=== PATIENT | male | born 1945 | race Caucasian/White ===

== ENCOUNTER 2022-11-03 09:22 | Outpatient (OUT) | payer MEDICARE, OTHER, SELFPAY ==
[2022-11-03 09:51] LABS: Basophils Absolute Auto 0.1 10^3/uL (0.0-0.1); Basophils Percent Auto 1.6 % (0.2-2.0); Eosinophils Absolute Auto 0.5 10^3/uL (0.0-0.7); Eosinophils Percent Auto 10.5 % (0.9-7.0); Hematocrit 40.5 % (42.0-54.0); Hemoglobin 14.3 g/dL (14.0-18.0); Immature Granulocytes Abs Auto 0.01 10^3/uL (0.00-0.03); Immature Granulocytes Pct Auto 0.2 % (0.0-0.5); Lymphocytes Percent Auto 24.1 % (20.5-60.0); Mean Corpuscular HGB Conc 35.3 g/dL (29.9-35.2); Mean Corpuscular Hemoglobin 31.9 pg (25.9-34.0); Mean Corpuscular Volume 90.4 fL (80.0-94.0); Mean Platelet Volume 8.4 fL (9.5-13.5); Monocytes Absolute Auto 0.5 10^3/uL (0.3-0.8); Neutrophils Absolute Auto 2.3 10^3/uL (1.4-6.5); Neutrophils Percent Auto 52.6 % (43.0-75.0); Platelet Count 228 10^3/uL (150-450); Red Blood Count 4.48 10^6/uL (4.70-6.10); Red Cell Distribution Width 12.4 % (11.0-15.0); White Blood Count 4.3 10^3/uL (4.0-11.0)
[2022-11-03 10:21] LABS: Estimated Average Glucose 111 mg/dL; Glycohemoglobin A1C 5.5 % (4.5-6.2)
[2022-11-03 12:15] LABS: Alanine Aminotransferase 22 U/L (16-63); Albumin Globulin Ratio 1.4; Albumin Level 3.9 g/dL (3.4-5.0); Alkaline Phosphatase 52 U/L (46-116); Anion Gap 10.2; Aspartate Amino Transferase 13 U/L (15-37); Bilirubin Total 1.2 mg/dL (0.2-1.0); Calcium 8.9 mg/dL (8.5-10.1); Carbon Dioxide 30.2 mmol/L (21.0-32.0); Chloride 97 mmol/L (98-107); Cholesterol 173 mg/dL (<=200); Estimated GFR (African America >60 (>=60); Estimated GFR (Non-African Ame >60 (>=60); Globulin 2.8 g/dL; Glucose 98 mg/dL (74-106); HDL Cholesterol 43 mg/dL (40-60); Potassium 4.4 mmol/L (3.5-5.1); Sodium 133 mmol/L (136-145); Thyroid Stimulating Hormone 1.164 uIU/mL (0.358-3.740); Total Protein 6.7 g/dL (6.4-8.2); Triglycerides 140 mg/dL (<=150)
[2022-11-03 15:53] LABS: Free T4 0.98 ng/dL (0.76-1.46)
[2022-11-04 04:07] LABS: Triiodothyronine (T3) 141 ng/dL (71-180)
== END 2022-11-03 09:23 | disposition home or self-care (01) ==
LOC: LAB 09:28
PROVIDERS: PCP Family Medicine; Visit Provider Family Medicine
DX: E03.9 Hypothyroidism, unspecified (principal); R73.9 Hyperglycemia, unspecified; E78.5 Hyperlipidemia, unspecified; Z79.899 Other long term (current) drug therapy
CPT/HCPCS: 36415; 80053; 80061; 83036; 84439; 84443; 84480; 85025

== ENCOUNTER 2024-05-31 07:20 | Outpatient (OUT) | payer MEDICARE, OTHER, SELFPAY ==
[2024-05-31 07:56] LABS: Basophils Absolute Auto 0.1 10^3/uL (0.0-0.1); Basophils Percent Auto 1.8 % (0.2-2.0); Eosinophils Absolute Auto 0.4 10^3/uL (0.0-0.7); Eosinophils Percent Auto 8.4 % (0.9-7.0); Hematocrit 41.5 % (42.0-54.0); Hemoglobin 14.5 g/dL (14.0-18.0); Immature Granulocytes Abs Auto 0.01 10^3/uL (0.00-0.03); Immature Granulocytes Pct Auto 0.2 % (0.0-0.5); Lymphocytes Absolute Auto 0.9 10^3/uL (1.2-3.8); Lymphocytes Percent Auto 20.4 % (20.5-60.0); Mean Corpuscular HGB Conc 34.9 g/dL (29.9-35.2); Mean Corpuscular Hemoglobin 32.3 pg (25.9-34.0); Mean Corpuscular Volume 92.4 fL (80.0-94.0); Mean Platelet Volume 8.9 fL (9.5-13.5); Monocytes Absolute Auto 0.5 10^3/uL (0.3-0.8); Monocytes Percent Auto 11.8 % (1.7-12.0); Neutrophils Absolute Auto 2.5 10^3/uL (1.4-6.5); Neutrophils Percent Auto 57.4 % (43.0-75.0); Platelet Count 222 10^3/uL (150-450); Red Blood Count 4.49 10^6/uL (4.70-6.10); Red Cell Distribution Width 12.2 % (11.0-15.0); White Blood Count 4.4 10^3/uL (4.0-11.0)
[2024-05-31 08:09] LABS: Bilirubin Urine NEGATIVE (NEGATIVE); Blood Urine NEGATIVE (NEGATIVE); Clarity Urine CLEAR (CLEAR); Color Urine LT. YELLOW (YELLOW); Glucose Urine UA NEGATIVE (NEGATIVE); Ketones Urine NEGATIVE (NEGATIVE); Leukocyte Esterase Urine NEGATIVE (NEGATIVE); Nitrite Urine NEGATIVE (NEGATIVE); Protein Urine NEGATIVE (NEG/TRACE); Urobilinogen Urine 0.2 EU/dL (0.2-1.0); pH Urine 6.5 (5.0-9.0)
[2024-05-31 08:14] LABS: Estimated Average Glucose 105 mg/dL; Glycohemoglobin A1C 5.3 % (4.5-6.2)
[2024-05-31 08:44] LABS: Free T4 1.03 ng/dL (0.76-1.46)
[2024-05-31 08:49] LABS: Alanine Aminotransferase 20 U/L (16-63); Albumin Globulin Ratio 1.5; Alkaline Phosphatase 63 U/L (46-116); Anion Gap 9.8; Aspartate Amino Transferase 19 U/L (15-37); BUN Creatinine Ratio 14.9; Bilirubin Total 1.4 mg/dL (0.2-1.0); Calcium 8.9 mg/dL (8.5-10.1); Carbon Dioxide 30.2 mmol/L (21.0-32.0); Chloride 100 mmol/L (98-107); Chol HDL Ratio 2.4; Cholesterol 132 mg/dL (<=200); Estimated GFR (African America >60 (>=60 mL/min/1.73m^2); Estimated GFR (Non-African Ame >60 (>=60 mL/min/1.73m^2); Free T3 3.12 pg/mL (2.18-3.98); Globulin 2.7 g/dL; Glucose 93 mg/dL (74-106); HDL Cholesterol 55 mg/dL (40-60); Sodium 136 mmol/L (136-145); Thyroid Stimulating Hormone 2.338 uIU/mL (0.358-3.740); Total Protein 6.7 g/dL (6.4-8.2); Triglycerides 60 mg/dL (<=150)
[2024-05-31 09:17] LABS: Bacteria Urine TRACE #/HPF (NONE SEEN); Cast Seen? NONE SEEN #/LPF (NONE SEEN); Crystals Seen? None Seen #/HPF (None Seen); Mucus Urine NONE SEEN (NONE SEEN); RBC Urine NONE SEEN #/HPF (0-2); Squamous Epithelial Cell Urine NONE SEEN #/LPF (NONE/RARE); WBC Urine 0-2 #/HPF (NONE SEEN)
[2024-06-01 06:08] LABS: Insulin 8.3 uIU/mL (2.6-24.9)
[2024-06-01 08:09] LABS: PSA, Free 0.77 ng/mL; Prostate Specific Ag 3.2 ng/mL (0.0-4.0)
== END 2024-05-31 07:21 | disposition home or self-care (01) ==
LOC: LAB 07:20
PROVIDERS: PCP Family Medicine; Visit Provider Family Medicine
DX: Z79.899 Other long term (current) drug therapy (principal); R97.20 Elevated prostate specific antigen [PSA]; E78.5 Hyperlipidemia, unspecified; R73.9 Hyperglycemia, unspecified; E03.9 Hypothyroidism, unspecified; R35.1 Nocturia
CPT/HCPCS: 36415; 80053; 80061; 81001; 83036; 83525; 84153; 84154; 84439; 84443; 84481; 85025; 87086

== ENCOUNTER 2024-08-21 11:05 | Outpatient (REF) | payer MEDICARE, OTHER, SELFPAY ==
--- OUTSIDE RECORDS SUMMARY | 2024-08-21 11:31 | XMS_ITS | Clinical Summary ---
Author Organization [facility] Address [address] [place] [address] Care Team Providers Care Technology Analyst Name Role Phone Guido Wells DO Primary Care Provider [phone] Allergies No known active allergies Medications levothyroxine (SYNTHROID, LEVOTHROID) 50 MCG tablet 3 Active levothyroxine (SYNTHROID, LEVOTHROID) 50 MCG tablet 2 Active rosuvastatin (CRESTOR) 5 MG tablet 3 Active famotidine (PEPCID) 10 MG tablet every 12 (twelve) hours . Active melatonin 10 mg Tab Take by mouth . Acti ve melatonin 5 mg Tab Take 2 (two) tablets (10 mg total) by mouth nightly . Active glucosamine-cho ndroitin 500-400 mg tablet Take 1 (one) tablet by mouth 3 (three) times a day . Active ascorbic acid, vitamin C, (vitamin C) 1000 MG tablet Take 1 (one) tablet (1,000 mg total) by mouth daily . Active cholecalciferol , vitamin D3, 1,000 unit tablet Take 1 (one) tablet (1,000 Units total) by mouth daily . Active calcium carbonate (OS-KEY) 600 mg calcium (1,500 mg) tablet Take 1 (one) tablet (600 mg total) by mouth 2 (two) times a day with meals . Active phytonadione, vit K1, (phytonadione, vitamin K1,) 100 mcg tablet Take 1 (one) tablet (100 mcg total) by mouth daily . Active zinc gluconate 50 mg tablet Take 1 (one) tablet (50 mg total) by mouth daily . Active MULTIVIT,[id number]- [id number] ORAL Take by mouth . Acti ve liothyronine (CYTOMEL) 5 MCG tablet Take 1 (one) tablet (5 mcg total) by mouth daily . 2 Active cetirizine 10 mg cap Take 1 (one) capsule (10 mg total) by mouth . Active fluticasone propionate (FLONASE) 50 mcg/actuation nasal spray Fluticasone Propionate Active 2 SPRAY INTRANASAL Daily March 22, 2017 1:00am 2 Active Active Problems Problem Noted Date Diagnosed Date Osteoporosis 01/03/2023 Encounters Date Type Department Care Team Description 07/12/2024 10:00 AM EDT Infusion/Inject ion [facility] Computer Software Engineer [address] [place] [phone] Mohan Frost MD Osteoporosis, unspecified osteoporosis type, unspecified pathological fracture presence (Primary Dx) Discharge Disposition: Home 07/11/2024 Travel 07/03/2024 10:45 AM EDT Office Visit [facility] [address] [facility] [place] [address] Mohan Frost MD Osteoporosis, unspecified osteoporosis type, unspecified pathological fracture presence (Primary Dx) 07/03/2024 Travel from Last 3 Months Family History Medical History Relation Comments Hypertension Father Regulated minir Thyroid disease Father Surgery Cancer Mother Bladder and kidn ey cancer Osteoporosis Sister Not serious no r x mediations Relation Status Comments Father Mother Sister Social History Tobacco Use Types Packs/Day Years Used Date Smoking Tobacco: Never Smokeless Tobacco: Never Alcohol Use Standard Drinks/Week Comments Not Currently 0 (1 standard drink = 0.6 oz pur e alcohol) Sex and Gender Information Value Date Recorded Sex Assigned at Not on file Legal Sex Male 11:00 AM EDT Gender Identity Not on file Sexual Orientation Not on file Last Filed Vital Signs Vital Sign Reading Time Taken Comments Blood Pressure 159/79 07/12/2024 9:45 AM EDT Pulse 76 07/12/2024 9:45 AM EDT Temperature 36.7 C (98 F) 07/12/2024 9:45 AM EDT Respiratory Rate 16 07/12/2024 9:45 AM EDT Oxygen Saturation 97% 07/12/2024 9:45 AM EDT Inhaled Oxygen Concentration - - Weight 65.3 kg (144 lb) 07/03/2024 10:24 AM EDT Height 169.5 cm (5' 6.75 ) 07/03/2024 10:24 AM E DT no shoes Body Mass Index 22.72 07/03/2024 10:24 AM EDT Plan of Treatment Upcoming Encounters Date Type Department Care Team (Late st Contact Info) Description 01/14/2025 9:30 AM EST Infusion/Injectio n [facility] Computer Software Engineer [address] [place] [phone] 07/05/2025 10:15 AM EDT Office Visit [facility] [address] [facility] [place] [address] Mohan Frost MD [address] [place] [id number] Health Maintenance Due Date Last Done Comments Medicare Wellness Visit 1948 Depression Screening/Follow- Up (PHQ-2/9) 1957 Hepatitis C Screening 1963 Falls Risk Assessment 2010 Respiratory Syncytial Virus Immunization: Risk, 60-74 Risk, or 75+ (1 - 1-dose 75+ series) 2020 Pneumococcal Vaccine: Age 50 + (2 of 2 - PCV) 11/04/2021 11/04/2020 COVID-19 Vaccine ( season) 2024 12/15/2023, 06/06/2023, 12/22/2022, Additional history exists Tetanus: Every 10yrs 02/27/2031 02/27/2021, 08/08/2015, 05/20/2010 Zoster Vaccines Completed 10/08/2020, 07/13, 05/20/2010 Influenza Vaccine Completed 12/01/2023, , 11/05/2021, Additional history exists Procedures Procedure Name Priority Date/Time Associated Diagnosis Comments CREATININE, SERUM Routine 07/03/2024 11: 45 AM EDT Osteoporosis, unspecified osteoporosis type, unspecified pathological fracture presence CALCIUM Routine 07/03/2024 11:45 AM EDT Osteoporosis, unspecified osteoporosis type, unspecified pathological fracture presence ALBUMIN Routine 07/03/2024 11:45 AM EDT Osteoporosis, unspecified osteoporosis type, unspecified pathological fracture presence from Last 3 Months Results * (ABNORMAL) Creatinine, serum (07/03/2024 11:45 AM EDT) Creatinine ([facility]) 0.67(L) 0.70 - 1.28 mg/dL [facility] eGFR ([facility]) 95 > OR = 60 mL/min/1.7 3m2 [facility] Blood BLOOD SPECIMEN / Unknown 07/03/2024 11:45 AM EDT 07/03/2024 11:45 AM EDT Narrative [facility] - 07/04/2024 4:23 AM EDT FASTING:NO FASTING: NO us Mohan Frost MD LAB BLOOD ORDERABLE S Final Result Performing Organization Address [facility] Co de Phone Number [facility] [address] [phone], * Calcium (07/03/2024 11:45 AM EDT) Calcium ([facility]) 8.8 8.6 - 10.3 mg/dL [facility] Blood BLOOD SPECIMEN / Unknown 07/03/2024 11:45 AM EDT 07/03/2024 11:45 AM EDT Narrative [facility] - 07/04/2024 4:23 AM EDT FASTING:NO FASTING: NO us Mohan Frost MD LAB BLOOD ORDERABLE S Final Result Performing Organization Address City/[facility]/ZIP Co de Phone Number [place] [address], [place] * Albumin (07/03/2024 11:45 AM EDT) Albumin, Serum ([facility]) 4.3 3.6 - 5.1 g/dL [facility] Blood BLOOD SPECIMEN / Unknown 07/03/2024 11:45 AM EDT 07/03/2024 11:45 AM EDT Narrative [facility] - 07/04/2024 4:23 AM EDT FASTING:NO FASTING: NO us Mohan Frost MD LAB BLOOD ORDERABLE S Final Result [facility] [address] [place] [address], [place] from Last 3 Months Insurance MEDICARE PART A & B PART A CLAIMS [address] [address] [place] [address] [facility] MEDICARE PART A & B PART A CLAIMS [address] [address] [place] [address] [facility] Care Teams Technology Analyst Relationship Specialty Start Date End Date Guido Wells DO [address] [place] [address] PCP - General Family Medicine 06/30/23
--- OUTSIDE RECORDS SUMMARY | 2024-08-21 11:31 | XMS_ITS | Clinical Summary ---
Author Organization [facility] Address [id number] [address] [place] [address] Care Team Providers Care Proof Operator Name Role Phone Unavailable Primary Care Provider Unavailabl e Allergies No known active allergies Medications levothyroxine (SYNTHROID, LEVOTHROID) 50 MCG tablet 3 Active liothyronine (CYTOMEL) 5 MCG tablet 3 Active rosuvastatin (CRESTOR) 5 mg tablet 3 Active fluocinonide (LIDEX) 0.05 % ointment Apply 1 Application topically in the morning and 1 Application before bedtime. Active denosumab (PROLIA SUBQ) Inject under the skin. Active diphenhydramine HCl (BENADRYL ALLERGY ORAL) Take by mouth. A ctive glucosamine HCl/chondroitin tong (GLUCOSAMINE-CH ONDROITIN ORAL) Take by mouth. Active ascorbic acid, vitamin C, (VITAMIN C) 1000 mg tablet Take 1 tablet (1,000 mg total) by mouth in the morning. Active cholecalciferol , vitamin D3, (VITAMIN D3 ORAL) Take by mouth. Activ e zinc gluconate 50 mg tablet Take 1 tablet (50 mg total) by mouth in the morning. Active coenzyme Q10 50 mg capsule Take by mouth daily. Active multivitamin capsule Take 1 capsule by mouth in the morning. Active CALCIUM CITRATE ORAL Take by mouth. Activ e magnesium 200 mg tablet Take by mouth. Activ e melatonin 10 mg tablet Take by mouth. Activ e Active Problems Problem Noted Date Diagnosed Date Elevated PSA 07/20/2022 Overview (07/20/2022): 07/20/22: Patient's PSA did increase to 2.1 from 1.66. He has a normal prostate exam. Discussed PSA and some limitations. Given the PSA velocity this does not concern me as it is less than 0.75 per year. Coupled with this the patient did have COVID which falsely elevate PSA in many patients. Would recommend continuing to check this annually Social History Tobacco Use Types Packs/Day Years Used Date Smoking Tobacco: Never Smokeless Tobacco: Never Tobacco Cessation:Counseling Given: Not Answered Alcohol Use Standard Drinks/Week Comments Yes 0 (1 standard drink = 0.6 oz pur e alcohol) Hunger Screening Answer Date Recorded Within the past 12 months we worried whether our food would run out before we got money to buy more. Never True 07/20/2022 Within the past 12 months th e food we bought just didn't last and we didn't have money to get more. Never True 07/20/2022 Sex and Gender Information Value Date Recorded Sex Assigned at Not on file Legal Sex Male 10:41 AM EST Gender Identity Not on file Sexual Orientation Not on file Last Filed Vital Signs Vital Sign Reading Time Taken Comments Blood Pressure 146/79 07/20/2022 2:06 PM EDT Pulse 67 07/20/2022 2:06 PM EDT Temperature - - Respiratory Rate - - Oxygen Saturation - - Inhaled Oxygen Concentration - - Weight 68 kg (150 lb) 07/20/2022 2:06 PM EDT Height 175.3 cm (5' 9 ) 07/20/2022 2:06 PM EDT Body Mass Index 22.15 07/20/2022 2:06 PM EDT Plan of Treatment Health Maintenance Due Date Last Done Comments Depression Screening 1957 Tobacco Screening 1957 Fall Risk Screening 2010 COVID-19 Vaccine (2023-2 5 season) 2023 12/03/2021, 07/17/2021, 01/02/2021, Additional history exists Influenza Vaccine 11/12/2024 11/05/2021, , 12/14/2018, Additional history exists DTaP,Tdap and Td Vaccines (4 - Td or Tdap) 02/27/2031 02/27/2021, 08/08/2015, 05/20/2010 Zoster (Shingles) Vaccine Completed 2020, 08/08/2020, 05/20/2010 Medical Devices Not on file Insurance [employer]
--- OUTSIDE RECORDS SUMMARY | 2024-08-21 11:31 | XMS_ITS | Clinical Summary ---
Author Organization [facility] Address [address] [place] [address] Care Team Providers Care Block Cleaner Name Role Phone Guido Wells MD Primary Care Provider [phone] Allergies Active Allergy Reactions Criticality Noted Date Comments Octacosanol 09/30/2015 Medications ascorbic acid (Vitamin C) 1000 MG tablet Take 1,000 mg by mouth in the morning. Active Cetirizine HCl 10 MG capsule Take 10 mg by mouth Active coenzyme Q-10 50 MG capsule Take by mouth in the morning. Active famotidine (Pepcid) 10 MG tablet every 12 (twelve) hours Active fluocinonide (Lidex) 0.05 % ointment Apply 1 application topically in the morning and 1 application in the evening. 3 Active levothyroxine (Synthroid, Levoxyl) 50 MCG tablet 3 Active liothyronine (Cytomel) 5 MCG tablet 3 Active rosuvastatin (Crestor) 5 MG tablet 3 Active zinc gluconate 50 MG tablet Take 50 mg by mouth in the morning. Active Active Problems Problem Noted Date Diagnosed Date Cervical spondylosis with radiculopathy 09/21/19 24 Degeneration of lumbar intervertebral disc 09/20 Impingement syndrome of left shoulder 09/21/2023 Inflammation of joint of right shoulder region 0 09/21/2023 Lumbosacral spondylosis without myelopathy 09/20 Osteoarthritis of right acromioclavicular joint 09/21/2023 Osteoporosis 01/03/2023 Elevated PSA 07/20/2022 Overview (09/21/2023): 07/20/22: Patient's PSA did increase to 2.1 from 1.66. He has a normal prostate exam. Discussed PSA and some limitations. Given the PSA velocity this does not concern me as it is less than 0.75 per year. Coupled with this the patient did have COVID which falsely elevate PSA in many patients. Would recommend continuing to check this annually Lens replaced 02/11/2015 Posterior vitreous detachment 02/11/2015 History of vitrectomy 04/11/2014 Old retinal detachment, partial 04/11/2014 Retinal layer separation 06/06/2012 Senile cataract 12/01/2011 OA (osteoarthritis) of knee 11/11/2011 Retinal detachment with retinal defect 2 Primary localized osteoarthrosis, hand 9 Contracture of palmar fascia 04/25/2008 Trigger finger, acquired 04/25/2008 Encounters Date Type Department Care Team Description 07/18/2024 12:50 PM EDT Office Visit [facility] [address] [place] [address] Nicole Montana PA Seborrheic keratosis (Primary Dx); Melanocytic nevus of trunk; Dermatofibroma of right lower extremity; Actinic keratosis; Inflamed seborrheic keratosis 07/18/2024 Bamboo flowsheet [facility] [address] [place] [address] Nicole Montana PA 07/18/2024 Travel from Last 3 Months Immunizations Immunization Administration Dates Next Due Influenza, High Dose Seasona l, Preservative Free 12/01/2023,12/01/2016 Influenza, High-dose Seasona l, Quadrivalent, Preservative Free 11/04/2020 Influenza, Seasonal, Quadriv alent, Adjuvanted 10/28/2022,11/05/2021 Influenza, seasonal, injectable 12/12/2017 Influenza, trivalent, adjuvanted 12/14/2018 Pneumococcal Polysaccharide PPSV23 11/04/2020 RSV, recombinant, protein tong bunit RSVpreF, adjuvant reconstitu, 120mcg/0.5mL, PF (Arexvy) 12/17/2022 Tdap 02/27/2021,08/08/2015,05/20/2010 Zoster, Recombinant 10/08/2020,08/08/2020 Zoster, live 05/20/2010 Family History Relation Name Status Comments Daughter x 6 Alive Father Mother Social History Tobacco Use Types Packs/Day Years Used Date Smoking Tobacco: Never Smokeless Tobacco: Never Tobacco Cessation:Counseling Given: Not Answered Alcohol Use Standard Drinks/Week Comments Not Currently 0 (1 standard drink = 0.6 oz pur e alcohol) Sex and Gender Information Value Date Recorded Sex Assigned at Not on file Legal Sex Male 7:20 PM EDT Gender Identity Not on file Sexual Orientation Not on file Last Filed Vital Signs Vital Sign Reading Time Taken Comments Blood Pressure 144/77 11/22/2023 10:53 AM EDT Pulse 74 11/22/2023 10:53 AM EDT Temperature - - Respiratory Rate 16 11/22/2023 10:53 AM EDT Oxygen Saturation 98% 06/21/2022 10:18 AM EDT Inhaled Oxygen Concentration - - Weight 65.8 kg (145 lb) 11/22/2023 10:53 AM EDT Height 172.7 cm (5' 8 ) 11/22/2023 10:53 AM EDT Body Mass Index 22.05 11/22/2023 10:53 AM EDT Plan of Treatment Upcoming Encounters Date Type Department Care Team (Late st Contact Info) Description 07/17/2025 10:20 AM EDT Office Visit [facility] [address] [place] [address] Nicole Montana, [place] [address] [place] [address] Health Maintenance Due Date Last Done Comments Pneumococcal Vaccine: 65+ Ye ars (2 of 2 - PCV) 11/04/2021 11/04/2020 Influenza Vaccine Completed 12/01/2023, , 11/05/2021, Additional history exists Procedures Procedure Name Priority Date/Time Associated Diagnosis Comments CRYOTHERAPY SKIN LESION Routine 07/19/19 12:58 PM EDT Inflamed seborrheic keratosis CRYOTHERAPY SKIN LESION Routine 07/19/19 12:57 PM EDT Actinic keratosis from Last 3 Months Results * Cryotherapy, skin lesion (07/18/2024 12:58 PM EDT) Nicole HUERTA DERM PROCEDURE ORDERABLES Fin al Result * Cryotherapy, skin lesion (07/18/2024 12:57 PM EDT) Nicole HUERTA DERM PROCEDURE ORDERABLES Fin al Result from Last 3 Months Insurance [employer] Care Teams Block Cleaner Relationship Specialty Start Date End Date Guido Wells MD [address] [place] [phone] PCP - General Family Medicine 09/21/23
--- OUTSIDE RECORDS SUMMARY | 2024-08-21 11:31 | XMS_ITS | Encounter Summary ---
Author Organization [facility] Address [address] [place] [address] Care Team Providers Care Installation Drafter Name Role Phone Guido Wells Primary Care Provider [phone] Source Comments In the event this information is protected by the Federal Confidentiality of Alcohol and Drug AbusePatient Records regulations: The Federal rules restrict any use of the information to criminally investigate or prosecute any alcohol or drug abuse patient.[facility] Encounter Details Date Type Department Care Team (Late st Contact Info) Description 06/16/2022 Lab Requisition [facility] [place] [address] Cesar Connors MD [address] [facility] [address] [place] [address] Social History Tobacco Use Types Packs/Day Years Used Date Smoking Tobacco: Never Smokeless Tobacco: Never Alcohol Use Standard Drinks/Week Comments Yes 0 (1 standard drink = 0.6 oz pur e alcohol) periodically Sex and Gender Information Value Date Recorded Sex Assigned at Not on file Legal Sex Male 8:57 AM EST Gender Identity Not on file Sexual Orientation Not on file documented as of this encounter Plan of Treatment Not on file documented as of this encounter Procedures Procedure Name Priority Date/Time Associated Diagnosis Comments CROSS-LINK N-TELOPEPTIDES Routine 06/16/2022 8:20 AM EDT documented in this encounter Results * CROSS-LINK N-TELO BL (06/16/2022 8:20 AM EDT) Cross-Link N-Telopeptide, Blood 6.5 5.4 - 24.2 nM BCE 07/06/2022 7:48 AM EDT [facility] Comment: BCE = Bone Collagen Equivalents Test performed at [facility] Blood BLOOD SPECIMEN / Unknown 06/16/2022 8:20 AM EDT 06/16/2022 11:41 PM EDT us Cesar Connors MD LABORATORY Final Result [facility] [address] documented in this encounter Visit Diagnoses Not on filedocumented in this encounter Care Teams Installation Drafter Relationship Specialty Start Date End Date Guido Wells DO PCP - General Family Medicine 08/17/10 documented as of this encounter
--- OUTSIDE RECORDS SUMMARY | 2024-08-21 11:31 | XMS_ITS | Clinical Summary ---
Author Organization [facility] Address [address] [place] [address] Care Team Providers Care Business Development Manager Name Role Phone Guido Wells DO Primary Care Provider Unavail able Social History Tobacco Use Types Packs/Day Years Used Date Smoking Tobacco: Never Assessed Sex and Gender Information Value Date Recorded Sex Assigned at Not on file Legal Sex Male 7:31 PM EST Gender Identity Not on file Sexual Orientation Not on file Plan of Treatment Health Maintenance Due Date Last Done Comments Depression Screen 1957 Hepatitis C screen 1963 Respiratory Syncytial Virus (RSV) or age 60 yrs+ (1 - 1-dose 75+ series) 2020 Pneumococcal 50+ years Vaccine (2 of 2 - PCV) 11/04/2021 11/04/2020 Annual Wellness Visit (Medicare) 02/07/2023 COVID-19 Vaccine (3 - season) 2023 05/09/2020, 04/11/2020 Flu vaccine (Season Ended) 10/12/202411/04, 12/14/2018, 12/01/2016 DTaP/Tdap/Td vaccine (3 - Td or Tdap) 08/07/2025 08/08/2015, 05/20/2010 Shingles vaccine Completed 10/08/2020, , 05/20/2010 Lipids Discontinued 10/20/2021, 04/2021, 10/08/2020, Additional history exists Hepatitis A vaccine Aged Out No longe r eligible based on patient's age to complete this topic Hepatitis B vaccine Aged Out No longe r eligible based on patient's age to complete this topic Hib vaccine Aged Out No longer eligi ble based on patient's age to complete this topic Meningococcal (ACWY) vaccine Aged Out No longer eligible based on patient's age to complete this topic Meningococcal B vaccine Aged Out No l onger eligible based on patient's age to complete this topic Polio vaccine Aged Out No longer elig ible based on patient's age to complete this topic Procedures Procedure Name Priority Date/Time Associated Diagnosis Comments LIPID PANEL Routine 10/20/2021 8:24 AM EDT from Last 3 Months or Most Recently Relevant to Health Maintenance Results * (ABNORMAL) Lipid Panel (10/20/2021 8:24 AM EDT) Cholesterol 180 <200 mg/dL 10/20/2021 8:24 AM EDT [facility] Comment: Cholesterol Guidelines: <200 Desirable 200-240 Borderline >240 Undesirable HDL 46 >40 mg/dL 10/20/2021 8:24 AM EDT [facility] Comment: HDL Guidelines: <40 Undesirable 40-59 Borderline >59 Desirable LDL Cholesterol 103 0 - 130 mg/dL 10/20/2021 8:24 AM EDT [facility] Comment: LDL Guidelines: <100 Desirable 100-129 Near to/above Desirable 130-159 Borderline >159 Undesirable Direct (measured) LDL and calculated LDL are not interchangeable tests. Chol/HDL Ratio 3.9 <5 10/20/2021 8:24 AM EDT [facility] Comment: Triglycerides 156(H) <150 mg/dL 10/20/2021 8:24 AM EDT [facility] Comment: Triglyceride Guidelines: <150 Desirable 150-199 Borderline 200-499 High >499 Very high Based on AHA Guidelines for fasting triglyceride, December 2011. 10/20/2021 8:24 AM EDT 10/20/2021 8:25 AM EDT Guido Wells DO CHEMISTRY ORDERABLES Final Res ult [facility] [address] [place] [address], [facility] [phone] [facility] [place] [id number], [facility] [phone] from Last 3 Months or Most Recently Relevant to Health Maintenance Insurance [address] [place] [address] [employer] Care Teams Business Development Manager Relationship Specialty Start Date End Date Guido Wells DO [address] [place] [address] PCP - General 01/25/12
--- OUTSIDE RECORDS SUMMARY | 2024-08-21 11:31 | XMS_ITS | Clinical Summary ---
Author Organization [facility] Address [address] [place], [place] [id number] Care Team Providers Care Corset Fitter Name Role Phone Guido Wells DO Primary Care Provider [phone] Allergies No known active allergies Medications aspirin, enteric coated (ECOTRIN LOW STRENGTH) 81 mg ORAL EC tablet Take 1 tablet by mouth once daily. 0 07/13/2011 Active omega-3 fatty acids 1,000 mg ORAL Cap Take 1 capsule by mouth once daily. 0 07/13/2011 Active calcium citrate-vitamin D3 (CITRACAL + D) 315-200 mg-unit ORAL Tab Take 2 tablets by mouth twice daily. 0 07/13/2011 Active Cholecalciferol , Vitamin D3, (VITAMIN D) 1,000 unit ORAL Cap Take 1 capsule by mouth once daily. 0 07/13/2011 Active B Complex Vitamins (B COMPLEX) ORAL TbER Take 1 tablet by mouth once daily. 0 07/13/2011 Active loratadine 10 mg ORAL tablet Take 1 tablet by mouth once daily. 0 07/13/2011 Active fluticasone 50 mcg/actuation NASAL nasal spray Use 1 [place] in each nostril daily at bedtime. 0 07/13/2011 Active levothyroxine 50 mcg ORAL tablet Take 1 tablet by mouth once daily. 0 07/13/2011 Active liothyronine 5 mcg ORAL tablet Take 1 tablet by mouth once daily. 0 07/13/2011 Active niacin 1,000 mg TbER Take 1 tablet by mouth once daily. 0 06/06/2012 Active Active Problems Problem Noted Date Diagnosed Date Posterior vitreous detachment 02/11/2015 Lens replaced 02/11/2015 Old retinal detachment, partial - Right Eye 03/15 History of vitrectomy - Right Eye 04/11/2014 Lens replaced by other means - Both Eyes 015 Retinal layer separation, unspecified 06/06/2012 Senile cataract, unspecified 12/01/2011 OA (osteoarthritis) of knee 11/11/2011 Retinal detachment with retinal defect, unspecif ied 07/13/2011 Family History Medical History Relation Comments None Father Cancer Mother Relation Status Comments Father Mother Social History Tobacco Use Types [...] Sign Reading Time Taken Comments Blood Pressure 135/69 06/21/2012 10:56 AM EDT Pulse 61 06/21/2012 10:56 AM EDT Temperature 36.6 C (97.8 F) 06/21/2012 10:56 AM EDT Respiratory Rate 16 06/21/2012 10:56 AM EDT Oxygen Saturation 97% 06/21/2012 10:56 AM EDT Inhaled Oxygen Concentration - - Weight 70.3 kg (155 lb) 06/21/2012 8:43 AM EDT Height 172.7 cm (5' 8 ) 06/06/2012 4:07 PM EDT Body Mass Index 23.57 06/06/2012 4:07 PM EDT Plan of Treatment Health Maintenance Due Date Last Done Comments Anxiety Screening 1963 Depression Screening 1963 DTaP,Tdap,Td Vaccine (1 - Tdap) 1964 Pneumococcal Vaccine: 50+ (1 of 1 - PCV) 1995 Shingrix Vaccine (1 of 2) 1995 Diabetes Screening 06/07/2015 06/06/2012 RSV Vaccine (1 - 1-dose 75+ series) 2020 Covid-19 Vaccine (1 - season) 2023 Advance Directive Discussion 03/14/2024 Influenza Vaccine (Season Ended) 2024 Medical Devices Implanted Type Area Cold Type Composing Machine Operator Device Identifier Shelf Expiration Date Model / Serial / Lot Lens Iol 0 D +16 Rosemary +3 Cyl - [id number] Implanted:Qty : 1 on 12/03/2011 at [facility] Intraocular Lens [employer] [facility] 02/11/2016 [id number] 16.0 / [id number] 20 / Lens Iol +17 Rosemary 1 Pc Fld - [id number] Implanted:Qty : 1 on 12/15/2011 at [facility] Intraocular Lens Left: Eye - Lens [employer] [facility] 05/11/2014 [id number] 17.0 / [id number] 40 / Procedures Procedure Name Priority Date/Time Associated Diagnosis Comments BASIC METABOLIC PANEL Routine 06/06/2012 4:16 PM EDT Other specified pre-operative examination from Last 3 Months or Most Recently Relevant to Health Maintenance Results * (ABNORMAL) BASIC METABOLIC PNL (06/06/2012 4:16 PM EDT) Glucose 100 65 - 100 mg/dL [facility] BUN 11 10 - 25 mg/dL [facility] Creatinine 0.75 0.70 - 1.40 mg/dL [facility] Sodium 133(L) 135 - 146 mmol/L [facility] Potassium 4.1 3.5 - 5.0 mmol/L [facility] Chloride 97(L) 98 - 110 mmol/L [facility] CO2 25 23 - 32 mmol/L [facility] Anion Gap 11 0 - 15 mmol/L [facility] Calcium 9.5 8.5 - 10.5 mg/dL [facility] eGFR- >60 [facility] eGFR-All Other Races >60 . [facility] Comment: eGFR (Estimated GFR) Units of measure: mL/min/1.73 meters squared eGFR is derived from the reexpressed MDRD Study equation using the following parameters: serum creatinine, age, gender and race. The creatinine assay has been calibrated to be traceable to IDMS. An eGFR <60 mL/min/1.73m2 for >3 months is consistent with chronic kidney disease. Refer to KDOQI guidelines for clinical interpretation. Blood specimen (specimen) BLOOD SPECIMEN / Unknown 06/06/2012 4:16 PM EDT 06/06/2012 4:19 PM EDT us Megan Mota [facility] Final Result [facility] [address] [place] [address] from Last 3 Months or Most Recently Relevant to Health Maintenance Insurance MEDICARE [address] Care Teams Corset Fitter Relationship Specialty Start Date End Date Guido Wells DO PCP - General Family Medicine 08/17/10
[2024-08-21 12:06] LABS: Bilirubin Urine NEGATIVE (NEGATIVE); Blood Urine MODERATE (NEGATIVE); Clarity Urine SL CLOUDY (CLEAR); Color Urine LT. YELLOW (YELLOW); Glucose Urine UA NEGATIVE (NEGATIVE); Ketones Urine NEGATIVE (NEGATIVE); Leukocyte Esterase Urine LARGE (NEGATIVE); Nitrite Urine POSITIVE (NEGATIVE); Protein Urine NEGATIVE (NEG/TRACE); Specific Gravity Urine <=1.005 (1.005-1.025); Urobilinogen Urine 0.2 EU/dL (0.2-1.0)
== END 2024-08-21 11:06 | disposition home or self-care (01) ==
LOC: LAB 11:05
PROVIDERS: PCP Family Medicine; Visit Provider Family Medicine
DX: R30.0 Dysuria (principal)
CPT/HCPCS: 81003; 87086; 87088; 87186

== ENCOUNTER 2024-09-03 07:32 | Outpatient (OUT) | payer MEDICARE, OTHER, SELFPAY | END 2024-09-03 07:33 | disposition home or self-care (01) | LOC: LAB 07:37 | PROVIDERS: PCP Family Medicine; Visit Provider Family Medicine | DX: N30.90 Cystitis, unspecified without hematuria (principal) | CPT/HCPCS: 87086; 87088; 87186 ==

== ENCOUNTER 2024-12-13 10:03 | Outpatient (OUT) | payer MEDICARE, OTHER, SELFPAY ==
--- OUTSIDE RECORDS SUMMARY | 2024-12-10 09:26 | XMS_ITS ---
Author Name Auto Generated Organization OHIP Care Team Providers Care Bill Adjuster Name Role Phone HOA JIMÉNEZ Attending Unavailable VIJI SHAH Attending Unavailable VIJI SHAH Referring Unavailable MARCELINA WHITE Primary Care Unavailable VIJI SHAH Attending Unavailable VIJI SHAH Referring Unavailable MARCELINA WHITE Primary Care Unavailable VIJI SHAH Attending Unavailable VIJI SHAH Referring Unavailable MARCELINA WHITE Primary Care Unavailable Marcelina White Attending Unavailable Marcelina White Admitting Unavailable Marcelina White Attending Unavailable Marcelina White Admitting Unavailable Marcelina White Admitting Unavailable Marcelina White Attending Unavailable MARCELINA WHITE Primary Care Unavailable MOHAN FROST Attending Unava ilable MARCELINA WHITE Primary Care Unavailable MARCELINA WHITE Primary Care Unavailable MOHAN FROST Referring Unava ilable MOHAN FROST Admitting Unava ilable CINDY MARCELINA Garay Primary Care Unavailable RADHAY, MOHAN DORSEY Referring Unava ilable ADLY, MOHAN DORSEY Admitting Unava ilable PROBLEMS DATE TYPE CONDITION / CODE ATTENDING STATUS [facility] 12/10/2024 Unknown Benign prostatic hyperplasia with lower urinary tract symptoms / N40.1(ICD-10) ALYSSA [facility] 12/10/2024 Unknown Nocturia / R35.1(ICD-10) [facility] Gross hematuria / R31.0(ICD-10) CLAUDETTEDALILA [facility] 12/10/2024 Unknown Encounter for screening for malignant neoplasm of prostate / Z12.5(ICD-10) [facility] Admitting diagnosis Age-related osteoporosis without current pathological fracture / M81.0(ICD-10) [facility] PROCEDURES No Procedure Records Found RESULTS CT UROGRAM Observed: 12/13/2024 3:38 PM Status: F Source: [facility] EXAM: CT UROGRAM HISTORY: 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. 79-year-old male with gross hematuria. COMPARISON: 09/28/2024 renal ultrasound, [place]. No report available. TECHNIQUE: CT examination of [...] glands, gallbladder, and liver. Abdominal wall intact. IMPRESSION: Large cystic lesion in the left prostate, stable compared to prior ultrasound 09/28/2024, [place]. This most likely represents a benign prostatic retention cyst or cystic degeneration within a hyperplastic nodule. Benign mild bladder wall thickening and a few diverticula in the bladder wall less than 1 cm likely due to bladder outlet obstruction. No evidence of urinary tract malignancy or stone. Interpreted by: Silas Castillo Jr., MD Signed by: Silas Castillo Jr., MD 12/13/24 Final result BUN + CREATININE Collected: 9:28 AM Status: F Source: [facility] TYPE CODE TESTS RESULT OUT OF RANGE REFERENCE UNITS LAB BUN(LOINC) BUN (Urea N) 14 8-23 mg/dL LAB CRE(LOINC) Creatinine 0.8 0.7-1.2 mg/dL LAB EGFR(LOINC) eGFR >90 >60 mL/min/1. 73m2 Result Comment: These results are not intended for [...] following therapy that affects renal tubular secretion. Performed By: #### BUNCRT ## ## [facility] [address] [place] [address] Heel Top Lift Splitter: Marcelina Whitney MD #### PSAS #### [address] [place] [address] Heel Top Lift Splitter: Wily Portillo MD PSA, SCREENING Collected: 12/10/2024 9:28 AM Status: F Source: [facility] TYPE CODE TESTS RESULT OUT OF RANGE REFERENCE UNITS LAB PSA(LOINC) Prostatic Spec. Ag 3.79 0.00-4.00 ng/mL Result Comment: The Sharmila E CLIA assay is used. Results obtained with different assay methods cannot be used interchangeably. Performed By: #### BUNCRT ## ## [facility] [address] [place] [address] Heel Top Lift Splitter: Marcelina Whitney MD #### PSAS #### [facility] [address] [place] [address] Heel Top Lift Splitter: Wily Portillo MD URINE CULTURE Observed: 09/03/2024 6:00 AM Status: F Source: [facility] ORGANISM: Escherichia coli ( O:ESCCOL) [place] Count >100,000 Aerobic BAYLEE Charge (NMIC56) SUSCEPTIBILITY ORGANISM: O:ESCCOL ANTIBIOTIC INTERPRETATION BAYLEE Amikacin S <16 Amoxacillin/K Clavulanate S <8 Ampicillin S <8 Ampicillin/Sulbactam S <4 Aztreonam S <4 Cefazolin S <2 Cefepime S <2 Ceftazidime S <1 Ceftazidime/Avibactam S <4 Ceftolozane/Tazobactam S <2 Ceftriaxone S <1 Cefuroxime S <4 Ciprofloxacin S <0.25 Ertapenem S <0.5 Gentamicin S <2 Levofloxacin S <0.5 Meropenem S <1 Meropenem/Vaborbactam S <2 Nitrofurantoin S <32 Piperacillin/Tazobactam S <8 Tetracycline S <4 Tigecycline S <2 Tobramycin S <2 Trimethoprim/Sulfamethoxazole S <0.5 S = SUSCEPTIBLE I = INTERMEDIATE R = RESISTANT BLANK = DATA NOT AVAILABLE, OR DRUG NOT ADVISABLE OR TESTED R* = RESISTANCE DUE TO EXTENDED SPECTRUM BETA-LACTAMASES ESBL = EXTENDED SPECTRUM BETA-LACTAMASE TFG = THYMIDINE-DEPENDENT STRAIN EYAL = BETA-LACTAMASE POSITIVE IB = INDUCIBLE BETA-LACTAMASE. APPEARS IN PLACE OF 'S' WITH SPECIES KNOWN TO POSSESS INDUCIBLE BETA-LACTAMASES. POTENTIALLY THEY MAY BECOME RESISTANT TO ALL B-LACTAM DRUGS. PERFORMED BY: [facility] [address] [place] [address] PATHOLOGIST IT APPLICATION ARCHITECT ATUL ZAVALETA M.D. Performed By: #### CUU #### [address] URINE CULTURE Observed: 08/21/2024 10:00 AM Status: F Source: [facility] ORGANISM: Escherichia coli ( O:ESCCOL) [place] Count >100,000 Aerobic BAYLEE Charge (NMIC56) SUSCEPTIBILITY ORGANISM: O:ESCCOL ANTIBIOTIC INTERPRETATION BAYLEE Amikacin S <16 Amoxacillin/K Clavulanate S <8 Ampicillin S <8 Ampicillin/Sulbactam S <4 Aztreonam S <4 Cefazolin S <2 Cefepime S <2 Ceftazidime S <1 Ceftazidime/Avibactam S <4 Ceftolozane/Tazobactam S <2 Ceftriaxone S <1 Cefuroxime S <4 Ciprofloxacin S <0.25 Ertapenem S <0.5 Gentamicin S <2 Levofloxacin S <0.5 Meropenem S <1 Meropenem/Vaborbactam S <2 Nitrofurantoin S <32 Piperacillin/Tazobactam S <8 Tetracycline S <4 Tigecycline S <2 Tobramycin S <2 Trimethoprim/Sulfamethoxazole S <0.5 S = SUSCEPTIBLE I = INTERMEDIATE R = RESISTANT BLANK = DATA NOT AVAILABLE, OR DRUG NOT ADVISABLE OR TESTED R* = RESISTANCE DUE TO EXTENDED SPECTRUM BETA-LACTAMASES ESBL = EXTENDED SPECTRUM BETA-LACTAMASE TFG = THYMIDINE-DEPENDENT STRAIN EYAL = BETA-LACTAMASE POSITIVE IB = INDUCIBLE BETA-LACTAMASE. APPEARS IN PLACE OF 'S' WITH SPECIES KNOWN TO POSSESS INDUCIBLE BETA-LACTAMASES. POTENTIALLY THEY MAY BECOME RESISTANT TO ALL B-LACTAM DRUGS. PERFORMED BY: [place] [address] PATHOLOGIST IT APPLICATION ARCHITECT ATUL ZAVALETA M.D. Performed By: #### CUU #### [id number] [facility] ALBUMIN Collected: 11:45 AM Status: F Source: [employer] Order Comment: FASTING:NO FASTING: NO TYPE CODE TESTS RESULT OUT OF RANGE REFERENCE UNITS LAB [id number] ALBUMIN 4.3 Normal 3.6-5.1 g/dL Performed By: #### 223, 303, 375 #### [facility] [address], [address] [place] [address] Multiple Effect Evaporator Operator: Tommy Dykes MD CALCIUM Collected: 5 11:45 AM Status: F Source: [facility] TYPE CODE TESTS RESULT OUT OF RANGE REFERENCE UNITS LAB [id number] CALCIUM 8.8 Normal 8.6-10.3 mg/dL Performed By: #### 223, 303, 375 #### [facility] [address], [address] [place] [address] Multiple Effect Evaporator Operator: Tommy Dykes MD CREATININE Collected: 5 11:45 AM Status: F Source: [facility] TYPE CODE TESTS RESULT OUT OF RANGE REFERENCE UNITS LAB [id number] CREATININE 0.67 Low 0.70-1.28 mg/dL LAB [id number] EGFR 95 Normal > OR = 60 mL/min/1. 73m2 Performed By: #### 223, 303, 375 #### [facility] [address], [address] [place] [address] Multiple Effect Evaporator Operator: Tommy Dykes MD PROGRESS Observed: 07/03/2024 10:45 AM Status: COMPLETED Source: [facility] Reason for visit/chief compl aint: OSTEOPOROSIS Date: 07/03/2024 Referring Provider: No ref. provider found Primary Care Provider: Marcelina White DO HPI: Subjective/interval hx: 07/03/2024: Gait assistive devices: no Interim hospitalizations, ED visits, health issues: tooth extraction in 11/2023; healed well with no issues Interim fall or fracture: tripped and fell ~3 weeks ago, no fractures Current bone-active pharmacologic therapy: Prolia since 06/2021 Compliance/taking appropriately: yes, last dose 01/12/2024, upcoming injection scheduled for 07/12/2024 Side effects/concerns: No dental issues, no new MSK pains (apart from arthritis pain), skin infections, injection site issues He gets bilateral R>L thigh pain maybe ~2 times a week, worse with sitting and better with walking/stretching, may last for ~2-3 hours; had same pain even before starting Prolia, not worsening over time. No pains now. -Copay: $zero so far Ca/vit D: takes a combination Ca/vit D3 pil 1200 mg (as carbonate)/5000 units may be 5 days a week, and vit D3 2000 units ~3 days a week, no MVI Physical Therapy/exercise: walking Cigarette smoking: no Alcohol intake: no Background from the initial consult note from 01/03/2023: Mr. Garcia is a 79 y.o. male with hx of hypothyroidism, back fusion (degenerative changes), shoulder surgery, GERD, HLD, osteoporosis. -Osteopenia/osteoporosis was diagnosed at age 55 (year 2000, when he had back surgery and was told that he had fragile bones) There is no hx of personal history of fractures. However, lumbar XR in 08/2020 reported Multilevel endplate degenerative changes with central endplate depression of the superior endplate of L2 and to lesser extent L1 without definite acute fracture line identified . He recalls falling off a ladder (3-4 steps) in 11/2020, but he doesn't recall having a significant trauma prior to that for 1-2 years at least. He has had pharmacologic therapy for osteoporosis/osteopenia. -Fosamax from age 55 (from 2000) for ?a few years for 2-3 cycles each ~2 years with ~1 year holiday in between; doesn't recall how he took it, but was taking regularly, no side effects that he can remember. -Reclast 02/2013, 03/2014, 03/2016, 03/2019; no side effects -Prolia ~06/2021, 12/2021, 06/2022, now shot is overdue. Says it was scheduled for 12/2022 but he missed that as he wanted to switch from Dr. Connors (endocrinology). Compared to historical young adult height of 5' 9 he has had 0.5 height loss. There is no parental history of fractures or osteoporosis. he does not have frequent falls, but has fear of falling, and sometimes has poor balance. Dental issues: no, sees dentist regularly every 6 months GERD/esophageal issues: sometimes has GERD symptoms; ~a couple of times a week, takes famotidine PRN Current food sources of calcium include soy milk daily, cheese/yogurt 3-4 times a week. Supplements: Ca citrate/vit D 315 mg/200mcg takes 2 pills 4 times a week, and vit D3 2,000 units 3-4 times a week, Mg supplements occasionally Current weight bearing exercise includes working around the backyard and walking. (positives are in bold) Contraindications to teriparatide/abaloparatide: prior XRT, cancer in bone (e.g. prior osteosarcoma), Paget's disease of bone, hyperparathyroidism. Cardiac risk factors: personal history of SD, CVA; known coronary or cerebrovascular disease; HTN, DM, cigarettes, family history (?MGF, MGM had stroke in her 70s, not in parents/siblings). (positives are in bold) There is no history of prolonged course of immobilization, hyperthyroidism, nephrolithiasis, hypercalcemia, diabetes mellitus, renal or hepatic failure, malabsorption, eating disorder, ?lactose intolerance, organ transplantation, bariatric or gastric surgery, rheumatoid arthritis. He has gastroesophageal reflux disease and is unaware of hiatal hernia, esophageal diverticulum, stricture, web, ring, or achalasia. There is no history of deep vein thrombosis, pulmonary embolus, coronary artery disease, myocardial infarction, cerebrovascular accident or breast cancer. He does not smoke cigarettes. He occasionally consumes alcohol. He has no history of prolonged course of glucocorticoid, anticonvulsant, heparin, thyroid hormone (LT4 and liothyronine), benzodiazepine, aromatase inhibitor, GnRH agonist, androgen receptor antagonist, lithium, vitamin A. Thiazolidinedione, SSRI use (used to take Zoloft ~ a couple of years ago). No biotin. Review of Systems: as per HPI Medical History: Past Medical History: Diagnosis Date Hypothyroidism Surgical History: Past Surgical History: Procedure Laterality Date Tonsils Family History: Family History Problem Relation Age of Onset Cancer Mother Bladder and kidney cancer Hypertension Father Regulated minir Thyroid disease Father Surgery Osteoporosis Sister Not serious no rx mediations Social History: Social History Socioeconomic History Marital status: Tobacco Use Smoking status: Never Smokeless tobacco: Never Vaping Use Vaping status: Never Used Substance and Sexual Activity Alcohol use: Not Currently Drug use: Never Sexual activity: Never Social Drivers of Health Food Insecurity: No Food Insecurity (07/20/2022) Received from [employer] Hunger Screening Within the past 12 months we worried whether our food would run out before we got money to buy more.: Never True Within the past 12 months the food we bought just didn't last and we didn't have money to get more.: Never True Allergies: No Known Allergies Current Medications: Current Outpatient Medications Medication Sig Dispense Refill ascorbic acid, vitamin C, (vitamin C) 1000 MG tablet Take 1 (one) tablet (1,000 mg total) by mouth daily . (Patient taking differently: Take 0.5 (one-half) tablet (500 mg total) by mouth daily .) calcium carbonate (OS-KEY) 600 mg calcium (1,500 mg) tablet Take 1 (one) tablet (600 mg total) by mouth 2 (two) times a day with meals . cetirizine 10 mg cap Take 1 (one) capsule (10 mg total) by mouth . cholecalciferol, vitamin D3, 1,000 unit tablet Take 1 (one) tablet (1,000 Units total) by mouth daily . (Patient taking differently: Take 2 (two) tablets (2,000 Units total) by mouth daily .) famotidine (PEPCID) 10 MG tablet every 12 (twelve) hours . fluticasone propionate (FLONASE) 50 mcg/actuation nasal spray Fluticasone Propionate Active 2 SPRAY INTRANASAL Daily March 22, 2017 1:00am glucosamine-chondroitin 500-400 mg tablet Take 1 (one) tablet by mouth 3 (three) times a day . levothyroxine (SYNTHROID, LEVOTHROID) 50 MCG tablet levothyroxine (SYNTHROID, LEVOTHROID) 50 MCG tablet liothyronine (CYTOMEL) 5 MCG tablet Take 1 (one) tablet (5 mcg total) by mouth daily . melatonin 5 mg Tab Take 2 (two) tablets (10 mg total) by mouth nightly . rosuvastatin (CRESTOR) 5 MG tablet zinc gluconate 50 mg tablet Take 1 (one) tablet (50 mg total) by mouth daily . melatonin 10 mg Tab Take by mouth . MULTIVIT,[id number] ORAL Take by mouth . (Patient not taking: Reported on 07/03/2024 .) phytonadione, vit K1, (phytonadione, vitamin K1,) 100 mcg tablet Take 1 (one) tablet (100 mcg total) by mouth daily . (Patient not taking: Reported on 07/03/2024 .) No current facility-administered medications for this visit. Physical Exam: Vitals: BP 135/81 (Patient Position: Sitting) Pulse 66 Ht 5' 6.75 Comment: no shoes Wt 65.3 kg (144 lb) BMI 22.72 kg/m , Body mass index is 22.72 kg/m . , Wt Readings from Last 3 Encounters: 07/03/24 65.3 kg (144 lb) 06/29/23 65.7 kg (144 lb 14.4 oz) 01/03/23 65.1 kg (143 lb 8 oz) General/Constitutional: , well-developed and in no distress Mouth/Throat: oropharynx is clear and moist. No exposed bone Musculoskeletal: nomal range of motion, normal muscle mass, no spine/thigh/hip tenderness Neurological: alert and oriented, no focal deficits Psychiatric: appropriate affect Lab/Imaging Data: Lab Results Component Value Date WBC 4.56 05/09/2023 HGB 14.4 05/09/2023 HCT 42.1 05/09/2023 MCV 93.1 05/09/2023 PLT 231 05/09/2023 Lab Results Component Value Date GLUCOSE 99 05/09/2023 NA 132 (L) 05/09/2023 K 4.6 05/09/2023 CL 98 05/09/2023 BUN 11 05/09/2023 CREATININE 0.81 12/15/2023 Lab Results Component Value Date ALT 10 05/09/2023 AST 20 05/09/2023 ALKPHOS 55 05/09/2023 BILITOT 1.4 (H) 05/09/2023 Lab Results Component Value Date TSH 2.12 05/09/2023 Lab Results Component Value Date CALCIUM 9.5 12/15/2023 JONA 4.9 07/27/2023 PHOS 3.0 01/03/2023 Lab Results Component Value Date HGBA1C 5.6 05/09/2023 Lab Results Component Value Date LDLCALC 80 05/09/2023 CHOL 146 05/09/2023 HDL 45 05/09/2023 TRIG 106 05/09/2023 CHOLHDL 3.2 05/09/2023 No results found for: MICROALBUR , [id number] No results found for: CPEPTIDE XR lumbar 08/28/2020: Prior posterior spinal fixation from L3 to S1 without evidence for hardware failure loosening. Multilevel endplate degenerative changes with central endplate depression of the superior endplate of L2 and to lesser extent L1 without definite acute fracture line identified. Osteopenia. XR lumbar 01/03/2023: Posterior fusion changes with interbody fusion from L3-S1. Intact hardware. No evidence of hardware loosening. Thoracolumbar spine dextroscoliosis. No vertebral compression fracture. Mild loss of disc space height at L2-3. Mild degenerative changes of the sacroiliac joints. IMPRESSION: 1. No acute osseous abnormality. 2. Posterior fusion changes of the lumbar spine. No evidence of hardware complication. 3. Mild L2-3 degenerative disc disease. Received DXA report from 2014 showing unreliable lumbar BMD due to hardware (L1 T-score -2.8, others >0) and T-score in -1.5 to -1.7 range at total hip/femur neck with 3.1% diff compared to 2010. Will try to obtain more recent reports. Received DXA report from 04/29/2021 BMD T-score Change from 2019 L1 0.789 -2.6 3% Mean total hip 0.798 -1.6 -9.6% (significant), was 6.6% compared to 2018 L / radius 0.701 -2.2 -0.4%, was -6.1% compared to 2018 01/03/2023: Na 134, K 4.2, GFR 90, ALP 66 (normal), ALT/AST normal, sujata 1.5, direct 0.3, Ca 8.5-8.9, alb 3.9, PTH 59.4, P3, Mg 2.5 (high), vit D 50, CTX 56, SPEP/IF/FLC ratio normal, celiac cascade -ve (IgA low). 05/09/2023: 24 hr urine Ca 0.15, Na 114 (normal), cr 1.1 (normal), Na 132, K 4.6, cr 0.77, GFR 92, Ca 8.6, alb 4.2, glucose 99, ALP 55 (normal), LFTs normal, sujata 1.4 (high, range =<1.3), A1c 5.6%, TSH 2.12, FT4 1.4, FT3 2.8 (normal) Received DXA report from 05/02/2023 showing significant improvement in BMD, with scores now at osteopenia range (except for forearm UD which is not a typical/usual site to assess for osteoporosis per guidelines). Lumbar spine is not reliable due to hardware; only L1 was evaluated per report, but typically at least 2 vertebrae should ne included in evaluation.. BMD T-score Change from 2021 L1 0.823 -2.3 4.4%* Mean total hip 0.847 -1.2 6.2% Mean femoral neck 0.744 -1.4 L 03/16 radius 0.732 -1.6 4.4%* 06/29/2023: cr 0.69, eGFR 95, Ca 8.4, alb 4.1 07/27/2023: Ca 9.1, alb 4.2, iCa 4.9 12/15/2023: vit D 36, Ca 9.5, cr 0.81, eGFR 90, alb 4.3 Assessment and plan: Mr. Garcia is a 79 y.o. male with hx of hypothyroidism, back fusion (degenerative changes), shoulder surgery, GERD, HLD, osteoporosis. Osteoporosis: -Received DXA report from 2014 showing unreliable lumbar BMD due to hardware (L1 T-score -2.8, others >0) and T-score in -1.5 to -1.7 range at total hip/femur neck with 3.1% diff compared to 2010. DXA from 04/2021 showed decline in BMD at hip compared to 2019. T-score at L1 was in osteoporosis range. ?No clear hx of fragility fractures; suspected based on XR lumbar from 2020, but repeat lumbar XR on 01/03/2023 reported no VCF. -Not sure why patient developed ?osteoporosis/osteopenia at a relatively young age (55 per patient) since he didn't seem to have significant risk factors. Previous labs showed normal PTH/Ca, P/Mg, vit D, kidney/liver functions. 24hr urine Ca was normal/high normal in 2021. He did have fluctuating hyponatremia though which can be a risk factor. Labs in 12/2022 and 04/2023 showed only mild hyponatremia, mildly high Mg and mildly elevated sujata; to be managed/further evaluated by PCP. Otherwise GFR was fine >60, ALT/AST/ALP normal, PTH/Ca normal, mildly high Mg, normal vit D 50, normal celiac screening, normal MM screening, normal TFTs, A1c 5.6%. -He has been on Prolia since 06/2021, and last DXA from 04/2023 showed significant improvement in BMD, with scores now at osteopenia range (except for forearm UD which is not a typical/usual site to assess for osteoporosis per guidelines). Lumbar spine is not reliable due to hardware; only L1 was evaluated per report, but typically at least 2 vertebrae should ne included in evaluation. Keep on Prolia 6 months; seems to be well tolerated so far. Keep an eye on his thigh pains; he will let me know if worsening; so far doesn't sound like AFF. Discussed switching to Reclast but will keep on Prolia for now. Can revisit that later in the future if we need to take him off Prolia. Ordered repeat labs before each Prolia shot. -In terms of calcium intake, I counseled him on her goal daily Ca intake; 1200 mg preferably from diet (and to use calcium citrate in case of supplements since he uses famotidine). -In terms of vitamin D, level is fine at 36 in 12/2023. Keep on 2893-9039 units daily, repeating level in ~12/2024, repeating level with 12/2024 labs. -Next DXA scan will be due in 04/2025, ordered before next visit. Patient prefers phone calls over MyChart messages. Return in about 1 year (around 07/03/2025) for osteop f/u. Time spent reviewing chart, during the encounter, putting orders and coordinating care on the encounter day is 30 minutes. Mohan Frost MD Endocrinology Orders Placed This Encounter Procedures XR Bone Density DEXA Axial and Appendicular To be done at same place as 04/2023 Standing Status: Future Expected Date: 05/13/2025 Expiration Date: 07/03/2025 Scheduling Instructions: All Dexa exams must be scheduled prior to, or more than 72 hours after any scheduled radiology exam with intravenous, oral or rectal contrast. These include but not limited to MRI, Cat Scan, Nuclear Medicine, and X-ray. Reason for Exam:: f/u osteoporosis, include left forearm, compare to 04/2023 Release to patient: Immediate Calcium Level Standing Status: Future Expected Date: 12/24/2024 Expiration Date: 07/03/2025 Release to patient: Immediate Albumin Standing Status: Future Expected Date: 12/24/2024 Expiration Date: 07/03/2025 Release to patient: Immediate Creatinine, serum Standing Status: Future Expected Date: 12/24/2024 Expiration Date: 07/03/2025 Release to patient: Immediate Vitamin D, Total, 25-OH Standing Status: Future Expected Date: 12/24/2024 Expiration Date: 07/03/2025 Release to patient: Immediate Calcium Standing Status: Future Expiration Date: 07/03/2025 Release to patient: Immediate Albumin Standing Status: Future Expiration Date: 07/03/2025 Release to patient: Immediate Creatinine, serum Standing Status: Future Expiration Date: 07/03/2025 Release to patient: Immediate AUTHENTICATED BY MOHAN FROST, ON 07/03/2024 11:28:23 URINE CULTURE Observed: 05/31/2024 7:25 AM Status: F Source: [facility] <9,000 colonies/ml mixed bacterial skin contaminants 2 Days PERFORMED BY: [place] [address] PATHOLOGIST IT APPLICATION ARCHITECT DASHA BREWER M.D. Performed By: #### CUU #### [address] CREATININE, SERUM Collected: 4 1:07 PM Status: F Source: [facility] Order Comment: [facility] has implemented the eGFR calculation approach that does not have a coefficient for race that conforms to the NKF-ASN Task Force Recommendations. TYPE CODE TESTS RESULT OUT OF RANGE REFERENCE UNITS LAB CREAT CREATININE 0.81 0.80-1.30 mg/dL LAB GFR EGFR 90 >=60 mL/min/1.7 3 m2 Result Comment: Estimated GF R was calculated using the 2020 CKD-EPI creatinine equation. Performed By: #### [id number] ### # [facility] [address] [address] Milena Wood M.D. [id number] ALBUMIN Collected: 4 1:07 PM Status: F Source: [facility] TYPE CODE TESTS RESULT OUT OF RANGE REFERENCE UNITS LAB ALB ALBUMIN 4.3 3.2-5.2 g/dL Performed By: #### [id number] ### # [facility] [address] [place], [place] [address] Milena Wood M.D. [id number] CALCIUM LEVEL Collected: 1:07 PM Status: F Source: [facility] TYPE CODE TESTS RESULT OUT OF [facility] CA CALCIUM 9.5 8.4-10.2 mg/dL Performed By: #### [id number] ### # [facility] [address] [place], [place] [address] Milena Wood M.D. [id number] VITAMIN D, TOTAL, 25-OH Collected: 12/15/2023 1:07 PM Status: F Source: [facility] Order Comment: Assay perform ed using Diasorin CLIA methodology. TYPE CODE TESTS RESULT OUT OF [facility] 25OHDTOT VITAMIN D 25-HYDROXY 36 30-100 ng/mL Result Comment: Vitamin D st atus: Deficiency: <10 ng/mL Insufficiency: 10-30 ng/mL Sufficiency: 30-100 ng/mL Toxicity: >100 ng/mL Performed By: #### [id number] ### # [facility] [address] [place] [address] Franco Palmer M.D. [id number] ALLERGIES DATE TYPE / CODE NAME / CODE REACTION SEVERITY SOURCE 06/05/2024 Drug Allergy/[id number](SN ED CT) No Known Allergies/K140542 388(RXNORM) Unknown [facility] Miscellaneous All[facility]85203647[facility] NO KNOWN ALLERGIES [facility] ENCOUNTERS ADMIT/DISCHARGE ACCOUNT NUMBER ADMITTING ENCOUNTER CLASS LOCATION SOURCE 12/10/2024/12/11/19 25 [id number] Ambulatory Building:CRISTINO Morillo [facility] 12/10/2024/12/13/19 [id number] Ambulatory Building:[facility] 12/03/2024 [id number] Ambulatory Building:[facility] 09/03/2024/09/04/19 [id number] [facility] 08/21/2024/08/22/19 [id number] [facility] 07/18/2024/07/19/19 [id number] Ambulatory Building:[facility] 07/12/2024/07/13/19 [id number] MOHAN FROST MOHAN Ambulatory Building:[address] 07/03/2024/07/04/19 [id number] Ambulatory Building:[facility] 05/31/2024/06/01/19 [id number] [facility] 01/12/2024/01/12/20 24 [id number] MOHAN FROSTSEIN Ambulatory Building:[address] 12/15/2023/12/19/19 24 [id number] Ambulatory Building:[facility] PAYERS ENCOUNTER GUARANTOR PAYER SUBSCRIBER SOURCE 12/10/2024 BRAYAN MICHEL: [id number] [address] [address]Knk: (HP) Primary Insurance:MEDICAREPo licy Number: [id number] Date:2193-24-22NR [address] [place] [address]RY: BRAYAN GARCIAB: [id number] [address] [address]Ccq: (HP) [facility] 12/10/2024 Secondary Insurance:MEDICAL MUTUALPolicy Number: [id number] e Date:4239-72-29[address], [place] [address]UC: BRAYAN MICHEL: [id number] [address] [address]Pgu: (HP) [facility] 12/10/2024 BRAYAN MICHEL: [id number] [address] [address]Nxr: (HP) Primary Insurance:MEDICAREPo licy Number: [id number] Date:4860-40-93[address], [place] [address]BQ: BRAYAN GARCIAB: [id number] [address] [address]Kmb: (HP) [facility] 12/10/2024 Secondary Insurance:MEDICAL MUTUALPolicy Number: [id number] e Date:5439-27-66YG [address] [place] [address]NC: BRAYAN GARCIAB: [id number] [address] [address]Ljh: (HP) [facility] 12/03/2024 BRAYAN GARCIAB: [id number] [address] [address]Kqx: (HP) Primary Insurance:MEDICAREPo licy Number: [id number] Date:7397-06-51[address] [address], [place] [address]BQ: BRAYAN GARCIAB: [id number] [address] [address]Ytg: (HP) [facility] 12/03/2024 Secondary Insurance:MEDICAL MUTUALPolicy Number: [id number] e Date:7026-18-86VH [address] [place] [address]PY: BRAYAN GARCIAB: [id number] [address] [address]Iev: (HP) [facility] 09/03/2024 Brayan Trejo[address] [address]Teo: (HP) Primary Insurance:Self PayPolicy Number: Effective Date:2024-09-03 [facility]/2024 Brayan [id number] [address]Tel: (HP) Primary Insurance:Self PayPolicy Number: Effective Date:2024-08-21 [facility] 07/18/2024 BRAYAN GARCIAB: [id number] [address]9793Tel: (HP) Primary Insurance:MEDICAREPo licy Number: [id number] Date:2457-37-13Meub Name:Medicare MELVIN J MILLERDOB: [id number] [address] [facility] 07/18/2024 Secondary Insurance:MEDICAL MUTUALPolicy Number: [id number] e Date:2021-02-11 BRAYAN GARCIAB: [id number] [address] [facility] 07/12/2024 BRAYAN RADHAB: [id number] [address] [address]Zmf: ~(74 9 (HP) Primary Insurance:MEDICAREPo licy Number: [id number] Date:2255-22-30VMN J15 PART A CLAIMSPO [address] [address], [place] [address]XS: BRAYAN RADHAB: [id number] [address] [address]Nwh: (HP) [facility] 07/12/2024 Secondary Insurance:MMOPolicy Number: [id number] e Date:0249-99-06ME [address] [place] [address]MK: BRAYAN GARCIAB: [id number] [address] [address] [facility] 07/03/2024 BRAYAN GARCIAB: [id number] [address] [address]Oyi: (HP) Primary Insurance:MEDICAREPo licy Number: [id number] Date:9396-92-10ODM J15 PART A CLAIMSPO [address], [place] [address]IO: BRAYAN GARCIAB: [id number] [place] [id number] [place] 07/03/2024 Secondary Insurance:MMOPolicy Number: [id number] e Date:2404-25-08NQ [address] [place] [address]HK: BRAYAN GARCIAB: [id number] [place] [id number] [place] 05/31/2024 Brayan Chris [id number] [address] [address]Jzn: (HP) Primary Insurance:Self PayPolicy Number: Effective Date:2024-05-31 [facility] 01/12/2024 BRAYAN GARCIAB: [id number] [address] [address]Xsk: ~(41 [phone] (HP) Primary Insurance:MEDICAREPo licy Number: [id number] Date:8729-04-95DNN J15 PART A CLAIMSPO [address] [address] [address]LY: BRAYAN GARCIAB: [id number] [address] [address]Ntu: (HP) [facility] 01/12/2024 Secondary Insurance:MMOPolicy Number: [id number] e Date:0158-70-26DH [address] [place] [address]VI: BRAYAN GARCIAB: [id number] [address] [address]Uuz: (HP) [facility] 12/15/2023 BRAYAN RADHAB: [id number] [address] [address]Ekc: ~(41 9 (HP) Primary Insurance:MEDICAREPo licy Number: [id number] Date:3750-11-60JUJ J15 PART A CLAIMSPO [address] [address], [place] [address]US: BRAYAN RADHAB: [id number] [address] [address]Cxy: (HP) [facility] 12/15/2023 Secondary Insurance:MMOPolicy Number: [id number] e Date:7335-56-52[address], [place] [address]LD: BRAYAN RADHAB: [id number] [address] [address]Dmp: (HP) [facility]
[2024-12-13 11:24] LABS: Alanine Aminotransferase 20 U/L (16-63); Albumin Globulin Ratio 1.3; Albumin Level 3.7 g/dL (3.4-5.0); Alkaline Phosphatase 55 U/L (46-116); Anion Gap 11.3; Aspartate Amino Transferase 18 U/L (15-37); Blood Urea Nitrogen 12.0 mg/dL (7.0-18.0); Calcium 8.8 mg/dL (8.5-10.1); Carbon Dioxide 27.0 mmol/L (21.0-32.0); Chloride 98 mmol/L (98-107); Cholesterol 153 mg/dL (<=200); Estimated GFR (African America >60 (>=60 mL/min/1.73m^2); Estimated GFR (Non-African Ame >60 (>=60 mL/min/1.73m^2); Free T3 3.30 pg/mL (2.18-3.98); Globulin 2.8 g/dL; Glucose 101 mg/dL (74-106); HDL Cholesterol 53 mg/dL (40-60); Potassium 4.3 mmol/L (3.5-5.1); Sodium 132 mmol/L (136-145); Thyroid Stimulating Hormone 2.454 uIU/mL (0.358-3.740); Total Protein 6.5 g/dL (6.4-8.2); Triglycerides 81 mg/dL (<=150); VLDL CHOLESTEROL 16.2 mg/dL
[2024-12-13 11:52] LABS: Hematocrit 39.1 % (42.0-54.0); Hemoglobin 13.6 g/dL (14.0-18.0); Immature Granulocytes Abs Auto 0.02 10^3/uL (0.00-0.03); Immature Granulocytes Pct Auto 0.5 % (0.0-0.5); Lymphocytes Absolute Auto 0.8 10^3/uL (1.2-3.8); Mean Corpuscular HGB Conc 34.8 g/dL (29.9-35.2); Mean Corpuscular Hemoglobin 32.2 pg (25.9-34.0); Mean Corpuscular Volume 92.4 fL (80.0-94.0); Platelet Count 230 10^3/uL (150-450); Red Blood Count 4.23 10^6/uL (4.70-6.10); White Blood Count 4.4 10^3/uL (4.0-11.0)
== END 2024-12-13 10:04 | disposition home or self-care (01) ==
LOC: LAB 10:05
PROVIDERS: PCP Family Medicine; Visit Provider Family Medicine
DX: E78.5 Hyperlipidemia, unspecified (principal); Z79.899 Other long term (current) drug therapy; E88.819 Insulin resistance, unspecified; R73.9 Hyperglycemia, unspecified; E03.9 Hypothyroidism, unspecified
CPT/HCPCS: 36415; 80053; 80061; 83036; 83525; 84439; 84443; 84481; 85025

== ENCOUNTER 2024-12-18 09:36 | Outpatient (OUT) | payer MEDICARE, OTHER, SELFPAY ==
--- OUTSIDE RECORDS SUMMARY | 2024-12-10 09:23 | XMS_ITS | Encounter Summary ---
Author Organization [facility] Address 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 Nocturia Gross hematuria Procedures CT UROGRAM Binh Escudero MD [address] [place] [address], [address] [place] [address] Phone: tel: fax: Referral ID Status Reason Start Date Expiration Date V isits Requested Visits Authorized [id number] Not Required - RTA 11/29/2024 11/29/2025 1 1 Reason for Visit * Imaging (Routine) - Not Required - RTA Specialty Diagnoses / Procedures Referred By Contac t Referred To Contact Radiology Diagnoses 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 Nocturia Gross hematuria Procedures CT UROGRAM Binh Escudero MD [address] [facility], [address] [place] [address] Phone: tel: fax: Referral ID Status Reason Start Date Expiration Date V isits Requested Visits Authorized [id number] Not Required - RTA 11/29/2024 11/29/2025 1 1 Encounter Details Date Type Department Care Team (Latest Contact Info) Description 12/10/2024 9:23 AM EDT - 12/12/2024 11:59 PM EDT Hospital Encounter [facility] [place] CT Scan [address] [place] [address] Binh Escudero MD [address] [place] [address], [address] [place] [address] 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; Nocturia; Gross hematuria Discharge Disposition: Home or Self Care Social History Tobacco Use Types Packs/Day Years Used Date Smoking Tobacco: Never Smokeless Tobacco: Never Sex and Gender Information Value Date Recorded Sex Assigned at Not on file Legal Sex Male 7:31 PM EST Gender Identity Not on file Sexual Orientation Not on file documented as of this encounter Medications at Time of Discharge Calcium-Magnesium -Vitamin D (CALCIUM 1200+D3 PO) Take by mouth Cetirizine HCl 10 MG CAPS Take 10 mg by mouth daily Coenzyme Q10 50 MG CAPS Take by mouth daily famotidine (PEPCID) 10 MG tablet Take 2 tablets by mouth nightly glucosamine-chond roitin 500-400 MG tablet Take 1 tablet by mouth 3 times daily levothyroxine (SYNTHROID) 50 MCG tablet 11/27/2024 liothyronine (CYTOMEL) 5 MCG tablet 11/27/2024 rosuvastatin (CRESTOR) 5 MG tablet 10/31/2024 zinc gluconate 50 MG tablet Take 1 tablet by mouth vitamin C (ASCORBIC ACID) 500 MG tablet Take 1 tablet by mouth daily tamsulosin (FLOMAX) 0.4 MG capsuleIndication s: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,Noctu jeanine Take 1 capsule by mouth daily 30 capsule 5 11/29/2024 documented as of this encounter Plan of Treatment Upcoming Encounters Date Type Department Care Team (Late st Contact Info) Description 02/11/2025 8:30 AM EST Office Visit [facility] UROLOG[facility] Part of [address] [place] [phone] Stephie Ruby, CANDLE MOLDER - SALES AND SERVICE OFFICER [address] [place] [address] [address] [place] [address] 6-8w pvr documented as of this encounter Procedures Procedure Name Priority Date/Time Associated Diagnosis Comments CT UROGRAM Routine 12/10/2024 10:16 AM EDT 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 This most likely represents a benign prostatic retention cyst or cystic degeneration within a hyperplastic nodule. Benign mild bladder wall thickening and a few diverticula in the bladder wall less than 1 cm likely due to bladder outlet obstruction. No evidence of urinary tract malignancy or stone. 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 79-year-old male with gross hematuria. COMPARISON: 09/28/2024 renal ultrasound, [place]. No report available. TECHNIQUE: CT examination of the abdomen and pelvis with and without IV contrast. Coronal and sagittal reformations were performed. Pre and postcontrast split bolus technique. Dose reduction techniques were achieved by using automated exposure control and/or adjustment of mA and/or kV according to patient size and/or use of iterative reconstruction technique. FINDINGS: POSITIVES related to history: A large cystic area in the left side of the prostate is again seen. It currently measures 5.6 x 4.7 x 3.4 cm in size overall not significantly changed. Overall the prostate is enlarged. This structure comprises about 50% of the prostate volume. There is slight bladder wall thickening and small bladder wall diverticula likely due to bladder outlet obstruction. NEGATIVES related to history: There is no mass in the urinary tract to suggest malignancy and there are no stones. COINCIDENTAL, unrelated to history: Marked diverticulosis mainly in the sigmoid colon. Prominent plaque aorta without aneurysm. Extensive lumbar spine laminectomy and fusion. ROUTINE: Calcified granulomas in the spleen. Normal pancreas, adrenal glands, gallbladder, and liver. Abdominal wall intact. Procedure Note Silas Castillo Jr., MD - 12/13/2024 EXAM: CT UROGRAM HISTORY: BPH with lower urinary tract symptoms without urinaryobstruction. 79-year-old male with gross hematuria. COMPARISON: 09/28/2024 renal ultrasound, [place]. No report available. TECHNIQUE: CT examination of the abdomen and pelvis with and without IV contrast. Coronal and sagittal reformations were performed. Pre and postcontrast split bolus technique. Dose reduction techniques were achieved by using automated exposurecontrol and/or adjustment of mA and/or kV according to patient size and/or use of iterative reconstruction technique. FINDINGS: POSITIVES related to history: A large cystic area in the left side of the prostate is again seen. It currently measures 5.6 x 4.7 x 3.4 cm in size overall not significantly changed. Overall the prostate is enlarged. This structure comprises about 50% of the prostate volume. There is slight bladder wall thickening and small bladder wall diverticula likely due to bladder outlet obstruction. NEGATIVES related to history: There is no mass in the urinary tract tosuggest malignancy and there are no stones. COINCIDENTAL, unrelated to history: Marked diverticulosis mainly in the sigmoid colon. Prominent plaque aorta without aneurysm. Extensive lumbarspine laminectomy and fusion. ROUTINE: Calcified granulomas in the spleen. Normal pancreas, adrenalglands, gallbladder, and liver. Abdominal wall intact. IMPRESSION: Large cystic lesion in the left prostate, stable compared to priorultrasound 09/28/2024, [place]. This most likely represents a benign prostatic retention cyst or cystic degeneration within a hyperplastic nodule. Benign mild bladder wall thickening and a few diverticula in the bladderwall less than 1 cm likely due to bladder outlet obstruction. No evidence of urinary tract malignancy or stone. 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
--- OUTSIDE RECORDS SUMMARY | 2024-12-10 09:26 | XMS_ITS | Encounter Summary ---
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; Nocturia; Gross hematuria; Prostate cancer screening Discharge Disposition: Home or Self Care Social [...] Description 02/11/2025 8:30 AM EST Office Visit [facility] UROLOG[facility] Part of [address] [place] [phone] Stephie Ruby, TERRITORY SALES CONSULTANT - PRE K LEAD TEACHER [address] [facility] [address] [place] [address] 6-8w pvr documented as of this encounter Procedures Procedure Name Priority Date/Time Associated Diagnosis Comments PSA SCREENING Routine 12/10/2024 9:28 AM EDT Prostate cancer screening BUN & CREATININE Routine 12/10/2024 9:28 AM EDT 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 Results obtained with different assay methods cannot be used interchangeably. Blood BLOOD SPECIMEN / Unknown 12/10/2024 9:28 AM EDT 12/10/2024 9:29 AM EDT us Binh Escudero MD CHEMISTRY ORDERABLES Final R esult [facility] [employer] [facility] [address] [place] [address], [facility] [phone] [facility] [employer] [address] [place] [address], [facility] [phone] * BUN & Creatinine (12/10/2024 9:28 AM EDT) BUN 14 8 - 23 mg/dL 12/10/2024 9:28 AM EDT [facility] Creatinine 0.8 0.7 - 1.2 mg/dL 12/10/2024 9:28 AM EDT [facility] Est, Glom Filt Rate >90 >60 mL/min/1.7 3m2 12/10/2024 9:[address] [facility] [place] Comment: These results are not intended for use in patients <18 years of age. eGFR results are calculated without a race factor using the 2020 CKD-EPI equation. Careful clinical correlation is recommended, particularly when comparing to results calculated using previous equations. The CKD-EPI equation is less accurate in patients with extremes of muscle mass, extra-renal metabolism of creatine, excessive creatine ingestion, or following therapy that affects renal tubular secretion. BLOOD SPECIMEN / Unknown 12/10/2024 9:28 AM EDT 12/10/2024 9:29 AM EDT us Binh Escudero MD CHEMISTRY ORDERABLES Final R esult [facility] [address] 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
--- OUTSIDE RECORDS SUMMARY | 2024-12-13 10:12 | XMS_ITS | Continuity of Care Document ---
Author Organization [facility] Address [address] [place] [address] Phone Care Team Providers Care Help Desk Operator Name Role Phone RussellGuido Primary Care Provider Guido Wells DO Attending Provider [phone] Nidia Ledesma MD Attending Provider Care Teams Patient Care Team Team Status: Active Member Role Status Dates Guido Wells DO Primary Care Provider Active Patient Care Team Team Status: Active Member Role Status Dates Guido Wells DO Primary Care Provider Active S tart: December 13, 2024 Guido Wells DO Attending Provider Active Star t: December 13, 2024 Patient Care Team Team Status: Inactive Member Role Status Dates Guido Wells DO Primary Care Provider Active S tart: December 13, 2024 End: December 13, 2024 Nidia Ledesma MD Attending Provider Active Start: December 13, 2024 End: December 13, 2024 Chief Complaint and Reason for Visit Chief Complaint Admit Date 3 MONTHS December 13, 2024 1: 39pm Reason for Visit Admit Date Arthritis of carpometacarpal (CMC) joint of left thumb December 13, 2024 1:39pm Arthritis of carpometacarpal (CMC) joint of right thumb December 13, 2024 1:39pm Arthritis of uxidoe-rwdzavnsx-ukrpmosbu joint December 13, 2024 1:39pm Bilateral carpal tunnel syndrome December 13, 2024 1:39pm Bilateral hand pain December 13, 2024 1: 39pm 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 December 13, 2024 1:39pm Allergies, Adverse Reactions, Alerts Allergen Type Severity Reaction Last Updated Verified Status No Known Allergies Allergy Unknown June 05, 2024 9:54 am Yes Active Social History Smoking Status Status Start Date End Date Date of Observa tion Never smoked tobacco (finding) May 16, 2023 10:34am Observation Status Observation Response Date of Response Legal Sex Male (finding) Sex Assigned At Male [id number] Family History Relationship Condition Age at Onset Recorded Date/T saray mother Malignant neoplasm of urinary bladder Unk nown father Hypertension Unknown daughter Family history of thyroid disease Unknown father Unknown grandparent Unknown grandparent Unknown History of stroke Unknown Acute cerebrovascular accident (CVA) Unkn own grandparent Congestive heart failure Unknown Heart disease Unknown grandparent Acute cerebrovascular accident (CVA) Unkn own History of stroke Unknown grandparent Unknown grandparent Unknown mother Malignant neoplasm Unknown Unknown mother Malignant neoplasm Unknown sister Hypertension Unknown Osteopenia Unknown Problems Active Problems Medical Problem Onset Date Status Elevated PSA Unknown Active Arthritis of utucer-lfdegowyh-xtgbmxxul joint Un known Active Degenerative arthritis of ring finger of left marie nd Unknown Active Insomnia Unknown Active Hand pain Unknown Active Other rn outpatient surgery (current) drug therapy Unknown Active Sleeping difficulty Unknown Active Flu vaccine need Unknown Active Actinic keratosis Unknown Active Osteoporosis Unknown Active Osteoporosis Unknown Active Nocturia Unknown Active Nocturia Unknown Active Anemia Unknown Active Depression Unknown Active Hyperglycemia Unknown Active Hyperlipidemia Unknown Active Hyperlipidemia, unspecified Unknown Acti ve Hyponatremia Unknown Active Hypothyroidism Unknown Active Weight loss Unknown Active Bilateral hand pain Unknown Active Anxiety and depression Unknown Active History of colon polyps Unknown Active GERD (gastroesophageal reflux disease) Unknown Active Allergic rhinitis Unknown Active Bilateral carpal tunnel syndrome Unknown Active Cystitis Unknown Active Arthritis of carpometacarpal (CMC) joint of righ t thumb Unknown Active Arthritis of carpometacarpal (CMC) joint of left thumb Unknown Active Arthritis of right hand Unknown Active Inactive/Resolved Problems Medical Problem Onset Date Status History of cataract surgery Unknown Reso lved Medications Medication Status Dose Units Route Directions Qty Days St art Date Stop Date End Date Instructions Adherence Liothyronin e 5 mcg tablet Discont inued 5 MCG PO Daily June 03, 2023 1:00pm June 03, 2023 1:01p m Liothyronin e 5 mcg tablet Discont inued 5 MCG PO Daily 90 June 03, 2023 1:01pm June 11, 2024 9:10a m Methylpredn isolone (Medrol (Sandro)) 4 mg tablets,dos e pack Discont inued 0 PO per package directions 01 09November 09, 2023 12:00a m Septe mber 2023 9:17a m with food Rosuvastati n 5 mg tablet Active 5 MG PO Daily 90 Novemb er 2023 9:39am Complies with drug therapy Levothyroxi ne 50 mcg tablet Active 50 MCG PO Daily 90 Decemb er 2023 1:00am take first thing in the morning on an empty stomach do not eat or drink for 30 min after taking Complies with drug therapy Azithromyci n 250 mg tablet Discont inued 0 PO .COMPLEX 6 2024 1:00am June 04, 2024 11:18 am For 250 mg dose pack: take 500 mg today (day 1), then 250 mg for 4 days (days 2-5) PO Liothyronin e 5 mcg tablet Active 0 .ROUTE .COMPLEX June 11, 2024 9:10am TAKE 1 TABLET BY MOUTH DAILY Complies with drug therapy Amoxicillin -Pot Clavulanate 875-125 mg tablet Discont inued 1 TAB PO Twice daily 31 12August 21, 2024 12:00a m August 21, 2024 9:51a m with food Amoxicillin -Pot Clavulanate 875-125 mg tablet Discont inued 1 TAB PO Twice daily 31 12August 21, 2024 9:51am August 24, 2024 2:29p m with food Cephalexin 500 mg capsule Discont inued 500 MG PO Three times daily 01 10August 24, 2024 12:00a m September 04, 2024 11:15 am Nitrofurant oin Monohyd/M-C ryst (Macrobid) 100 mg capsule Active 100 MG PO Twice daily 14 September 03, 2024 12:00a m must administer with a meal/food Complies with drug therapy Methylpredn isolone (Medrol (Sandro)) 4 mg tablets,dos e pack Active 0 PO per package directions 01 09November 09, 2024 2:02pm with food Complies with drug therapy Cetirizine 10 mg Tablet Discont inued 1 TAB PO Daily Maruar y 2017 1:00am 2017 10:44 am Liothyronin e 5 MCG tablet Discont inued 1 TAB PO Daily 2017 1:00am June 03, 2023 1:00p m Levothyroxi ne 75 MCG tablet Discont inued 1 TAB PO Daily 2017 1:00am [facility] 2023 9:30a m Ranitidine Hcl 150 mg Capsule Discont inued 1 TAB PO Daily as needed for allergies 2017 1:00am [facility] 2023 9:30a m Fluoxetine 20 MG capsule Discont inued 1 TAB PO Daily 2017 1:00am May 16, 2023 11:29 am Vitamin B Complex Capsule Discont inued 1 TAB PO Daily 2017 1:00am May 27, 2022 7:14a m Calcium Carbonate-V itamin D3 (Calcium 500 + D (D3)) 500 mg(1,250mg) -125 unit Tablet Discont inued 1 TAB PO Daily 2017 1:00am [facility] 2023 9:13a m Knickerbocker 3-Dha-Epa-F jennifer Oil (Knickerbocker-3) 350 mg-235 mg- 90 mg-597 mg Capsule,Del ayed Release(Dr/ Ec) Discont inued 1 TAB PO Daily 2017 1:00am May 27, 2022 7:14a m Cetirizine (Zyrtec) 10 mg Tablet Discont inued 10 MG PO Daily 2017 1:00am [facility] 2023 9:18a m Fluticasone Propionate 50 mcg/actuati on [place] Active 2 SPRAY INTRAN GERALD Daily 2017 1:00am Complies with drug therapy Cholecalcif lorna (Vitamin D3) (Vitamin D3) 400 unit Tablet Discont inued 400 UNIT PO Daily 2017 1:00am [facility] 2023 9:14a m Zoledronic Acid-Mannit ol-Water (Reclast) 5 mg/100 mL Piggyback Discont inued 5 MG IV As Directed 2017 1:00am May 27, 2022 7:14a m Levothyroxi ne 75 mcg tablet Discont inued 75 MCG PO Daily 2023 9:29am [facility] 2023 9:43a m Ranitidine Hcl 150 mg capsule Discont inued 150 MG PO Daily as needed for allergies 2023 9:29am June 04, 2024 11:19 am Rosuvastati n 5 mg tablet Discont inued 5 MG PO Daily May 27, 2022 12:00a m [facility] 2023 9:44a m Denosumab (Prolia) 60 mg/mL Syringe Active 60 MG SUBCUT EVERY 6 MONTHS May 27, 2022 12:00a m Complies with drug therapy Famotidine 20 mg tablet Active 20 MG PO Daily June 04, 2024 12:00a m Complies with drug therapy Melatonin 10 mg tablet Active 10 MG PO Daily at bedtime as needed June 04, 2024 12:00a m Complies with drug therapy Cetirizine 10 mg tablet Active 10 MG PO Daily as needed June 04, 2024 12:00a m Complies with drug therapy Zinc Gluconate 50 mg tablet Active 50 MG PO Daily June 04, 2024 12:00a m Complies with drug therapy Turmeric Root Extract 1,053 mg tablet Active 1076 MG PO Daily June 04, 2024 12:00a m Complies with drug therapy Tamsulosin 0.4 mg capsule Active MG PO Oct r 2024 12:00a m Complies with drug therapy Acetaminoph en 325 mg tablet Discont inued MG PO 2023 1:00am [facility] 2023 9:30a m FreeTextSi/2 tab Orally prn; Note: Source Status: Taking; Provider: Darius Headley Magnesium 200 mg tablet Discont inued 200 MG PO Daily 2023 1:00am May 16, 2023 11:30 am Glucosamine Sulfate (Glucosamin e) 500 mg tablet Discont inued 500 MG PO Daily 2023 1:00am [facility] 2023 9:21a m administer with a meal Ascorbate Calcium (Vitamin C) 500 mg tablet Active 500 MG PO Daily Februa 2023 1:00am Complies with drug therapy Glucosamine Sulfate (Glucosamin e) 500 mg tablet Active 1500 MG PO Daily 2023 9:15am administer with a meal Complies with drug therapy Acetaminoph en 325 mg tablet Active 325 MG PO .COMPLEX 2023 9:27am 325 mg orally 1/2 tab Orally prn; Complies with drug therapy Calcium Citrate 1,000 mg tablet Discont inued 1000 MG PO Three times daily 2023 12:00a m [facility]2023 9:30a m Cholecalcif lorna (Vitamin D3) 50 mcg (2,000 unit) capsule Active 50 MCG PO Daily 2023 12:00a m Complies with drug therapy Vitamin K2 100 mcg capsule Active 100 MCG PO Daily 2023 12:00a m Complies with drug therapy Coenzyme Q10 (Co Q-10) 300 mg capsule Active 300 MG PO Daily 2023 12:00a m Complies with drug therapy Calcium Citrate 1,000 mg tablet Active 1000 MG PO Daily 2023 9:28am take 3 (1,000 mg) tabs daily Complies with drug therapy Levothyroxi ne 75 mcg tablet Discont inued 75 MCG PO Daily 2023 9:43am [facility]2023 9:44a m take first thing in the morning on an empty stomach, do not eat or drink for 30-45 minutes after taking Levothyroxi ne 75 mcg tablet Discont inued 75 MCG PO Daily 2023 9:43am [facility] 2023 9:54a m take first thing in the morning on an empty stomach, do not eat or drink for 30-45 minutes after taking Rosuvastati n 5 mg tablet Discont inued 5 MG PO Daily 2023 9:44am Novem 2023 9:39a m Immunizations Immunization Event Date Not Given Reason Dose Number [employer] Lot Number Vaccine Information Statement (VIS) Detail Administration Location COVID-19 mRNA-1273 (Moderna) April 11, 2020 COVID-19 mRNA-1273 (Moderna) May 09, 2020 COVID-19 mRNA-1273 (Moderna) January 02, 2021 COVID-19 mRNA-1273 (Moderna) July 17, 2021 COVID-19 (MODERNA) 12Y and older December 22, 2022 COVID-19 (MODERNA) 12Y and older June 06, 2023 COVID-19 mRNA Bivalent Booster (Moderna) December 03, 2021 COVID-19 mRNA Bivalent Booster (Moderna) July 27, 2022 COVID-19 (PFIZER) 12Y and older December 15, 2023 Fluzone TIV High-Dose 65YR+ December 01, 2016 Fluzone TIV High-Dose 65YR+ December 01, 2023 [id number] A [facility] Fluzone QIV High-Dose 65YR+ November 04, 2020 Influenza, trivalent December 14, 2018 Influenza vaccine, quadrivalent, adjuvanted November 05, 2021 Influenza vaccine, quadrivalent, adjuvanted October 28, 2022 Pneumococcal Polysacc. Vaccine, 23 valent November 04, 2020 RSV, preF3, adj, pf December 17, 2022 Zoster Vaccine Recombinant, Adjuvanted August 08, 2020 Zoster Vaccine Recombinant, Adjuvanted October 08, 2020 Tetanus, Diphtheria, Pertussis (Tdap) August 08, 2015 Tetanus, Diphtheria, Pertussis (Tdap) May 20, 2010 Tetanus, Diphtheria, Pertussis (Tdap) February 27, 2021 Trivalent Influenza Vaccine December 01, 2016 Trivalent Influenza Vaccine December 12, 2017 Trivalent Influenza Vaccine December 14, 2018 Trivalent Influenza Vaccine November 07, 2019 Trivalent Influenza Vaccine November 04, 2020 Trivalent Influenza Vaccine November 05, 2021 Trivalent Influenza Vaccine October 28, 2022 Shingles (Zoster) May 20, 2010 Relevant Diagnostic Tests and/or Laboratory Data Laboratory Results Test Collection Date/Time Result Date/Time Result Interpretation Reference Range Result Comment Performing Site Free Thyroxine December 13, 2024 10:20am December 13, 2024 10:20am 1.09 ng/dL 0.76-1.46 Basophils # (Auto) December 13, 2024 10:20am December 13, 2024 10:20am 0.1 10 3/uL 0.0-0.1 Thyroid Stimulati ng Hormone 3rd Gen December 13, 2024 10:20am December 13, 2024 10:20am 2.454 u[iU]/m L 0.358-3.74 0 Free Triiodoth yronine December 13, 2024 10:20am December 13, 2024 10:20am 3.30 pg/mL 2.18-3.98 Cholester ol/HDL Ratio December 13, 2024 10:20am December 13, 2024 10:20am 2.9 3.3 - 4.4 LOW RISK4.4 - 7.1 AVERAGE RISK7.1 - 11.0 MODERATE RISK>11.0 HIGH RISK Anion Gap December 13, 2024 10:20am December 13, 2024 10:20am 11.3 Estimated Average Glucose December 13, 2024 10:20am December 13, 2024 10:20am 120 mg/dL Basophils (%) (Auto) December 13, 2024 10:20am December 13, 2024 10:20am 2.1 % Above high normal 0.2-2.0 Cholester ol Level December 13, 2024 10:20am December 13, 2024 10:20am 153 mg/dL <=200 Albumin/G lobulin Ratio December 13, 2024 10:20am December 13, 2024 10:20am 1.3 Hemoglobi n A1c December 13, 2024 10:20am December 13, 2024 10:20am 5.8 % 4.5-6.2 ADA RECOMMENDED LIMIT 4.0 - 6.0ADA THERAPEUTIC TARGET < 7.0ACTION SUGGESTED> 7.0 Eosinophi ls # (Auto) December 13, 2024 10:20am December 13, 2024 10:20am 0.2 10 3/uL 0.0-0.7 HDL Cholester ol December 13, 2024 10:20am December 13, 2024 10:20am 53 mg/dL 40-60 > or =60 mg/dl - LOW CARDIOVASCUL AR RISK<40 mg/dl - HIGH CARDIOVASCUL AR RISK Albumin December 13, 2024 10:20am December 13, 2024 10:20am 3.7 g/dL 3.4-5.0 Eosinophi ls (%) (Auto) December 13, 2024 10:20am December 13, 2024 10:20am 5.0 % 0.9-7.0 LDL Cholester ol, Calculate d December 13, 2024 10:20am December 13, 2024 10:20am 83.8 mg/dL <100 mg/dl [id number] 29 mg/dl NEAR OR ABOVE [id number] 59 mg/dl BORDERLINE [id number] mg/dl HIGH>190 mg/dl VERY HIGH Alkaline Phosphata se December 13, 2024 10:20am December 13, 2024 10:20am 55 U/L 46-116 Hematocri t December 13, 2024 10:20am December 13, 2024 10:20am 39.1 % Below low normal 42.0-54.0 Triglycer ides Level December 13, 2024 10:20am December 13, 2024 10:20am 81 mg/dL <=150 Alanine Aminotran sferase (ALT/SGPT ) December 13, 2024 10:20am December 13, 2024 10:20am 20 U/L 16-63 Hemoglobi n December 13, 2024 10:20am December 13, 2024 10:20am 13.6 g/dL Below low normal 14.0-18.0 VLDL Cholester ol December 13, 2024 10:20am December 13, 2024 10:20am 16.2 mg/dL Aspartate Amino Transf (AST/SGOT ) December 13, 2024 10:20am December 13, 2024 10:20am 18 U/L 15-37 Immature Granulocy te # (Auto) December 13, 2024 10:20am December 13, 2024 10:20am 0.02 10 3/uL 0.00-0.03 BUN/Creat inine Ratio December 13, 2024 10:20am December 13, 2024 10:20am 15.6 Immature Granulocy te % (Auto) December 13, 2024 10:20am December 13, 2024 10:20am 0.5 % 0.0-0.5 Blood Urea Nitrogen December 13, 2024 10:20am December 13, 2024 10:20am 12.0 mg/dL 7.0-18.0 Lymphocyt es # (Auto) December 13, 2024 10:20am December 13, 2024 10:20am 0.8 10 3/uL Below low normal 1.2-3.8 Calcium Level December 13, 2024 10:20am December 13, 2024 10:20am 8.8 mg/dL 8.5-10.1 Lymphocyt es (%) (Auto) December 13, 2024 10:20am December 13, 2024 10:20am 19.2 % Below low normal 20.5-60.0 Chloride Level December 13, 2024 10:20am December 13, 2024 10:20am 98 mmol/L 98-107 Mean Corpuscul ar Hemoglobi n December 13, 2024 10:20am December 13, 2024 10:20am 32.2 pg 25.9-34.0 Carbon Dioxide Level December 13, 2024 10:20am December 13, 2024 10:20am 27.0 mmol/L 21.0-32.0 Mean Corpuscul ar Hemoglobi n Concent December 13, 2024 10:20am December 13, 2024 10:20am 34.8 g/dL 29.9-35.2 Creatinin e December 13, 2024 10:20am December 13, 2024 10:20am 0.77 mg/dL 0.70-1.30 Mean Corpuscul ar Volume December 13, 2024 10:20am December 13, 2024 10:20am 92.4 fL 80.0-94.0 Estimated GFR () December 13, 2024 10:20am December 13, 2024 10:20am >60 >=60 mL/min/1.7 3m 2 Monocytes # (Auto) December 13, 2024 10:20am December 13, 2024 10:20am 0.5 10 3/uL 0.3-0.8 Estimated GFR (Non-Afri can Indian December 13, 2024 10:20am December 13, 2024 10:20am >60 >=60 mL/min/1.7 3m 2 Monocytes (%) (Auto) December 13, 2024 10:20am December 13, 2024 10:20am 10.8 % 1.7-12.0 Globulin December 13, 2024 10:20am December 13, 2024 10:20am 2.8 g/dL Mean Platelet Volume December 13, 2024 10:20am December 13, 2024 10:20am 9.2 fL Below low normal 9.5-13.5 Glucose Level December 13, 2024 10:20am December 13, 2024 10:20am 101 mg/dL 74-106 Neutrophi ls # (Auto) December 13, 2024 10:20am December 13, 2024 10:20am 2.7 10 3/uL 1.4-6.5 Potassium Level December 13, 2024 10:20am December 13, 2024 10:20am 4.3 mmol/L 3.5-5.1 Neutrophi ls (%) (Auto) December 13, 2024 10:20am December 13, 2024 10:20am 62.4 % 43.0-75.0 Sodium Level December 13, 2024 10:20am December 13, 2024 10:20am 132 mmol/L Below low normal 136-145 Platelet Count December 13, 2024 10:20am December 13, 2024 10:20am 230 10 3/uL 150-450 Total Bilirubin December 13, 2024 10:20am December 13, 2024 10:20am 1.6 mg/dL Above high normal 0.2-1.0 Red Blood Count December 13, 2024 10:20am December 13, 2024 10:20am 4.23 10 6/uL Below low normal 4.70-6.10 Total Protein December 13, 2024 10:20am December 13, 2024 10:20am 6.5 g/dL 6.4-8.2 Red Cell Distribut ion Width December 13, 2024 10:20am December 13, 2024 10:20am 13.2 % 11.0-15.0 Corrected White Blood Count December 13, 2024 10:20am December 13, 2024 10:20am 4.4 10 3/uL 4.0-11.0 Advance Directives Advance Directive Response Recorded Date/ Time Advance Directives No February 2:18pm Insurance Providers Guarantor Brayan Clay Address [address] [place] [phone] Contact Info. Home Phone: Payer Policy Id Subscriber's Name Subscriber Id Effectiv e Date Expiration Date [facility] [id number] Brayan Clay [id number] Medicare [id number] Brayan Clay [id number] Encounters Encounter Location(s) Arrival/Admit Date Discharge/Depart Date Provider(s) Non-patient / Non-visit -[facility] December 13, 2024 10:20am Guido Wells DO Departed Physician/Prov ider Office Visit -[facility] December 13, 2024 1:39pm December 13, 2024 2:11pm Nidia Ledesma MD Recent Diagnosis Onset Date Admit Date Arthritis of carpometacarpal (CMC) joint of left thumb Unknown December 13, 2024 1:39pm Arthritis of carpometacarpal (CMC) joint of right thumb Unknown December 13, 2024 1:39pm Arthritis of udkxgq-rpntqxocl-kxraoqtge joint Un known December 13, 2024 1:39pm Bilateral carpal tunnel syndrome Unknown December 13, 2024 1:39pm Bilateral hand pain Unknown December 13, 2024 1:39pm Degenerative arthritis of ri ng finger of left hand Unknown December 13, 2024 1:39pm Assessments Diagnosis Onset Date Resolution Status Admit Date Arthritis of carpometacarpal (CMC) joint of left thumb acute Octobe r 2024 1:39pm Arthritis of carpometacarpal (CMC) joint of right thumb acute Octob er 2024 1:39pm Arthritis of jfjdbr-kyerncnpo-aiafeagwz joint acute December 13, 2024 1:39pm Bilateral carpal tunnel syndrome acu te December 13, 2024 1:39pm Bilateral hand pain acute Octob er 2024 1:39pm Degenerative arthritis of ri ng finger of left hand acute December 13, 2024 1:39pm Plan of Treatment Author Minal Daigle [facility] Authored December 13, 2024 2: 09pm We performed a cortisone inj ection into the RIGHT thumb CMC joint and STT joint under sterile technique. Patient tolerated the injection well without adverse reaction. Note scribed by Minal Daigle CMA, reviewed and amended by Nidia Ledesma M.D. Patient would like to hold off on a left thumb injection or STT injection. 79-year-old man with right thumb CMC/STT arthritis and left thumb CMC joint (history right index MCP joint arthritis) (history left ring finger atypical trigger finger and possible bilateral carpal tunnel syndrome) (history left ring PIP joint arthritis) (history bilateral thumb CMC/STT arthritis) (history right index finger PIP joint arthritis) (history right index finger PIP joint pain due to arthritis) - Xrays previously reviewed with patient - Discussion held with patient regarding diagnosis and treatment options - Patient exhibits findings consistent with arthritis involving the thumb CMC joint. At this time, I would recommend a course of nonoperative treatment/ continuance with nonoperative treatment including: Scheduled anti-inflammatory medication for control of arthritic flares, intra-articular corticosteroid injections as needed (no more frequently than 12 weeks apart), and supportive bracing during provocative activities (Antonio-Pee, Thumb Spica). Patient was counseled that regular long-term use of anti-inflammatory medications may require further follow-up with patient's primary care physician for medical monitoring. - Should the patient fail to improve with nonoperative treatments, or should nonoperative treatments fail to provide lasting pain relief, we have discussed the possibility of future surgical treatments including: CMC arthrodesis versus trapeziectomy with ligament reconstruction. - Patient has had improvement with previous cortisone injection as well as with voltaren gel and patient desires repeat cortisone injection - Patient also reports bilateral index finger pain likely due to arthritic change. We have discussed possible treatment options including topical NSAIDs, cortisone injection, Medrol dose pack, hand therapy, etc. Patient would like to proceed with topical voltaren gel - Repeat cortisone injection thumb CMC joint - Discussion held with patient regarding diagnosis and treatment options. At this time, we've discussed nonoperative versus operative treatment options. - Regarding nonoperative treatment options, this would include an initial trial of cortisone injection, as well as night splinting. In general, cortisone injections are considered diagnostic, therapeutic, and prognostic. A positive response with reduction in symptoms following a cortisone injection, confirms the diagnosis, as well as provides therapeutic treatment with lessening of painful symptoms and temporary decreased compression across the median nerve. However, these results may be temporary, and further treatments either with repeat cortisone injection or surgical treatment may become necessary. In addition, a cortisone injection as prognostic in that if there is a positive response with reduction of symptoms following a cortisone injection, there will likely be improvement following surgical treatment. - Operative treatment would consist of carpal tunnel release - Patient was counseled that the nerve may recover regenerate 1 mm per day or 1 inch per month along the sensory fibers. Regarding motor fibers, we do not know at what point we are intervening in the release of the nerve compression. If there has been permanent injury to the nerve, the motor nerve may not be capable of full recovery, though at least nerve decompression would prevent progression or worsening with further loss of motor fibers. In the recovery of motor strength or function is seen as a bonus not as a guarantee - Patient may benefit from future EMG for evaluation of severity of nerve compression - Trial of carpal tunnel injection has been helpful and patient remains asymptomatic at this time - Night splinting to the bilateral carpal tunnel in the interim - Follow-up 3 months for reevaluation and possible repeat injection INJECTION ADMINISTERED: - Patient was given an injection of the right thumb CMC/ STT joint and left thumb CMC joint with: 0.5 cc Kenalog (40 mg/ 1 cc concentration) + 0.5 cc 1% Lidocaine plain without epinephrine at each location - Patient was counseled that there may be some swelling, inflammation, and mild pain in the area of injection for the first few days following treatment, which may be controlled with anti-inflammatory pain medication as needed. Patient was counseled that it may take time to note full resolution of pain and symptoms following the injection, and occasionally a series of injections is necessary for full or lasting relief of pain and symptoms. Patient was counseled that some individuals may experience skin hypopigmentation changes or fat atrophy in the area of steroid application following injection. Patient was counseled that if they are diabetic, there may be temporary changes in their blood sugar levels which may require more frequent blood sugar changes or temporary adjustment in their insulin coverage. - Patient was instructed to notify a physician if they note any concerning signs of infection including but not limited to fever, warmth, erythema, or ascending cellulitis in the area of steroid injection. Future Tests Future scheduled test information is unavailable Pending Tests Pending diagnostic test information is unavailable Future Visits Future appointment information is unavailable Referrals to Other Providers Referral information is unavailable Future Procedures Future procedure information is unavailable Future Medications Future medication information is unavailable Patient Instructions Patient instructions are unavailable
--- OUTSIDE RECORDS SUMMARY | 2024-12-17 14:15 | XMS_ITS | Encounter Summary ---
Author Organization [facility] Address [address], [address] [place] [address] Care Team Providers Care Donor Services Technician Name Role Phone Guido Wells DO Primary Care Provider Unavail able Reason for Visit * Reason Comments Procedure Patient returns for his cystoscopy with follow up CT and PSA. 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 (Primary Dx); Nocturia; Gross hematuria Social History Tobacco Use Types Packs/Day Years Used Date Smoking Tobacco: Never Smokeless Tobacco: Never Tobacco Cessation:Counseling Given: No Sex and Gender Information Value Date Recorded Sex Assigned at Not on file Legal Sex Male 7:31 PM EST Gender Identity Not on file Sexual Orientation Not on file documented as of this encounter Last Filed Vital Signs Vital Sign Reading Time Taken Comments Blood Pressure 188/74 12/17/2024 2:05 PM EDT Pulse 88 12/17/2024 2:05 PM EDT Temperature 36.4 C (97.5 F) 12/17/2024 2:05 PM EDT Respiratory Rate - - Oxygen Saturation - - Inhaled Oxygen Concentration - - Weight 65.3 kg (144 lb) 12/17/2024 2:05 PM EDT Height 174 cm (5' 8.5 ) 12/17/2024 2:05 PM EDT Body Mass Index 21.58 12/17/2024 2:05 PM EDT documented in this encounter Progress Notes * Eve Iyer MA - 12/17/2024 2:15 PM EDT During cystoscopy the following was utilized on patient with no adverse affects: 45% SODIUM CHLORIDE 500 ML BAG Lot number: [id number] Expiration date: 07/2026 LIDOCAINE HYDROCHLORIDE JELLY 2% Lot number: [id number] Expiration date: 06/2026 Cystoscope Lot:[id number] Exp: * Binh Escudero MD - 12/17/2024 2:14 PM EDT HPI: Patient is a 79 y.o. male in no acute distress. He is alert and oriented to person, place, and time. History Patient is here today as a self-referral for trabeculations/bladder wall thickening patient was previously seen by [facility] urology. History of urinary tract infections and gross hematuria. E. coli UTI 08/31/2024. patient did have gross hematuria and they did recommend cystoscopy for him. Patient had a renal ultrasound showing no hydroureteronephrosis or stones. Per report patient had mildly trabeculated bladder and significant postvoid residual. Also noted was a benign right inferior lateral simple cysts and benign left peripelvic cyst. Urine cultures 08/2024 - e coli 04/2021 -no growth 03/2020 -no growth 03/2019 -no growth 02/2018 -no growth 02/2017 -no growth 02/2016 -no growth PSA 11/2024 - 3.79 04/2023 - 2.1 04/2022 - 2.1 10/2021 - 1.6 09/2020 - 1.5 Currently Patient is here today for hematuria workup. Patient did have a recent CT urogram. This film was independently reviewed today. This does show a cystic lesion on the left side of the prostate. This is also consistent with previous imaging. He does have bladder wall thickening. Current PSA is 3.79. Cystoscopy Procedure Note Pre-operative Diagnosis: gross hematuria Post-operative Diagnosis: Same Surgeon: Kena Assistants: None Anesthesia : Local Procedure Details The risks, benefits, complications, treatment options, and expected outcomes were discussed with the patient. The patient concurred with the proposed plan, giving informed consent. Cystoscopy was performed today under local anesthesia, using sterile technique. The patient was placed in the dorsal lithotomy position, prepped with CHG, and draped in the usual sterile fashion. A 14 Yi flexible cystoscope was used to systematically inspect both the urethra and bladder in their entirety. Findings: Anterior urethra: normal without strictures Hyperplasia: bilobar Bladder: Normal mucosa, without lesions. Ureteral orifice(s) was/were seen in the normal position and effluxing clear urine Trabeculations No Diverticulum No Description: No mucosal abnormality Specimens: Cytology/urine culture No Complications: None; patient tolerated the procedure well. Disposition: home Condition: stable No past medical history on file. No past surgical history on file. Outpatient Encounter Medications as of 12/17/2024 Medication Sig Dispense Refill Sbqqqpv-Vgrelpavm-Wklrzwk D (CALCIUM 1200+D3 PO) Take by mouth Cetirizine HCl 10 MG CAPS Take 10 mg by mouth daily Coenzyme Q10 50 MG CAPS Take by mouth daily famotidine (PEPCID) 10 MG tablet Take 2 tablets by mouth nightly glucosamine-chondroitin 500-400 MG tablet Take 1 tablet by mouth 3 times daily levothyroxine (SYNTHROID) 50 MCG tablet liothyronine (CYTOMEL) 5 MCG tablet rosuvastatin (CRESTOR) 5 MG tablet zinc gluconate 50 MG tablet Take 1 tablet by mouth vitamin C (ASCORBIC ACID) 500 MG tablet Take 1 tablet by mouth daily tamsulosin (FLOMAX) 0.4 MG capsule Take 1 capsule by mouth daily 30 capsule 5 No facility-administered encounter medications on file as of 12/17/2024. Current Outpatient Medications on File Prior to Visit Medication Sig Dispense Refill Dyamhvk-Rkporhywq-Xipnzkv D (CALCIUM 1200+D3 PO) Take by mouth Cetirizine HCl 10 MG CAPS Take 10 mg by mouth daily Coenzyme Q10 50 MG CAPS Take by mouth daily famotidine (PEPCID) 10 MG tablet Take 2 tablets by mouth nightly glucosamine-chondroitin 500-400 MG tablet Take 1 tablet by mouth 3 times daily levothyroxine (SYNTHROID) 50 MCG tablet liothyronine (CYTOMEL) 5 MCG tablet rosuvastatin (CRESTOR) 5 MG tablet zinc gluconate 50 MG tablet Take 1 tablet by mouth vitamin C (ASCORBIC ACID) 500 MG tablet Take 1 tablet by mouth daily tamsulosin (FLOMAX) 0.4 MG capsule Take 1 capsule by mouth daily 30 capsule 5 No current facility-administered medications on file prior to visit. Augmentin [amoxicillin-pot clavulanate] No family history on file. Social History Tobacco Use Smoking Status Never Smokeless Tobacco Never Social History Substance and Sexual Activity Alcohol Use None BP (!) 188/74 (BP Site: Left Upper Arm, Patient Position: Sitting, BP Cuff Size: Medium Adult) Pulse 88 Temp 97.5 ??F (36.4 ??C) (Temporal) Ht 1.74 m (5' 8.5 ) Wt 65.3 kg (144 lb) BMI 21.58kg/m?? PHYSICAL EXAM: Constitutional: Patient in no acute distress; Neuro: alert and oriented to person place and time. Psych: Mood and affect normal. Skin: Normal Lungs: Respiratory effort normal Cardiovascular: Normal peripheral pulses Abdomen: Soft, non-tender, non-distended with no CVA, flank pain Bladder non-tender and not distended. Lymphatics: no palpable lymphadenopathy Penis normal Urethral meatus normal Scrotal exam normal Testicles normal bilaterally Epididymis normal bilaterally No evidence of inguinal hernia Lab Results Component Value Date BUN 14 12/10/2024 Lab Results Component Value Date CREATININE 0.8 12/10/2024 Lab Results Component Value Date PSA 3.79 12/10/2024 PSA 1.66 10/20/2021 PSA 1.6 04/15/2021 ASSESSMENT: This is a 79 y.o. male with the following diagnoses: Diagnosis Orders 1. 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 Nocturia 3. Gross hematuria PLAN: Patient is happy with the Ditropan XL. He will continue this. He will see us back in 6 to 8 weeks. This point in time I did not offer him any definitive therapy of his prostate. 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
--- OUTSIDE RECORDS SUMMARY | 2024-12-18 09:44 | XMS_ITS | Encounter Summary ---
Author Organization [facility] Address [address], [address] [place] [address] Care Team Providers Care Tree Chipper Name Role Phone Guido Wells DO Primary Care Provider Unavail able Encounter Details Date Type Department Care Team (Late st Contact Info) Description 12/10/2024 Results Follow-Up [facility] Specialty Providers on Main [place] [id number] Sierra Don, PREFITTER DOORS - CAREER TECHNICAL COUNSELOR [address] [place] [address] [address] [place] [address] Social History Tobacco Use Types Packs/Day Years [...] Description 02/11/2025 8:30 AM EST Office Visit [facility] UROLOG[facility] Part of [address] [place] [address] Stephie Ruby, PREFITTER DOORS - CAREER TECHNICAL COUNSELOR [address] [place] [address] [address] [place] [address] 6-8w pvr documented as of this encounter Visit Diagnoses Not on filedocumented in this encounter Care Teams Tree Chipper Relationship Specialty Start Date End Date Guido Wells DO [address] [place] [address] PCP - General 01/25/12 documented as of this encounter
--- OUTSIDE RECORDS SUMMARY | 2024-12-18 09:44 | XMS_ITS | Clinical Summary ---
Author Organization [facility] Address [address] [place] [address] Care Team Providers Care Catering Staff Member Name Role Phone Guido Wells DO Primary Care Provider [phone] Allergies No known active allergies Medications levothyroxine [...] total) by mouth daily . Active MULTIVIT,MIN52- [id number] ORAL Take by mouth . Acti ve [...] Problem Noted Date Diagnosed Date Osteoporosis 01/03/2023 Family History Medical History Relation Comments Hypertension [...] Description 01/14/2025 9:30 AM EST Infusion/Injectio n [facility] Manager Package [address] [place] [address] 07/05/2025 10:15 AM EDT Office Visit [facility] Endocrinology Physicians [address] [facility] [place] [address] Mohan Frost MD [address] [place] [address] Health Maintenance Due Date Last Done Comments Medicare Wellness Visit 1948 Depression Screening/Follow- Up (PHQ-2/9) 1957 Hepatitis C Screening 1963 Falls Risk Assessment 2010 Respiratory Syncytial Virus Immunization: Risk, 60-74 Risk, or 75+ (1 - 1-dose 75+ series) 2020 Pneumococcal Vaccine: Age 50 + (2 of 2 - PCV) 11/04/2021 11/04/2020 COVID-19 Vaccine ( season) 2024 12/15/2023, 06/06/2023, 12/22/2022, Additional history exists Influenza Vaccine (#1) 2024 , 10/28/2022, 11/05/2021, Additional history exists Tetanus: Every 10yrs 02/27/2031 02/27/2021, 08/08/2015, 05/20/2010 Zoster Vaccines Completed 10/08/2020, 07/13, 05/20/2010 Insurance MEDICARE PART A & B [facility] Member Subscriber Plan / Payer (Ef fective 2021-Present) Name:Brayan Clay Relation to Subscriber:Self Name:Brayan Clay Payer ID:Not on file Type:Not on file Address: [address] [place] [id number] MEDICARE PART A & B PART A CLAIMS [address] [place] [id number] [facility] Member Subscriber Plan / Payer (Ef fective 2021-Present) Name:Brayan Clay Relation to Subscriber:Self Name:Brayan Clay Payer ID:Not on file Type:Not on file Address: [address] [place] [id number] Care Teams Catering Staff Member Relationship Specialty Start Date End Date Guido Wells DO [address] [place] [address] PCP - General Family Medicine 06/30/23
--- OUTSIDE RECORDS SUMMARY | 2024-12-18 09:44 | XMS_ITS | Clinical Summary ---
Author Organization [facility] Address [address] [facility] [place] [address] Care Team Providers Care Roll Operator Name Role Phone Unavailable Primary Care Provider Unavailabl e Source Comments The following information is NOT included in Care Everywhere downloads:Psychiatric notes, ECG results, Cardiac Rehab notes, Pulmonary Function notes, data from [employer] (includes but not limited toPregnancy data,audiograms, eye exams, pre-surgical evaluation notes, well-child exam data).[facility] Allergies Active Allergy Reactions Criticality Noted Date Comments Environmental 09/30/2015 Medications levothyroxine (SYNTHROID) 50 MCG tabletIndication s:Pulsatile neck mass Take 50 mcg by mouth. 07/13/2011 Active Liothyronine SodiumIndication s:Pulsatile neck mass Take 5 mcg by mouth. 07/13/2011 Active Niacin CR 1000 MG TBCRIndications: Pulsatile neck mass Take by mouth. 06/06/2012 Active [place]-3 1000 MG CAPSIndications: Pulsatile neck mass Take 1,000 mg by mouth. 07/13/2011 Active fluticasone (FLONASE) 50 MCG/ACT nasal inhalerIndicatio ns:Pulsatile neck mass 1 [place]. 07/13/2011 Active Cholecalciferol 1000 UNITS CAPSIndications: Pulsatile neck mass Take 1,000 Units by mouth. 07/13/2011 Active Calcium Citrate-Vitamin D 315-200 MG-UNIT TABSIndications: Pulsatile neck mass Take by mouth. 07/13/2011 Active B Hpixcbx-Wttjti-M A (EQL B COMPLEX 50) TBCRIndications: Pulsatile neck mass Take by mouth. 07/13/2011 Active Cetirizine HCl 10 MG CAPSIndications: Pulsatile neck mass Take 10 mg by mouth. Active Active Problems Problem Noted Date Diagnosed Date Trigger finger (acquired) 04/25/2008 Primary localized osteoarthrosis, hand 9 Contracture of palmar fascia 04/25/2008 Immunizations Immunization Administration Dates Next Due Tdap (SAR=[id number]) 08/08/2015 Family History Medical History Relation Name Comments Hypertension Father Malignancy Mother Hypertension Sister Relation Name Status Comments Father Mother Sister Social History Tobacco Use Types Packs/Day Years Used Date Smoking Tobacco: Never Smokeless Tobacco: Never Alcohol Use Standard Drinks/Week Comments No 0 (1 standard drink = 0.6 oz pur e alcohol) Substance Use Types Use/Week Comments Not Asked Sex and Gender Information Value Date Recorded Sex Assigned at Not on file Legal Sex Male 12:42 PM EST Gender Identity Not on file Sexual Orientation Not on file Occupation Industry Job Start Date Job End Date [employer] Not on file Not on file Not on file Last Filed Vital Signs Vital Sign Reading Time Taken Comments Blood Pressure 121/68 02/17/2016 10:47 AM EST Pulse 63 02/17/2016 10:47 AM EST Temperature 36.2 C (97.2 F) 02/17/2016 10:47 AM EST Respiratory Rate 16 02/17/2016 10:47 AM EST Oxygen Saturation - - Inhaled Oxygen Concentration - - Weight 69.4 kg (153 lb) 02/17/2016 10:47 AM EST Height 172.7 cm (5' 8 ) 02/17/2016 10:47 AM EST Body Mass Index 23.26 02/17/2016 10:47 AM EST Plan of Treatment Health Maintenance Due Date Last Done Comments Hepatitis C Antibody 1963 Hepatitis A (HAV) Vaccine (optional start 19+ years) 0 1964 Pneumococcal Vaccine(s) (50+ yrs) (1 of 1 - PCV) 05/01 Shingles (RZV) Vaccine (1 of 2) 1995 Hepatitis B (HBV) Vaccine (optional start 60+ years) 0 2005 Annual Wellness Visit (G0438) 03/14/2016 RSV vaccine (adult) (1 - 1-dose 75+ series) 2020 COVID-19 Vaccine (1 - 2023- season) 2024 Influenza Vaccine (#1) 2024 Tdap Booster Completed 08/08/2015 Insurance MEDICARE COMMERCIAL INSURANCE - OTHER
--- OUTSIDE RECORDS SUMMARY | 2024-12-18 09:44 | XMS_ITS | Encounter Summary ---
Author Organization [facility] Address [id number] [address] [place] [address] Care Team Providers Care Small Package And Bundle Sorter Clerk Name Role Phone Guido Wells DO Primary Care Provider [phone] Encounter Details Date Type Department Care Team (Latest Contact Info) Description 10/04/2024 Results Follow-Up [facility] [address] [place] [address] [place] [address] [place] [address] Teresa Cornell I, PA [address] [place], [place] [id number] Ultrasound retroperitoneal complete Social History Tobacco Use Types Packs/Day Years Used Date Smoking Tobacco: Never Smokeless Tobacco: Never Alcohol Use Standard Drinks/Week Comments Yes 0 (1 standard drink = 0.6 oz pur e alcohol) Hunger Screening Answer Date Recorded Within the past 12 months we worried whether our food would run out before we got money to buy more. Never True 09/19/2024 Within the past 12 months th e food we bought just didn't last and we didn't have money to get more. Never True 09/19/2024 Sex and Gender Information Value Date Recorded Sex Assigned at Not on file Legal Sex Male 10:41 AM EST Gender Identity Not on file Sexual Orientation Not on file documented as of this encounter Plan of Treatment Not on file documented as of this encounter Visit Diagnoses Not on filedocumented in this encounter Care Teams Small Package And Bundle Sorter Clerk Relationship Specialty Start Date End Date Guido Wells DO [address] [address] [place] [address] PCP - General Family Medicine 09/10/24 documented as of this encounter
--- OUTSIDE RECORDS SUMMARY | 2024-12-18 09:44 | XMS_ITS | Encounter Summary ---
Author Organization [facility] Address [address] [place] [address] Care Team Providers Care Sleeve Wheel Maker Name Role Phone Guido Wells Primary Care Provider [phone] Source Comments In the event this information is protected by the Federal Confidentiality of Alcohol and Drug AbusePatient Records regulations: The Federal rules restrict any use of the information to criminally investigate or prosecute any alcohol or drug abuse patient.[facility] Encounter Details Date Type Department Care Team (Late st Contact Info) Description 06/16/2022 Lab Requisition [facility] [place] [address] Cesar Connors MD [address] [place] [address] Social History Tobacco Use Types [...] 24.2 nM BCE 07/06/2022 7:48 AM EDT [facility] Comment: BCE = Bone Collagen Equivalents Test performed at [facility] Blood BLOOD SPECIMEN / Unknown 06/16/2022 8:20 AM EDT 06/16/2022 11:41 PM EDT us Cesar Connors MD LABORATORY Final Result [facility] [address] documented in this encounter Visit Diagnoses Not on filedocumented in this encounter Care Teams Sleeve Wheel Maker Relationship Specialty Start Date End Date Guido Wells DO PCP - General Family Medicine 08/17/10 documented as of this encounter
--- OUTSIDE RECORDS SUMMARY | 2024-12-18 09:44 | XMS_ITS | Clinical Summary ---
Author Organization [facility] Address [address] [place], [place] [id number] Care Team Providers Care Parts Counterperson Name Role Phone Guido Wells DO Primary Care Provider [phone] Allergies No known active allergies Medications aspirin, [...] 50 mcg/actuation NASAL nasal spray Use 1 [place] in each nostril daily at bedtime. 0 [...] Vaccine (1 - 1-dose 75+ series) 2020 Advance Directive Discussion 03/14/2024 Covid-19 Vaccine (1 - 2024- season) 2024 Influenza Vaccine (#1) 2024 Medical Devices Implanted Type Area Field Consultant Device Identifier Shelf Expiration Date Model / Serial / Lot Lens Iol 0 D +16 Rosemary +3 Cyl - [id number] Implanted:Qty : 1 on 12/03/2011 at [facility] Intraocular Lens [employer] 02/11/2016 [id number] 16.0 / [id number] 20 / Lens Iol +17 Rosemary 1 Pc Fld - [id number] Implanted:Qty : 1 on 12/15/2011 at [facility] Intraocular Lens Left: Eye - Lens [employer] [facility] 05/11/2014 [id number] 17.0 / [id number] 40 / Procedures Procedure Name Priority Date/Time Associated Diagnosis Comments BASIC METABOLIC PANEL Routine 06/06/2012 4:16 PM EDT Other specified pre-operative examination from Last 3 Months or Most Recently Relevant to Health Maintenance Results * (ABNORMAL) BASIC METABOLIC PNL (06/06/2012 4:16 PM EDT) Glucose 100 65 - 100 mg/dL [facility] BUN 11 10 - 25 mg/dL [facility] Creatinine 0.75 0.70 - 1.40 mg/dL [facility] Sodium 133(L) 135 - 146 mmol/L [facility] Potassium 4.1 3.5 - 5.0 mmol/L [facility] Chloride 97(L) 98 - 110 mmol/L [facility] CO2 25 23 - 32 mmol/L [facility] Anion Gap 11 0 - 15 mmol/L [facility] Calcium 9.5 8.5 - 10.5 mg/dL [facility] eGFR- >60 [facility] eGFR-All Other Races >60 . [facility] Comment: eGFR (Estimated GFR) Units [...] EDT us Megan Mota LABORATORY Final Result [facility] [address] [place] [address] from Last 3 Months or Most Recently Relevant to Health Maintenance Insurance [address]ICARE [address] Care Teams Parts Counterperson Relationship Specialty Start Date End Date Guido Wells DO PCP - General Family Medicine 08/17/10
--- OUTSIDE RECORDS SUMMARY | 2024-12-18 09:44 | XMS_ITS | Encounter Summary ---
Author Organization [facility] Address [address] [place] [address] Care Team Providers Care Rooms Director Name Role Phone Unavailable Primary Care Provider Unavailabl e Encounter Details Date Type Department Care Team (Late st Contact Info) Description 10/20/2015 Procedure Visit Initial Department Assigned, To Be Social History Tobacco Use Types Packs/Day Years [...] file Not on file Not on file documented as of this encounter Plan of Treatment Not on file documented as of this encounter Visit Diagnoses Not on filedocumented in this encounter
--- OUTSIDE RECORDS SUMMARY | 2024-12-18 09:44 | XMS_ITS | Encounter Summary ---
Author Organization [employer] Address [id number] [address] [place] [address] Care Team Providers Care Physician/Ophthalmologist Name Role Phone Guido Wells Primary Care Provider [phone] Encounter Details Date Type Department Care Team (Late st Contact Info) Description 10/09/2024 Telephone [facility] [address] [place] [phone] Teresa Cornell PA [address] [place], [place] [id number] Social History Tobacco Use Types Packs/Day Years [...] on file documented as of this encounter Miscellaneous Notes * Telephone Encounter - BRADLEY Dejesus - 10/09/2024 10:23 AM EDT Please schedule him for cystoscopy with Dr. Pinzon in [place]. Dx: UTI, gross hematuria Please see if he would prefer local vs MAC anesthesia Thank you * Telephone Encounter - BRADLEY Dejesus - 10/09/2024 10:23 AM EDT See below. He responded saying that he would prefer local anesthesia * Telephone Encounter - Sheeba Barnes - 10/09/2024 10:23 AM EDT Patient had done with a urologist in [place] Dr. Binh Escudero documented in this encounter Plan of Treatment Not on file documented as of this encounter Visit Diagnoses Not on filedocumented in this encounter Care Teams Physician/Ophthalmologist Relationship Specialty Start Date End Date Guido Wells DO [address] [place], [place] [id number] PCP - General Family Medicine 09/10/24 documented as of this encounter
--- OUTSIDE RECORDS SUMMARY | 2024-12-18 09:44 | XMS_ITS | Encounter Summary ---
Author Organization [facility] Sys tem Address [id number] [address] [place] [address] Care Team Providers Care Pathology Teacher Name Role Phone Guido Wells Tanisha JUAREZ Primary Care Provider [phone] Encounter Details Date Type Department Care Team (Late st Contact Info) Description 09/20/2024 Orders Only [facility] [address] [place] [phone] External, Scanning Provider Social History Tobacco Use Types Packs/Day Years [...] Procedure Name Priority Date/Time Associated Diagnosis Comments URINE CULTURE Routine 09/03/2024 2:42 PM EDT documented in this encounter Results * Urine Culture (09/03/2024 2:42 PM EDT) Urine us Scanning Provider External MICROBIOLOGY - GENERA L ORDERABLES Edited Result - Final MANUALLY TRANSCRIBED RESULTS documented in this encounter Visit Diagnoses Not on filedocumented in this encounter Care Teams Pathology Teacher Relationship Specialty Start Date End Date Guido Wells DO [address] [place] [address] [place] [address] PCP - General Family Medicine 09/10/24 documented as of this encounter
--- OUTSIDE RECORDS SUMMARY | 2024-12-18 09:44 | XMS_ITS | Clinical Summary ---
Author Organization [facility] Address [address], [address] [place] [address] Care Team Providers Care Fire Prevention Officer Name Role Phone Guido Wells DO Primary Care Provider Unavail able Allergies Active Allergy Reactions Criticality Noted Date Comments Amoxicillin-Pot Clavulanate Nausea And Vomiting Low 09/19/2024 Medications Calcium-Magnesi um-Vitamin D (CALCIUM 1200+D3 PO) Take by mouth Active Cetirizine HCl 10 MG CAPS Take 10 mg by mouth daily Active Coenzyme Q10 50 MG CAPS Take by mouth daily Active famotidine (PEPCID) 10 MG tablet Take 2 tablets by mouth nightly Active glucosamine-cho ndroitin 500-400 MG tablet Take 1 tablet by mouth 3 times daily Active levothyroxine (SYNTHROID) 50 MCG tablet 11/27/2024 Active liothyronine (CYTOMEL) 5 MCG tablet 11/27/2024 Active rosuvastatin (CRESTOR) 5 MG tablet 10/31/2024 Active zinc gluconate 50 MG tablet Take 1 tablet by mouth Active vitamin C (ASCORBIC ACID) 500 MG tablet Take 1 tablet by mouth daily Active tamsulosin (FLOMAX) 0.4 MG capsuleIndicati ons: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,Noc turia Take 1 capsule by mouth daily 30 capsule 5 11/29/2024 Active Encounters Date Type Department Care Team Description 12/17/2024 2:15 PM EDT Procedure visit [facility] Part of [address] [place] [phone] Binh Escudero MD 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 (Primary Dx); Nocturia; Gross hematuria 12/10/2024 9:26 AM EDT - 12/10/2024 11:59 PM EDT Hospital Encounter [facility] [address] [place] [address] Binh Escudero MD 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; Nocturia; Gross hematuria; Prostate cancer screening Discharge Disposition: Home or Self Care 12/10/2024 9:23 AM EDT - 12/12/2024 11:59 PM EDT Hospital Encounter [facility] CT Scan [address] [place] [address] Binh Escudero MD 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; Nocturia; Gross hematuria Discharge Disposition: Home or Self Care 12/10/2024 Results Follow-Up [facility] Specialty Providers on Main [place] [phone] Sierra Don APRN - CNP 11/29/2024 1:15 PM EDT Office Visit [facility] [address] [facility] [address]nd [place] [address] Binh Escudero MD 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 (Primary Dx); Nocturia; Prostate cancer screening; Gross hematuria from Last 3 Months Social History Tobacco Use Types Packs/Day Years [...] Mass Index 21.58 12/17/2024 2:05 PM EDT Plan of Treatment Upcoming Encounters Date Type Department Care Team (Late st Contact Info) Description 02/11/2025 8:30 AM EST Office Visit [facility] Part of [address] [place] [address] Stephie Ruby, LEAD MOBILE DEVELOPER - MINE ADMINISTRATOR SUPERVISOR [address] [place] [address] [phone] pvr Health Maintenance Due Date Last Done Comments Depression Screen 1957 Hepatitis C screen 1963 Pneumococcal 50+ years Vaccine (2 of 2 - PCV) 11/04/2021 11/04/2020 Lipids 10/20/2022 10/20/2021, 04/2021, 10/08/2020, Additional history exists Annual Wellness Visit (Medicare) 02/07/2023 COVID-19 Vaccine ( season) 2024 12/15/2023, 06/06/2023, 12/22/2022, Additional history exists DTaP/Tdap/Td vaccine (4 - Td or Tdap) 02/27/2031 02/27/2021, 08/08/2015, 05/20/2010 Shingles vaccine Completed 10/08/2020, , 05/20/2010 Respiratory Syncytial Virus (RSV) or age 60 yrs+ Completed 12/17/2022 Flu vaccine Completed 11/23/2024, 11/12, 10/28/2022, Additional history exists Hepatitis A vaccine Aged [...] symptoms without urinary obstruction Nocturia Gross hematuria PSA SCREENING Routine 12/10/2024 9:28 AM EDT Prostate cancer screening BUN & CREATININE Routine 12/10/2024 9:28 AM EDT 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 COMPARISON: 09/28/2024 renal ultrasound, [place]. No report available. TECHNIQUE: CT examination of [...] with gross hematuria. COMPARISON: 09/28/2024 renal ultrasound, [place]. No report available. TECHNIQUE: CT examination of [...] urinary tract malignancy or stone. us Binh Escudero MD IMG CT ORDERABLES Final Resu lt * PSA Screening (12/10/2024 9:28 AM EDT) PSA 3.79 0.00 - 4.00 ng/mL 12/10/2024 9:28 AM EDT [employer] Comment: The Sharmila ECLIA assay is used. Results obtained with different assay methods cannot be used interchangeably. Blood BLOOD SPECIMEN / Unknown 12/10/2024 9:28 AM EDT 12/10/2024 9:29 AM EDT us Binh Escudero MD CHEMISTRY ORDERABLES Final R esult [facility] [address] [place] [address], [facility] [phone] [facility] [employer] [address] [place] [address], [facility] [phone] * BUN & Creatinine (12/10/2024 9:28 AM EDT) BUN 14 8 - 23 mg/dL 12/10/2024 9:28 AM EDT [facility] Creatinine 0.8 0.7 - 1.2 mg/dL 12/10/2024 9:28 AM EDT [facility] Est, Glom Filt Rate >90 >60 mL/min/1.7 3m2 12/10/2024 9:28 AM EDT [facility] Comment: These results are not intended [...] Escudero MD CHEMISTRY ORDERABLES Final R esult [facility] [address] [place] [address], [facility] [phone] * (ABNORMAL) Lipid Panel (10/20/2021 8:24 AM EDT) Cholesterol 180 <200 mg/dL 10/20/2021 8:24 AM EDT [employer] Comment: Cholesterol Guidelines: <200 Desirable 200-240 Borderline >240 Undesirable HDL 46 >40 mg/dL 10/20/2021 8:24 AM EDT [employer] Comment: HDL Guidelines: <40 Undesirable 40-59 Borderline >59 Desirable LDL Cholesterol 103 0 - 130 mg/dL 10/20/2021 8:24 AM EDT [employer] Comment: LDL Guidelines: <100 Desirable 100-129 Near to/above Desirable 130-159 Borderline >159 Undesirable Direct (measured) LDL and calculated LDL are not interchangeable tests. Chol/HDL Ratio 3.9 <5 10/20/2021 8:24 AM EDT [employer] Comment: Triglycerides 156(H) <150 mg/dL 10/20/2021 8:24 AM EDT [employer] Comment: Triglyceride Guidelines: <150 Desirable 150-199 Borderline 200-499 High >499 Very high Based on AHA Guidelines for fasting triglyceride, December 2011. 10/20/2021 8:24 AM EDT 10/20/2021 8:25 AM EDT Guido Wells DO CHEMISTRY ORDERABLES Final Res ult [facility] [address] [place] [address], [facility] [phone] [employer] [facility] [address] [place] [address], [facility] [phone] from Last 3 Months or Most Recently Relevant to Health Maintenance Insurance [address] [place] [address] [employer] Care Teams Fire Prevention Officer Relationship Specialty Start Date End Date Guido Wells DO [address] [place] [address] PCP - General 01/25/12
--- OUTSIDE RECORDS SUMMARY | 2024-12-18 09:44 | XMS_ITS | Clinical Summary ---
Author Organization [facility] Address [address] [place] [address] Care Team Providers Care Button Tufting Machine Operator Name Role Phone Guido Wells MD Primary Care Provider [phone] Allergies Active Allergy Reactions Criticality Noted Date [...] palmar fascia 04/25/2008 Trigger finger, acquired 04/25/2008 Immunizations Immunization Administration Dates Next Due Influenza, [...] 07/17/2025 10:20 AM EDT Office Visit [facility] [address] [place] [phone] Nicole Montana, PA [address] [place] [address] Health Maintenance Due Date Last Done Comments Pneumococcal Vaccine: 65+ Ye ars (2 of 2 - PCV) 11/04/2021 11/04/2020 Influenza Vaccine (#1) 2024 4, 10/28/2022, 11/05/2021, Additional history exists Insurance [employer] Care Teams Button Tufting Machine Operator Relationship Specialty Start Date End Date Guido Wells MD [address] [place] [id number] PCP - General Family Medicine 09/21/23
--- OUTSIDE RECORDS SUMMARY | 2024-12-18 09:44 | XMS_ITS | Clinical Summary ---
Author Organization [employer] Address [id number] [address] [place] [address] Care Team Providers Care Operational Trainer Name Role Phone ObduliomichelleGuido DO Primary Care Provider [phone] Allergies Active Allergy Reactions Criticality Noted Date Comments Amoxicillin-Pot Clavulanate Nausea And Vomiting 09/19/2024 Medications levothyroxine (SYNTHROID, LEVOTHROID) 50 MCG tablet [...] Q10 50 mg capsule Take by mouth in the morning. Active multivitamin capsule Take 1 capsule by mouth in the morning. Active CALCIUM CITRATE ORAL Take by mouth. Activ e magnesium 200 mg tablet Take by mouth. Activ e melatonin 10 mg tablet Take by mouth. Activ e famotidine (PEPCID) 10 mg tablet Take 2 tablets (20 mg total) by mouth nightly. Active cetirizine (ZyrTEC) 10 mg capsule Take 1 capsule (10 mg total) by mouth in the morning. Active Active Problems Problem Noted Date Diagnosed Date Urinary tract infection with hematuria Overview (09/19/2024): 09/19/24: Recent E coli UTI with hematuria. Reports that it was persistent despite course of abx. Still has intermittent frequency and weak stream but no dysuria. UA neg. Declines cystoscopy but agrees to renal/bladder US with PVR Assessment & Plan (09/19/2024 10:17 AM EDT): I will call him with the results of the ultrasound. He will let me know if he changes his mind and agrees to go forward with a cystoscopy. We will recheck his urine at his follow-up. He will let us know if he develops another infection before he returns to the office Elevated PSA 07/20/2022 Overview (09/19/2024): 07/20/22: Patient's PSA did increase to 2.1 from 1.66. He has a normal prostate exam. Discussed PSA and some limitations. Given the PSA velocity this does not concern me as it is less than 0.75 per year. Coupled with this the patient did have COVID which falsely elevate PSA in many patients. Would recommend continuing to check this annually 09/19/24: PSA 05/09/23: 2.1. He has not yet had it checked this year. Will check in a couple of months. He had a recent UTI so I don't want to check right now Encounters Date Type Department Care Team Description 10/16/2024 Telephone [facility] [address] [place] [phone] Torrie Arizmendi CMA 10/09/2024 Telephone [facility] [address] [place] [phone] Teresa Cornell PA 10/08/2024 Telephone [facility] [address] [place] [phone] Ugo Torrie, [facility] 10/05/2024 Telephone [facility] [address] [place] [phone] UgoTorrie, [facility] 10/04/2024 Results Follow-Up [facility] [address] [place] [address] [place] [phone] Teresa Cornell PA Ultrasound retroperitoneal complete 09/28/2024 7:57 AM EDT - 09/28/2024 11:59 PM EDT Hospital Encounter [facility] - [facility]ound [address] [place] [phone] Urinary tract infection with hematuria, site unspecified Discharge Disposition: Home 09/28/2024 Travel 09/20/2024 Orders Only [facility] [address] [place] [phone] External, Scanning Provider 09/19/2024 9:30 AM EDT Office Visit [facility] [address] [place] [address] [place] [phone] Teresa Cornell PA Elevated PSA (Primary Dx); Urinary tract infection with hematuria, site unspecified from Last 3 Months Social History Tobacco [...] Sign Reading Time Taken Comments Blood Pressure 122/78 09/19/2024 9:53 AM EDT Pulse 68 09/19/2024 9:53 AM EDT Temperature - - Respiratory Rate - - Oxygen Saturation - - Inhaled Oxygen Concentration - - Weight 65.3 kg (144 lb) 09/19/2024 9:53 AM EDT Height 175.3 cm (5' 9 ) 09/19/2024 9:53 AM EDT Body Mass Index 21.27 09/19/2024 9:53 AM EDT Plan of Treatment Health Maintenance Due Date Last Done Comments Depression Screening 1957 Fall Risk Screening 2010 COVID-19 Vaccine ( season) 2024 12/15/2023, 06/06/2023, 12/22/2022, Additional history exists Influenza Vaccine 11/12/2024 12/01/2023, , 11/05/2021, Additional history exists Tobacco Screening 09/19/2025 09/19/2024 DTaP,Tdap and Td Vaccines (4 - Td or Tdap) 02/27/2031 02/27/2021, 08/08/2015, 05/20/2010 Zoster (Shingles) Vaccine Completed 2020, 08/08/2020, 05/20/2010 Medical Devices Not on file Procedures Procedure Name Priority Date/Time Associated Diagnosis Comments US RETROPERITONEAL COMPLETE Routine 09/28/2024 8:28 AM EDT Urinary tract infection with hematuria, site unspecified PM AMB POCT URINALYSIS AUTO, W/O MICROSCOPY Routine 09/19/2024 9:59 AM EDT Urinary tract infection with hematuria, site unspecified from Last 3 Months Results * Ultrasound retroperitoneal complete (09/28/2024 8:28 AM EDT) Anatomical Region Laterality Modality Body Ultrasound 10/04/2024 11:5 5 AM EDT Narrative 10/04/2024 12:00 PM EDT CLINICAL INFORMATION: Hematuria. UTIs. COMPARISON: None. FINDINGS: RIGHT KIDNEY: Length: 10.7 cm. Cortical Thickness/Echogenicity: Normal Hydronephrosis: None Calculus: None Mass: None Other: Benign anechoic inferior lateral 1.2 x 1.2 x 1.0 cm simple cyst requiring no further follow-up. LEFT KIDNEY: Length: 10.0 cm. Cortical Thickness/Echogenicity: Normal Hydronephrosis: None Calculus: None Mass: None Other: Likely benign parapelvic cysts. URINARY BLADDER: Mildly trabeculated bladder wall. Prevoid volume: 216.4 mL. Post void volume: 176.1 mm. Bilateral ureteral jets visualized. PROSTATE: Prostate volume: 83.4 mL. Large anechoic focus noted within the prostate, suboptimally evaluated. IMPRESSION: 1. No hydroureteronephrosis. No nephrolithiasis. 2. Benign right inferior lateral simple renal cysts and likely benign left parapelvic cysts requiring no further follow-up. 3. Mildly trabeculated bladder wall which may represent sequela of chronic bladder outlet obstruction or may represent underlying neoplastic process. Recommend clinical correlation and consider cystoscopy if warranted. 4. Significant post void residual. 5. Prostatomegaly. Finalized by Madison Diaz MD on 10/04/2024 12:00 PM Procedure Note Madison Diaz MD - 10/04/2024 CLINICAL INFORMATION: Hematuria. UTIs. COMPARISON: None. FINDINGS: RIGHT KIDNEY: Length: 10.7 cm. Cortical Thickness/Echogenicity: Normal Hydronephrosis: None Calculus: None Mass: None Other: Benign anechoic inferior lateral 1.2 x 1.2 x 1.0 cm simple cystrequiring no further follow-up. LEFT KIDNEY: Length: 10.0 cm. Cortical Thickness/Echogenicity: Normal Hydronephrosis: None Calculus: None Mass: None Other: Likely benign parapelvic cysts. URINARY BLADDER: Mildly trabeculated bladder wall. Prevoid volume: 216.4 mL. Post void volume: 176.1 mm. Bilateral ureteral jets visualized. PROSTATE: Prostate volume: 83.4 mL. Large anechoic focus noted within the prostate,suboptimally evaluated. IMPRESSION: 1. No hydroureteronephrosis. No nephrolithiasis. 2. Benign right inferior lateral simple renal cysts and likely benignleft parapelvic cysts requiring no further follow-up. 3. Mildly trabeculated bladder wall which may represent sequela ofchronic bladder outlet obstruction or may represent underlying neoplasticprocess. Recommend clinical correlation and consider cystoscopy ifwarranted. 4. Significant post void residual. 5. Prostatomegaly. Finalized by Madison Diaz MD on 10/04/2024 12:00 PM us Teresa HUERTA IMG US ORDERABLES Final Res ult * POCT Urinalysis Auto, W/O Microscopy (09/19/2024 9:59 AM EDT) External Poct Urine Glucose Negative MANUALLY TRANSCRIBED RESULTS External Poct Urine Ketones Negative MANUALLY TRANSCRIBED RESULTS External Poct Urine Blood Negative MANUALLY TRANSCRIBED RESULTS External Poct Urine Ph 7.0 MANUALLY TRANSCRIBED RESULTS External Poct Urine Protein Negative MANUALLY TRANSCRIBED RESULTS External Poct Urine Nitrite Negative MANUALLY TRANSCRIBED RESULTS External Poct Urine Leukocyte Esterase Negative MANUALLY TRANSCRIBED RESULTS Urine Urine specimen collection, clean catch / Unknown 09/19/2024 9:59 AM EDT Teresa HUERTA POINT OF CARE TEST ORDERABL ES Final Result MANUALLY TRANSCRIBED RESULTS from Last 3 Months Insurance [employer] [place] Care Teams Operational Trainer Relationship Specialty Start Date End Date Guido Wells DO [address] [place] [place] [address] PCP - General Family Medicine 09/10/24
--- OUTSIDE RECORDS SUMMARY | 2024-12-18 09:47 | XMS_ITS | CCD ---
Author Organization [facility] Care Team Providers Care Radiation Oncology Nurse Name Role Phone Marcelina White Primary Care Provider Unavailabl e PROVIDER, UNKNOWN Admitting Unavailable MARCELINA PRASAD Attending Unavailable PATIENT, SELF Referring Unavailable Marcelina White DO Primary Care Provider Unavail able Marcelina White DO Primary Care Provider Unavail able Nidia Ledesma Unavailable MARCELINA WHITE Referring Unavailable MARCELINA WHITE Primary Care Unavailable Marcelina White DO Primary Care Provider Unavail able Marcelina White Unavailable DO Marcelina White Primary Care Provider [phone] MD Riky Ladd Attending Provider DO Marcelina White Attending Provider DR MARCELINA WHITE Admitting Unavailable CINDY, DR HEWITT Attending Unavailable CINDY, DR HEWITT Primary Care Unavailable CINDY, DR HEWITT Consulting Unavailable CESAR CONNORS Admitting Unavailable CESAR CONNORS Attending Unavailable CINDY, DR HEWITT Primary Care Unavailable CESAR CONNORS Consulting Unavailable Marcelina White DO Primary Care Provider [phone] DO Marcelina White Primary Care Provider [phone] MD Nidia Ledesma Attending Provider [phone] Mohan Carlson MD Primary Care Provi jonh Marcelina White DO Primary Care Provider [phone] DO Marcelina White Primary Care Provider MD Mohan Carlson Attending Provider Marcelina White DO Primary Care Provider DO Marcelina White Primary Care Provider [phone] MD Mohan Carlson Attending Provider DO Marcelina White Primary Care Provider DO Marcelina White Attending Provider ADLY, MOHAN ADLY MOHAN Primary Care Unava ilable MARCELINA WHITE Primary Care Unavailable MARCELINA WHITE Primary Care Unavailable Marcelina White DO Primary Care Provider Marcelina White DO Attending Provider [phone] Marcelina White MD Primary Care Provider Marcelina White DO Attending Provider MARCELINA WHITE Primary Care Unavailable ADLY, MOHAN ADLY MOHAN Attending Unava ilable ADLY, MOHAN ADLY MOHAN Referring Unava ilable ADLY, MOHAN ADLY MOHAN Admitting Unava ilable MARCELINA WHITE Primary Care Unavailable MARCELINA WHITE Primary Care Unavailable ADLY, MOHAN ADLY MOHAN Referring Unava ilable ADLY, MOHAN ADLY MOHAN Admitting Unava ilable Marcelina White MD Primary Care Provider NICOLE JIMÉNEZ Attending Unavailable NICOLE JIMÉNEZ Attending Unavailable NICOLE JIMÉNEZ Attending Unavailable TRA MCCURDY Attending Unavailabl e NICOLE JIMÉNEZ Attending Unavailable TRA MCCURDY Attending Unavailabl e NICOLE JIMÉNEZ Attending Unavailable TRA MCCURDY Attending Unavailabl e Marcelina White Attending Unavailable Cindy, Marcelina Admitting Unavailable Cindy, Marcelina Attending Unavailable Marcelina White Primary Care Unavailable Cindy, Marcelina Admitting Unavailable Marcelina White Attending Unavailable Marcelina White Primary Care Unavailable Marcelina White Admitting Unavailable Cindy, Marcelina Attending Unavailable Cindy, Marcelina Admitting Unavailable Marcelina White Attending Unavailable Marcelina White Admitting Unavailable Marcelina White DO Primary Care Provider Marcelina White DO Primary Care Provider Marcelina White DO Attending Provider Nidia Ledesma MD Attending Provider [phone] Marcelina White DO Primary Care Provider Unavail able Marcelina White DO Primary Care Provider Marcelina White DO Attending Provider Nidia Ledesma MD Attending Provider VIJI ESCUDERO Attending Unavailable VIJI ESCUDERO Referring Unavailable MARCELINA WHITE Primary Care Unavailable VIJI ESCUDERO Attending Unavailable VIJI ESCUDERO Referring Unavailable MARCELINA WHITE Primary Care Unavailable VIJI ESCUDERO Attending Unavailable VIJI ESCUDERO Referring Unavailable MARCELINA WHITE Primary Care Unavailable Allergies Allergy Classification Reported Allergen(s) Allergy Type Date of Onset Reaction(s) Facility (1 source) Environmental allergy; Translations: [ENVIRONMENTAL] Propensity to adverse reactions (disorder) 09-30-19 16 [facility] [facility] Rep[facility] (9 sources) Octacosanol Drug Intolerance 09-30-19 16 [facility] Healthcare Work Phone: (6 sources) Amoxicillin / Clavulanate Drug Allergy 09-20-19 25 Nausea And Vomiting [facility] Medications Current Medications Medication Drug Class(es) Dates Sig (Normalized) Sig (Original) acetaminophen 325 mg oral tablet (20 sources) Start: 04-23-2023 End: 12-01-2023 Acetaminophen 325 mg tablet Active 325 MG PO .COMPLEX December 01, 2023 9:27am 325 mg orally 1/2 tab Orally prn; Complies with drug therapy Start: 04-23-2023 End: 12-01-2023 Acetaminophen Discontinued M G PO April 23, 2023 1:00am December 01, 2023 9:30am FreeTextSi/2 tab Orally prn; Note: Source Status: Taking; Provider: Darius Headley Acetaminophen 32 5 MG 1/2 tab Orally prn Active ascorbic acid 500 mg chewable tablet (20 sources) Vitamin C take 1 tablet by renay th once daily vitamin C (ASCORBIC ACID) 500 MG tablet Take 1 tablet by mouth daily Active take 1 tablet by mouth in the mo rning ascorbic acid, vitamin C, (VITAMIN C) 1000 mg tablet Take 1 tablet (1,000 mg total) by mouth in the morning. Active calcium ascorbate 500 mg oral tablet (15 sources) Start: 04-23-2023 take 1 tablet by mouth once daily Ascorbate Calcium (Vitamin C) 500 mg tablet Active 500 MG PO Daily April 23, 2023 1:00am Complies with drug therapy calcium carbonate 1500 mg oral tablet (12 sources) take 1 tablet by mouth twice daily at mealtime calcium carbonate (OS-KEY) 600 mg calcium (1,500 mg) tablet Take 1 (one) tablet (600 mg total) by mouth 2 (two) times a day with meals . Active calcium citrate 1000 mg oral tablet (20 sources) Start: 12-01-2023 take 3 tablets by mouth once daily Calcium Citrate 1,000 mg tablet Active 1000 MG PO Daily December 01, 2023 9:28am take 3 (1,000 mg) tabs daily Complies with drug therapy Start: 12-01-2023 End: 12-01-2023 take 1 tablet by mouth three times daily Calcium Citrate 1,000 mg tablet Discontinued 1000 MG PO Three times daily December 01, 2023 12:00am December 01, 2023 9:30am CALCIUM CITRATE ORAL Take by mouth. Active Calcium Citrate Active Qojzizl-Qmruzufbu-Zihljqo D (CALCIUM 1200+D3 PO) (1 source) Calcium-Magnesiu m-Vitamin D (CALCIUM 1200+D3 PO) Take by mouth Active cetirizine hydrochloride 10 mg oral tablet (20 sources) Histamine-1 Receptor Antagonist Star t: 03-2 4 25 take 1 tablet by mouth once daily as needed Cetirizine 10 mg tablet Active 10 MG PO Daily as needed June 04, 2024 12:00am Complies with drug therapy Start: 03-21-2017 End: 12-01-2023 take 1 tablet by mouth once daily Cetirizine (Zyrtec) 10 mg Tablet Discontinued 10 MG PO Daily March 22, 2017 1:00am December 01, 2023 9:18am take [address] [facility] once daily Cetirizine HCl 10 MG CAPS Take 10 mg by mouth daily Active Zyrtec 1 tab Ora l prn Not-Taking Zyrtec 1 tab Ora l Not-Taking Zyrtec 1 tab Ora l Active cholecalciferol 0.05 mg oral capsule (20 sources) Vitamin D Start: 12-01-2023 take 1 capsule by mouth once daily Cholecalciferol (Vitamin D3) 50 mcg (2,000 unit) capsule Active 50 MCG PO Daily December 01, 2023 12:00am Complies with drug therapy Start: 03-22-2017 End: 12-01-2023 take 1 tablet by mouth once daily Cholecalciferol (Vitamin D3) (Vitamin D3) 400 unit Tablet Discontinued 400 UNIT PO Daily March 22, 2017 1:00am December 01, 2023 9:14am take 1 tablet by renay th once daily cholecalciferol, vitamin D3, 1,000 unit tablet Take 1 (one) tablet (1,000 Units total) by mouth daily . Active cholecalciferol, vitamin D3, (VITAMIN D3 ORAL) (6 sources) cholecalciferol, vitamin D3, (VITAMIN D3 ORAL) Take by mouth. Active chondroitin sulfates 400 mg / glucosamine sulfate 500 mg oral tablet (13 sources) take 1 tablet by mouth three times daily glucosamine-chondroitin 500-400 MG tablet Take 1 tablet by mouth 3 times daily Active take 1 tablet by renay th three times daily glucosamine-chondroitin 500-400 mg table t Take 1 (one) tablet by mouth 3 (three) times a day . Active Co-Enzyme Q10 200 MG (1 source) Start: 09-08-2017 take 1 capsule by mouth once daily Co-Enzyme Q10 200 MG 1 capsule with a meal Orally Once a day Aug, Active diclofenac sodium 0.01 mg/mg topical gel (3 sources) Nonsteroidal Anti-inflammatory Drug Start: 11-07-2019 Voltaren 1 % apply 1-2 grams to affected area Transdermal BID PRN for 30 days Oct, Active diphenhydrAMINE (12 sources) Histamine-1 Receptor Antagonist diphenhydramine HCl (BENADRYL ALLERGY ORAL) Take by mouth. Active diphenhydrAMINE HCl 25 MG 1 capsule Orally prn Active diphenhydrAMINE HCl Active famotidine 20 mg oral tablet (20 sources) Histamine-2 Receptor Antagonist Start: 06-04-2024 take 1 tablet by mouth once daily Famotidine 20 mg tablet Active 20 MG PO Daily June 04, 2024 12:00am Complies with drug therapy take 2 tablets by mouth once lizy ly famotidine (PEPCID) 10 MG tablet Take 2 tablets by mouth nightly Active famotidine (Pepc id) 10 MG tablet every 12 (twelve) hours Active take 1 tablet by renay th every twelve hours Famotidine 10 MG 1 tablet as needed Oral ly Twice a day prn Active fluocinonide 0.0005 mg/mg topical ointment (15 sources) Corticosteroid Start: 07-13-2022 fluocinonide ( Lidex) 0.05 % ointment Apply 1 application topically in the morning and 1 application in the evening. 07/13/2022 Active fluticasone propionate 0.05 mg/actuat metered dose nasal spray (20 sources) Corticosteroid Start: 03-22-2017 Fluticasone Pr opionate 50 mcg/actuation Hurley,Suspension Active 2 SPRAY INTRANASAL Daily March 22, 2017 1:00am Complies with drug therapy Start: 07-13-2011 fluticasone pr opionate (FLONASE) 50 mcg/actuation nasal spray Fluticasone Propionate Active 2 SPRAY INTRANASAL Daily March 22, 2017 1:00am 07/13/2011 Active take 2 spray(s) nasa l route once daily as needed Fluticasone Propionate 50 MCG/ACT 2 sprays each nostril Nasally Once a day prn Active glucosamine sulfate 500 mg oral tablet (20 sources) Start: 12-01-2023 take 3 tablets by mouth once daily Glucosamine Sulfate (Glucosamine) 500 mg tablet Active 1500 MG PO Daily December 01, 2023 9:15am administer with a meal Complies with drug therapy Start: 04-23-2023 End: 12-01-2023 take 1 tablet by mouth once daily Glucosamine Sulfate (Glucosamine) 500 mg tablet Discontinued 500 MG PO Daily April 23, 2023 1:00am December 01, 2023 9:21am administer with a meal Glucosamine Acti ve glucosamine HCl/chondroitin tong (GLUCOSAMINE-CHONDROITIN ORAL) (6 sources) glucosamine HCl/ chondroitin tong (GLUCOSAMINE-CHONDROITIN ORAL) Take by mouth. Active liothyronine sodium 0.005 mg oral tablet (20 sources) l-Triiodo thyronine Start: liothyronine (CYTOMEL) 5 MCG tablet 11/27/2024 Active Start: 06-11-2024 take 1 tablet by renay th once daily Liothyronine 5 mcg tablet Active 0 .ROUTE .COMPLEX 90 June 11, 2024 9:10am TAKE 1 TABLET BY MOUTH DAILY Complies with drug therapy Start: 03-21-2017 take 1 tablet by renay th once daily Liothyronine Active 1 TAB PO Daily March 21, 2017 12:00am Start: 07-13-2011 End: 06-11-2024 take 1 tablet by mouth once daily Liothyronine 5 MCG tablet Discontinued 1 TAB PO Daily March 21, 2017 1:00am June 03, 2023 1:00pm melatonin 10 mg oral tablet (20 sources) Start: 06-04-2024 take 1 tablet by mouth once daily at bedtime as needed Melatonin 10 mg tablet Active 10 MG PO Daily at bedtime as needed June 04, 2024 12:00am Complies with drug therapy take 2 tablets by mouth once lizy ly melatonin 5 mg Tab Take 2 (two) tablets (10 mg total) by mouth nightly . Active methylPREDNISolone 4 mg oral tablet (13 sources) Corticosteroid Start: 11-09-2024 take 1 tablet by mouth once at mealtime Methylprednisolone (Medrol (Sandro)) 4 mg tablets,dose pack Active 0 PO per package directions 01 09November 09, 2024 2:02pm with food Complies with drug therapy Start: 11-09-2023 End: 12-01-2023 take 1 tablet by mouth once at mealtime Methylprednisolone (Medrol (Sandro)) 4 mg tablets,dose pack Discontinued 0 PO per package directions 01 09November 09, 2023 12:00am December 01, 2023 9:17am with food Start: 11-04-2020 Medrol 4 MG as directed Orally Oct, Active Multi For Him (13 sources) Multi For Him Ac tive MULTIVIT,[id number] 10 ORAL (12 sources) MULTIVIT,MIN52-F [id number] ORAL Take by mouth . Active MULTIVIT,MIN52-F [id number] ORAL Take by mouth . 0 Active multivitamin capsule (6 sources) take 1 capsule by mouth in the morning multivitamin capsule Take 1 capsule by mouth in the morning. Active nitrofurantoin, macrocrystals 25 mg / nitrofurantoin, monohydrate 75 mg oral capsule (2 sources) Nitrofuran Antibacterial Start: take 1 capsule by mouth twice daily at mealtime Nitrofurantoin Monohyd/M-Cryst (Macrobid) 100 mg capsule Active 100 MG PO Twice daily 24 09September 03, 2024 12:00am must administer with a meal/food Complies with drug therapy Willow 3 Fish Oil (1 source) Willow 3 Fish Oil one oral daily Active tamsulosin hydrochloride 0.4 mg oral capsule (2 sources) alpha-Adrenergic Jacek Start: Tamsulosin 0.4 mg capsule Active MG PO December 13, 2024 12:00am Complies with drug therapy Start: 11-29-2024 take 1 capsule by mo ut once daily tamsulosin (FLOMAX) 0.4 MG capsule Indications: 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 , Nocturia Take 1 capsule by mouth daily 30 capsule 5 11/29/2024 Active Turmeric Root Extract 1,053 mg tablet (5 sources) Start: 06-04-2024 take 1 tablet by mouth once daily Turmeric Root Extract 1,053 mg tablet Active 1076 MG PO Daily June 04, 2024 12:00am Complies with drug therapy Start: 06-04-2024 take 1 tablet by mouth once da vitaly Start: 06-04-2024 take 1 tablet by mouth once da vitaly Turmeric Root Extract 1,053 mg tablet Active 1076 MG PO Daily June 04, 2024 12:00am ubidecarenone 300 mg oral ca psule (20 sources) Start: 12-01-2023 Coenzyme Q10 ( Co Q-10) 300 mg capsule Active 300 MG PO Daily December 01, 2023 12:00am Complies with drug therapy Coenzyme Q10 50 MG CAPS Take by mouth daily Active Vitamin D3 400 UNIT (1 source) take 1 tablet by mouth once daily Vitamin D3 400 UNIT 1 tablet Orally qd Active vitamin k 0.1 mg oral tablet (12 sources) take 1 tablet by mouth once daily phytonadione, vit K1, (phytonadione, vitamin K1,) 100 mcg tablet Take 1 (one) tablet (100 mcg total) by mouth daily . Active vitamin k2 0.1 mg oral capsule (10 sources) Start: 12-01-2023 take 1 capsule by mouth once daily Vitamin K2 100 mcg capsule Active 100 MCG PO Daily December 01, 2023 12:00am Complies with drug therapy Zinc (8 sources) Zinc Active zinc gluconate 50 mg oral tablet (20 sources) Start: 06-04-2024 take 1 tablet by mouth once daily Zinc Gluconate 50 mg tablet Active 50 MG PO Daily June 04, 2024 12:00am Complies with drug therapy {20 (nirmatrelvir 150 MG Oral Tablet) / 10 (ritonavir 100 MG Oral Tablet) } Pack [Paxlovid 5-Day] (1 source) Start: 03-01-2022 Paxlovid (300/100) 20 x 150 MG & 10 x 100MG as directed Orally Twice a day for 5 day(s) Feb, Active Completed/Discontinued Medications Medication Drug Class(es) Dates Sig (Normalized) Sig (Original) amoxicillin 875 mg / clavulanate 125 mg oral tablet (11 sources) Penicillin-class Antibacterial Start: 08-21-2024 End: 08-24-2024 take 1 tablet by mouth twice daily at mealtime Amoxicillin-Pot Clavulanate 875-125 mg tablet Discontinued 1 TAB PO Twice daily 31 12August 21, 2024 9:51am August 24, 2024 2:29pm with food Start: 05-04-2022 take 1 tablet by renay th twice daily at mealtime Amoxicillin-Pot Clavulanate 875-125 MG 1 tablet Orally bid with food for 10 days Apr, Active azithromycin 250 mg oral tablet (8 sources) Macrolide Antimicrobial Start: 04-04-2024 End: 06-04-2024 Azithromycin 250 mg tablet Discontinued 0 PO .COMPLEX April 04, 2024 1:00am June 04, 2024 11:18am For 250 mg dose pack: take 500 mg today (day 1), then 250 mg for 4 days (days 2-5) PO Start: 08-04-2017 Zithromax Z-Pa k 250 MG 2 tablets on the first day, then 1 tablet daily for 4 days Orally Once a day for 5 day(s) July, Active calcium carbonate 1250 mg / cholecalciferol 125 unt oral tablet (18 sources) Vitamin D Start: 03-21-2017 End: 12-01-2023 take 1 tablet by mouth once daily Calcium Carbonate-Vitamin D3 (Calcium 500 + D (D3)) 500 mg(1,250mg) -125 unit Tablet Discontinued 1 TAB PO Daily March 21, 2017 1:00am December 01, 2023 9:13am cephalexin 500 mg oral capsule (2 sources) Cephalosporin Antibacterial Start: 08-24-2024 End: 09-04-2024 take 1 capsule by mouth three times daily Cephalexin 500 mg capsule Discontinued 500 MG PO Three times daily 01 10August 24, 2024 12:00am September 04, 2024 11:15am 1 ml denosumab 60 mg/ml prefilled syringe (20 sources) RANK Ligand Inhibitor Start: 07-12-2024 End: 07-12-2024 60 mg, Subcutaneous, Once, On Eva 07/12/24 at 1000, For 1 dose, Prior to administration, bring to room temperature in original container (allow to stand 15 to 30 minutes). Avoid vigorous shaking. Administer via SubQ injection in the upper arm, upper thigh, or abdomen. Start: 01-12-2024 End: 01-12-2024 60 mg, Subcutaneous, Once, O n Eva 01/12/24 at 1045, For 1 dose, Prior to administration, bring to room temperature in original container (allow to stand 15 to 30 minutes). Avoid vigorous shaking. Administer via SubQ injection in the upper arm, upper thigh, or abdomen. Start: 01-12-2024 End: 01-12-2024 60 mg, Subcutaneous, Once, O n Eva 01/12/24 at 1045, For 1 dose, Prior to administration, bring to room temperature in original container (allow to stand 15 to 30 minutes). Avoid vigorous shaking. Administer via SubQ injection in the upper arm, upper thigh, or abdomen. Start: 07-14-2023 End: 07-14-2023 denosumab (PROLIA) injection 60 mg Start: 01-10-2023 End: 01-10-2023 denosumab (PROLIA) injection 60 mg Start: 01-10-2023 End: 01-10-2023 denosumab (PROLIA) injection 60 mg Start: 05-27-2022 Denosumab (Pro cristofer) 60 mg/mL Syringe Active 60 MG SUBCUT EVERY 6 MONTHS May 27, 2022 12:00am Complies with drug therapy denosumab (PROLI A SUBQ) Inject under the skin. Active Prolia every 6 m [facility] Active FLUoxetine 20 mg oral capsule (20 sources) Serotonin Reuptake Inhibitor Start: 03-21-2017 End: 05-16-2023 take 1 tablet by mouth once daily Fluoxetine 20 MG capsule Discontinued 1 TAB PO Daily March 21, 2017 1:00am May 16, 2023 11:29am take 1 capsule by [facility] once daily in the morning FLUoxetine HCl 10 MG TAKE ONE CAPSULE BY MOUTH EVERY MORNING for 30 day(s) Not-Taking take [address] [facility] once daily in the morning FLUoxetine HCl 10 MG TAKE ONE CAPSULE BY MOUTH EVERY MORNING for 30 day(s) Not-Taking levothyroxine sodium 0.075 mg oral tablet (20 sources) l-Thyroxine Start: 03-21-2017 End: 02-20-2024 take 1 tablet by mouth once daily in the morning Levothyroxine 75 mcg tablet Discontinued 75 MCG PO Daily December 01, 2023 9:43am February 20, 2024 9:54am take first thing in the morning on an empty stomach, do not eat or drink for 30-45 minutes after taking Start: 12-16-2016 take 1 tablet by renay once daily Levothyroxine Active 1 TAB PO Daily March 21, 2017 1:00am Start: 07-13-2011 take 1 tablet by renay once daily in the morning Levothyroxine 50 mcg tablet Active 50 MCG PO Daily February 20, 2024 1:00am take first thing in the morning on an empty stomach do not eat or drink for 30 min after taking Complies with drug therapy take 1 tablet by renay once daily in the morning Levothyroxine Sodium 50 MCG TAKE ONE TABLET BY MOUTH EVERY MORNING ON AN EMPTY STOMACH. Active Magnesium (20 sources) Start: 04-23-2023 End: 05-16-2023 take 1 tablet by mouth once daily Magnesium 200 mg tablet Discontinued 200 MG PO Daily April 23, 2023 1:00am May 16, 2023 11:30am Start: 04-23-2023 End: 05-16-2023 take 1 tablet by mouth once daily Magnesium 200 mg tablet Discontinued 200 MG PO Daily April 23, 2023 12:00am May 16, 2023 10:30am Start: 04-23-2023 End: 05-16-2023 take 200 mg by mouth once daily Magnesium Discontinued 200 MG PO Daily April 23, 2023 1:00am May 16, 2023 11:30am Start: 04-23-2023 take 200 mg by mouth once laura y Magnesium Active 200 MG PO Daily April 23, 2023 12:00am magnesium 200 mg tablet Take by mouth. Active Magnesium Active Willow 8-Zmy-Bcw-Fish Oil (Willow-3) 350 mg-235 mg- 90 mg-597 mg Capsule,Delayed Release(Dr/Ec) (18 sources) Start: 03-21-2017 End: 05-27-2022 take 1 tablet by mouth once daily Willow 2-Hoa-Yeg-Fish Oil (Willow-3) 350 mg-235 mg- 90 mg-597 mg Capsule,Delayed Release(Dr/Ec) Discontinued 1 TAB PO Daily March 21, 2017 12:00am May 27, 2022 6:14am Start: 03-21-2017 End: 05-27-2022 take 1 tablet by mouth once daily Willow 1-Aef-Mrw-Fish Oil (Willow-3) 350 mg-235 mg- 90 mg-597 mg Capsule,Delayed Release(Dr/Ec) Discontinued 1 TAB PO Daily March 21, 2017 1:00am May 27, 2022 7:14am raNITIdine 150 mg oral tablet (20 sources) Histamine-2 Receptor Antagonist Start: 03-21-2017 take 1 tablet by mouth once daily Ranitidine Hcl Active 1 TAB PO Daily March 21, 2017 1:00am Start: 03-21-2017 End: 06-04-2024 take 1 capsule by mouth once daily as needed Ranitidine Hcl 150 mg capsule Discontinued 150 MG PO Daily as needed for allergies December 01, 2023 9:29am June 04, 2024 11:19am Start: 03-21-2017 End: 12-01-2023 take 1 tablet by mouth once daily Ranitidine Hcl Discontinued 1 TAB PO Daily March 21, 2017 1:00am December 01, 2023 9:30am Start: 03-21-2017 take 1 tablet by renay th once daily Ranitidine Hcl Active 1 TAB PO Daily March 21, 2017 12:00am Start: 03-21-2017 take 1 tablet by renay th once daily Ranitidine Hcl Active 1 TAB PO Daily March 21, 2017 1:00am rosuvastatin calcium 5 mg oral tablet (20 sources) HMG-CoA Reductase Inhibitor Start: 05-27-2022 End: 01-19-2024 take 1 tablet by mouth once daily Rosuvastatin 5 mg tablet Discontinued 5 MG PO Daily December 01, 2023 9:44am January 19, 2024 9:39am take 1 tablet by renay th five times weekly Rosuvastatin Calcium 5 MG TAKE ONE TABLE T BY MOUTH FIVE TIMES A WEEK Not-Taking triamcinolone acetonide 40 mg/ml injectable suspension (20 sources) Corticosteroid Start: 06-12-2021 Kenalog-40 14 Apr, 2022 20 mg Start: 06-12-2021 Kenalog -40 mg Jun, 20 mg Start: 02-11-2021 Kenalog -40 mg Feb, 20 mg Start: 11-04-2020 Kenalog -40 mg Oct, 20 mg Start: 04-18-2020 Kenalog -40 mg Apr, 40 mg Start: 10-10-2019 Kenalog -40 mg Sep, 40 mg Start: 02-16-2019 Kenalog -40 mg Feb, 40 mg Start: 10-07-2017 Kenalog -40 mg Sep, 10 mg Vitamin B Complex (12 sources) Start: 03-21-2017 End: 05-27-2022 take 1 tablet by mouth once daily Vitamin B Complex Discontinued 1 TAB PO Daily March 21, 2017 12:00am May 27, 2022 6:14am Start: 03-21-2017 End: 05-27-2022 take 1 tablet by mouth once daily Vitamin B Complex Discontinued 1 TAB PO Daily March 21, 2017 1:00am May 27, 2022 7:14am Vitamin B Comple x - Orally Active Vitamin B Complex Capsule (7 sources) Start: 03-21-2017 End: 05-27-2022 take 1 tablet by mouth once daily Vitamin B Complex Capsule Discontinued 1 TAB PO Daily March 21, 2017 1:00am May 27, 2022 7:14am Start: 03-21-2017 End: 05-27-2022 take 1 tablet by mouth once daily Vitamin B Complex Capsule Discontinued 1 TAB PO Daily March 21, 2017 12:00am May 27, 2022 6:14am 100 ml zoledronic acid 0.05 mg/ml injection (20 sources) Bisphosphonate Start: 03-28-2019 Reclast 5 MG/1 00ML as directed Intravenous Mar, Not-Taking Start: 03-22-2017 End: 05-27-2022 Zoledronic Tojv-Yvvouboo-Msv er (Reclast) 5 mg/100 mL Piggyback Discontinued 5 MG IV As Directed March 22, 2017 1:00am May 27, 2022 7:14am Problems Active Problems Problem Classification Problem Date Documented Date Episodic/Chronic Anxiety disorders (20 sources) Mixed anxiety and depressive disorder; Translations: [Other specified anxiety disorders] Chronic Cataract (18 sources) H/O: artificial eye lens; Translations: [Presence of intraocular lens] Onset: 12-01-2011 09-21-2023 Chronic Deficiency and other anemia (5 sources) Anemia, unspecified; Translations: [Anemia, unspecified] Episodic Deficiency and other anemia (13 sources) Anemia; Translations: [Anemia, unspecified] 05-16-2023 Episodic Diabetes mellitus without complication (20 sources) Hyperglycemia; Translations: [Hyperglycemia, unspecified] Onset: 05-03-2022 Episodic Disorders of lipid metabolism (20 sources) Hyperlipidemia; Translations: [Hyperlipidemia, unspecified] Onset: 05-03-2022 Chronic Esophageal disorders (20 sources) Gastroesophageal reflux disease; Translations: [Gastro-esophageal reflux disease without esophagitis] Chronic Fluid and electrolyte disorders (14 sources) Hyponatremia; Translations: [Hypo-osmolality and hyponatremia] 05-16-2023 Episodic Genitourinary symptoms and ill-defined conditions (20 sources) Nocturia; Translations: [Nocturia] Onset: 05-03-2022 Episodic Hyperplasia of prostate (2 sources) Benign prostatic hypertrophy without outflow obstruction; Translations: [Benign prostatic hyperplasia with lower urinary tract symptoms] Onset: 12-10-2024 12-10-2024 Chronic Immunizations and screening for infectious disease (14 sources) Needs influenza immunization; Translations: [Encounter for immunization] 12-01-2023 Episodic Malaise and fatigue (1 source) Other fatigue Episodic Mood disorders (20 sources) Depressive disorder; Translations: [Major depressive disorder, single episode, unspecified] 04-23-2023 Chronic Nutritional deficiencies (1 source) Vitamin D deficiency, unspecified; Translations: [VITAMIN D DEFICIENCY UNSPECIFIED] Onset: 06-22-2022 Chronic Osteoarthritis (20 sources) Arthritis; Translations: [Unspecified osteoarthritis, unspecified site] Onset: 04-25-2008 Resolved: 10-16-2021 Chronic Osteoporosis (20 sources) Osteoporosis; Translations: [Age-related osteoporosis without current pathological fracture] Onset: 06-16-2022 Chronic Other aftercare (13 sources) Long-term current use of drug therapy; Translations: [Other senior care (current) drug therapy] 05-16-2023 Episodic Other and ill-defined heart disease (2 sources) Heart disease, unspecified; Translations: [Heart disease, unspecified] Onset: 05-09-2023 Chronic Other and unspecified benign neoplasm (18 sources) History of polyp of colon; Translations: [Personal history of colonic polyps] 03-22-2017 Episodic Other and unspecified benign neoplasm (2 sources) Personal history of colonic polyps; Translations: [Personal history of colonic polyps] 05-27-2022 Episodic Other and unspecified benign neoplasm (2 sources) Melanocytic nevus of trunk; Translations: [Melanocytic nevi of trunk] 07-18-2024 Episodic Other and unspecified benign neoplasm (2 sources) Dermatofibroma of right lower limb; Translations: [Other benign neoplasm of skin of right lower limb, including hip] 07-18-2024 Episodic Other connective tissue disease (17 sources) Pain in right hand; Translations: [Pain in limb] Onset: 02-11-2021 Resolved: 10-16-2021 Episodic Other connective tissue disease (20 sources) Hand pain; Translations: [Pain in right hand] 04-26-2023 Episodic Other connective tissue disease (2 sources) Pain in both feet; Translations: [Pain in right foot] 11-24-2023 Episodic Other connective tissue disease (2 sources) Plantar fasciitis; Translations: [Plantar fascial fibromatosis] 11-24-2023 Episodic Other connective tissue disease (4 sources) Pain of bilateral hands; Translations: [Pain in right hand] 04-26-2023 Episodic Other eye disorders (9 sources) Posterior vitreous detachment; Translations: [Vitreous degeneration, unspecified eye] Onset: 02-11-2015 09-21-2023 Chronic Other nervous system disorders (6 sources) Carpal tunnel syndrome; Translations: [Carpal tunnel syndrome, bilateral upper limbs] 12-13-2023 Chronic Other nervous system disorders (7 sources) Carpal tunnel syndrome, bilateral upper limbs; Translations: [Carpal tunnel syndrome] 12-13-2023 Chronic Other nervous system disorders (4 sources) Bilateral carpal tunnel syndrome; Translations: [Carpal tunnel syndrome, bilateral upper limbs] 12-13-2023 Chronic Other non-traumatic joint disorders (1 source) Shoulder pain; Translations: [Pain in right shoulder] Episodic Other non-traumatic joint disorders (1 source) Hip pain; Translations: [Pain in unspecified hip] Episodic Other nutritional; endocrine; and metabolic disorders (3 sources) Abnormal weight loss; Translations: [Loss of weight] Episodic Other nutritional; endocrine; and metabolic disorders (7 sources) Weight loss; Translations: [Abnormal weight loss] 05-16-2023 Episodic Other nutritional; endocrine; and metabolic disorders (6 sources) Weight decreased; Translations: [Abnormal weight loss] 05-16-2023 Episodic Other screening for suspected conditions (not mental disorders or infectious disease) (20 sources) Elevated prostate specific antigen [PSA]; Translations: [Raised prostate specific antigen] Onset: 05-03-2022 Episodic Other skin disorders (6 sources) Actinic keratosis; Translations: [Actinic keratosis] 06-04-2024 Episodic Other skin disorders (2 sources) Actinic keratosis; Translations: [Actinic keratosis] 06-04-2024 Episodic Other skin disorders (2 sources) Seborrheic keratosis; Translations: [Other seborrheic keratosis] 07-18-2024 Episodic Other skin disorders (2 sources) Inflamed seborrheic keratosis; Translations: [Inflamed seborrheic keratosis] 07-18-2024 Episodic Other upper respiratory disease (20 sources) Allergic rhinitis; Translations: [Allergic rhinitis, unspecified] 04-23-2023 Chronic Other upper respiratory disease (10 sources) Allergic rhinitis, unspecified; Translations: [Allergic rhinitis, cause unspecified] Chronic Other upper respiratory infections (1 source) Acute sinusitis, unspecified Episodic Residual codes; unclassified (20 sources) Insomnia; Translations: [Insomnia, unspecified] 04-23-2023 Episodic Residual codes; unclassified (10 sources) Difficulty sleeping ; Translations: [Sleep disorder, unspecified] 12-01-2023 Episodic Residual codes; unclassified (4 sources) Sleep disorder, unspecified; Translations: [Sleep disturbance, unspecified] 12-01-2023 Episodic Retinal detachments; defects; vascular occlusion; and retinopathy (9 sources) Retinal detachment; Translations: [Unspecified separation of retinal layers] Onset: 06-06-2012 09-21-2023 Chronic Spondylosis; intervertebral disc disorders; other back problems (20 sources) Cervical spondylosis; Translations: [Other spondylosis with radiculopathy, cervical region] Onset: 09-21-2023 09-21-2023 Chronic Thyroid disorders (20 sources) Hypothyroidism; Translations: [Hypothyroidism, unspecified] Onset: 04-28-2022 Chronic Urinary tract infections (8 sources) Cystitis; Translations: [Cystitis, unspecified without hematuria] Onset: 09-19-2024 08-23-2024 Episodic Past or Other Problems Problem Classification Problem Date Documented Date Episodic/Chronic Other aftercare (7 sources) Other senior care (current) drug therapy; Translations: [Long-term (current) use of other medications] Onset: 05-03-2022 Episodic Other connective tissue disease (5 sources) Pain in unspecified hand; Translations: [Pain in limb] Onset: 12-01-2023 12-01-2023 Episodic Other connective tissue disease (9 sources) Impingement syndrome of left shoulder region; Translations: [Impingement syndrome of left shoulder] Onset: 09-21-2023 09-21-2023 Episodic Other connective tissue disease (9 sources) Contracture of palmar fascia; 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]] Onset: 04-25-2008 09-21-2023 Episodic Other connective tissue disease (9 sources) Acquired trigger finger; Translations: [Trigger finger, unspecified finger] Onset: 04-25-2008 09-21-2023 Episodic Other inflammatory condition of skin (2 sources) Erythema of skin; Translations: [Other specified erythematous conditions] 11-15-2023 Episodic Residual codes; unclassified (9 sources) History of vitrectomy; Translations: [Other specified postprocedural states] Onset: 04-11-2014 09-21-2023 Episodic Retinal detachments; defects; vascular occlusion; and retinopathy (18 sources) 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 Basophils/100 WBC Auto (Bld) Ordered By: Marcelina White on 12-13-2024 Basophils/100 WBC (Bld) 2.1 % High 0.2-2.[address] [facility] CT UROGRAMon 12-13-2024 CT UROGRAM EXAM: CT UROGRAM HISTORY: 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. 79-year-old male with gross hematuria. COMPARISON: 09/28/2024 renal ultrasound, [place]. No report available. TECHNIQUE: CT examination of [...] prostate, stable compared to prior ultrasound 09/28/2024, [place]. This most likely represents a benign prostatic retention cyst or cystic degeneration within a hyperplastic nodule. Benign mild bladder wall thickening and a few diverticula in the bladder wall less than 1 cm likely due to bladder outlet obstruction. No evidence of urinary tract malignancy or stone. Interpreted by: Silas Castillo Jr., MD Signed by: Silas Castillo Jr., MD 12/13/24 Final result Normal [facility] Cholesterol in LDL Calc [Mas s/Vol]Ordered By: Marcelina White on 12-13-2024 Cholesterol in LDL [Mass/Vol] 83.8 mg/dL [facility] Comment on above: <100 mg/dl [id number] 0-129 mg/dl NEAR OR ABOVE [id number] mg/dl BORDERLINE [id number] mg/dl HIGH>190 mg/dl VERY HIGH Cholesterol in VLDL Calc [Ma ss/Vol]Ordered By: Marcelina White on 12-13-2024 Cholesterol in VLDL [Mass/Vol] 16.2 mg/dL [facility] Eosinophils/100 WBC Auto (Bl d)Ordered By: Marcelina White on 12-13-2024 Eosinophils/100 WBC (Bld) 5.0 % 0.9-7.[address] [facility] Erythrocyte distribution wid th Auto (RBC) [Ratio]Ordered By: Marcelina White on 12-13-2024 Erythrocyte distribution width (RBC) [Ratio] 13.2 % 11.0-15.[address] [facility] Globulin Calc (S) [Mass/Vol] Ordered By: Marcelina White on 12-13-2024 Globulin (S) [Mass/Vol] 2.8 g/dL [facility] Glomerular filtration rate ( GFR) estimation in non- AmericanOrdered By: Marcelina White on 12-13-2024 GFR/1.73 sq M.predicted among non-blacks MDRD (S/P/Bld) [Vol rate/Area] mL/min/{1.73_m2} >=60 mL/min/1.73 m [address] [facility] Glucose mean value [Mass/vol ume] in Blood Estimated from glycated hemoglobinOrdered By: Marcelina White on 12-13-2024 Average glucose Estimated from glycated hemoglobin (Bld) [Mass/Vol] 120 mg/dL [facility] Hematocrit Auto (Bld) [Volum e fraction]Ordered By: Marcelina White on 12-13-2024 Hematocrit (Bld) [Volume fraction] 39.1 % Low 42.0-54.[address] [facility] Hemoglobin A1c percentageOrd ered By: Marcelina White on 12-13-2024 HbA1c (Bld) [Mass fraction] 5.8 % 4.5-6.[address] [facility] Comment on above: ADA RECOMMENDED LIMI T 4.0 - 6.0ADA THERAPEUTIC TARGET < 7.0ACTION SUGGESTED> 7.0 Hemoglobin [Mass/volume] in BloodOrdered By: Marcelina White on 12-13-2024 Hemoglobin (Bld) [Mass/Vol] 13.6 g/dL Low 14.0-18.[address] [facility] Laboratory - Chemistry and C hemistry - challengeOrdered By: Marcelina White on 12-13-2024 Albumin [Mass/Vol] 3.7 g/dL 3.4-5.0 [facility] ALP [Catalytic activity/Vol] 55 U/L 46-[address] [facility] ALT [Catalytic activity/Vol] 20 U/L 16-[address] [facility] AST [Catalytic activity/Vol] 18 U/L 15-[address] [facility] Bilirubin [Mass/Vol] 1.6 mg/dL High 0.2-1.0 [facility] Calcium [Mass/Vol] 8.8 mg/dL 8.5-10.1 [facility] Chloride [Moles/Vol] 98 mmol/L 98-107 [facility] Cholesterol [Mass/Vol] 153 mg/dL <=[address] [facility] Cholesterol in HDL [Mass/Vol] 53 mg/dL 40-[address] [facility] Comment on above: > or =60 mg/dl - LOW CARDIOVASCULAR RISK<40 mg/dl - HIGH CARDIOVASCULAR RISK CO2 [Moles/Vol] 27.0 mmol/L 21.0-32.0 [facility] Creatinine [Mass/Vol] 0.77 mg/dL 0.70-1.30 [facility] Free T4 [Mass/Vol] 1.09 ng/dL 0.76-1.46 [facility] GFR/1.73 sq M.predicted MDRD (S/P/Bld) [Vol rate/Area] mL/min/{1.73_m2} >=60 mL/min/1.73 m [address] [facility] Glucose [Mass/Vol] 101 mg/dL 74-106 [facility] Potassium [Moles/Vol] 4.3 mmol/L 3.5-5.1 [facility] Protein [Mass/Vol] 6.5 g/dL 6.4-8.2 [facility] Sodium [Moles/Vol] 132 mmol/L Low 136-145 [facility] Triglyceride [Mass/Vol] 81 mg/dL <=[address] [facility] TSH Qn 2.454 m[IU]/L 0.358-3.[address] [facility] Urea nitrogen [Mass/Vol] 12.0 mg/dL 7.0-18.[address] [facility] Urea nitrogen/Creatinine [Mass ratio] 15.6 mg/mg [facility] Laboratory - Hematology and Cell countsOrdered By: Marcelina White on 12-13-2024 Immature granulocytes/100 WBC (Bld) 0.5 % 0.0-0.[address] [facility] Leukocytes [#/volume] correc chelita for nucleated erythrocytes in Blood by Automated counOrdered By: Marcelina White on 12-13-2024 WBC corrected for nucl RBC Auto (Bld) [#/Vol] 4.4 10 3/uL 4.0-11.[address] [facility] Lymphocytes Auto (Bld) [#/Vo l]Ordered By: Marcelina White on 12-13-2024 Lymphocytes (Bld) [#/Vol] 0.8 10 3/uL Low 1.2-3.[address] [facility] Lymphocytes/100 WBC Auto (Bl d)Ordered By: Marcelina White on 12-13-2024 Lymphocytes/100 WBC (Bld) 19.2 % Low 20.5-60.[address] [facility] MCH Auto (RBC) [Entitic mass ]Ordered By: Marcelina White on 12-13-2024 MCH (RBC) [Entitic mass] 32.2 pg 25.9-34.[address] [facility] MCHC Auto (RBC) [Mass/Vol]Or dered By: Marcelina White on 12-13-2024 MCHC (RBC) [Mass/Vol] 34.8 g/dL 29.9-35.2 [facility] MCV Auto (RBC) [Entitic vol] Ordered By: Marcelina White on 12-13-2024 MCV (RBC) [Entitic vol] 92.4 fL 80.0-94.[address] [facility] Monocytes Auto (Bld) [#/Vol] Ordered By: Marcelina White on 12-13-2024 Monocytes (Bld) [#/Vol] 0.5 10 3/uL 0.3-0.[address] [facility] Monocytes/100 WBC Auto (Bld) Ordered By: Marcelina White on 12-13-2024 Monocytes/100 WBC (Bld) 10.8 % 1.7-12.[address] [facility] Neutrophils Auto (Bld) [#/Vo l]Ordered By: Marcelina White on 12-13-2024 Neutrophils (Bld) [#/Vol] 2.7 10 3/uL 1.4-6.[address] [facility] Neutrophils/100 WBC Auto (Bl d)Ordered By: Marcelina White on 12-13-2024 Neutrophils/100 WBC (Bld) 62.4 % 43.0-75.[address] [facility] No Panel InformationOrdered By: Marcelina White on 12-13-2024 Eosinophils # (Auto) 0.2 10 3/uL 0.0-0.7 [facility] Free Triiodothyronine 3.30 pg/mL 2.18-3.98 [facility] Immature Granulocyte # (Auto) 0.02 10 3/uL 0.00-0.[address] [facility] Platelet mean volume Auto (B ld) [Entitic vol]Ordered By: Marcelina White on 12-13-2024 Platelet mean volume (Bld) [Entitic vol] 9.2 fL Low 9.5-13.[address] [facility] Platelets Auto (Bld) [#/Vol] Ordered By: Marcelina White on 12-13-2024 Platelets (Bld) [#/Vol] 230 10 3/uL 150-[address] [facility] RBC Auto (Bld) [#/Vol]Ordere d By: Marcelina White on 12-13-2024 RBC (Bld) [#/Vol] 4.23 10 6/uL Low 4.70-6.10 [facility] Serum or plasma albumin/glob ulin mass ratioOrdered By: Marcelina White on 12-13-2024 Albumin/Globulin [Mass ratio] 1.3 {ratio} [facility] Serum or plasma anion gap de terminationOrdered By: Marcelina White on 12-13-2024 Anion gap [Moles/Vol] 11.3 mmol/L [facility] Serum or plasma total choles terol/high density lipoprotein (HDL) cholesterol mass ratOrdered By: Marcelina White on 12-13-2024 Cholesterol.total/Chol esterol in HDL [Mass ratio] 2.9 {ratio} [facility] Comment on above: 3.3 - 4.4 LOW RISK4. 4 - 7.1 AVERAGE RISK7.1 - 11.0 MODERATE RISK>11.0 HIGH RISK BUN & Creatinineon 5 Creatinine [Mass/Vol] 0.8 mg/dL 0.7 - 1.2 mg/dL [facility] Est, Glom Filt Rate - PINF [facility] Comment on above: These results are not intended for use in patients <18 years of age. eGFR results are calculated without a race factor using the 202 CKD-EPI equation. Careful clinical correlation is recommended, particularly when comparing to results calculated using previous equations. The CKD-EPI equation is less accurate in patients with extremes of muscle mass, extra-renal metabolism of creatine, excessive creatine ingestion, or following therapy that affects renal tubular secretion. Urea nitrogen [Mass/Vol] 14 mg/dL 8 - 23 mg/dL [facility] BUN + Creatinineon 5 Creatinine [Mass/Vol] 0.8 mg/dL Normal 0.7-1.2 [facility] Comment on above: Performed By: #### B UNCRT #### [facility] [address] [place] [address] [employer] Office: Marcelina Whitney MD #### PSAS #### [address] [place] [address] [employer] Office: Wily Portillo MD GFR/1.73 sq M.predicted among non-blacks MDRD (S/P/Bld) [Vol rate/Area] mL/min/{1.73_m2} Normal >60 [facility] Comment on above: Result Comment: These results are not intended [...] affects renal tubular secretion. Performed By: #### B UNCRT #### [facility] [address] [place], [place] [id number] [employer]: Marcelina Whitney MD #### PSAS #### [facility] [address] [place], [place] [id number] [employer] Office: Wily Portillo MD Urea nitrogen [Mass/Vol] 14 mg/dL Normal 8-23 [facility] Comment on above: Performed By: #### B UNCRT #### [facility] [address] [place], [place] [id number] [employer] Office: Marcelina Whitney MD #### PSAS #### [facility] [address] [place], [place] [id number] [employer] Office: Wily Portillo MD PSA Screeningon 12-10-2024 Prostate specific Ag [Mass/Vol] 3.79 ng/mL 0.00 - 4.00 ng/mL [facility] Comment on above: The Sahrmila ECLIA as say is used. Results obtained with different assay methods cannot be used interchangeably. [facility] PSA, Screeningon 12-10-2024 Prostatic Spec. Ag 3.79 ng/mL Normal 0.00-4.00 [facility] Comment on above: Result Comment: The Sharmila ECLIA assay is used. Results obtained with different assay methods cannot be used interchangeably. Performed By: #### B UNCRT #### [facility] [address] [place], [place] [phone] [employer] Office: Marcelina Whitney MD #### PSAS #### [facility] [address] [place], [place] [id number] [employer] Office: Wily Portillo MD POCT Urinalysis Auto, W/O Mi croscopyon 09-19-2024 External Poct Urine Blood Negative [facility] External Poct Urine Glucose Negative [facility] External Poct Urine Ketones Negative [facility] External Poct Urine Leukocyte Esterase Negative [facility] External Poct Urine Nitrite Negative [facility] External Poct Urine Ph 7 [facility] External Poct Urine Protein Negative [facility] Urine Cultureon 09-03-2024 Bacteria identified Cx Nom (U) ORGANISM: Escherichia coli (O:ESCCOL) Mullan Count >100,000 Aerobic BAYLEE Charge (NMIC56) -- SUSCEPTIBILITY - ORGANISM: O:ESCCOL ANTIBIOTIC INTERPRETATION BAYLEE Amikacin S [...] <4 Tigecycline S <2 Tobramycin S <2 Trimethoprim/Sulfametho xazole S <0.5 S = SUSCEPTIBLE I = [...] RESISTANT TO ALL B-LACTAM DRUGS. PERFORMED BY: [place] [address] PATHOLOGIST ORDER PICKER/ASSEMBLER ATUL ZAVALETA M.D. Normal [facility] Comment on above: Performed By: #### C UU #### [address] Urine cultureOrdered By: Joshua White on 09-03-2024 Bacteria identified Cx Nom (U) Escherichia coli Abnormal [facility] Laboratory - Chemistry and C hemistry - challengeon 08-21-2024 Bilirubin Ql (U) Negative NEGATIVE [facility] Glucose (U) [Mass/Vol] Negative NEGATIVE [facility] Ketones Ql (U) Negative NEGATIVE [facility] pH (U) 7.0 [pH] 5.0-9.[address] [facility] Specific gravity (U) [Rel density] <=1.005 Abnormal 1.005-1.[address] [facility] Urobilinogen Qn (U) 0.2 {Patrick'U}/dL 0.2-1.[address] [facility] Laboratory - Specimen inform ationon 08-21-2024 Appearance (U) SL CLOUDY CLEAR [facility] Color (U) LT. YELLOW YELLOW [facility] Laboratory - Urinalysison Leukocyte esterase Test strip Ql (U) LARGE Abnormal NEGATIVE [facility] Nitrite Ql (U) Positive Abnormal NEGATIVE [facility] Protein Ql (U) Negative NEG/TRACE [facility] No Panel Informationon 08-21 Urine Occult Blood MODERATE Abnormal NEGATIVE [facility] Urine Cultureon 08-21-2024 Bacteria identified Cx Nom (U) ORGANISM: Escherichia coli (O:ESCCOL) Mullan Count >100,000 Aerobic BAYLEE Charge (NMIC56) -- SUSCEPTIBILITY - ORGANISM: O:ESCCOL ANTIBIOTIC INTERPRETATION BAYLEE Amikacin S [...] <4 Tigecycline S <2 Tobramycin S <2 Trimethoprim/Sulfametho xazole S <0.5 S = SUSCEPTIBLE I = [...] RESISTANT TO ALL B-LACTAM DRUGS. PERFORMED BY: [place] [address] PATHOLOGIST ORDER PICKER/ASSEMBLER ATUL ZAVALETA M.D. Normal [facility] Comment on above: Performed By: #### E SR, CRP, URIC #### [facility] [address] [place] [address] #### CCP, ELIE, RA #### [facility] , No Panel Informationon 07-18 [facility] ALBUMINon 07-04-2024 Albumin [Mass/Vol] 4.3 g/dL Normal 3.6-5.1 [facility] Comment on above: Order Comment: FASTI NG:NO FASTING: NO Performed By: #### 2 , 303, 375 #### [facility] [address] Passenger Relations Representative: Tommy Dykes MD CALCIUMon 07-04-2024 Calcium [Mass/Vol] 8.8 mg/dL Normal 8.6-10.3 [facility] Comment on above: Performed By: #### 2 , 303, 375 #### [facility] [address] Passenger Relations Representative: Tommy Dykes MD CREATININEon 07-04-2024 Creatinine [Mass/Vol] 0.67 mg/dL Low 0.70-1.28 [facility] Comment on above: Performed By: #### 2 , 303, 375 #### [facility] [address] [place] [address] Passenger Relations Representative: Tommy Dykes MD GFR/1.73 sq M.predicted among non-blacks MDRD (S/P/Bld) [Vol rate/Area] 95 mL/min/{1.73_m2} Normal > OR = 60 [facility] Comment on above: Performed By: #### 2 23, 303, 375 #### [facility] [address], [address] [place] [id number] Passenger Relations Representative: Tommy Dykes MD Basophils Auto (Bld) [#/Vol] on 05-31-2024 Basophils (Bld) [#/Vol] Automated basophil count 0.0-0.[address] [facility] Basophils/100 WBC Auto (Bld) on 05-31-2024 Basophils/100 WBC (Bld) Automated basophil % 0.2-2.[address] [facility] Cholesterol in LDL Calc [Mas s/Vol]on 05-31-2024 Cholesterol in LDL [Mass/Vol] Cholesterol in LDL [Mass/volume] in Serum or Plasma by calculation [facility] Comment on above: <100 mg/dl [id number] 0-129 mg/dl NEAR OR ABOVE [id number] mg/dl BORDERLINE [id number] mg/dl HIGH>190 mg/dl VERY HIGH Cholesterol in VLDL Calc [Ma ss/Vol]on 05-31-2024 Cholesterol in VLDL [Mass/Vol] Cholesterol in VLDL [Mass/volume] in Serum or Plasma by calculation [facility] Eosinophils/100 WBC Auto (Bl d)on 05-31-2024 Eosinophils/100 WBC (Bld) Automated eosinophil % High 0.9-7.0 [facility] Erythrocyte distribution wid th Auto (RBC) [Ratio]on 05-31-2024 Erythrocyte distribution width (RBC) [Ratio] Erythrocyte distribution width [Ratio] by Automated count 11.0-15.[address] [facility] Estimated glomerular filtrat ion rate (GFR) non- Americanon 05-31-2024 GFR/1.73 sq M.predicted among non-blacks MDRD (S/P/Bld) [Vol rate/Area] Estimated glomerular filtration rate (GFR) non- >=60 mL/min/1.73 m [address] [facility] Globulin Calc (S) [Mass/Vol] on 05-31-2024 Globulin (S) [Mass/Vol] Serum globulin measurement by calculation (mass/volume) [facility] Glucose mean value [Mass/vol ume] in Blood Estimated from glycated hemoglobinon 05-31-2024 Average glucose Estimated from glycated hemoglobin (Bld) [Mass/Vol] Glucose mean value [Mass/volume] in Blood Estimated from glycated hemoglobin [facility] Hematocrit Auto (Bld) [Volum e fraction]on 05-31-2024 Hematocrit (Bld) [Volume fraction] Hematocrit [Volume Fraction] of Blood by Automated count Low 42.0-54.[address] [facility] Hemoglobin A1c percentageon 05-31-2024 HbA1c (Bld) [Mass fraction] Hemoglobin A1c percentage 4.5-6.[address] [facility] Comment on above: ADA RECOMMENDED LIMI T 4.0 - 6.0ADA THERAPEUTIC TARGET < 7.0ACTION SUGGESTED> 7.0 Hemoglobin [Mass/volume] in Bloodon 05-31-2024 Hemoglobin (Bld) [Mass/Vol] Hemoglobin [Mass/volume] in Blood 14.0-18.[address] [facility] Laboratory - Chemistry and C hemistry - challengeon 05-31-2024 Albumin [Mass/Vol] 4.0 g/dL 3.4-5.0 [facility] ALP [Catalytic activity/Vol] 63 U/L 46-[address] [facility] ALT [Catalytic activity/Vol] 20 U/L 16-[address] [facility] AST [Catalytic activity/Vol] 19 U/L 15-[address] [facility] Bilirubin [Mass/Vol] 1.4 mg/dL High 0.2-1.0 [facility] Calcium [Mass/Vol] 8.9 mg/dL 8.5-10.1 [facility] Chloride [Moles/Vol] 100 mmol/L 98-107 [facility] Cholesterol [Mass/Vol] 132 mg/dL <=[facility] Ch[facility] in HDL [Mass/Vol] 55 mg/dL 40-[address] [facility] Comment on above: > or =60 mg/dl - LOW CARDIOVASCULAR RISK<40 mg/dl - HIGH CARDIOVASCULAR RISK CO2 [Moles/Vol] 30.2 mmol/L 21.0-32.0 [facility] Creatinine [Mass/Vol] 0.87 mg/dL 0.70-1.30 [facility] Free T4 [Mass/Vol] 1.03 ng/dL 0.76-1.46 [facility] GFR/1.73 sq M.predicted MDRD (S/P/Bld) [Vol rate/Area] mL/min/{1.73_m2} >=60 mL/min/1.73 m [address] [facility] Glucose [Mass/Vol] 93 mg/dL 74-106 [facility] Potassium [Moles/Vol] 4.0 mmol/L 3.5-5.1 [facility] Protein [Mass/Vol] 6.7 g/dL 6.4-8.2 [facility] Sodium [Moles/Vol] 136 mmol/L 136-145 [facility] Triglyceride [Mass/Vol] 60 mg/dL <=[address] [facility] TSH Qn 2.338 m[IU]/L 0.358-3.[address] [facility] Urea nitrogen [Mass/Vol] 13.0 mg/dL 7.0-18.[address] [facility] Urea nitrogen/Creatinine [Mass ratio] 14.9 mg/mg [facility] Laboratory - Hematology and Cell countson 05-31-2024 Immature granulocytes/100 WBC (Bld) 0.2 % 0.0-0.[address] [facility] Leukocytes [#/volume] correc chelita for nucleated erythrocytes in Blood by Automated counon 05-31-2024 WBC corrected for nucl RBC Auto (Bld) [#/Vol] Leukocytes [#/volume] corrected for nucleated erythrocytes in Blood by Automated coun 4.0-11.[address] [facility] Lymphocytes Auto (Bld) [#/Vo l]on 05-31-2024 Lymphocytes (Bld) [#/Vol] Lymphocytes [#/volume] in Blood by Automated count Low 1.2-3.[address] [facility] Lymphocytes/100 WBC Auto (Bl d)on 05-31-2024 Lymphocytes/100 WBC (Bld) Lymphocytes/100 leukocytes in Blood by Automated count Low 20.5-60.[address] [facility] MCH Auto (RBC) [Entitic mass ]on 05-31-2024 MCH (RBC) [Entitic mass] MCH [Entitic mass] by Automated count 25.9-34.[address] [facility] MCHC Auto (RBC) [Mass/Vol]on 05-31-2024 MCHC (RBC) [Mass/Vol] MCHC [Mass/volume] by Automated count 29.9-35.[address] [facility] MCV Auto (RBC) [Entitic vol] on 05-31-2024 MCV (RBC) [Entitic vol] MCV [Entitic volume] by Automated count 80.0-94.[address] [facility] Monocytes Auto (Bld) [#/Vol] on 05-31-2024 Monocytes (Bld) [#/Vol] Automated blood monocyte count 0.3-0.[address] [facility] Monocytes/100 WBC Auto (Bld) on 05-31-2024 Monocytes/100 WBC (Bld) Automated monocyte % 1.7-12.[address] [facility] Neutrophils Auto (Bld) [#/Vo l]on 05-31-2024 Neutrophils (Bld) [#/Vol] Neutrophils [#/volume] in Blood by Automated count 1.4-6.[address] [facility] Neutrophils/100 WBC Auto (Bl d)on 05-31-2024 Neutrophils/100 WBC (Bld) Automated neutrophil % 43.0-75.[address] [facility] No Panel Informationon 05-31 Eosinophils # (Auto) 0.4 10 3/uL 0.0-0.7 [facility] Free Prostate Specific Antigen 0.77 ng/mL N/A [facility] Comment on above: Sharmila ECLIA methodol ogy. Free Triiodothyronine 3.12 pg/mL 2.18-3.98 [facility] Immature Granulocyte # (Auto) 0.01 10 3/uL 0.00-0.[address] [facility] Prostate Specific Antigen Total 3.2 ng/mL 0.0-4.[address] [facility] Comment on above: Sharmila ECLIA methodol ogy.According to the [employer], Serum PSAshould decrease and remain at undetectable levels afterradical prostatectomy. The AUA defines biochemicalrecurrence as an initial PSA value 0.2 ng/mL or greaterfollowed by a subsequent confirmatory PSA value 0.2 ng/mLor greater. Values obtained with different assay methods orkits cannot be used interchangeably. Results cannot beinterpreted as absolute evidence of the presence or absenceof malignant disease. Platelet mean volume Auto (B ld) [Entitic vol]on 05-31-2024 Platelet mean volume (Bld) [Entitic vol] Platelet mean volume [Entitic volume] in Blood by Automated count Low 9.5-13.[address] [facility] Platelets Auto (Bld) [#/Vol] on 05-31-2024 Platelets (Bld) [#/Vol] Platelets [#/volume] in Blood by Automated count 150-[address] [facility] RBC Auto (Bld) [#/Vol]on RBC (Bld) [#/Vol] Erythrocytes [#/volu me] in Blood by Automated count Low 4.70-6.[address] [facility] Serum or plasma albumin/glob ulin mass ratioon 05-31-2024 Albumin/Globulin [Mass ratio] Serum or plasma albumin/globulin mass ratio [facility] Serum or plasma anion gap de terminationon 05-31-2024 Anion gap [Moles/Vol] Serum or plasma an ion gap determination [facility] Serum or plasma free prostat e specific antigen (PSA)/total PSA ratioon 05-31-2024 Free PSA/Total PSA [Mass fraction] Serum or plasma free prostate specific antigen (PSA)/total PSA ratio . [facility] Comment on above: The table below list s the probability of prostate cancer formen with non-suspicious THOMAS results and total PSA between4 and 10 ng/mL, by patient age (Kyaw et al, ROSELINE 1998,279:1542). % Free PSA 50-64 yr 65-75 yr 0.00-10.00% 56% 55% 10.01-15.00% 24% 35% 15.01-20.00% 17% 23% 20.01-25.00% 10% 20% >25.00% 5% 9%Please note: Kyaw et al did not make specific recommendations regarding the use of percent free PSA for any other population of men.Performed at: [facility] [id number] [place], [place] [id number] Director: Jamir Dupont PhD, Phone: [phone] Serum or plasma insulin mednez urement (units/volume)on 05-31-2024 Insulin Qn Serum or plasma insu joaquim measurement (units/volume) 2.6-24.[address] [facility] Comment on above: Performed at: [facility] [id number] [place], [place] [id number] Director: Jamir Dupont PhD, Phone: [phone] Serum or plasma total choles terol/high density lipoprotein (HDL) cholesterol mass sarthak 05-31-2024 Cholesterol.total/Chol esterol in HDL [Mass ratio] Serum or plasma total cholesterol/high density lipoprotein (HDL) cholesterol mass rat [facility] Comment on above: 3.3 - 4.4 LOW RISK4. 4 - 7.1 AVERAGE RISK7.1 - 11.0 MODERATE RISK>11.0 HIGH RISK Urine Cultureon 05-31-2024 Bacteria identified Cx Nom (U) <9,000 colonies/ml mixed bacterial skin contaminants 2 Days PERFORMED BY: [place] [address] PATHOLOGIST ORDER PICKER/ASSEMBLER DASHA BREWER M.D. Normal [facility] Comment on above: Performed By: #### E SR, CRP, URIC #### [facility] [address] #### CCP, ELIE, RA #### [facility] , Urine cultureOrdered By: Joshua White on 05-31-2024 Bacteria identified Cx Nom (U) Urine culture [facility] ALBUMINon 12-15-2023 Albumin [Mass/Vol] 4.3 g/dL Normal 3.2-5.2 [facility] Comment on above: Performed By: #### 4 [id number] #### [facility] [address] [place] [address] Milena Wood M.D. [id number] CALCIUM LEVELon 12-15-2023 Calcium [Mass/Vol] 9.5 mg/dL Normal 8.4-10.2 [facility] Comment on above: Performed By: #### 4 5191 #### [facility] [address] [place], [place] [address] Milena Wood M.D. [id number] CREATININE, SERUMon 12-15-19 Creatinine [Mass/Vol] 0.81 mg/dL Normal 0.80-1.30 [facility] Comment on above: Order Comment: [facility] has implemented the eGFR calculation approach that does not have a coefficient for race that conforms to the NKF-ASN Task Force Recommendations. Performed By: #### 4 5336 #### [facility] [address] [place], [place] [address] Milena Wood M.D. [id number] EGFR 90 mL/min/1.73 m2 Normal >=60 [facility] Comment on above: Order Comment: [facility] has implemented the eGFR calculation approach that does not have a coefficient for race that conforms to the NKF-ASN Task Force Recommendations. Result Comment: Gayatri mated GFR was calculated using the 2020 CKD-EPI creatinine equation. Performed By: #### 4 [id number] #### [facility] [address] [place], [place] [address] Milena Wood M.D. [id number] VITAMIN D, TOTAL, 25-OHon VITAMIN D 25-HYDROXY 36 ng/mL Normal 30-100 [facility] Comment on above: Order Comment: Assay performed using PerioSeal CLIA methodology. Result Comment: Francine min D status: Deficiency: <10 ng/mL Insufficiency: 10-30 ng/mL Sufficiency: 30-100 ng/mL Toxicity: >100 ng/mL Performed By: #### 4 6678 #### [facility] [address] [place] [address] Franco Palmer M.D. [id number] ELIE Antinuclear Antibodieson 12-01-2023 Antinuclear Abs, IFA Negative Normal . [facility] Comment on above: Result Comment: Nega tive <1:80 Borderline 1:80 Positive >1:80 ICAP nomenclature: AC-0 For more information about Hep-2 cell patterns use ANAbradleytterjami.org, the official website for the International Consensus on Antinuclear Antibody (ELIE) Patterns (ICAP). Performed at: [facility] [id number] [employer] Real Estate Office: Jamir Dupont PhD, Phone: [phone] Performed By: #### E SR, CRP, URIC #### [place] [address] [place] #### CCP, ELIE, RA #### [facility] , C reactive protein [Mass/vol ume] in Serum or PlasmaOrdered By: Marcelina White on 12-01-2023 CRP [Mass/Vol] < 0.5 mg/dL 0.0-0.[address] [facility] CRP [Mass/Vol] C reactive protein [Mass/volume] in Serum or Plasma 0.0-0.[address] [facility] C-Reactive Proteinon 024 CRP [Mass/Vol] mg/L Normal 0.0-0.5 [facility] Comment on above: Result Comment: PERF ORMED BY: [place] [address] PATHOLOGIST ORDER PICKER/ASSEMBLER NAGEL JOSEPH M.D. Performed By: #### E SR, CRP, URIC #### [address] #### CCP, ELIE, RA #### [facility] , Cyclic Citrulliated Pep Abon 12-01-2023 Cyclic Citrulliated Pep Ab 6 Normal 0-19 [facility] Comment on above: Result Comment: Nega tive <20 Weak positive 20 - 39 Moderate positive 40 - 59 Strong positive >59 Performed at: [facility] [id number] Supervisor Real Estate Office: Jamir Dupont PhD, Phone: [phone] PERFORMED BY: [place] [address] PATHOLOGIST ORDER PICKER/ASSEMBLER ANGEL JOSEPH M.D. Performed By: #### E SR, CRP, URIC #### [place] [address] [place] #### CCP, ELIE, RA #### [facility] , Erythrocyte Sedimentation Ra sujata 12-01-2023 ESR (Bld) [Velocity] 5 mm/h Normal 0-19 [facility] Comment on above: Result Comment: PERF ORMED BY: [place] [address] PATHOLOGIST ORDER PICKER/ASSEMBLER ANGEL JOSEPH M.D. Performed By: #### E SR, CRP, URIC #### [address] #### CCP, ELIE, RA #### [facility] , Erythrocyte sedimentation ra te by Photometric methodOrdered By: Marcelina White on 12-01-2023 ESR Photometric method (Bld) [Velocity] 5 mm/hr 0- [facility] ESR Photometric method (Bld) [Velocity] Erythrocyte sedimentation rate by Photometric method 0- [facility] Rheumatoid Factoron 12-01-19 24 Rheumatoid Factor <10.0 Normal <14.[address] [facility] Comment on above: Result Comment: Perf ormed at: - [facility] [id number] Supervisor Real Estate Office: Jamir Dupont PhD, Phone: [phone] Performed By: #### E SR, CRP, URIC #### [place] [address] [place] #### CCP, ELIE, RA #### [facility] , Serum homogeneous pattern an tinuclear antibody (ELIE) titerOrdered By: Marcelina White on 12-01-2023 Homogenous nuclear Ab pattern (S) [Titer] N/A [facility] Homogenous nuclear Ab pattern (S) [Titer] Serum homogeneous pattern antinuclear antibody (ELIE) titer [facility] Serum nuclear antibody titer Ordered By: Marcelina White on 12-01-2023 Nuclear Ab (S) [Titer] Negative . [facility] Comment on above: Negative <1:80 Borde rline 1:80 Positive >1:80ICAP nomenclature: AC-0For more information about Hep-2 cell patterns useVBI Vaccines.org, the official website for theInternational Consensus on Antinuclear Antibody (ELIE)Patterns (ICAP).Performed at: [facility] [place] [id number] Director: Jamir Dupont PhD, Phone: [phone] Nuclear Ab (S) [Titer] Serum nuclear ant ibody titer . [facility] Comment on above: Negative <1:80 Borde rline 1:80 Positive >1:80ICAP nomenclature: AC-0For more information about Hep-2 cell patterns useVBI Vaccines.org, the official website for theInternational Consensus on Antinuclear Antibody (ELIE)Patterns (ICAP).Performed at: [facility] [id number] Director: Jamir Dupont PhD, Phone: [phone] Serum or plasma cyclic adeno sine monophosphate measurement (moles/volume)Ordered By: Marcelina White on 12-01-2023 Adenosine monophosphate.cyclic [Moles/Vol] 6 units 0- [facility] Comment on above: Negative <20 Weak po sitive 20 - 39 Moderate positive 40 - 59 Strong positive >59Performed at: [facility] [id number] Director: Jamir Dupont PhD, Phone: [phone] Adenosine monophosphate.cyclic [Moles/Vol] Serum or plasma cyclic adenosine monophosphate measurement (moles/volume) 0- [facility] Comment on above: Negative <20 Weak po sitive 20 - 39 Moderate positive 40 - 59 Strong positive >59Performed at: [facility] CenterWiywjg[address] [place] [id number] Director: Jamir Dupont PhD, Phone: [phone] Serum or plasma rheumatoid f actor measurement (units/volume)Ordered By: Marcelina White on 12-01-2023 Rheumatoid factor Qn [IU]/mL <14.0 [facility] Comment on above: Performed at: [facility] [address] [id number] Director: Jamir Dupont PhD, Phone: [phone] Rheumatoid factor Qn Serum or plasma rheumatoid factor measurement (units/volume) <14.[address] [facility] Comment on above: Performed at: [address] [id number] Director: Jamir Dupont PhD, Phone: [phone] Urate [Mass/volume] in Serum or PlasmaOrdered By: Marcelina White on 12-01-2023 Urate [Mass/Vol] 4.0 mg/dL Low 4.4-7.6 [facility] Comment on above: Performed By: #### E SR, CRP, URIC #### [facility] [address] [place] [address] #### CCP, ELIE, RA #### [facility] , Urate [Mass/Vol] Urate [Mass/volume] in Serum or Plasma Low 4.4-7.[address] [facility] A1C with Estimated Average G luon 11-28-2023 Glucose [Mass/Vol] 114 mg/dL Normal [facility] Comment on above: Result Comment: PERF ORMED BY: [place] [address] PATHOLOGIST ORDER PICKER/ASSEMBLER ANGEL JOSEPH M.D. Performed By: #### A 1C WTH eA, TSH3, T3T, CBC, LIPID, CMP, T4F #### [facility] [address] [place] [address] Alanine aminotransferase [En zymatic activity/volume] in Serum or PlasmaOrdered By: Marcelina White on 11-28-2023 ALT [Catalytic activity/Vol] 13 U/L Normal [facility] Comment on above: Performed By: #### A 1C WTH eA, TSH3, T3T, CBC, LIPID, CMP, T4F #### [address] ALT [Catalytic activity/Vol] Alanine aminotransferase [Enzymatic activity/volume] in Serum or Plasma [facility] Albumin [Mass/volume] in Ser um or Plasma by Bromocresol green (BCG) dye binding methoOrdered By: Marcelina White on 11-28-2023 Albumin BCG dye [Mass/Vol] 4.5 g/dL 3.5-5.[address] [facility] Albumin BCG dye [Mass/Vol] Albumin [Mass/volume] in Serum or Plasma by Bromocresol green (BCG) dye binding metho 3.5-5.[address] [facility] Alkaline phosphatase [Enzyma tic activity/volume] in Serum or PlasmaOrdered By: Marcelina White on 11-28-2023 ALP [Catalytic activity/Vol] 52 U/L Normal 34-[address] [facility] Comment on above: Performed By: #### A 1C WT eA, TSH3, T3T, CBC, LIPID, CMP, T4F #### [facility] [address] [place] [address] ALP [Catalytic activity/Vol] Alkaline phosphatase [Enzymatic activity/volume] in Serum or Plasma 34-[address] [facility] Aspartate aminotransferase [ Enzymatic activity/volume] in Serum or PlasmaOrdered By: Marcelina White on 11-28-2023 AST [Catalytic activity/Vol] 14 U/L Normal 13-[address] [facility] Comment on above: Performed By: #### A 1C WT eA, TSH3, T3T, CBC, LIPID, CMP, T4F #### [address] AST [Catalytic activity/Vol] Aspartate aminotransferase [Enzymatic activity/volume] in Serum or Plasma 13-[address] [facility] Automated basophil %Ordered By: Marcelina White on 11-28-2023 Basophils/100 WBC (Bld) 1.5 % Normal . [facility] Comment on above: Performed By: #### A 1C WTH eA, TSH3, T3T, CBC, LIPID, CMP, T4F #### [facility] [address] Automated basophil countOrde red By: Marcelina White on 11-28-2023 Basophils (Bld) [#/Vol] 0.1 10*3/uL Normal 0.0-0.[address] [facility] Comment on above: Result Comment: PERF ORMED BY: [place] [address] PATHOLOGIST ORDER PICKER/ASSEMBLER ANGEL JOSEPH M.D. Performed By: #### A 1C [facility] eA, TSH3, T3T, CBC, LIPID, CMP, T4F #### [address] Automated blood monocyte cou ntOrdered By: Marcelina White on 11-28-2023 Monocytes (Bld) [#/Vol] 0.4 10*3/uL Normal 0.0-0.[address] [facility] Comment on above: Performed By: #### A 1C WT eA, TSH3, T3T, CBC, LIPID, CMP, T4F #### [address] Automated eosinophil %Ordere d By: Marcelina White on 11-28-2023 Eosinophils/100 WBC (Bld) 6.7 % Normal . [facility] Comment on above: Performed By: #### A 1C [facility] eA, TSH3, T3T, CBC, LIPID, CMP, T4F #### [address] Automated eosinophil countOr dered By: Marcelina White on 11-28-2023 Eosinophils (Bld) [#/Vol] 0.3 10*3/uL Normal 0.0-0.[address] [facility] Comment on above: Performed By: #### A 1C WT eA, TSH3, T3T, CBC, LIPID, CMP, T4F #### [address] Automated monocyte %Ordered By: Marcelina White on 11-28-2023 Monocytes/100 WBC (Bld) 9.2 % Normal . [facility] Comment on above: Performed By: #### A 1C WTH eA, TSH3, T3T, CBC, LIPID, CMP, T4F #### [address] Automated neutrophil %Ordere d By: Marcelina White on 11-28-2023 Neutrophils/100 WBC (Bld) 60.7 % Normal . [facility] Comment on above: Performed By: #### A 1C WT eA, TSH3, T3T, CBC, LIPID, CMP, T4F #### [facility] [address] [place] [address] [place] Basophils Auto (Bld) [#/Vol] Ordered By: Marcelina White on 11-28-2023 Basophils (Bld) [#/Vol] Automated basophil count 0.0-0.[address] [facility] Basophils/100 WBC Auto (Bld) Ordered By: Marcelina White on 11-28-2023 Basophils/100 WBC (Bld) Automated basophil % . [facility] Bilirubin.total [Mass/volume ] in Serum or PlasmaOrdered By: Marcelina White on 11-28-2023 Bilirubin [Mass/Vol] 1.2 mg/dL High 0.3-1.0 [facility] Comment on above: Performed By: #### A 1C WT eA, TSH3, T3T, CBC, LIPID, CMP, T4F #### [facility] [address] Bilirubin [Mass/Vol] Bilirubin.total [Mass/volume] in Serum or Plasma High 0.3-1.[address] [facility] Blood estimated average gluc ose determination by estimation from glycated hemoglobinOrdered By: Marcelina White on 11-28-2023 Average glucose Estimated from glycated hemoglobin (Bld) [Mass/Vol] Glucose mean value [Mass/volume] in Blood Estimated from glycated hemoglobin [facility] Calcium [Mass/volume] in Ser um or PlasmaOrdered By: Marcelina White on 11-28-2023 Calcium [Mass/Vol] 9.0 mg/dL Normal 8.6-10.3 [facility] Comment on above: Performed By: #### A 1C WT eA, TSH3, T3T, CBC, LIPID, CMP, T4F #### [facility] [address] Calcium [Mass/Vol] Calcium [Mass/volume ] in Serum or Plasma 8.6-10.[address] [facility] Carbon dioxide, total [Moles /volume] in Serum or PlasmaOrdered By: Marcelina White on 11-28-2023 CO2 [Moles/Vol] 28.9 mmol/L Normal 21.0-31.0 [facility] Comment on above: Performed By: #### A 1C [facility] eA, TSH3, T3T, CBC, LIPID, CMP, T4F #### [facility] [address] CO2 [Moles/Vol] Carbon dioxide, tota l [Moles/volume] in Serum or Plasma 21.0-31.[address] [facility] Chloride [Moles/volume] in S mariza or PlasmaOrdered By: Marcelina White on 11-28-2023 Chloride [Moles/Vol] 101 mmol/L Normal 98-107 [facility] Comment on above: Performed By: #### A 1C WT eA, TSH3, T3T, CBC, LIPID, CMP, T4F #### [facility] [address] Chloride [Moles/Vol] Chloride [Moles/vol ume] in Serum or Plasma 98-[address] [facility] Cholesterol [Mass/volume] in Serum or PlasmaOrdered By: Marcelina White on 11-28-2023 Cholesterol [Mass/Vol] 159 mg/dL Normal 140-[address] [facility] Comment on above: Chol less than 200 m g/dl low riskChol 201-239 mg/dl borderline riskChol 240 mg/dl and greater high risk Result Comment: Chol less than 200 mg/dl low risk Chol 201-239 mg/dl borderline risk Chol 240 mg/dl and greater high risk Performed By: #### E SR, CRP, URIC #### [facility] [address] [place] [address] #### CCP, ELIE, RA #### [facility] , Cholesterol [Mass/Vol] Cholesterol [Mass/volume] in Serum or Plasma 140-[address] [facility] Comment on above: Chol less than 200 m g/dl low riskChol 201-239 mg/dl borderline riskChol 240 mg/dl and greater high risk Cholesterol in HDL [Mass/vol ume] in Serum or PlasmaOrdered By: Marcelina White on 11-28-2023 Cholesterol in HDL [Mass/Vol] Serum or plasma high density lipoprotein (HDL) cholesterol measurement 23- [facility] Comment on above: HDL CHOL ATP-III CLA SSIFICATION Cardiovascular RiskHDL > or equal to 60 mg/dL LOWHDL < 40 mg/dL HIGH Cholesterol in LDL Calc [Mas s/Vol]Ordered By: Marcelina White on 11-28-2023 Cholesterol in LDL [Mass/Vol] 87 mg/dL 0-[address] [facility] Comment on above: LDL ATP III CLASSIFI CATIONLDL less than 100 mg/dL OptimalLDL 100-129 mg/dL Near or above optimalLDL 130-159 mg/dL Borderline highLDL 160-189 mg/dL HighLDL greater than 189 mg/dL Very high Cholesterol in LDL [Mass/Vol] Cholesterol in LDL [Mass/volume] in Serum or Plasma by calculation 0-[address] [facility] Comment on above: LDL ATP III CLASSIFI CATIONLDL less than 100 mg/dL OptimalLDL 100-129 mg/dL Near or above optimalLDL 130-159 mg/dL Borderline highLDL 160-189 mg/dL HighLDL greater than 189 mg/dL Very high Cholesterol in VLDL Calc [Ma ss/Vol]Ordered By: Marcelina White on 11-28-2023 Cholesterol in VLDL [Mass/Vol] 22 mg/dL [facility] Cholesterol in VLDL [Mass/Vol] Cholesterol in VLDL [Mass/volume] in Serum or Plasma by calculation [facility] Complete Blood Count Auto Di ffon 11-28-2023 Mean Corpuscular HGB Conc 34.6 g/dL Normal 32.5-35.6 [facility] Comment on above: Performed By: #### A 1C WTH eA, TSH3, T3T, CBC, LIPID, CMP, T4F #### [facility] [address] NRBC% 0.2 /100{WBC} Normal 0-0.5 [facility] Comment on above: Performed By: #### A 1C WTH eA, TSH3, T3T, CBC, LIPID, CMP, T4F #### [facility] [address] [place] [id number] [facility] Comprehensive Metabolic Pane bimal 11-28-2023 Albumin [Mass/Vol] 4.5 g/dL Normal 3.5-5.7 [facility] Comment on above: Performed By: #### A 1C WTH eA, TSH3, T3T, CBC, LIPID, CMP, T4F #### [facility] [address] [place] [address] [place] GFR/1.73 sq M.predicted MDRD (S/P/Bld) [Vol rate/Area] mL/min/{1.73_m2} Normal [facility] Comment on above: Performed By: #### A 1C WTH eA, TSH3, T3T, CBC, LIPID, CMP, T4F #### [facility] [address] Creatinine [Mass/volume] in Serum or PlasmaOrdered By: Marcelina White on 11-28-2023 Creatinine [Mass/Vol] 0.88 mg/dL Normal 0.70-1.30 [facility] Comment on above: Performed By: #### A 1C WTH eA, TSH3, T3T, CBC, LIPID, CMP, T4F #### [facility] [address] Creatinine [Mass/Vol] Creatinine [Mass/volume] in Serum or Plasma 0.70-1.[address] [facility] Eosinophils Auto (Bld) [#/Vo l]Ordered By: Marcelina White on 11-28-2023 Eosinophils (Bld) [#/Vol] Automated eosinophil count 0.0-0.[address] [facility] Eosinophils/100 WBC Auto (Bl d)Ordered By: Marcelina White on 11-28-2023 Eosinophils/100 WBC (Bld) Automated eosinophil % . [facility] Erythrocyte distribution wid th Auto (RBC) [Ratio]Ordered By: Marcelina White on 11-28-2023 Erythrocyte distribution width (RBC) [Ratio] Erythrocyte distribution width [Ratio] by Automated count 12.0-14.[address] [facility] Erythrocyte distribution wid th [Ratio] by Automated countOrdered By: Marcelina White on 11-28-2023 Erythrocyte distribution width (RBC) [Ratio] 13.5 % Normal 12.0-14.[address] [facility] Comment on above: Performed By: #### A 1C WTH eA, TSH3, T3T, CBC, LIPID, CMP, T4F #### [facility] [address] Erythrocytes [#/volume] in B lood by Automated countOrdered By: Marcelina White on 11-28-2023 RBC (Bld) [#/Vol] 4.50 10*6/uL Normal 3.90-5.60 [facility] Comment on above: Performed By: #### A 1C WTH eA, TSH3, T3T, CBC, LIPID, CMP, T4F #### [facility] [address] [place] [id number] [facility] Globulin Calc (S) [Mass/Vol] Ordered By: Marcelina White on 11-28-2023 Globulin (S) [Mass/Vol] Serum globulin measurement by calculation (mass/volume) [facility] Glucose [Mass/volume] in Ser um or PlasmaOrdered By: Marcelina White on 11-28-2023 Glucose [Mass/Vol] 109 mg/dL High 70-100 [facility] Comment on above: ADA recommended refe rence rangeRandom Glucose Reference Range is dependent on time and content of last meal. Glucose of more than 200 mg/dL in a nonstressed, ambulatory subject supports the diagnosis of Diabetes Mellitus. Result Comment: [place] Glucose Reference Range is dependent on time and content of last meal. Glucose of more than 200 mg/dL in a nonstressed, ambulatory subject supports the diagnosis of Diabetes Mellitus. ADA recommended reference range Performed By: #### A 1C WTH eA, TSH3, T3T, CBC, LIPID, CMP, T4F #### [facility] [address] [place] [id number] [facility] Glucose [Mass/Vol] Glucose [Mass/volume ] in Serum or Plasma High 70-[address] [facility] Comment on above: ADA recommended refe rence rangeRandom Glucose Reference Range is dependent on time and content of last meal. Glucose of more than 200 mg/dL in a nonstressed, ambulatory subject supports the diagnosis of Diabetes Mellitus. Glucose mean value [Mass/vol ume] in Blood Estimated from glycated hemoglobinOrdered By: Marcelina White on 11-28-2023 Average glucose Estimated from glycated hemoglobin (Bld) [Mass/Vol] 114 mg/dL [facility] Hematocrit Auto (Bld) [Volum e fraction]Ordered By: Marcelina White on 11-28-2023 Hematocrit (Bld) [Volume fraction] Hematocrit [Volume Fraction] of Blood by Automated count 38.8-50.[address] [facility] Hematocrit [Volume Fraction] of Blood by Automated countOrdered By: Marcelina White on 11-28-2023 Hematocrit (Bld) [Volume fraction] 42.1 % Normal 38.8-50.[address] [facility] Comment on above: Performed By: #### A 1C WTH eA, TSH3, T3T, CBC, LIPID, CMP, T4F #### [facility] [address] Hemoglobin A1c percentageOrd ered By: Marcelina White on 11-28-2023 HbA1c (Bld) [Mass fraction] 5.6 % Normal 4.3-5.[address] [facility] Comment on above: Increased risk for d iabetes: 5.7 - 6.4diabetes: >6.4glycemic control for adults with diabetes: <7.0 Result Comment: Incr eased risk for diabetes: 5.7 - 6.4 diabetes: >6.4 glycemic control for adults with diabetes: <7.0 Performed By: #### A 1C WTH eA, TSH3, T3T, CBC, LIPID, CMP, T4F #### [address] Hemoglobin A1c/Hemoglobin.to annette in BloodOrdered By: Marcelina White on 11-28-2023 HbA1c (Bld) [Mass fraction] Hemoglobin A1c percentage 4.3-5.[address] [facility] Comment on above: Increased risk for d iabetes: 5.7 - 6.4diabetes: >6.4glycemic control for adults with diabetes: <7.0 Hemoglobin [Mass/volume] in BloodOrdered By: Marcelina White on 11-28-2023 Hemoglobin (Bld) [Mass/Vol] 14.6 g/dL Normal 13.0-17.[address] [facility] Comment on above: Performed By: #### A 1C WTH eA, TSH3, T3T, CBC, LIPID, CMP, T4F #### [facility] [address] Hemoglobin (Bld) [Mass/Vol] Hemoglobin [Mass/volume] in Blood 13.0-17.[address] [facility] Leukocytes [#/volume] correc chelita for nucleated erythrocytes in Blood by Automated counOrdered By: Marcelina White on 11-28-2023 WBC corrected for nucl RBC Auto (Bld) [#/Vol] 4.8 10*3/uL 4.1-10.[address] [facility] WBC corrected for nucl RBC Auto (Bld) [#/Vol] Leukocytes [#/volume] corrected for nucleated erythrocytes in Blood by Automated coun 4.1-10.[address] [facility] Leukocytes [#/volume] in Blo od by Automated countOrdered By: Marcelina White on 11-28-2023 WBC (Bld) [#/Vol] 4.8 10*3/uL Normal 4.1-10.5 [facility] Comment on above: Performed By: #### A 1C WT eA, TSH3, T3T, CBC, LIPID, CMP, T4F #### [facility] [address] Lipid Panelon 11-28-2023 LDL Cholesterol,Calculated 87 mg/dL Normal 0-100 [facility] Comment on above: Result Comment: LDL ATP III CLASSIFICATION LDL less than 100 mg/dL Optimal LDL 100-129 mg/dL Near or above optimal LDL 130-159 mg/dL Borderline high LDL 160-189 mg/dL High LDL greater than 189 mg/dL Very high Performed By: #### E SR, CRP, URIC #### [facility] [address] #### CCP, ELIE, RA #### [facility] , Triglyceride w/Reflex 112 mg/dL Normal 0-149 [facility] Comment on above: Result Comment: TRIG ATP III CLASSIFICATION TRIG less than 150 mg/dL Normal TRIG 150-199 mg/dL Borderline high TRIG 200-500 mg/dL High TRIG greater than 500 mg/dL Very high Standard traceable to the Center for Disease Conrtrol and Prevention (CDC) test method. Performed By: #### E SR, CRP, URIC #### [address] #### CCP, ELIE, RA #### [facility] , VLDL CHOLESTEROL 22 mg/dL Normal [facility] Comment on above: Performed By: #### E SR, CRP, URIC #### [address] #### CCP, ELIE, RA #### [facility] , Lymphocytes Auto (Bld) [#/Vo l]Ordered By: Marcelina White on 11-28-2023 Lymphocytes (Bld) [#/Vol] Lymphocytes [#/volume] in Blood by Automated count 1.00-4.[address] [facility] Lymphocytes [#/volume] in Bl ood by Automated countOrdered By: Marcelina White on 11-28-2023 Lymphocytes (Bld) [#/Vol] 1.0 10*3/uL Normal 1.00-4.[address] [facility] Comment on above: Performed By: #### A 1C WTH eA, TSH3, T3T, CBC, LIPID, CMP, T4F #### [address] Lymphocytes/100 WBC Auto (Bl d)Ordered By: Marcelina White on 11-28-2023 Lymphocytes/100 WBC (Bld) Lymphocytes/100 leukocytes in Blood by Automated count . [facility] Lymphocytes/100 leukocytes i n Blood by Automated countOrdered By: Marcelina White on 11-28-2023 Lymphocytes/100 WBC (Bld) 21.9 % Normal . [facility] Comment on above: Performed By: #### A 1C WTH eA, TSH3, T3T, CBC, LIPID, CMP, T4F #### [address] MCH Auto (RBC) [Entitic mass ]Ordered By: Marcelina White on 11-28-2023 MCH (RBC) [Entitic mass] MCH [Entitic mass] by Automated count 27.5-35.[address] [facility] MCH [Entitic mass] by Automa chelita countOrdered By: Marcelina White on 11-28-2023 MCH (RBC) [Entitic mass] 32.4 pg Normal 27.5-35.[address] [facility] Comment on above: Performed By: #### A 1C [facility] eA, TSH3, T3T, CBC, LIPID, CMP, T4F #### [facility] [address] MCHC Auto (RBC) [Mass/Vol]Or dered By: Marcelina White on 11-28-2023 MCHC (RBC) [Mass/Vol] 34.6 g/dL 32.5-35.6 [facility] MCHC (RBC) [Mass/Vol] MCHC [Mass/volume] by Automated count 32.5-35.[address] [facility] MCV Auto (RBC) [Entitic vol] Ordered By: Marcelina White on 11-28-2023 MCV (RBC) [Entitic vol] MCV [Entitic volume] by Automated count 83.5-[address] [facility] MCV [Entitic volume] by Auto mated countOrdered By: Marcelina White on 11-28-2023 MCV (RBC) [Entitic vol] 93.6 fL Normal 83.5-[address] [facility] Comment on above: Performed By: #### A 1C [facility] eA, TSH3, T3T, CBC, LIPID, CMP, T4F #### [facility] [address] [place] [address] Monocytes Auto (Bld) [#/Vol] Ordered By: Marcelina White on 11-28-2023 Monocytes (Bld) [#/Vol] Automated blood monocyte count 0.0-0.[address] [facility] Monocytes/100 WBC Auto (Bld) Ordered By: Marcelina White on 11-28-2023 Monocytes/100 WBC (Bld) Automated monocyte % . [facility] Neutrophils Auto (Bld) [#/Vo l]Ordered By: Marcelina White on 11-28-2023 Neutrophils (Bld) [#/Vol] Neutrophils [#/volume] in Blood by Automated count 1.8-7.[address] [facility] Neutrophils [#/volume] in Bl ood by Automated countOrdered By: Marcelina White on 11-28-2023 Neutrophils (Bld) [#/Vol] 2.9 10*3/uL Normal 1.8-7.[address] [facility] Comment on above: Performed By: #### A 1C [facility] eA, TSH3, T3T, CBC, LIPID, CMP, T4F #### [facility] [address] [place] [address] [place] Neutrophils/100 WBC Auto (Bl d)Ordered By: Marcelina White on 11-28-2023 Neutrophils/100 WBC (Bld) Automated neutrophil % . [facility] No Panel InformationOrdered By: Marcelina White on 11-28-2023 Estimated GFR (CKD-EPI) > 60.0 mL/Min [facility] Creatinine Clearance (Chem N/A [facility] Nucleated erythrocytes [Pres ence] in Blood by Automated countOrdered By: Marcelina White on 11-28-2023 Nucleated RBC Auto Ql (Bld) 0.2 /100{WBC} 0-0.[address] [facility] Nucleated RBC Auto Ql (Bld) Nucleated erythrocytes [Presence] in Blood by Automated count 0-0.[address] [facility] Platelet mean volume Auto (B ld) [Entitic vol]Ordered By: Marcelina White on 11-28-2023 Platelet mean volume (Bld) [Entitic vol] Platelet mean volume [Entitic volume] in Blood by Automated count 6.6-10.[address] [facility] Platelet mean volume [Entiti c volume] in Blood by Automated countOrdered By: Marcelina White on 11-28-2023 Platelet mean volume (Bld) [Entitic vol] 7.8 fL Normal 6.6-10.[address] [facility] Comment on above: Performed By: #### A 1C [facility] eA, TSH3, T3T, CBC, LIPID, CMP, T4F #### [facility] [address] [place] [address] [place] Platelets Auto (Bld) [#/Vol] Ordered By: Marcelina White on 11-28-2023 Platelets (Bld) [#/Vol] Platelets [#/volume] in Blood by Automated count 150-[address] [facility] Platelets [#/volume] in Bloo d by Automated countOrdered By: Marcelina White on 11-28-2023 Platelets (Bld) [#/Vol] 201 10*3/uL Normal 150-[address] [facility] Comment on above: Performed By: #### A 1C WT eA, TSH3, T3T, CBC, LIPID, CMP, T4F #### [facility] [address] Potassium [Moles/volume] in Serum or PlasmaOrdered By: Marcelina White on 11-28-2023 Potassium [Moles/Vol] 4.2 mmol/L Normal 3.5-5.1 [facility] Comment on above: Performed By: #### A 1C WT eA, TSH3, T3T, CBC, LIPID, CMP, T4F #### [facility] [address] Potassium [Moles/Vol] Potassium [Moles/volume] in Serum or Plasma 3.5-5.[address] [facility] Protein [Mass/volume] in Ser um or PlasmaOrdered By: Marcelina White on 11-28-2023 Protein [Mass/Vol] 6.3 g/dL Low 6.4-8.9 [facility] Comment on above: Performed By: #### A 1C WT eA, TSH3, T3T, CBC, LIPID, CMP, T4F #### [facility] [address] Protein [Mass/Vol] Protein [Mass/volume ] in Serum or Plasma Low 6.4-8.[address] [facility] RBC Auto (Bld) [#/Vol]Ordere d By: Marcelina White on 11-28-2023 RBC (Bld) [#/Vol] Erythrocytes [#/volu me] in Blood by Automated count 3.90-5.[address] [facility] Serum globulin measurement b y calculation (mass/volume)Ordered By: Marcelina White on 11-28-2023 Globulin (S) [Mass/Vol] 1.8 g/dL Normal [facility] Comment on above: Performed By: #### A 1C WTH eA, TSH3, T3T, CBC, LIPID, CMP, T4F #### [facility] [address] Serum or plasma albumin/glob ulin mass ratioOrdered By: Marcelina White on 11-28-2023 Albumin/Globulin [Mass ratio] 2.5 {ratio} Normal [facility] Comment on above: Performed By: #### A 1C WTH eA, TSH3, T3T, CBC, LIPID, CMP, T4F #### [address] Albumin/Globulin [Mass ratio] Serum or plasma albumin/globulin mass ratio [facility] Serum or plasma anion gap de terminationOrdered By: Marcelina White on 11-28-2023 Anion gap [Moles/Vol] 10.3 mmol/L Normal 6.0-15.[address] [facility] Comment on above: Performed By: #### A 1C WTH eA, TSH3, T3T, CBC, LIPID, CMP, T4F #### [address] Anion gap [Moles/Vol] Serum or plasma an ion gap determination 6.0-15.[address] [facility] Serum or plasma high density lipoprotein (HDL) cholesterol measurementOrdered By: Marcelina White on 11-28-2023 Cholesterol in HDL [Mass/Vol] 50 mg/dL Normal 23-[address] [facility] Comment on above: HDL CHOL ATP-III CLA SSIFICATION Cardiovascular RiskHDL > or equal to 60 mg/dL LOWHDL < 40 mg/dL HIGH Result Comment: HDL CHOL ATP-III CLASSIFICATION Cardiovascular Risk HDL > or equal to 60 mg/dL LOW HDL < 40 mg/dL HIGH Performed By: #### E SR, CRP, URIC #### [place] [address] [place] #### CCP, ELIE, RA #### [facility] , Serum or plasma total choles terol/high density lipoprotein (HDL) cholesterol mass ratOrdered By: Marcelina White on 11-28-2023 Cholesterol.total/Chol esterol in HDL [Mass ratio] 3.2 {ratio} Normal <5.[address] [facility] Comment on above: Performed By: #### E SR, CRP, URIC #### [place] [address] [place] #### CCP, ELIE, RA #### [facility] , Cholesterol.total/Chol esterol in HDL [Mass ratio] Serum or plasma total cholesterol/high density lipoprotein (HDL) cholesterol mass rat <5.[address] [facility] Sodium [Moles/volume] in Ser um or PlasmaOrdered By: Marcelina White on 11-28-2023 Sodium [Moles/Vol] 136 mmol/L Normal 136-145 [facility] Comment on above: Performed By: #### A 1C WT eA, TSH3, T3T, CBC, LIPID, CMP, T4F #### [facility] [address] [place] [address] Sodium [Moles/Vol] Sodium [Moles/volume ] in Serum or Plasma 136-[address] [facility] Thyrotropin [Units/volume] i n Serum or PlasmaOrdered By: Marcleina White on 11-28-2023 TSH Qn 2.13 m[IU]/L Normal 0.45-5.[address] [facility] Comment on above: Result Comment: PERF ORMED BY: [address] [place] [address] PATHOLOGIST ORDER PICKER/ASSEMBLER ANGEL JOSEPH M.D. Performed By: #### E SR, CRP, URIC #### [facility] [address] [place] [address] #### CCP, ELIE, RA #### [facility] , TSH Qn Thyrotropin [Units/volume] in Serum or Plasma 0.45-5.[address] [facility] Thyroxine (T4) free [Mass/vo lume] in Serum or PlasmaOrdered By: Marcelina White on 11-28-2023 Free T4 [Mass/Vol] 0.82 ng/dL Normal 0.61-1.12 [facility] Comment on above: Performed By: #### E SR, CRP, URIC #### [facility] [address] [place] [address] [place] #### CCP, ELIE, RA #### [facility] , Free T4 [Mass/Vol] Thyroxine (T4) free [Mass/volume] in Serum or Plasma 0.61-1.[address] [facility] Triglyceride [Mass/volume] i n Serum or PlasmaOrdered By: Marcelina White on 11-28-2023 Triglyceride [Mass/Vol] 112 mg/dL 0-[address] [facility] Comment on above: TRIG ATP III CLASSIF ICATIONTRIG less than 150 mg/dL NormalTRIG 150-199 mg/dL Borderline highTRIG 200-500 mg/dL High TRIG greater than 500 mg/dL Very highStandard traceable to the Center for Disease Conrtrol and Prevention (CDC) test method. Triglyceride [Mass/Vol] Triglyceride [Mass/volume] in Serum or Plasma 0-[address] [facility] Comment on above: TRIG ATP III CLASSIF ICATIONTRIG less than 150 mg/dL NormalTRIG 150-199 mg/dL Borderline highTRIG 200-500 mg/dL High TRIG greater than 500 mg/dL Very highStandard traceable to the Center for Disease Conrtrol and Prevention (CDC) test method. Triiodothyronine (T3) Totalo n 11-28-2023 Triiodothyronine (T3) Total 1.32 ng/mL Normal 0.87-1.78 [facility] Comment on above: Performed By: #### E SR, CRP, URIC #### [facility] [address] [place] [address] #### CCP, ELIE, RA #### [facility] , Triiodothyronine (T3) [Mass/ volume] in Serum or PlasmaOrdered By: Marcelina White on 11-28-2023 T3 [Mass/Vol] 1.32 ng/mL 0.87-1.[address] [facility] T3 [Mass/Vol] Triiodothyronine (T3 ) [Mass/volume] in Serum or Plasma 0.87-1.[address] [facility] Urea nitrogen [Mass/volume] in Serum or PlasmaOrdered By: Marcelina White on 11-28-2023 Urea nitrogen [Mass/Vol] 13 mg/dL Normal 7-[address] [facility] Comment on above: Performed By: #### A 1C WT eA, TSH3, T3T, CBC, LIPID, CMP, T4F #### [facility] [address] [place] [id number] [facility] Urea nitrogen [Mass/Vol] Urea nitrogen [Mass/volume] in Serum or Plasma 10-[address] [facility] WBC Auto (Bld) [#/Vol]Ordere d By: Marcelina White on 11-28-2023 WBC (Bld) [#/Vol] Leukocytes [#/volume ] in Blood by Automated count 4.1-10.[address] [facility] No Panel Informationon 11-14 [facility] ALBUMINon 07-27-2023 Albumin [Mass/Vol] 4.2 g/dL Normal 3.2-5.2 [facility] Comment on above: Performed By: #### 4 [id number] #### [facility] [address] [place], [place] [address] Milena Wood M.D. [id number] CALCIUM LEVELon 07-27-2023 Calcium [Mass/Vol] 9.1 mg/dL Normal 8.4-10.2 [facility] Comment on above: Performed By: #### 4 [id number] #### [facility] [address] [place], [place] [address] Milena Wood M.D. [id number] CALCIUM, IONIZEDon CALCIUM IONIZED 4.9 mg/dL Normal 4.5-5.3 [facility] Comment on above: Performed By: #### 4 [id number] #### [facility] [address] [place], [place] [address] Milena Wood M.D. [id number] Laboratory - Chemistry and C hemistry - challengeon 05-09-2023 Cholesterol in LDL [Mass/Vol] 80 mg/dL [facility] Laboratory - Hematology and Cell countson 05-09-2023 HbA1c (Bld) [Mass fraction] 5.6 % [facility] No Panel Informationon 05-09 Prostate Specific Antigen Total 2.10 ng/mL [facility] Celiac Serology [place] P[place] bimal 01-07-2023 Celiac Disease Interpretation See Ref Lab Comment [facility] Comment on above: See Comment: Negative serology. Celiac disease unlikely. However, approximately 10% of patients with celiac disease are seronegative. Also, patients who are already adhering to a gluten-free diet may be seronegative. If celiac disease is highly clinically suspected, consider HLA-DQ typing. Test Performed by: [place] [address] [employer]: Martin Wall M.D. Ph.D.; CLIA# [id number] IgA [Mass/Vol] 57 mg/dL Low 61 - 356 mg/dL [facility] Interpretation and review of laboratory results Abnormal [facility] Gliadin Antibody, IgAon 12-13 Gliadin Ab, IgA (Deamidated) <10.0 <20.0 (Negative) [facility] Comment on above: Test Performed by: [place] [address] [employer]: Martin Wall M.D. Ph.D.; CLIA# [id number] [facility] Gliadin Antibody, IgGon 12-13 Gliadin IgG Ab (Deamidated) <10.0 <20.0 (Negative) [facility] Comment on above: Test Performed by: [place] [address] [employer]: Martin Wall M.D. Ph.D.; CLIA# [id number] [facility] No Panel Informationon 01-05 [facility] Protein Electrophoresis, Blo odOrdered By: Lety Jean-Baptiste on 01-05-2023 Albumin [Mass/Vol] 4.1 g/dL 3.1 - 5.5 g/dL [facility] Alpha 1 globulin Elph [Mass/Vol] 0.2 g/dL 0.2 - 0.5 g/dL [facility] Alpha 2 globulin Elph [Mass/Vol] 0.6 g/dL 0.4 - 1.1 g/dL [facility] Beta globulin Elph [Mass/Vol] 0.9 g/dL 0.6 - 1.3 g/dL [facility] Gamma globulin Elph [Mass/Vol] 0.6 g/dL 0.6 - 1.8 g/dL [facility] Patternator review Tadeo (Unsp spec) [Interp] Reviewed by Pathologist: Bertha Avila MD [facility] Protein [Mass/Vol] 6.3 g/dL 6.0 - 8.0 g/dL [facility] Protein Fractions [Interp] Normal pattern. Serum protein electrophoresis is insufficient to rule out a monoclonal protein. Recommend serum immunofixation and serum free light chains if clinically indicated. [facility] Tissue Transglutaminase, IgA on 01-05-2023 Tissue Transglutaminase IgA Ab <1.2 <4.0 (Negative) U/mL [facility] Comment on above: Test Performed by: [place] [address] [employer]: Martin Wall M.D. Ph.D.; CLIA# [id number] Tissue Transglutaminase, IgG on 01-05-2023 tTG IgG IA Qn (S) <1.2 <6.0 (Negative) U/mL [facility] Comment on above: Test Performed by: [facility] [place] [address] [employer]: Martin Wall M.D. Ph.D.; CLIA# [id number] Immunofixation, SerumOrdered By: Leti Domingo on 01-04-2023 Protein Fractions [Interp] Normal Normal [facility] Protein Fractions [Interp] No paraproteins detected. A negative serum immunofixation and/or serum protein electrophoresis is insufficient to rule out a monoclonal protein. Recommend serum free light chains if clinically indicated. Reviewed by Pathologist: Najma Avila MD. [facility] Beta Crosslaps (Beta CTX)on 01-03-2023 Collagen crosslinked C-telopeptide [Mass/Vol] 56 pg/mL [facility] Comment on above: Beta Crosslaps refer ence ranges (pg/mL): Males: <30 years = Not established 30-50 years = 0 - 584 51-70 years = 0 - 704 >70 years = 0 - 854 Females: <18 years = Not established Premenopausal = 25 - 573 Postmenopausal = 104 - 1008 [facility] Bilirubin.direct [Mass/Vol]o n 01-03-2023 Bilirubin.conjugated [Mass/Vol] 0.3 mg/dL 0.0 - 0.4 mg/dL [facility] Interpretation and review of laboratory results Normal [facility] Comprehensive metabolic 2000 panelon 01-03-2023 Albumin [Mass/Vol] 3.9 g/dL 3.2 - 5.2 g/dL [facility] ALP [Catalytic activity/Vol] 66 U/L 40 - 150 U/L [facility] ALT [Catalytic activity/Vol] 26 U/L 14 - 65 U/L [facility] Anion gap [Moles/Vol] 11 mmol/L 10 - 2 0 mmol/L [facility] AST [Catalytic activity/Vol] 16 U/L 0-50 U/L [facility] Bilirubin [Mass/Vol] 1.5 mg/dL High 0.0 - 1 .3 mg/dL [facility] Calcium [Mass/Vol] 8.5 mg/dL 8.4 - 10. 2 mg/dL [facility] Chloride [Moles/Vol] 100 mmol/L 98 - 10 8 mmol/L [facility] Creatinine [Mass/Vol] 0.84 mg/dL 0.80 - 1.30 mg/dL [facility] GFR/1.73 sq M.predicted CKD-EPI (S/P/Bld) [Vol rate/Area] 90 - PINF [facility] Comment on above: Estimated GFR was ca lculated using the 2020 CKD-EPI creatinine equation. Glucose [Mass/Vol] 109 mg/dL High 65 - 99 mg/dL [facility] HCO3 [Moles/Vol] 27 mmol/L 21 - 32 mmol/L [facility] Potassium [Moles/Vol] 4.2 mmol/L 3.5 - 5.1 mmol/L [facility] Protein [Mass/Vol] 6.8 g/dL 6.0 - 8.0 g/dL [facility] Sodium [Moles/Vol] 134 mmol/L Low 135 - 145 mmol/L [facility] Urea nitrogen [Mass/Vol] 11 mg/dL 8 - 25 mg/dL [facility] Urea nitrogen/Creatinine [Mass ratio] 13.1 mg/mg 10.0 - 20.0 [facility] Labor[facility] y Services has implemented the eGFR calculation approach that does not have a coefficient for race that conforms to the NKF-ASN Task Force Recommendations. [facility] Immunoglobulin light chains. free panel (S)Ordered By: Tim Diaz on 01-03-2023 [facility] [place] Free Light Chain 7.12 mg/L 3.30 - 19.40 mg/L [facility] Immunoglobulin light chains.kappa.free/Immu noglobulin light chains.lambda.free (S) [Mass ratio] 0.83 0.26 - 1.65 [facility] Immunoglobulin light chains.lambda.free [Mass/Vol] 8.59 mg/L 5.71 - 26.30 mg/L [facility] Interpretation and review of laboratory results Normal [facility] Magnesium Levelon 01-03-2023 Magnesium [Mass/Vol] 2.5 mg/dL High 1.6 - 2 .4 mg/dL [facility] No Panel Informationon 01-03 Interpretation and review of laboratory results Abnormal [facility] Parathyrin.intact and Calciu m panelon 01-03-2023 Calcium [Mass/Vol] 8.9 mg/dL 8.4 - 10. 2 mg/dL [facility] Interpretation and review of laboratory results Normal [facility] Parathyrin.intact [Mass/Vol] 59.4 pg/mL 18.4 - 80.1 pg/mL [facility] Phosphate [Mass/Vol]on 01-03 Interpretation and review of laboratory results Normal [facility] Phosphoruson 01-03-2023 Phosphate [Mass/Vol] 3.0 mg/dL 2.3 - 3 .7 mg/dL [facility] Vitamin D, Total, 25-OHon 25-hydroxyvitamin D [Mass/Vol] 50 ng/mL 30 - 100 ng/mL [facility] Comment on above: Vitamin D status: Deficiency: <20 ng/mL Insufficiency: 20-30 ng/mL Sufficiency: 30-100 ng/mL Toxicity: >100 ng/mL Please note that Fluorescein which is used in angiography has been shown to falsely elevate the results of Vitamin D with our current assay. Evidence suggests that patients undergoing fluorescein dye angiography can retain small amounts of fluorescein in the body for up to 48 to 72 hours post-treatment. In the cases of patients with renal insufficiency, retention could be much longer. Samples should be resubmitted post fluorescein clearance to ensure there is no interference with the Vitamin D test result. Interpretation and review of laboratory results Normal [facility] Assay performed adrian Ortiz's chemiluminescence methodology. [facility] XR Lumbar Spine 2-3 Views (S tanroxanna)on 01-03-2023 1. No acute osseous abnormality. 2. Posterior fusion changes of the lumbar spine. No evidence of hardware complication. 3. Mild L2-3 degenerative disc disease. Workstation ID: [id number] [employer] [facility] EXAMINATION: XR LUMBAR SPINE 2-3 VIEWS (STANDARD) 01/03/2023 10:59 am HISTORY: ORDERING SYSTEM PROVIDED HISTORY: screen for vertebral compression fractures, TECHNOLOGIST PROVIDED HISTORY: Illness/Other Reason for exam: screen for vertebral compression fractures Cancer History: u Surgery, RadiationHistory: u Encounter Type: Initial Additional signs and symptoms: ORDERING SYSTEM PROVIDED DIAGNOSIS CODES: M81.0 Osteoporosis, unspecified osteoporosis type, unspecified pathological fracture presence COMPARISON: None. FINDINGS: Posterior fusion changes with interbody fusion from L3-S1. Intact hardware. No evidence of hardware loosening. Thoracolumbar spine dextroscoliosis. No vertebral compression fracture. Mild loss of disc space height at L2-3. Mild degenerative changes of the sacroiliac joints. [facility] Palak Mueller MD - 01/03/2023 EXAMINATION: XR LUMBAR SPINE 2-3 VIEWS (STANDARD) 01/03/2023 10:59 am HISTORY: ORDERING SYSTEM PROVIDED HISTORY: screen for vertebral compression fractures, TECHNOLOGIST PROVIDED HISTORY: Illness/Other Reason for exam: screen for vertebral compression fractures Cancer History: u Surgery, RadiationHistory: u Encounter Type: Initial Additional signs and symptoms: ORDERING SYSTEM PROVIDED DIAGNOSIS CODES: M81.0 Osteoporosis, unspecified osteoporosis type, unspecified pathological fracture presence COMPARISON: None. FINDINGS: Posterior fusion changes with interbody fusion from L3-S1. Intact hardware. No evidence of hardware loosening. Thoracolumbar spine dextroscoliosis. No vertebral compression fracture. Mild loss of disc space height at L2-3. Mild degenerative changes of the sacroiliac joints. IMPRESSION: 1. No acute osseous abnormality. 2. Posterior fusion changes of the lumbar spine. No evidence of hardware complication. 3. Mild L2-3 degenerative disc disease. Workstation ID: [id number] [facility] Radiology Study observation (narrative) [facility] XR Lumbar Spine 2-3 Views (S tandard)Ordered By: Palak Yuan on 01-03-2023 [facility] Work Phone: Basophils Auto (Bld) [#/Vol] Ordered By: Marcelina White on 06-21-2022 Basophils (Bld) [#/Vol] 0.1 10*3/uL 0.0-0.[address] [facility] Basophils/100 WBC Auto (Bld) Ordered By: Marcelina White on 06-21-2022 Basophils/100 WBC (Bld) 1.3 % . [facility] Eosinophils Auto (Bld) [#/Vo l]Ordered By: Marcelina White on 06-21-2022 Eosinophils (Bld) [#/Vol] 0.3 10*3/uL 0.0-0.[address] [facility] Eosinophils/100 WBC Auto (Bl d)Ordered By: Marcelina White on 06-21-2022 Eosinophils/100 WBC (Bld) 6.3 % . [facility] Erythrocyte distribution wid th Auto (RBC) [Ratio]Ordered By: Marcelina White on 06-21-2022 Erythrocyte distribution width (RBC) [Ratio] 13.8 % 12.0-14.[address] [facility] Hematocrit Auto (Bld) [Volum e fraction]Ordered By: Marcelina White on 06-21-2022 Hematocrit (Bld) [Volume fraction] 38.7 % 38.8-50.[address] [facility] Hemoglobin [Mass/volume] in BloodOrdered By: Marcelina White on 06-21-2022 Hemoglobin (Bld) [Mass/Vol] 13.3 g/dL 13.0-17.[address] [facility] Leukocytes [#/volume] correc chelita for nucleated erythrocytes in Blood by Automated counOrdered By: Marcelina White on 06-21-2022 WBC corrected for nucl RBC Auto (Bld) [#/Vol] 4.4 10*3/uL 4.1-10.[address] [facility] Lymphocytes Auto (Bld) [#/Vo l]Ordered By: Marcelina White on 06-21-2022 Lymphocytes (Bld) [#/Vol] 1.0 10*3/uL 1.00-4.[address] [facility] Lymphocytes/100 WBC Auto (Bl d)Ordered By: Marcelina White on 06-21-2022 Lymphocytes/100 WBC (Bld) 21.8 % . [facility] MCH Auto (RBC) [Entitic mass ]Ordered By: Marcelina White on 06-21-2022 MCH (RBC) [Entitic mass] 31.7 pg 27.5-35.[address] [facility] MCHC Auto (RBC) [Mass/Vol]Or dered By: Marcelina White on 06-21-2022 MCHC (RBC) [Mass/Vol] 34.3 g/dL 32.5-35.6 [facility] MCV Auto (RBC) [Entitic vol] Ordered By: Marcelina White on 06-21-2022 MCV (RBC) [Entitic vol] 92.4 fL 83.5-[address] [facility] Monocytes Auto (Bld) [#/Vol] Ordered By: Marcelina White on 06-21-2022 Monocytes (Bld) [#/Vol] 0.4 10*3/uL 0.0-0.[address] [facility] Monocytes/100 WBC Auto (Bld) Ordered By: Marcelina White on 06-21-2022 Monocytes/100 WBC (Bld) 9.6 % . [facility] Neutrophils Auto (Bld) [#/Vo l]Ordered By: Marcelina White on 06-21-2022 Neutrophils (Bld) [#/Vol] 2.7 10*3/uL 1.8-7.[address] [facility] Neutrophils/100 WBC Auto (Bl d)Ordered By: Marcelina White on 06-21-2022 Neutrophils/100 WBC (Bld) 61.0 % . [facility] Nucleated erythrocytes [Pres ence] in Blood by Automated countOrdered By: Marcelina White on 06-21-2022 Nucleated RBC Auto Ql (Bld) 0.2 /100{WBC} 0-0.[address] [facility] Platelet mean volume Auto (B ld) [Entitic vol]Ordered By: Marcelina White on 06-21-2022 Platelet mean volume (Bld) [Entitic vol] 7.1 fL 6.6-10.[address] [facility] Platelets Auto (Bld) [#/Vol] Ordered By: Marcelina White on 06-21-2022 Platelets (Bld) [#/Vol] 199 10*3/uL 150-[address] [facility] RBC Auto (Bld) [#/Vol]Ordere d By: Marcelina White on 06-21-2022 RBC (Bld) [#/Vol] 4.19 10*6/uL 3.90-5.60 [facility] Thyrotropin [Units/volume] i n Serum or PlasmaOrdered By: Marcelina White on 06-21-2022 TSH Qn 0.39 m[IU]/L 0.45-5.[address] [facility] Thyroxine (T4) free [Mass/vo lume] in Serum or PlasmaOrdered By: Marcelina White on 06-21-2022 Free T4 [Mass/Vol] 0.94 ng/dL 0.61-1.12 [facility] Triiodothyronine (T3) Free [ Mass/volume] in Serum or PlasmaOrdered By: Marcelina White on 06-21-2022 Free T3 [Mass/Vol] 4.00 pg/mL 2.50-3.90 [facility] WBC Auto (Bld) [#/Vol]Ordere d By: Marcelina White on 06-21-2022 WBC (Bld) [#/Vol] 4.4 10*3/uL 4.1-10.5 [facility] Collagen crosslinked N-telop eptide (S) [Moles/Vol]on 06-16-2022 CROSS-LINK N-TELOPEPTIDE BLOOD 6.5 nM BCE Normal 5.4-24.2 [facility] Comment on above: Order Comment: Speci men Type: BLOOD SPECIMEN Ordering Facility: [facility] Address: ATTN: LABORATORY, [place] [address] Result Comment: BCE = Bone Collagen Equivalents Test performed at [facility] Performed By: #### 2 1215-9 #### [facility] CLIA [id number] [address] [place] [address] [place] RENAL FUNCTION PANELon 06-16 Albumin [Mass/Vol] 3.8 g/dL Normal 3.4-5.0 [facility] Comment on above: Performed By: #### R ENAL #### [facility] [address] [place] [address] Dr. Aleksandar Villarreal Calcium [Mass/Vol] 8.8 mg/dL Normal 8.5-10.1 [facility] Comment on above: Performed By: #### R ENAL #### [facility] [address] [address] [address] Aleksandar Villarreal Chloride [Moles/Vol] 102 mmol/L Normal 98-107 [facility] Comment on above: Performed By: #### R ENAL #### [facility] [address] [place] [address] Dr. Aleksandar Villarreal CO2 [Moles/Vol] 28.4 mmol/L Normal 21.0-32.0 [facility] Comment on above: Performed By: #### R ENAL #### [facility] [address] [place] [address] Dr. Aleksandar Villarreal Creatinine [Mass/Vol] 0.79 mg/dL Normal 0.70-1.30 [facility] Comment on above: Performed By: #### R ENAL #### [facility] [address] [place] [address] Dr. Aleksandar Villarreal EGFR-AF ICELANDIC >60 Normal >=60 [facility] Comment on above: Performed By: #### R ENAL #### [facility] [address] [place] [address] Dr. Aleksandar Villarreal EGFR-NON AF ICELANDIC >60 Normal >=60 [facility] Comment on above: Performed By: #### R ENAL #### [facility] [address] [place] [address] Dr. Aleksandar Villarreal Glucose [Mass/Vol] 96 mg/dL Normal 74-106 [facility] Comment on above: Performed By: #### R ENAL #### [facility] [address] [place] [address] Dr. Aleksandar Villarreal Phosphate [Mass/Vol] 4.2 mg/dL Normal 2.6-4.7 [facility] Comment on above: Performed By: #### R ENAL #### [facility] [address] [place] [address] Dr. Aleksandar Villarreal Potassium [Moles/Vol] 4.4 mmol/L Normal 3.5-5.1 [facility] Comment on above: Performed By: #### R ENAL #### [facility] [address] [place] [address] Dr. Aleksandar Villarreal Sodium [Moles/Vol] 136 mmol/L Normal 136-145 [facility] Comment on above: Performed By: #### R ENAL #### [facility] [address] [address] [address] Aleksandar Villarreal Urea nitrogen [Mass/Vol] 13.0 mg/dL Normal 7.0-18.0 [facility] Comment on above: Performed By: #### R ENAL #### [facility] [address] [address] [address] Aleksandar Villarreal VITAMIN D 25 OHon 06-16-2022 VIT D 25-OH 57.0 ng/mL Normal [facility] Comment on above: Performed By: #### V ITAD #### [facility] [address] [address] [address] Aleksandar Villarreal VIT D RANGES SEE BELOW Normal [facility] Comment on above: Result Comment: <20 ng/mL Vit D deficient 20 - <30 ng/mL Vit D insufficient 30 - 100 ng/mL Vit D sufficient >100 ng/mL Potential Toxicity Performed By: #### V ITAD #### [facility] [address] [place] [address] Dr. Aleksandar Villarreal PSA, FREE AND TOTAL RATIOon 04-29-2022 % Free PSA 14.8 % Normal [facility] Comment on above: Result Comment: The table below lists the probability of prostate cancer for men with non-suspicious THOMAS results and total PSA between 4 and 10 ng/mL, by patient age (Kyaw et al, ROSELINE 1998, 279:1542). % Free PSA 50-64 yr 65-75 yr 0.00-10.00% 56% 55% 10.01-15.00% 24% 35% 15.01-20.00% 17% 23% 20.01-25.00% 10% 20% >25.00% 5% 9% Please note: Kyaw et al did not make specific recommendations regarding the use of percent free PSA for any other population of men. Performed By: #### L IPID, CMP, FT3, TSH #### [facility] [address] [place] [address] Dr. Aleksandar Villarreal Prostate specific Ag [Mass/Vol] 2.1 ng/mL Normal 0.0-4.0 [facility] Comment on above: Result Comment: Malachi DANIEL methodology. . According to the [employer], Serum PSA should decrease and remain at undetectable levels after radical prostatectomy. The AUA defines biochemical recurrence as an initial PSA value 0.2 ng/mL or greater followed by a subsequent confirmatory PSA value 0.2 ng/mL or greater. Values obtained with different assay methods or kits cannot be used interchangeably. Results cannot be interpreted as absolute evidence of the presence or absence of malignant disease. Performed By: #### L IPID, CMP, FT3, TSH #### [facility] [address] [place] [address] Dr. Aleksandar Villarreal PSA, Free 0.31 ng/mL Normal N/A [facility] Comment on above: Result Comment: Malachi george ECLIA methodology. Performed By: #### L IPID, CMP, FT3, TSH #### [facility] [address] [place] [address] Dr. Aleksandar Villarreal CBC AUTO DIFFon 04-28-2022 BASO # 0.0 103/ul Normal 0.0-0.1 [facility] Comment on above: Performed By: #### C BC #### [facility] [address] [place] [address] Dr. Aleksandar Villarreal Basophils/100 WBC (Bld) 0.1 % Critically low 0.2-2.0 [facility] Comment on above: Performed By: #### C BC #### [facility] [address] [place] [address] Dr. Aleksandar Villarreal EO # 0.0 103/ul Normal 0.0-0.7 [facility] Comment on above: Performed By: #### C BC #### [facility] [address] [place] [address] Dr. Aleksandar Villarreal Eosinophils/100 WBC (Bld) 0.0 % Critically low 0.9-7.0 [facility] Comment on above: Performed By: #### C BC #### [facility] [address] [place] [address] Dr. Aleksandar Villarreal Erythrocyte distribution width (RBC) [Ratio] 12.6 % Normal 11.0-15.0 [facility] Comment on above: Performed By: #### C BC #### [facility] [address] [place] [address] Dr. Aleksandar Villarreal Hematocrit (Bld) [Volume fraction] 40.6 % Critically low 42.0-54.0 [facility] Comment on above: Performed By: #### C BC #### [facility] [address] [place] [address] Dr. Aleksandar Villarreal Hemoglobin (Bld) [Mass/Vol] 13.8 g/dL Critically low 14.0-18.0 [facility] Comment on above: Performed By: #### C BC #### [facility] [address] [place] [address] Dr. Aleksandar Villarreal IG # 0.03 10e3/ul Normal 0.00-0.03 [facility] Comment on above: Performed By: #### C BC #### [facility] [address] [place] [address] Dr. Aleksandar Villarreal IG % 0.3 % Normal 0.0-0.5 [facility] Comment on above: Performed By: #### C BC #### [facility] [address] [place] [address] Dr. Aleksandar Villarreal LYMPH # 0.9 103/ul Critically low 1.2-3.8 [facility] Comment on above: Performed By: #### C BC #### [facility] [address] [place] [address] Dr. Aleksandar Villarreal Lymphocytes/100 WBC (Bld) 8.9 % Critically low 20.5-60.0 [facility] Comment on above: Performed By: #### C BC #### [facility] [address] [place] [address] Dr. Aleksandar Villarreal MANUAL DIFF REQ NO Normal [facility] Comment on above: Performed By: #### C BC #### [facility] [address] [place] [address] Dr. Aleksandar Villarreal MCH (RBC) [Entitic mass] 30.7 pg Normal 25.9-34.0 [facility] Comment on above: Performed By: #### C BC #### [facility] [address] [place] [address] Dr. Aleksandar Villarreal MCHC (RBC) [Mass/Vol] 34.0 g/dL Normal 29.9-35.2 [facility] Comment on above: Performed By: #### C BC #### [facility] [address] [address] [address] Aleksandar Villarreal MCV (RBC) [Entitic vol] 90.4 fL Normal 80.0-94.0 [facility] Comment on above: Performed By: #### C BC #### [facility] [address] [address] [address] Aleksandar Villarreal MONO # 0.6 103/ul Normal 0.3-0.8 [facility] Comment on above: Performed By: #### C BC #### [facility] [address] [place] [address] Dr. Aleksandar Villarreal Monocytes/100 WBC (Bld) 6.0 % Normal 1.7-12.0 [facility] Comment on above: Performed By: #### C BC #### [facility] [address] [place] [address] Dr. Aleksandar Villarreal NEUT # 8.1 103/ul Critically high 1.4-6.5 [facility] Comment on above: Performed By: #### C BC #### [facility] [address] [place] [address] Dr. Aleksandar Villarreal Neutrophils/100 WBC (Bld) 84.7 % Critically high 43.0-75.0 [facility] Comment on above: Performed By: #### C BC #### [facility] [address] [address] [address] Aleksandar Villarreal Platelet mean volume (Bld) [Entitic vol] 9.1 fL Critically low 9.5-13.5 [facility] Comment on above: Performed By: #### C BC #### [facility] [address] [place] [address] Dr. Aleksandar Villarreal PLT 212 103/ul Normal 150-450 [facility] Comment on above: Performed By: #### C BC #### [facility] [address] [place] [address] Dr. Aleksandar Villarreal RBC 4.49 106/ul Critically low 4.70-6.10 [facility] Comment on above: Performed By: #### C BC #### [facility] [address] [place] [address] Dr. Aleksandar Villarreal WBC 9.5 103/ul Normal 4.0-11.0 [facility] Comment on above: Performed By: #### C BC #### [facility] [address] [place] [address] Dr. Aleksandar Villarreal CULTURE URINEon 04-28-2022 CULTURE URINE Culture Observations : LIGHT GROWTH OF MIXED SKIN JERZY. NO POTENTIAL PATHOGENS SEEN. Normal The [facility] Comment on above: Performed By: #### U RCX #### [facility] [address] [place] [address] Dr. Aleksandar Villarreal FREE T3on 04-28-2022 FREE T3 2.24 pg/mlL Normal 2.18-3.98 [facility] Comment on above: Performed By: #### L IPID, CMP, FT3, TSH #### [facility] [address] [place] [address] Dr. Aleksandar Villarreal FREE T4on 04-28-2022 Free T4 [Mass/Vol] 1.04 ng/dL Normal 0.76-1.46 [facility] Comment on above: Performed By: #### F T4 #### [facility] [address] [place] [address] Dr. Aleksandar Villarreal GLYCOHEMOGLOBIN A1Con 2022 ADA RECOMMENDATION SEE BELOW Normal [facility] Comment on above: Result Comment: ADA RECOMMENDED LIMIT 4.0 - 6.0 ADA THERAPEUTIC TARGET < 7.0 ACTION SUGGESTED > 7.0 Performed By: #### A 1C #### [facility] [address] [place] [address] Dr. Aleksandar Villarreal Glucose [Mass/Vol] 111 mg/dL Normal [facility] Comment on above: Performed By: #### A 1C #### [facility] [address] [place] [address] Dr. Aleksandar Villarreal HbA1c (Bld) [Mass fraction] 5.5 % Normal 4.5-6.2 [facility] Comment on above: Performed By: #### A 1C #### [facility] [address] [address] [address] Aleksandar Villarreal LIPID PROFILEon 04-28-2022 CHOL-HDL RATIO NORM SEE BELOW Normal [facility] Comment on above: Result Comment: 3.3 - 4.4 LOW RISK 4.4 - 7.1 AVERAGE RISK 7.1 - 11.0 MODERATE RISK >11.0 HIGH RISK Performed By: #### L IPID, CMP, FT3, TSH #### [facility] [address] [address] [address] Aleksandar Villarreal Cholesterol [Mass/Vol] 152 mg/dL Normal <=[address] [facility] Comment on above: Performed By: #### L IPID, CMP, FT3, TSH #### [facility] [address] [address] [address] Aleksandar Villarreal Cholesterol in HDL [Mass/Vol] 45 mg/dL Normal 40-60 [facility] Comment on above: Performed By: #### L IPID, CMP, FT3, TSH #### [facility] [address] [address] [address] Aleksandar Villarreal Cholesterol in LDL [Mass/Vol] 87.8 mg/dL Normal [facility] Comment on above: Performed By: #### L IPID, CMP, FT3, TSH #### [facility] [address] [address] [address] Aleksandar Villarreal Cholesterol.total/Chol esterol in HDL [Mass ratio] 3.4 {ratio} Normal [facility] Comment on above: Performed By: #### L IPID, CMP, FT3, TSH #### [facility] [address] [address] [address] Aleksandar Villarreal HDL NORMAL > or = 60 mg/dl - LO W CARDIOVASCULAR RISK <40 mg/dl - HIGH CARDIOVASCULAR RISK Normal [facility] Comment on above: Performed By: #### L IPID, CMP, FT3, TSH #### [facility] [address] [address] [address] Aleksandar Villarreal LDL CALC NORMAL SEE BELOW Normal [facility] Comment on above: Result Comment: <100 mg/dl OPTIMAL 100 - 129 mg/dl NEAR OR ABOVE OPTIMAL 130 - 159 mg/dl BORDERLINE HIGH 160 - 189 mg/dl HIGH >190 mg/dl VERY HIGH Performed By: #### L IPID, CMP, FT3, TSH #### [facility] [address] [address] [address] Aleksandar Villarreal Triglyceride [Mass/Vol] 96 mg/dL Normal <=150 [facility] Comment on above: Performed By: #### L IPID, CMP, FT3, TSH #### [facility] [address] [address] [address] Aleksandar Villarreal VLDL CALC 19.2 mg/dL Normal [facility] Comment on above: Performed By: #### L IPID, CMP, FT3, TSH #### [facility] [address] [place] [address] Dr. Aleksandar Villarreal PROF 14(COMP METB)on 023 Albumin [Mass/Vol] 4.0 g/dL Normal 3.4-5.0 [facility] Comment on above: Performed By: #### L IPID, CMP, FT3, TSH #### [facility] [address] [place] [address] Dr. Aleksandar Villarreal Albumin/Globulin [Mass ratio] 1.4 {ratio} Normal [facility] Comment on above: Performed By: #### L IPID, CMP, FT3, TSH #### [facility] [address] [address] [address] Aleksandar Villarreal ALP [Catalytic activity/Vol] 59 U/L Normal 46-116 [facility] Comment on above: Performed By: #### L IPID, CMP, FT3, TSH #### [facility] [address] [place] [address] Dr. Aleksandar Villarreal ALT [Catalytic activity/Vol] 21 U/L Normal 16-63 [facility] Comment on above: Performed By: #### L IPID, CMP, FT3, TSH #### [facility] [address] [address] [address] Aleksandar Villarreal Anion gap [Moles/Vol] 13.3 mmol/L Normal Th e [facility] Comment on above: Performed By: #### L IPID, CMP, FT3, TSH #### [facility] [address] [address] [address] Aleksandar Villarreal AST [Catalytic activity/Vol] 17 U/L Normal 15-37 [facility] Comment on above: Performed By: #### L IPID, CMP, FT3, TSH #### [facility] [address] [address] [address] Aleksandar Villarreal Bilirubin [Mass/Vol] 1.1 mg/dL Critically high 0.2-1.0 [facility] Comment on above: Performed By: #### L IPID, CMP, FT3, TSH #### [facility] [address] [address] [address] Aleksandar Villarreal Calcium [Mass/Vol] 8.7 mg/dL Normal 8.5-10.1 [facility] Comment on above: Performed By: #### L IPID, CMP, FT3, TSH #### [facility] [address] [address] [address] Aleksandar Villarreal Chloride [Moles/Vol] 102 mmol/L Normal 98-107 [facility] Comment on above: Performed By: #### L IPID, CMP, FT3, TSH #### [facility] [address] [address] [address] Aleksandar Villarreal CO2 [Moles/Vol] 25.0 mmol/L Normal 21.0-32.0 [facility] Comment on above: Performed By: #### L IPID, CMP, FT3, TSH #### [facility] [address] [address] [address] Aleksandar Villarreal Creatinine [Mass/Vol] 0.81 mg/dL Normal 0.70-1.30 [facility] Comment on above: Performed By: #### L IPID, CMP, FT3, TSH #### [facility] [address] [address] [address] Aleksandar Villarreal EGFR-AF ICELANDIC >60 Normal >=60 [facility] Comment on above: Performed By: #### L IPID, CMP, FT3, TSH #### [facility] [address] [address] [address] Aleksandar Villarreal EGFR-NON AF ICELANDIC >60 Normal >=60 [facility] Comment on above: Performed By: #### L IPID, CMP, FT3, TSH #### [facility] [address] [place] [address] Dr. Aleksandar Villarreal Globulin (S) [Mass/Vol] 2.8 g/dL Normal [facility] Comment on above: Performed By: #### L IPID, CMP, FT3, TSH #### [facility] [address] [place] [address] Dr. Aleksandar Villarreal Glucose [Mass/Vol] 123 mg/dL Critically high 74-106 T [facility] Comment on above: Performed By: #### L IPID, CMP, FT3, TSH #### [facility] [address] [place] [address] Dr. Aleksandar Villarreal Potassium [Moles/Vol] 4.3 mmol/L Normal 3.5-5.1 [facility] Comment on above: Performed By: #### L IPID, CMP, FT3, TSH #### [facility] [address] [place] [address] Dr. Aleksandar Villarreal Protein [Mass/Vol] 6.8 g/dL Normal 6.4-8.2 [facility] Comment on above: Performed By: #### L IPID, CMP, FT3, TSH #### [facility] [address] [place] [address] Dr. Aleksandar Villarreal Sodium [Moles/Vol] 136 mmol/L Normal 136-145 [facility] Comment on above: Performed By: #### L IPID, CMP, FT3, TSH #### [facility] [address] [place] [address] Dr. Aleksandar Villarreal Urea nitrogen [Mass/Vol] 15.0 mg/dL Normal 7.0-18.0 [facility] Comment on above: Performed By: #### L IPID, CMP, FT3, TSH #### [facility] [address] [address] [address] Aleksandar Villarreal Urea nitrogen/Creatinine [Mass ratio] 18.5 mg/mg Normal [facility] Comment on above: Performed By: #### L IPID, CMP, FT3, TSH #### [facility] [address] [address] [address] Aleksandar Villarreal TSHon 04-28-2022 TSH 0.218 uIU/mL Critically low 0.358-3.740 [facility] Comment on above: Performed By: #### L IPID, CMP, FT3, TSH #### [facility] [address] [address] [address] Aleksandar Villarreal UA RANDOMon 04-28-2022 Bilirubin Ql (U) Negative Normal NEGATIVE [facility] Comment on above: Performed By: #### L IPID, CMP, FT3, TSH #### [facility] [address] [place] [address] Dr. Aleksandar Villarreal Clarity (U) CLEAR Normal CLEAR [facility] Comment on above: Performed By: #### L IPID, CMP, FT3, TSH #### [facility] [address] [address] [address] Aleksandar Villarreal Color (U) YELLOW Normal YELLOW [facility] Comment on above: Performed By: #### L IPID, CMP, FT3, TSH #### [facility] [address] [address] [address] Aleksandar Villarreal Glucose Ql (U) Negative Normal NEGATIVE [facility] Comment on above: Performed By: #### L IPID, CMP, FT3, TSH #### [facility] [address] [address] [address] Aleksandar Villarreal Hemoglobin Ql (U) Negative Normal NEGATIVE [facility] Comment on above: Performed By: #### L IPID, CMP, FT3, TSH #### [facility] [address] [place] [address] Dr. Aleksandar Villarreal Ketones Ql (U) Negative Normal NEGATIVE [facility] Comment on above: Performed By: #### L IPID, CMP, FT3, TSH #### [facility] [address] [address] [address] Aleksandar Villarreal LEUKOCYTES Negative Normal NEGATIVE [facility] Comment on above: Performed By: #### L IPID, CMP, FT3, TSH #### [facility] [address] [address] [address] Aleksandar Villarreal Nitrite Ql (U) Negative Normal NEGATIVE [facility] Comment on above: Performed By: #### L IPID, CMP, FT3, TSH #### [facility] [address] [address] [address] Aleksandar Villarreal pH (U) 6.5 [pH] Normal 5-9 [facility] Comment on above: Performed By: #### L IPID, CMP, FT3, TSH #### [facility] [address] [place] [address] Dr. Aleksandar Villarreal SPEC GRAVITY 1.010 Normal 1.005-<=1.0 25 [facility] Comment on above: Performed By: #### L IPID, CMP, FT3, TSH #### [facility] [address] [place] [address] Dr. Aleksandar Villarreal UA PROTEIN Negative Normal NEGATIVE/ TRACE [facility] Comment on above: Performed By: #### L IPID, CMP, FT3, TSH #### [facility] [address] [place] [address] Dr. Aleksandar Villarreal Urobilinogen Qn (U) 0.2 {Patrick'U}/dL Normal 0.2 - 1. 0 [facility] Comment on above: Performed By: #### L IPID, CMP, FT3, TSH #### [facility] [address] [place] [address] Dr. Aleksandar Villarreal Basic Metabolic Panelon 10-0 Anion gap [Moles/Vol] 10 mmol/L 9 - 17 mmol/L [facility] Calcium [Mass/Vol] 9.1 mg/dL 8.6 - 10. 4 mg/dL [facility] Chloride [Moles/Vol] 101 mmol/L 98 - 10 7 mmol/L [facility] CO2 [Moles/Vol] 25 mmol/L 20 - 31 mmol/L [facility] Creatinine [Mass/Vol] 0.74 mg/dL 0.7 - 1.2 mg/dL [facility] GFR/1.73 sq M.predicted MDRD (S/P/Bld) [Vol rate/Area] - PINF [facility] Comment on above: Effective Dec 14, 2021 These results are not intended for use [...] following therapy that affects renal tubular secretion. Glucose [Mass/Vol] 111 mg/dL High 70 - 99 mg/dL [facility] Interpretation and review of laboratory results Abnormal [facility] Potassium [Moles/Vol] 4.3 mmol/L 3.7 - 5.3 mmol/L [facility] Sodium [Moles/Vol] 136 mmol/L 135 - 144 mmol/L [facility] Urea nitrogen (BldV) [Mass/Vol] 8 mg/dL 8 - 23 mg/dL [facility] Urea nitrogen/Creatinine (Bld) [Mass ratio] 11 9 - 20 [facility] Vitamin D 25 Hydroxyon 12-19 Vit D, 25-Hydroxy 51.8 ng/mL 29.9 - PIN F ng/mL [facility] Comment on above: Reference Range: Vitamin D status Range Deficiency <20 ng/mL Mild Deficiency 20-30 ng/mL Sufficiency 30-100 ng/mL Toxicity >100 ng/mL [facility] Hemoglobin A1Con 10-21-2021 Glucose [Mass/Vol] 108 mg/dL Normal [facility] Comment on above: Result Comment: The ADA and AACC recommend providing the estimated average glucose result to permit better patient understanding of their HBA1c result. Performed By: #### C P, TSH, CDP #### [facility] [address] [place], [place] [id number] [employer]: Marcelina Whitney MD #### FT4, LIPR, GLYHGB, FT3, PSAD #### [address] [phone] [employer]: Wily Portillo MD HbA1c (Bld) [Mass fraction] 5.4 % Normal 4.0-6.0 [facility] Comment on above: Performed By: #### C P, TSH, CDP #### [address] [place] [address] [employer]: Marcelina Whitney MD #### FT4, LIPR, GLYHGB, FT3, PSAD #### [address] [phone] [employer]: Wily Portillo MD CBC with Diffon 10-20-2021 Abs. Basophil 0.03 k/uL Normal 0.00-0.[address] [facility] Comment on above: Performed By: #### C P, TSH, CDP #### [address] [place], [place] [phone] [employer]: Marcelina Whitney MD #### FT4, LIPR, GLYHGB, FT3, PSAD #### [address] [phone] [employer]: Wily Portillo MD Abs. Eosinophil <0.03 Normal 0.00-0.44 [facility] Comment on above: Performed By: #### C P, TSH, CDP #### [address] [place] [address] [employer]: Marcelina Whitney MD #### FT4, LIPR, GLYHGB, FT3, PSAD #### [address] [phone] [employer]: Wily Portillo MD Abs.Imm.Granulocyte <0.03 Normal 0.00-0.30 [facility] Comment on above: Performed By: #### C P, TSH, CDP #### [address] [place] [phone] [employer]: Marcelina Whitney MD #### FT4, LIPR, GLYHGB, FT3, PSAD #### [address] [phone] [employer]: Wily Portillo MD Abs.Neutrophil (Seg) 3.09 k/uL Normal 1.50-8.10 [facility] Comment on above: Performed By: #### C P, TSH, CDP #### [address] [place] [phone] [employer]: Marcelina Whitney MD #### FT4, LIPR, GLYHGB, FT3, PSAD #### [address] [address] [employer]: Wily Portillo MD Basophils/100 WBC (Bld) 1 % Normal 0-2 [facility] Comment on above: Performed By: #### C P, TSH, CDP #### [address] [place] [phone] [employer]: Marcelina Whitney MD #### FT4, LIPR, GLYHGB, FT3, PSAD #### [address] [phone] [employer]: Wily Portillo MD Eosinophils/100 WBC (Bld) 0 % Low 1-4 [facility] Comment on above: Performed By: #### C P, TSH, CDP #### [address] [place] [phone] [employer]: Marcelina Whitney MD #### FT4, LIPR, GLYHGB, FT3, PSAD #### [address] [phone] [employer]: Wily Portillo MD Erythrocyte distribution width (RBC) [Ratio] 12.4 % Normal 11.8-14.4 [facility] Comment on above: Performed By: #### C P, TSH, CDP #### [address] [place], [place] [phone] [employer]: Marcelina Whitney MD #### FT4, LIPR, GLYHGB, FT3, PSAD #### [address] [phone] [employer]: Wily Portillo MD Hematocrit (Bld) [Volume fraction] 42.9 % Normal 40.7-50.3 [facility] Comment on above: Performed By: #### C P, TSH, CDP #### [address] [place] [phone] [employer]: Marcelina Whitney MD #### FT4, LIPR, GLYHGB, FT3, PSAD #### [address] [phone] [employer]: Wily Portillo MD Hemoglobin (Bld) [Mass/Vol] 14.5 g/dL Normal 13.0-17.0 [facility] Comment on above: Performed By: #### C P, TSH, CDP #### [address] [place] [phone] [employer]: Marcelina Whitney MD #### FT4, LIPR, GLYHGB, FT3, PSAD #### [address] [phone] [employer]: Wily Portillo MD Immature granulocytes/100 WBC (Bld) 0 % Normal 0 [facility] Comment on above: Performed By: #### C P, TSH, CDP #### [address] [place] [phone] [employer]: Marcelina Whitney MD #### FT4, LIPR, GLYHGB, FT3, PSAD #### [address] [phone] [employer]: Wily Portillo MD Lymphocytes (Bld) [#/Vol] 0.92 10*3/uL Low 1.10-3.70 [facility] Comment on above: Performed By: #### C P, TSH, CDP #### [address] [place] [phone] [employer]: Marcelina Whitney MD #### FT4, LIPR, GLYHGB, FT3, PSAD #### [place] [address] [employer]: Wily Portillo MD Lymphocytes/100 WBC (Bld) 20 % Low 24-43 [facility] Comment on above: Performed By: #### C P, TSH, CDP #### [address] [place] [phone] [employer]: Marcelina Whitney MD #### FT4, LIPR, GLYHGB, FT3, PSAD #### [place] [address] [employer]: Wily Portillo MD MCH (RBC) [Entitic mass] 31.9 pg Normal 25.2-33.5 [facility] Comment on above: Performed By: #### C P, TSH, CDP #### [address] [place] [phone] [employer]: Marcelina Whitney MD #### FT4, LIPR, GLYHGB, FT3, PSAD #### [address] [place] [phone] [employer]: Wily Portillo MD MCHC (RBC) [Mass/Vol] 33.8 g/dL Normal 28.4-34.8 [facility] Comment on above: Performed By: #### C P, TSH, CDP #### [address] [place] [phone] [employer]: Marcelina Whitney MD #### FT4, LIPR, GLYHGB, FT3, PSAD #### [address] [address] [employer]: Wily Portillo MD MCV (RBC) [Entitic vol] 94.5 fL Normal 82.6-102.9 [facility] Comment on above: Performed By: #### C P, TSH, CDP #### [address] [place] [phone] [employer]: Marcelina Whitney MD #### FT4, LIPR, GLYHGB, FT3, PSAD #### [address] [address] [employer]: Wily Portillo MD Monocytes (Bld) [#/Vol] 0.52 10*3/uL Normal 0.10-1.20 [facility] Comment on above: Performed By: #### C P, TSH, CDP #### [address] [place] [phone] [employer]: Marcelina Whitney MD #### FT4, LIPR, GLYHGB, FT3, PSAD #### [address] [address] [employer]: Wily Portillo MD Monocytes/100 WBC (Bld) 11 % Normal 3-12 [facility] Comment on above: Performed By: #### C P, TSH, CDP #### [address] [place] [phone] [employer]: Marcelina Whitney MD #### FT4, LIPR, GLYHGB, FT3, PSAD #### [address] [phone] [employer]: Wily Portillo MD Neutrophil (Seg) 68 % High 36-65 [facility] Comment on above: Performed By: #### C P, TSH, CDP #### [facility] [address] [place] [address] Dr. [place], [place] [phone] [employer]: Marcelina Whitney MD #### FT4, LIPR, GLYHGB, FT3, PSAD #### [address] [phone] [employer]: Wily Portillo MD NRBC Automated 0.0 per 100 WBC Normal 0.0 [facility] Comment on above: Performed By: #### C P, TSH, CDP #### [address] [place], [place] [phone] [employer]: Marcelina Whitney MD #### FT4, LIPR, GLYHGB, FT3, PSAD #### [address] [address] [employer]: Wily Portillo MD Platelet mean volume (Bld) [Entitic vol] 8.6 fL Normal 8.1-13.5 [facility] Comment on above: Performed By: #### C P, TSH, CDP #### [address] [place], [place] [phone] [employer]: Marcelina Whitney MD #### FT4, LIPR, GLYHGB, FT3, PSAD #### [address] [phone] [employer]: Wily Portillo MD Platelets (Bld) [#/Vol] 246 10*3/uL Normal 138-453 [facility] Comment on above: Performed By: #### C P, TSH, CDP #### [facility] [address] [place] [address] Dr. [place], [place] [phone] [employer]: Marcelina Whitney MD #### FT4, LIPR, GLYHGB, FT3, PSAD #### [facility] [address] [place], [place] [phone] [employer]: Wily Portillo MD RBC (Bld) [#/Vol] 4.54 10*6/uL Normal 4.21-5.77 [facility] Comment on above: Performed By: #### C P, TSH, CDP #### [address] [place] [address] [employer]: Marcelina Whitney MD #### FT4, LIPR, GLYHGB, FT3, PSAD #### [address] [place] [address] [employer]: Wily Portillo MD WBC (Bld) [#/Vol] 4.6 10*3/uL Normal 3.5-11.3 [facility] Comment on above: Performed By: #### C P, TSH, CDP #### [address] [place] [address] [employer]: Marcelina Whitney MD #### FT4, LIPR, GLYHGB, FT3, PSAD #### [address] [place], [place] [phone] [employer]: Wily Portillo MD Comp Metabolic Profon 2021 (cont.) Normal [facility] Comment on above: Result Comment: Aver age GFR for 70 or more years old: 75 mL/min/1.73sq m Chronic Kidney Disease: <60 mL/min/1.73sq m Kidney failure: <15 mL/min/1.73sq m eGFR calculated using average adult body mass. Additional eGFR calculator available at: http://[email or web address].com/multiple_[email or web address].htm Performed By: #### C P, TSH, CDP #### [address] [place] [address] [employer]: Marcelina Whitney MD #### FT4, LIPR, GLYHGB, FT3, PSAD #### [address] [place], [place] [phone] [employer]: Wily Portillo MD Albumin [Mass/Vol] 4.7 g/dL Normal 3.5-5.2 [facility] Comment on above: Performed By: #### C P, TSH, CDP #### [address] [place], [place] [id number] [employer]: Marcelina Whitney MD #### FT4, LIPR, GLYHGB, FT3, PSAD #### [address] [id number] [employer]: Wily Portillo MD Albumin/Glob Ratio 2.6 High 1.0-2.5 [facility] Comment on above: Performed By: #### C P, TSH, CDP #### [address] [place] [phone] [employer]: Marcelina Whitney MD #### FT4, LIPR, GLYHGB, FT3, PSAD #### [address] [phone] [employer]: Wily Portillo MD Alkaline Phos 57 U/L Normal 40-[address] [facility] Comment on above: Performed By: #### C P, TSH, CDP #### [address] [place] [address] [employer]: Marcelina Whitney MD #### FT4, LIPR, GLYHGB, FT3, PSAD #### [address] [phone] [employer]: Wily Portillo MD ALT [Catalytic activity/Vol] 19 U/L Normal 5-41 [facility] Comment on above: Performed By: #### C P, TSH, CDP #### [address] [place], [place] [phone] [employer]: Marcelina Whitney MD #### FT4, LIPR, GLYHGB, FT3, PSAD #### [address] [phone] [employer]: Wily Portillo MD Anion gap [Moles/Vol] 8 mmol/L Low 9-17 [facility] Comment on above: Performed By: #### C P, TSH, CDP #### [address] [place] [address] [employer]: Marcelina Whitney MD #### FT4, LIPR, GLYHGB, FT3, PSAD #### [address] [phone] [employer]: Wily Portillo MD AST [Catalytic activity/Vol] 19 U/L Normal <40 [facility] Comment on above: Performed By: #### C P, TSH, CDP #### [address] [place] [address] [employer]: Marcelina Whitney MD #### FT4, LIPR, GLYHGB, FT3, PSAD #### [address] [phone] [employer]: Wily Portillo MD Bilirubin [Mass/Vol] 1.17 mg/dL Normal 0.3-1.2 [facility] Comment on above: Performed By: #### C P, TSH, CDP #### [address] [place] [address] [employer]: Marcelina Whitney MD #### FT4, LIPR, GLYHGB, FT3, PSAD #### [place] [address] [place], [place] [phone] [employer]: Wily Portillo MD BUN/CRE Ratio 20 Normal 9-[address] [facility] Comment on above: Performed By: #### C P, TSH, CDP #### [facility] [address] [place] [address] Dr. [place], [place] [phone] [employer]: Marcelina Whitney MD #### FT4, LIPR, GLYHGB, FT3, PSAD #### [address] [phone] [employer]: Wily Portillo MD Calcium [Mass/Vol] 9.2 mg/dL Normal 8.6-10.4 [facility] Comment on above: Performed By: #### C P, TSH, CDP #### [address] [place], [place] [phone] [employer]: Marcelina Whitney MD #### FT4, LIPR, GLYHGB, FT3, PSAD #### [address] [phone] [employer]: Wily Portillo MD Chloride [Moles/Vol] 96 mmol/L Low 98-107 [facility] Comment on above: Performed By: #### C P, TSH, CDP #### [address] [place] [address] [employer]: Marcelina Whitney MD #### FT4, LIPR, GLYHGB, FT3, PSAD #### [address] [phone] [employer]: Wily Portillo MD CO2 [Moles/Vol] 27 mmol/L Normal 20-31 [facility] Comment on above: Performed By: #### C P, TSH, CDP #### [address] [place] [address] [employer]: Marcelina Whitney MD #### FT4, LIPR, GLYHGB, FT3, PSAD #### [address] [phone] [employer]: Wily Portillo MD Creatinine [Mass/Vol] 0.70 mg/dL Normal 0.70-1.20 [facility] Comment on above: Performed By: #### C P, TSH, CDP #### [facility] [address] [place] [address] Dr[place], [place] [phone] [employer]: Marcelina Whitney MD #### FT4, LIPR, GLYHGB, FT3, PSAD #### [address] [phone] [employer]: Wily Portillo MD GFR, Amer >60 Normal >60 [facility] Comment on above: Performed By: #### C P, TSH, CDP #### [facility] [address] [place] [address] Dr. [place], [place] [phone] [employer]: Marcelina Whitney MD #### FT4, LIPR, GLYHGB, FT3, PSAD #### [address] [phone] [employer]: Wily Portillo MD GFR,non Amer >60 Normal >60 [facility] Comment on above: Performed By: #### C P, TSH, CDP #### [address] [place], [place] [phone] [employer]: Marcelina Whitney MD #### FT4, LIPR, GLYHGB, FT3, PSAD #### [address] [phone] [employer]: Wily Portillo MD Glucose [Mass/Vol] 103 mg/dL High 70-99 [facility] Comment on above: Performed By: #### C P, TSH, CDP #### [facility] [address] [place] [address] Dr. [place], [place] [phone] [employer]: Marcelina Whitney MD #### FT4, LIPR, GLYHGB, FT3, PSAD #### [address] [address] [employer]: Wily Portillo MD Potassium [Moles/Vol] 4.8 mmol/L Normal 3.7-5.3 [facility] Comment on above: Performed By: #### C P, TSH, CDP #### [facility] [address] [place] [address] Dr[place] [phone] [employer]: Marcelina Whitney MD #### FT4, LIPR, GLYHGB, FT3, PSAD #### [address] [address] [employer]: Wily Portillo MD Protein [Mass/Vol] 6.5 g/dL Normal 6.4-8.3 [facility] Comment on above: Performed By: #### C P, TSH, CDP #### [address] [place] [phone] [employer]: Marcelina Whitney MD #### FT4, LIPR, GLYHGB, FT3, PSAD #### [address] [phone] [employer]: Wily Portillo MD Sodium [Moles/Vol] 131 mmol/L Low 135-144 [facility] Comment on above: Performed By: #### C P, TSH, CDP #### [address] [place] [phone] [employer]: Marcelina Whitney MD #### FT4, LIPR, GLYHGB, FT3, PSAD #### [address] [phone] [employer]: Wily Portillo MD Staging: Normal [facility] Comment on above: Result Comment: Stag e 1: Some kidney damage normal GFR Stage 2: Mild kidney damage GFR 60-89 Stage 3: Moderate kidney damage GFR 30-59 Stage 4: Severe kidney damage GFR 15-29 Stage 5: Severe kidney damage GFR <15 ESRD - chronic treatment by dialysis or transplant Performed By: #### C P, TSH, CDP #### [facility] [address] [place], [place] [phone] [employer]: Marcelina Whitney MD #### FT4, LIPR, GLYHGB, FT3, PSAD #### [address] [phone] [employer]: Wily Portillo MD Urea nitrogen [Mass/Vol] 14 mg/dL Normal 8-23 [facility] Comment on above: Performed By: #### C P, TSH, CDP #### [address] [place] [address] [employer]: Marcelina Whitney MD #### FT4, LIPR, GLYHGB, FT3, PSAD #### [address] [place], [place] [phone] [employer]: Wily Portillo MD Lipid Profileon 10-20-2021 Cholesterol [Mass/Vol] 180 mg/dL Normal <200 [facility] Comment on above: Result Comment: Cholesterol Guidelines: <200 Desirable 200-240 Borderline >240 Undesirable Performed By: #### C P, TSH, CDP #### [address] [place], [place] [phone] [employer]: Marcelina Whitney MD #### FT4, LIPR, GLYHGB, FT3, PSAD #### [address] [phone] [employer]: Wily Portillo MD Cholesterol in HDL [Mass/Vol] 46 mg/dL Normal >40 [facility] Comment on above: Result Comment: HDL Guidelines: <40 Undesirable 40-59 Borderline >59 Desirable Performed By: #### C P, TSH, CDP #### [address] [place], [place] [phone] [employer]: Marcelina Whitney MD #### FT4, LIPR, GLYHGB, FT3, PSAD #### [facility] [address] [place] [address] [employer]: Wily Portillo MD Cholesterol in LDL [Mass/Vol] 103 mg/dL Normal 0-130 [facility] Comment on above: Result Comment: LDL Guidelines: <100 Desirable 100-129 Near to/above Desirable 130-159 Borderline >159 Undesirable Direct (measured) LDL and calculated LDL are not interchangeable tests. Performed By: #### C P, TSH, CDP #### [address] [place], [place] [phone] [employer]: Marcelina Whitney MD #### FT4, LIPR, GLYHGB, FT3, PSAD #### [address] [place] [address] [employer]: Wily Portillo MD Cholesterol.total/Chol esterol in HDL [Mass ratio] 3.9 {ratio} Normal <5 [facility] Comment on above: Performed By: #### C P, TSH, CDP #### [address] [place], [place] [phone] [employer]: Marcelina Whitney MD #### FT4, LIPR, GLYHGB, FT3, PSAD #### [address] [place], [place] [phone] [employer]: Wily Portillo MD Triglyceride [Mass/Vol] 156 mg/dL High <150 [facility] Comment on above: Result Comment: Triglyceride Guidelines: <150 Desirable 150-199 Borderline 200-499 High >499 Very high Based on AHA Guidelines for fasting triglyceride, December 2011. Performed By: #### C P, TSH, CDP #### [address] [place] [address] [employer]: Marcelina Whitney MD #### FT4, LIPR, GLYHGB, FT3, PSAD #### [address] [place], [place] [phone] [employer]: Wily Portillo MD PSA, [employer] 10-20-2021 Prostatic Spec. Ag 1.66 ng/mL Normal <4.1 [facility] Comment on above: Result Comment: The Sharmila ECLIA assay is used. Results obtained with different assay methods cannot be used interchangeably. Performed By: #### C P, TSH, CDP #### [facility] [address] [place] [address] [place] [address] [employer]: Marcelina Whitney MD #### FT4, LIPR, GLYHGB, FT3, PSAD #### [address] [phone] [employer]: Wily Portillo MD T3, Freeon 10-20-2021 Free T3 [Mass/Vol] 2.89 pg/mL Normal 2.02-4.43 [facility] Comment on above: Performed By: #### C P, TSH, CDP #### [address] [place] [address] [employer]: Marcelina Whitney MD #### FT4, LIPR, GLYHGB, FT3, PSAD #### [address] [phone] [employer]: Wily Portillo MD Thyroid Stim. Horm.on 2021 Thyroid Stim. Horm. 0.85 uIU/mL Normal 0.30-5.00 [facility] Comment on above: Performed By: #### C P, TSH, CDP #### [address] [place] [address] [employer]: Marcelina Whitney MD #### FT4, LIPR, GLYHGB, FT3, PSAD #### [address] [phone] [employer]: Wily Portillo MD Thyroxine, Freeon 10-20-2021 Thyroxine, Free 1.49 ng/dL Normal 0.93-1.70 [facility] Comment on above: Performed By: #### C P, TSH, CDP #### [facility] [address] [place] [address] [employer]: Marcelina Whitney MD #### FT4, LIPR, GLYHGB, FT3, PSAD #### [facility] [address] [place] [address] [employer]: Wily Portillo MD Laboratory - Chemistry and C hemistry - challengeon 05-24-2021 Calcium [Mass/Vol] 7.9 mg/dL [facility] Sodium (U) [Moles/Vol] 36 mmol/L [facility] [place] No Panel Informationon 05-24 Calcium, Urine 245 [facility] th Creatinine, 24H Ur 1166 [facility] Creatinine, Ur 37.6 mg/dL [facility] S[facility], [facility] Ur 112 [facility] th Volume 3100 mL [facility] Magnesiumon 05-22-2021 Magnesium [Mass/Vol] 2.0 mg/dL 1.6 - 2 .6 mg/dL [facility] No Panel Informationon 05-22 [facility] PTH, Intact with Ionized Key ciumon 05-22-2021 Calcium [Moles/Vol] 1.25 mmol/L 1.13 - 1 .33 mmol/L [facility] Pth Intact 26.53 pg/mL 15.0 - 65.0 pg/mL [facility] Comment on above: SAMPLES FROM PATIENT S ROUTINELY RECEIVING HIGH DOSE BIOTIN THERAPY MAY SHOW FALSELY DEPRESSED RESULTS. ADDITIONAL INFORMATION MAY BE REQUIRED FOR DIAGNOSIS. [facility] Renal Function Panelon 05-22 Albumin [Mass/Vol] 4.3 g/dL 3.5 - 5.2 g/dL [facility] Anion gap [Moles/Vol] 10 mmol/L 9 - 17 mmol/L [facility] Calcium [Mass/Vol] 9.1 mg/dL 8.6 - 10. 4 mg/dL [facility] Chloride [Moles/Vol] 92 mmol/L Low 98 - 10 7 mmol/L [facility] CO2 [Moles/Vol] 27 mmol/L 20 - 31 mmol/L [facility] Creatinine [Mass/Vol] 0.74 mg/dL 0.70 - 1.20 mg/dL [facility] [place] GFR >60 >60 mL/min [facility] [place] GFR Non- >60 >60 mL/min [facility] GFR/1.73 sq M.predicted MDRD (S/P/Bld) [Vol rate/Area] [facility] Comment on above: Average GFR for 70 o r more years old: 75 mL/min/1.73sq m Chronic Kidney Disease: <60 mL/min/1.73sq m Kidney failure: <15 mL/min/1.73sq m eGFR calculated using average adult body mass. Additional eGFR calculator available at: http://www.[employer]/multiple_crcl_2012.htm Glucose [Mass/Vol] 82 mg/dL 70 - 99 mg/dL [facility] Interpretation and review of laboratory results Abnormal [facility] Phosphate [Mass/Vol] 4.2 mg/dL 2.5 - 4 .5 mg/dL [facility] [place] Potassium [Moles/Vol] 4.0 mmol/L 3.7 - 5.3 mmol/L [facility] Sodium [Moles/Vol] 129 mmol/L Low 135 - 144 mmol/L [facility] Urea nitrogen (BldV) [Mass/Vol] 18 mg/dL 8 - 23 mg/dL [facility] Urea nitrogen/Creatinine (Bld) [Mass ratio] [address] [facility] Vitamin D 25 Hydroxyon 05-22 Vit D, 25-Hydroxy 38.9 ng/mL >29.9 [facility] ealt Comment on above: Reference Range: Vitamin D status Range Deficiency <20 ng/mL Mild Deficiency 20-30 ng/mL Sufficiency 30-100 ng/mL Toxicity >100 ng/mL [facility] CBC Auto DifferentialOrdered By: Marcelina White on 10-08-2020 Absolute Eos # 0.20 [facility] Work Phone: Absolute Immature Granulocyte NOT REPORTED [facility] Work Phone: Absolute Lymph # 0.80 Low [facility] Work Phone: Absolute [place] # 0.30 [facility] Work Phone: Basophils (Bld) [#/Vol] 0.00 10*3/uL [employer] Phone: Basophils/100 WBC (Bld) 1 % 0 - 2 % [employer] Phone: Differential Type YES [place] Phone: Eosinophils/100 WBC (Bld) 5 % 0 - 5 % [employer] Phone: Hematocrit (Bld) [Volume fraction] 40.9 % Low 41 - 53 % [employer] Phone: Hemoglobin.gastrointes tinal spec 1 Ql (Stl) 14.1 g/dL 13.5 - 17.5 g/dL [employer] Phone: Immature Granulocytes NOT REPORTED 0 % M [employer] Phone: Interpretation and review of laboratory results Abnormal [employer] Phone: Lymphocytes/100 WBC (Bld) 21 % 13 - 44 % [employer] Phone: MCH (RBC) [Entitic mass] 32.0 pg 26 - 34 pg [employer] Phone: MCHC (RBC) [Mass/Vol] 34.4 g/dL 31 - 3 7 g/dL [employer] Phone: MCV (RBC) [Entitic vol] 93.2 fL 80 - 100 fL [employer] Phone: Monocytes/100 WBC (Bld) 9 % 5 - 9 % [employer] Phone: NRBC Automated NOT REPORTED per 100 WBC [employer] Work Phone: Platelet distribution width (Bld) [Ratio] 13.1 % 12.1 - 15.2 % [employer] Phone: Platelet Estimate NOT REPORTED [employer] Phone: Platelet mean volume (Bld) [Entitic vol] NOT REPORTED 6.0 - 12.0 fL [employer] Phone: Platelets (Bld) [#/Vol] 270 10*3/uL [employer] Phone: RBC (Bld) [#/Vol] 4.39 10*6/uL Low 4.5 - 5.9 m/uL [facility] Work Phone: RBC (Bld) [#/Vol] NOT REPORTED [facility] Work Phone: Segmented neutrophils/100 WBC (Bld) 64 % 39 - 75 % [facility] Work Phone: Segs Absolute 2.40 [employer] Work Phone: WBC (Bld) [#/Vol] 3.7 10*3/uL [employer] Phone: WBC (Bld) [#/Vol] NOT REPORTED [employer] Phone: [facility] Work Phone: Comprehensive Metabolic Pane lOrdered By: Marcelina White on 10-08-2020 Albumin [Mass/Vol] 3.9 g/dL 3.5 - 5.2 g/dL [employer] Phone: Albumin/Globulin Ratio NOT REPORTED [employer] Phone: ALP (Bld) [Catalytic activity/Vol] 65 U/L 40 - 129 U/L [employer] Phone: ALT [Catalytic activity/Vol] 12 U/L 5 - 41 U/L [employer] Phone: Anion gap [Moles/Vol] 9 mmol/L 9 - 17 mmol/L [employer] Phone: AST [Catalytic activity/Vol] 18 U/L <40 [employer] Phone: Bilirubin [Mass/Vol] 1.01 mg/dL 0.30 - 1.20 mg/dL [employer] Phone: Calcium [Mass/Vol] 9.0 mg/dL 8.6 - 10. 4 mg/dL [employer] Phone: Chloride [Moles/Vol] 99 mmol/L 98 - 10 7 mmol/L [employer] Phone: CO2 [Moles/Vol] 27 mmol/L 20 - 31 mmol/L [employer] Phone: Creatinine [Mass/Vol] 0.73 mg/dL 0.70 - 1.20 mg/dL [employer] Phone: Free PSA/Total PSA [Mass fraction] 6.3 g/dL Low 6.4 - 8.3 g/dL [employer] Phone: GFR >60 >60 mL/min [employer] Phone: GFR Non- >60 >60 mL/min [employer] Phone: GFR/1.73 sq M.predicted MDRD (S/P/Bld) [Vol rate/Area] [employer] Phone: Comment on above: Average GFR for 70 o r more years old: 75 mL/min/1.73sq m Chronic Kidney Disease: <60 mL/min/1.73sq m Kidney failure: <15 mL/min/1.73sq m eGFR calculated using average adult body mass. Additional eGFR calculator available at: http://www.[employer]/multiple_crcl_2012.htm GFR/1.73 sq M.predicted MDRD (S/P/Bld) [Vol rate/Area] NOT REPORTED [employer] Phone: Glucose [Mass/Vol] 94 mg/dL 70 - 99 mg/dL [employer] Phone: Interpretation and review of laboratory results Abnormal [employer] Phone: Potassium [Moles/Vol] 4.6 mmol/L 3.7 - 5.3 mmol/L [employer] Phone: Sodium [Moles/Vol] 135 mmol/L 135 - 144 mmol/L [employer] Phone: Urea nitrogen (BldV) [Mass/Vol] 14 mg/dL 8 - 23 mg/dL [employer] Phone: Urea nitrogen/Creatinine (Bld) [Mass ratio] 19 [employer] Phone: Hemoglobin V8PClmtnao By: Jerry White on 10-08-2020 Glucose [Mass/Vol] 111 mg/dL [employer] Phone: Comment on above: The ADA and AACC rec ommend providing the estimated average glucose result to permit better patient understanding of their HBA1c result. HbA1c (Bld) [Mass fraction] 5.5 % 4.0 - 6.0 % [employer] Phone: [employer] Phone: Lipid PanelOrdered By: Marcelina White on 10-08-2020 Cholesterol [Mass/Vol] 143 mg/dL <200 [email or web address] Phone: Comment on above: Cholesterol Guidelines: <200 Desirable 200-240 Borderline >240 Undesirable Cholesterol in HDL [Mass/Vol] 38 mg/dL Low >40 [employer] Phone: Comment on above: HDL Guidelines: <40 Undesirable 40-59 Borderline >59 Desirable Cholesterol in LDL [Mass/Vol] 88 mg/dL 0 - 130 mg/dL [employer] Phone: Comment on above: LDL Guidelines: <100 Desirable 100-129 Near to/above Desirable 130-159 Borderline >159 Undesirable Direct (measured) LDL and calculated LDL are not interchangeable tests. Cholesterol in VLDL [Mass/Vol] NOT REPORTED 1 - 30 mg/dL [employer] Phone: Cholesterol.total/Chol esterol in HDL [Mass ratio] 3.8 {ratio} <5 [employer] Phone: Interpretation and review of laboratory results Abnormal [employer] Phone: Triglyceride [Mass/Vol] 84 mg/dL <150 [employer] Phone: Comment on above: Triglyceride Guidelines: <150 Desirable 150-199 Borderline 200-499 High >499 Very high Based on AHA Guidelines for fasting triglyceride, December 2011. [employer] Phone: No Panel InformationOrdered By: Marcelina White on 10-08-2020 [employer] Phone: Patient Fasting?Ordered By: Marcelina White on 10-08-2020 Patient Fasting? yes [employer] Phone: [employer] Phone: T3, FreeOrdered By: Marcelina andrews on 10-08-2020 Free T3 [Mass/Vol] 3.83 pg/mL 2.02 - 4. 43 pg/mL [employer] Phone: [employer] Phone: T4, FreeOrdered By: Marcelina andrews on 10-08-2020 Thyroxine, Free 1.43 ng/dL 0.93 - 1.70 ng/dL [employer] Phone: [employer] Phone: TSH without ReflexOrdered By : Marcelina White on 10-08-2020 TSH Qn 0.60 m[IU]/L [employer] Phone: XR LUMBAR SPINE (2-3 VIEWS)O rdered By: Marcleina Kwong on 08-28-2020 Prior posterior spin al fixation from L3 to S1 without evidence for hardware failure loosening. Multilevel endplate degenerative changes with central endplate depression of the superior endplate of L2 and to lesser extent L1 without definite acute fracture line identified. Osteopenia. [employer] Phone: EXAM: XR LUMBAR SPIN E (2-3 VIEWS) HISTORY: M25.559 , pain for years. Prior lumbar fusion. COMPARISON: None. TECHNIQUE: Lumbar spine, 3 views. FINDINGS: Prior posterior spinal fixation from L3 to S1 with L3 through L5 laminectomies. Intervertebral disc spacer devices are present at L3/L4, L4/L5, and L5/S1. No evidence for hardware failure or loosening. There is mild superior endplate depression of the L2 vertebral body and to a lesser extent the L1 vertebral body. No acute fracture lines identified. Multilevel endplate degenerative changes are present. Osteopenia. [employer] Phone: Memo, Mhpn Incoming Radiant Results From [facility] - 08/28/2020 3:55 PM EDT EXAM: XR LUMBAR SPINE (2-3 VIEWS) HISTORY: M25.559 , pain for years. Prior lumbar fusion. COMPARISON: None. TECHNIQUE: Lumbar spine, 3 views. FINDINGS: Prior posterior spinal fixation from L3 to S1 with L3 through L5 laminectomies. Intervertebral disc spacer devices are present at L3/L4, L4/L5, and L5/S1. No evidence for hardware failure or loosening. There is mild superior endplate depression of the L2 vertebral body and to a lesser extent the L1 vertebral body. No acute fracture lines identified. Multilevel endplate degenerative changes are present. Osteopenia. IMPRESSION: Prior posterior spinal fixation from L3 to S1 without evidence for hardware failure loosening. Multilevel endplate degenerative changes with central endplate depression of the superior endplate of L2 and to lesser extent L1 without definite acute fracture line identified. Osteopenia. [employer] Phone: [employer] Phone: XR SHOULDER RIGHT (MIN 2 VIE WS)Ordered By: Marcelina Kwong on 08-28-2020 FINDINGS/IMPRESSION: 1. 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 2. Diffuse osteopenia is suspected. No fracture, malalignment, or other acute bony abnormality is seen. 3. Atherosclerotic calcifications are noted in the aortic arch. [employer] Phone: CLINICAL HISTORY: Ri ght shoulder pain (M 25.511). RIGHT SHOULDER 3 VIEWS: [employer] Phone: Memo, Mhpn Incoming Radiant Results From [facility] - 08/28/2020 5:07 PM EDT CLINICAL HISTORY: Right shoulder pain (M 25.511). RIGHT SHOULDER 3 VIEWS: IMPRESSION: FINDINGS/IMPRESSION: 1. 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 2. Diffuse osteopenia is suspected. No fracture, malalignment, or other acute bony abnormality is seen. 3. Atherosclerotic calcifications are noted in the aortic arch. [employer] [place] Work Phone: [facility] [employer] Phone: CBC Auto Differentialon 03-15 Basophils (Bld) [#/Vol] 0.10 10*3/uL [place] Basophils/100 WBC (Bld) 1 % 0 - 2 % [place] Differential Type YES [place] Eosinophils (Bld) [#/Vol] 0.30 10*3/uL [place] Eosinophils/100 WBC (Bld) 7 % High 0 - 5 % [place] Erythrocyte distribution width (RBC) [Ratio] 12.9 % 12.1 - 15.2 % [place] Hematocrit (Bld) [Volume fraction] 42.7 % 41 - 53 % [place] Hemoglobin (Bld) [Mass/Vol] 14.3 g/dL 13.5 - 17.5 g/dL [place] Interpretation and review of laboratory results Abnormal [place] Lymphocytes (Bld) [#/Vol] 1.20 10*3/uL [place] Lymphocytes/100 WBC (Bld) 28 % 13 - 44 % [place] MCH (RBC) [Entitic mass] 31.0 pg 26 - 34 pg [place] MCHC (RBC) [Mass/Vol] 34.1 g/dL 31 - 3 7 g/dL [place] MCV (RBC) [Entitic vol] 92.3 fL 80 - 100 fL [place] Monocytes (Bld) [#/Vol] 0.40 10*3/uL [place] Monocytes/100 WBC (Bld) 10 % High 5 - 9 % [place] Platelet mean volume (Bld) [Entitic vol] NOT REPORTED fL [place] Platelets (Bld) [#/Vol] NOT REPORTED [place] Platelets (Bld) [#/Vol] 234 10*3/uL [place] RBC (Bld) [#/Vol] 4.63 10*6/uL 4.5 - 5.9 m/uL [place] RBC morphology finding Nom (Bld) NOT REPORTED [place] Segmented neutrophils/100 WBC (Bld) 54 % 39 - 75 % [place] Segs Absolute 2.40 [place] WBC (Bld) [#/Vol] 4.4 10*3/uL [place] WBC (Bld) [#/Vol] NOT REPORTED per 100 WBC [place], [place] WBC Morphology NOT REPORTED [place], [place] Comprehensive Metabolic Pane bimal 04-05-2020 Albumin [Mass/Vol] 4.3 g/dL 3.5 - 5.2 g/dL [place] Albumin/Globulin [Mass ratio] NOT REPORTED [place] ALP [Catalytic activity/Vol] 65 U/L 40 - 129 U/L [place] ALT [Catalytic activity/Vol] 14 U/L 5 - 41 U/L [place] Anion gap [Moles/Vol] 6 mmol/L Low 9 - 17 mmol/L [place] AST [Catalytic activity/Vol] 17 U/L <40 [place] Bilirubin Ql (U) 1.15 mg/dL 0.3 - 1.2 mg/dL [place] Bun/Cre Ratio 15 [place] Calcium [Mass/Vol] 9.5 mg/dL 8.6 - 10. 4 mg/dL [place] Chloride [Moles/Vol] 99 mmol/L 98 - 10 7 mmol/L [place] CO2 [Moles/Vol] 29 mmol/L 20 - 31 mmol/L [place] Creatinine [Mass/Vol] 0.92 mg/dL 0.7 - 1.2 mg/dL [place] GFR >60 >60 mL/min [place], [place] GFR Non- >60 >60 mL/min [place] GFR/1.73 sq M predicted among non-blacks MDRD (S/P/Bld) [Vol rate/Area] NOT REPORTED [place] GFR/1.73 sq M predicted among non-blacks MDRD (S/P/Bld) [Vol rate/Area] [place] Comment on above: Average GFR for 70 o r more years old: 75 mL/min/1.73sq m Chronic Kidney Disease: <60 mL/min/1.73sq m Kidney failure: <15 mL/min/1.73sq m eGFR calculated using average adult body mass. Additional eGFR calculator available at: http://www.[employer]/multiple_crcl_2012.htm Glucose [Mass/Vol] 102 mg/dL High 70 - 99 mg/dL [place] Interpretation and review of laboratory results Abnormal [place] Potassium [Moles/Vol] 4.1 mmol/L 3.7 - 5.3 mmol/L [place] Protein [Mass/Vol] 6.4 g/dL 6.4 - 8.3 g/dL [place] Sodium [Moles/Vol] 134 mmol/L Low 135 - 144 mmol/L [place] Urea nitrogen [Mass/Vol] 14 mg/dL 8 - 23 mg/dL [place] Lipid Panelon 04-05-2020 Cholesterol [Mass/Vol] 113 mg/dL <200 [place] Comment on above: Cholesterol Guidelines: <200 Desirable 200-240 Borderline >240 Undesirable Cholesterol in HDL [Mass/Vol] 37 mg/dL Low >40 [place] Comment on above: HDL Guidelines: <40 Undesirable 40-59 Borderline >59 Desirable Cholesterol in LDL [Mass/Vol] 62 mg/dL 0 - 130 mg/dL [place] Comment on above: LDL Guidelines: <100 Desirable 100-129 Near to/above Desirable 130-159 Borderline >159 Undesirable Direct (measured) LDL and calculated LDL are not interchangeable tests. Cholesterol in VLDL [Mass/Vol] NOT REPORTED 1 - 30 mg/dL [place] Cholesterol.total/Chol esterol in HDL [Mass ratio] 3.1 {ratio} <5 [place] Interpretation and review of laboratory results Abnormal [place] Triglyceride [Mass/Vol] 71 mg/dL <150 [place] Comment on above: Triglyceride Guidelines: <150 Desirable 150-199 Borderline 200-499 High >499 Very high Based on AHA Guidelines for fasting triglyceride, December 2011. Otheron 04-05-2020 Immature granulocytes (Bld) [#/Vol] NOT REPORTED 0 % [place] T4, Freeon 04-05-2020 Thyroxine, Free 1.03 ng/dL 0.93 - 1.7 ng/dL [place] TSH without Reflexon 021 TSH Qn 0.38 m[IU]/L [place] Urinalysison 04-05-2020 Bilirubin Urine Negative NEGATIVE [place], [place] Color, UA YELLOW YELLOW [place] Glucose, Ur Negative NEGATIVE [place] Ketones Ql (U) Negative NEGATIVE [place] Leukocyte esterase Test strip Ql (U) Negative NEGATIVE [place] Nitrite, Urine Negative NEGATIVE [place] pH, UA 7.0 [place] Protein (U) [Mass/Vol] Negative NEGATIVE [place] Specific [place], UA 1.010 [place], [place] Turbidity UA CLEAR CLEAR [place], [place] Urinalysis Comments [place] Urine Hgb Negative NEGATIVE [place] Urobilinogen, Urine Normal Normal [place] CBC Auto Differentialon 09-11 Basophils (Bld) [#/Vol] 0.00 10*3/uL [place] Basophils/100 WBC (Bld) 1 % 0 - 2 % [place] Differential Type YES [place] Eosinophils (Bld) [#/Vol] 0.20 10*3/uL [place] Eosinophils/100 WBC (Bld) 5 % 0 - 5 % [place] Erythrocyte distribution width (RBC) [Ratio] 13.2 % 12.1 - 15.2 % [place] Hematocrit (Bld) [Volume fraction] 41.2 % 41 - 53 % [place] Hemoglobin (Bld) [Mass/Vol] 14.3 g/dL 13.5 - 17.5 g/dL [place] Interpretation and review of laboratory results Abnormal [place] Lymphocytes (Bld) [#/Vol] 1.00 10*3/uL [place] Lymphocytes/100 WBC (Bld) 27 % 13 - 44 % [place] MCH (RBC) [Entitic mass] 32.1 pg 26 - 34 pg [place] MCHC (RBC) [Mass/Vol] 34.8 g/dL 31 - 3 7 g/dL [place] MCV (RBC) [Entitic vol] 92.3 fL 80 - 100 fL [place] Monocytes (Bld) [#/Vol] 0.40 10*3/uL [place] Monocytes/100 WBC (Bld) 10 % High 5 - 9 % [place] Platelet mean volume (Bld) [Entitic vol] NOT REPORTED 6 - 12 fL [place] Platelets (Bld) [#/Vol] 233 10*3/uL [place] Platelets (Bld) [#/Vol] NOT REPORTED [place] RBC (Bld) [#/Vol] 4.46 10*6/uL Low 4.5 - 5.9 m/uL [place] RBC morphology finding Nom (Bld) NOT REPORTED [place] Segmented neutrophils/100 WBC (Bld) 57 % 39 - 75 % [place] Segs Absolute 2.20 [place] WBC (Bld) [#/Vol] NOT REPORTED per 100 WBC [place] WBC (Bld) [#/Vol] 3.8 10*3/uL [place] WBC Morphology NOT REPORTED [place] Comprehensive Metabolic Pane bimal 09-28-2019 Albumin [Mass/Vol] 4.7 g/dL 3.5 - 5.2 g/dL [place] Albumin/Globulin [Mass ratio] NOT REPORTED [place] ALP [Catalytic activity/Vol] 56 U/L 40 - 129 U/L [place] ALT [Catalytic activity/Vol] 16 U/L 5 - 41 U/L [place] Anion gap [Moles/Vol] 13 mmol/L 9 - 17 mmol/L [place] AST [Catalytic activity/Vol] 20 U/L <40 [place] Bilirubin Ql (U) 1.45 mg/dL High 0.3 - 1.2 mg/dL [place] Bun/Cre Ratio 20 [place] Calcium [Mass/Vol] 9.4 mg/dL 8.6 - 10. 4 mg/dL [place] Chloride [Moles/Vol] 98 mmol/L 98 - 10 7 mmol/L [place] CO2 [Moles/Vol] 25 mmol/L 20 - 31 mmol/L [place] Creatinine [Mass/Vol] 0.88 mg/dL 0.7 - 1.2 mg/dL [place] GFR >60 >60 mL/min [place] GFR Non- >60 >60 mL/min [place] GFR/1.73 sq M predicted among non-blacks MDRD (S/P/Bld) [Vol rate/Area] [place] Comment on above: Average GFR for 70 o r more years old: 75 mL/min/1.73sq m Chronic Kidney Disease: <60 mL/min/1.73sq m Kidney failure: <15 mL/min/1.73sq m eGFR calculated using average adult body mass. Additional eGFR calculator available at: http://www.[employer]/multiple_crcl_2012.htm GFR/1.73 sq M predicted among non-blacks MDRD (S/P/Bld) [Vol rate/Area] NOT REPORTED [place] Glucose [Mass/Vol] 103 mg/dL High 70 - 99 mg/dL [place] Interpretation and review of laboratory results Abnormal [place] Potassium [Moles/Vol] 4.4 mmol/L 3.7 - 5.3 mmol/L [place] Protein [Mass/Vol] 6.7 g/dL 6.4 - 8.3 g/dL [place] Sodium [Moles/Vol] 136 mmol/L 135 - 144 mmol/L [place] Urea nitrogen [Mass/Vol] 18 mg/dL 8 - 23 mg/dL [place] Hemoglobin A1Con 09-28-2019 Glucose [Mass/Vol] 111 mg/dL [place] Comment on above: The ADA and AACC rec ommend providing the estimated average glucose result to permit better patient understanding of their HBA1c result. HbA1c (Bld) [Mass fraction] 5.5 % 4 - 6 % [place] Lipid Panelon 09-28-2019 Cholesterol [Mass/Vol] 139 mg/dL <200 [place] Comment on above: Cholesterol Guidelines: <200 Desirable 200-240 Borderline >240 Undesirable Cholesterol in HDL [Mass/Vol] 43 mg/dL >40 [place] Comment on above: HDL Guidelines: <40 Undesirable 40-59 Borderline >59 Desirable Cholesterol in LDL [Mass/Vol] 83 mg/dL 0 - 130 mg/dL [place] Comment on above: LDL Guidelines: <100 Desirable 100-129 Near to/above Desirable 130-159 Borderline >159 Undesirable Direct (measured) LDL and calculated LDL are not interchangeable tests. Cholesterol in VLDL [Mass/Vol] NOT REPORTED 1 - 30 mg/dL [place] Cholesterol.total/Chol esterol in HDL [Mass ratio] 3.2 {ratio} <5 [place] Triglyceride [Mass/Vol] 65 mg/dL <150 [place] Comment on above: Triglyceride Guidelines: <150 Desirable 150-199 Borderline 200-499 High >499 Very high Based on AHA Guidelines for fasting triglyceride, December 2011. Otheron 09-28-2019 Immature granulocytes (Bld) [#/Vol] NOT REPORTED 0 % [place] Patient Fasting?on 0 Patient Fasting? YES [place] T3, Freeon 09-28-2019 Free T3 [Mass/Vol] 3.76 pg/mL 2.02 - 4. 43 pg/mL [place] T4, 09-28-2019 Thyroxine, Free 1.29 ng/dL 0.93 - 1.7 ng/dL [place] TSH without Reflexon 020 TSH Qn 1.15 m[IU]/L [place] CBC Auto DifferentialOrdered By: Marcelina White on 03-21-2019 Absolute Eos # 0.40 [facility] Work Phone: Absolute Immature Granulocyte NOT REPORTED [facility] Work Phone: Absolute Lymph # 1.10 [facility] Work Phone: Absolute [place] # 0.40 [facility] Work Phone: Basophils (Bld) [#/Vol] 0.00 10*3/uL [facility] Work Phone: Basophils/100 WBC (Bld) 1 % 0 - 2 % [employer] Work Phone: Differential Type YES [facility] Work Phone: Eosinophils/100 WBC (Bld) 8 % High 0 - 5 % [facility] Work Phone: Erythrocyte distribution width (RBC) [Ratio] 13.5 % 12.1 - 15.2 % [employer] Work Phone: Hematocrit (Bld) [Volume fraction] 42.5 % 41 - 53 % [employer] Work Phone: Hemoglobin (Bld) [Mass/Vol] 14.6 g/dL 13.5 - 17.5 g/dL [facility] Work Phone: Immature Granulocytes NOT REPORTED 0 % [facility] Work Phone: Interpretation and review of laboratory results Abnormal [facility] Work Phone: Lymphocytes/100 WBC (Bld) 24 % 13 - 44 % [facility] Work Phone: MCH (RBC) [Entitic mass] 31.9 pg 26 - 34 pg [facility] Work Phone: MCHC (RBC) [Mass/Vol] 34.3 g/dL 31 - 3 7 g/dL [facility] Work Phone: MCV (RBC) [Entitic vol] 93.0 fL 80 - 100 fL [facility] Work Phone: Monocytes/100 WBC (Bld) 9 % 5 - 9 % [facility] Work Phone: MPV NOT REPORTED 6 - 12 fL [facility] Work Phone: NRBC Automated NOT REPORTED per 100 WBC [facility] Work Phone: Platelet Estimate NOT REPORTED [facility] Work Phone: Platelets (Bld) [#/Vol] 304 10*3/uL [facility] Work Phone: RBC (Bld) [#/Vol] 4.57 10*6/uL 4.5 - 5.9 m/uL [facility] Work Phone: RBC morphology finding Nom (Bld) NOT REPORTED [facility] Work Phone: Segmented neutrophils/100 WBC (Bld) 58 % 39 - 75 % [facility] Work Phone: Segs Absolute 2.50 [facility] Work Phone: WBC (Bld) [#/Vol] 4.4 10*3/uL [facility] Work Phone: WBC Morphology NOT REPORTED [facility] Work Phone: Comprehensive Metabolic Pane lOrdered By: Marcelina White on 03-21-2019 Albumin [Mass/Vol] 4.2 g/dL 3.5 - 5.2 g/dL [employer] Phone: Albumin/Globulin Ratio NOT REPORTED [employer] Phone: ALP [Catalytic activity/Vol] 65 U/L 40 - 129 U/L [employer] Work Phone: ALT [Catalytic activity/Vol] 14 U/L 5 - 41 U/L [employer] Phone: Anion gap [Moles/Vol] 9 mmol/L 9 - 17 mmol/L [employer] Phone: AST [Catalytic activity/Vol] 17 U/L <40 [employer] Phone: Bilirubin [Mass/Vol] 1.23 mg/dL High 0.3 - 1 .2 mg/dL [employer] Phone: Bun/Cre Ratio 13 [employer] Work Phone: Calcium [Mass/Vol] 9.3 mg/dL 8.6 - 10. 4 mg/dL [employer] Phone: Chloride [Moles/Vol] 97 mmol/L Low 98 - 10 7 mmol/L [employer] Phone: CO2 [Moles/Vol] 26 mmol/L 20 - 31 mmol/L [employer] Work Phone: Creatinine [Mass/Vol] 0.86 mg/dL 0.7 - 1.2 mg/dL [employer] Phone: GFR >60 >60 mL/min [employer] Work Phone: GFR Comment [employer] Phone: Comment on above: Average GFR for 70 o r more years old: 75 mL/min/1.73sq m Chronic Kidney Disease: <60 mL/min/1.73sq m Kidney failure: <15 mL/min/1.73sq m eGFR calculated using average adult body mass. Additional eGFR calculator available at: http://www.[employer]/multiple_crcl_2012.htm GFR Non- >60 >60 mL/min [employer] Phone: GFR Staging NOT REPORTED [employer] Work Phone: Glucose [Mass/Vol] 104 mg/dL High 70 - 99 mg/dL [employer] Phone: Potassium [Moles/Vol] 4.0 mmol/L 3.7 - 5.3 mmol/L [employer] Phone: Protein [Mass/Vol] 6.7 g/dL 6.4 - 8.3 g/dL [employer] Phone: Sodium [Moles/Vol] 132 mmol/L Low 135 - 144 mmol/L [employer] Phone: Urea nitrogen [Mass/Vol] 11 mg/dL 8 - 23 mg/dL [employer] Phone: Hemoglobin [id number] By: Jerry White on 03-21-2019 Glucose [Mass/Vol] 111 mg/dL [facility] Phone: Comment on above: The ADA and AACC rec ommend providing the estimated average glucose result to permit better patient understanding of their HBA1c result. HbA1c (Bld) [Mass fraction] 5.5 % 4.8 - 5.9 % [employer] Phone: Lipid PanelOrdered By: Marcelina White on 03-21-2019 Cholesterol [Mass/Vol] 191 mg/dL <200 [facility] [employer] Work Phone: Comment on above: Cholesterol Guidelines: <200 Desirable 200-240 Borderline >240 Undesirable Cholesterol in HDL [Mass/Vol] 50 mg/dL >40 [facility] Phone: Comment on above: HDL Guidelines: <40 Undesirable 40-59 Borderline >59 Desirable Cholesterol in LDL [Mass/Vol] 110 mg/dL 0 - 130 mg/dL [employer] Phone: Comment on above: LDL Guidelines: <100 Desirable 100-129 Near to/above Desirable 130-159 Borderline >159 Undesirable Direct (measured) LDL and calculated LDL are not interchangeable tests. Cholesterol.total/Chol esterol in HDL [Mass ratio] 3.8 {ratio} <5 [employer] Work Phone: Triglyceride [Mass/Vol] 155 mg/dL High <150 [employer] Phone: Comment on above: Triglyceride Guidelines: <150 Desirable 150-199 Borderline 200-499 High >499 Very high Based on AHA Guidelines for fasting triglyceride, December 2011. VLDL NOT REPORTED High 1 - 30 mg/dL [employer] Phone: No Panel InformationOrdered By: Marcelina White on 03-21-2019 Interpretation and review of laboratory results Abnormal [employer] Work Phone: Patient Fasting?Ordered By: Marcelina White on 03-21-2019 Patient Fasting? yes [employer] [facility] Work Phone: T3, FreeOrdered By: Marcelina andrews on 03-21-2019 Free T3 [Mass/Vol] 3.15 pg/mL 2.02 - 4. 43 pg/mL [employer] Phone: T4, FreeOrdered By: Marcelina andrews on 03-21-2019 Thyroxine, Free 1.44 ng/dL 0.93 - 1.7 ng/dL [employer] Work Phone: TSH without ReflexOrdered By : Marcelina White on 03-21-2019 TSH Qn 1.66 m[IU]/L [employer] Work Phone: UrinalysisOrdered By: Marcelina White on 03-21-2019 Bilirubin Urine Negative NEGATIVE [facility] Work Phone: Color, UA YELLOW YELLOW [employer] Work Phone: Glucose, Ur Negative NEGATIVE [employer] Work Phone: Ketones Ql (U) Negative NEGATIVE [facility] Work Phone: Leukocyte esterase Test strip Ql (U) Negative NEGATIVE [facility] Work Phone: Nitrite, Urine Negative NEGATIVE [facility] Work Phone: pH, UA 7.0 [facility] Work Phone: Protein, UA Negative NEGATIVE [facility] Work Phone: Specific [place], UA 1.010 [facility] Work Phone: Turbidity UA CLEAR CLEAR [facility] Work Phone: Urinalysis Comments [facility] Work Phone: Urine Hgb Negative NEGATIVE [facility] Work Phone: Urobilinogen, Urine Normal Normal [facility] Work Phone: Vital Signs Date Time Vital Sign Value Performing Clinician Facility 09-19-2024 09:53-0400 Body height 175.3 cm Teresa [facility] 09-19-2024 09:53-0400 Body mass index (BMI) [Ratio] 21.27 kg/m2 Teresa HUERTA [facility] 09-19-2024 09:53-0400 Body weight 65.32 kg Teresa HUERTA [facility] 09-19-2024 09:53-0400 Diastolic blood pressure 78 mm[Hg] Teresa HUERTA [facility] 09-19-2024 09:53-0400 Heart rate 68 /min Teresa HUERTA [facility] 09-19-2024 09:53-0400 Systolic blood pressure 122 mm[Hg] Teresa HUERTA [facility] 07-12-2024 09:45-0400 Body temperature 98.01 [facility]degF] [facility] 07-12-2024 09:45-0400 Diastolic blood pressure 79 mm[Hg] Room [facility] 07-12-2024 09:45-0400 Heart rate 76 /min Room [facility] 07-12-2024 09:45-0400 Respiratory rate 16 /min Room [facility] 07-12-2024 09:45-0400 SaO2% (BldA) [Mass fraction] 97 % [facility] 07-12-2024 09:45-0400 Systolic blood pressure 159 mm[Hg] Room [facility] 07-03-2024 10:24-0400 Body height 169.5 cm Mohan Carlson MD Work Phone: [facility] Comment on above: no shoes 07-03-2024 10:24-0400 Body mass index (BMI) [Ratio] 22.72 kg/m2 Mohan Carlson MD Work Phone: [facility] 07-03-2024 10:24-0400 Body weight 65.32 kg Mohan Carlson MD Work Phone: [facility] 07-03-2024 10:24-0400 Diastolic blood pressure 81 mm[Hg] Mohan Carlson MD Work Phone: [facility] 07-03-2024 10:24-0400 Heart rate 66 /min Mohan Carlson MD Work Phone: [facility] 07-03-2024 10:24-0400 Systolic blood pressure 135 mm[Hg] Mohan Carlson MD Work Phone: [facility] 06-04-2024 08:54-0400 Body height 172.72 cm Marcelina White DO Work Phone: [facility] 06-04-2024 08:54-0400 Body mass index (BMI) [Ratio] 22.5 kg/m2 Marcelina White DO Work Phone: [facility] 06-04-2024 08:54-0400 Body temperature 98.2 [degF] Marcelina White DO Work Phone: [facility] 06-04-2024 08:54-0400 Body weight 67.13 kg Marcelina White Work Phone: [facility] 06-04-2024 08:54-0400 Diastolic blood pressure 80 mm[Hg] Marcelina White DO Work Phone: [facility] 06-04-2024 08:54-0400 SaO2% (BldA) [Mass fraction] 94 % Marcelina White Work Phone: [facility] 06-04-2024 08:54-0400 Systolic blood pressure 126 mm[Hg] Marcelina White DO Work Phone: [facility] 01-12-2024 09:56-0400 Body temperature 97.7 [degF] [facility] 01-12-2024 09:56-0400 Diastolic blood pressure 82 mm[Hg] Room [facility] 01-12-2024 09:56-0400 Heart rate 62 /min Room [facility] 01-12-2024 09:56-0400 Respiratory rate 14 /min Room [facility] 01-12-2024 09:56-0400 SaO2% (BldA) [Mass fraction] 99 % Room [facility] 01-12-2024 09:56-0400 Systolic blood pressure 160 mm[Hg] [facility] 12-01-2023 09:00-0400 Body height 172.72 cm DO Marcelina White Work Phone: [facility] 12-01-2023 09:00-0400 Body mass index (BMI) [Ratio] 21.7 kg/m2 DO Marcelina White Work Phone: [facility] 12-01-2023 09:00-0400 Body temperature 97.4 [degF] DO Marcelina White Work Phone: [facility] 12-01-2023 09:00-0400 Body weight 64.86 kg DO Marcelina White Work Phone: [facility] 12-01-2023 09:00-0400 Diastolic blood pressure 78 mm[Hg] DO Marcelina White Work Phone: [facility] 12-01-2023 09:00-0400 Heart rate 72 /min DO Marcelina White Work Phone: [facility] 12-01-2023 09:00-0400 Respiratory rate 18 /min DO Marcelina White Work Phone: [facility] 12-01-2023 09:00-0400 SaO2% (BldA) [Mass fraction] 99 % DO Marcelina White Work Phone: [facility] 12-01-2023 09:00-0400 Systolic blood pressure 120 mm[Hg] DO Marcelina White Work Phone: [facility] 11-22-2023 10:53-0400 Body height 172.7 cm Christopher Bohach DPM Work Phone: [facility] 11-22-2023 10:53-0400 Body mass index (BMI) [Ratio] 22.05 kg/m2 Christopher Bohach DPM Work Phone: [facility] 11-22-2023 10:53-0400 Body weight 65.77 kg Christopher Bohach DPM Work Phone: [facility] 11-22-2023 10:53-0400 Diastolic blood pressure 77 mm[Hg] Christopher Bohach DPM Work Phone: [facility] 11-22-2023 10:53-0400 Heart rate 74 /min Christopher Bohach DPM Work Phone: [facility] 11-22-2023 10:53-0400 Respiratory rate 16 /min Christopher Bohach DPM Work Phone: [facility] 11-22-2023 10:53-0400 Systolic blood pressure 144 mm[Hg] Christopher Bohach DPM Work Phone: [facility] 07-14-2023 12:34-0400 Body temperature 98.6 [degF] [facility] 07-14-2023 12:34-0400 Diastolic blood pressure 70 mm[Hg] [facility] 07-14-2023 12:34-0400 Heart rate 66 /min Room [facility] 07-14-2023 12:34-0400 Respiratory rate 16 /min [facility] 07-14-2023 12:34-0400 SaO2% (BldA) [Mass fraction] 96 % [facility] 07-14-2023 12:34-0400 Systolic blood pressure 116 mm[Hg] [facility] 06-29-2023 12:59-0400 Body height 172.7 cm Mohan Carlson MD Work Phone: [facility] 06-29-2023 12:59-0400 Body mass index (BMI) [Ratio] 22.03 kg/m2 Mohan Carlson MD Work Phone: [facility] 06-29-2023 12:59-0400 Body temperature 97.81 [degF] Mohan Carlson MD Work Phone: [facility] 06-29-2023 12:59-0400 Body weight 65.73 kg Mohan Carlson MD Work Phone: [facility] 06-29-2023 12:59-0400 Diastolic blood pressure 68 mm[Hg] Mohan Carlson MD Work Phone: [facility] 06-29-2023 12:59-0400 Heart rate 69 /min Mohan Carlson MD Work Phone: [facility] 06-29-2023 12:59-0400 Respiratory rate 17 /min Mohan Carlson MD Work Phone: [facility] 06-29-2023 12:59-0400 SaO2% (BldA) [Mass fraction] 97 % Mohan Carlson MD Work Phone: [facility] 06-29-2023 12:59-0400 Systolic blood pressure 112 mm[Hg] Mohan Carlson MD Work Phone: [facility] 05-16-2023 09:37-0500 Body height 172.72 cm DO Marcelina White Work Phone: [facility] 05-16-2023 09:37-0500 Body mass index (BMI) [Ratio] 21.6 kg/m2 DO Marcelina White Work Phone: [facility] 05-16-2023 09:37-0500 Body temperature 97.5 [degF] DO Marcelina White Work Phone: [facility] 05-16-2023 09:37-0500 Body weight 64.41 kg DO Marcelina White Work Phone: [facility] 05-16-2023 09:37-0500 Diastolic blood pressure 74 mm[Hg] DO Marcelina Obduliomichelle Work Phone: [facility] 05-16-2023 09:37-0500 Heart rate 71 /min DO Marcelina White Work Phone: [facility] 05-16-2023 09:37-0500 Respiratory rate 16 /min DO Marcelina White Work Phone: [facility] 05-16-2023 09:37-0500 SaO2% (BldA) [Mass fraction] 99 % DO Marcelina White Work Phone: [facility] 05-16-2023 09:37-0500 Systolic blood pressure 118 mm[Hg] DO Marcelina White Work Phone: [facility] 04-26-2023 11:06-0500 Body height 172.72 cm [facility] 04-26-2023 11:06-0500 Body mass index (BMI) [Ratio] 22.8 kg/m2 [facility] 04-26-2023 11:06-0500 Body weight 68.03 kg [facility] 01-10-2023 09:54-0400 Body temperature 97.59 [degF] Room [facility] 01-10-2023 09:54-0400 Diastolic blood pressure 81 mm[Hg] Room [facility] 01-10-2023 09:54-0400 Heart rate 68 /min Room [facility] 01-10-2023 09:54-0400 Respiratory rate 16 /min Room [facility] 01-10-2023 09:54-0400 SaO2% (BldA) [Mass fraction] 98 % Room [facility] 01-10-2023 09:54-0400 Systolic blood pressure 163 mm[Hg] Room [facility] 01-03-2023 08:56-0400 Body height 172.7 cm Mohan Carlson MD Work Phone: [facility] 01-03-2023 08:56-0400 Body mass index (BMI) [Ratio] 21.82 kg/m2 Mohan Carlson MD Work Phone: [facility] 01-03-2023 08:56-0400 Body weight 65.09 kg Mohan Carlson MD Work Phone: [facility] 01-03-2023 08:56-0400 Diastolic blood pressure 81 mm[Hg] Mohan Carlson MD Work Phone: [facility] 01-03-2023 08:56-0400 Heart rate 67 /min Mohan Carlson MD Work Phone: [facility] 01-03-2023 08:56-0400 Respiratory rate 17 /min Mohan Carlson MD Work Phone: [facility] 01-03-2023 08:56-0400 SaO2% (BldA) [Mass fraction] 97 % Mohan Carlson MD Work Phone: [facility] 01-03-2023 08:56-0400 Systolic blood pressure 148 mm[Hg] Mohan Carlson MD Work Phone: [facility] 11-08-2022 09:10-0400 Body height 172.72 cm Marcelina White Other [email or web address] Other 11-08-2022 09:10-0400 Body mass index (BMI) [Ratio] 22.2 kg/m2 Marcelina White Other [email or web address] Other 11-08-2022 09:10-0400 Body weight 66.23 kg Marcelina White Other [email or web address] Other 11-08-2022 09:10-0400 Diastolic blood pressure 80 mm[Hg] Marcelina White Other [email or web address] Other 11-08-2022 09:10-0400 Respiratory rate 16 /min Marcelina White Other [email or web address] Other 11-08-2022 09:10-0400 SaO2% (BldA) [Mass fraction] 97 % Marcelina White Other [email or web address] Other 11-08-2022 09:10-0400 Systolic blood pressure 122 mm[Hg] Marcelina White Other [email or web address] Other 05-27-2022 09:55-0400 Diastolic blood pressure 83 mm[Hg] DO Marcelina Cindy Work Phone: [facility] 05-27-2022 09:55-0400 Heart rate 67 /min DO Marcelina Cindy Work Phone: [facility] 05-27-2022 09:55-0400 Respiratory rate 16 /min DO Marcelina Cindy Work Phone: [facility] 05-27-2022 09:55-0400 SaO2% (BldA) [Mass fraction] 99 % DO Marcelina Cindy Work Phone: [facility] 05-27-2022 09:55-0400 Systolic blood pressure 136 mm[Hg] DO Marcelina White Work Phone: [facility] 05-27-2022 07:18-0400 Body height 175.26 cm DO Marcelina White Work Phone: [facility] 05-27-2022 07:18-0400 Body temperature 97.9 [degF] DO Marcelina White Work Phone: [facility] 05-27-2022 07:18-0400 Body weight 68.03 kg DO Marcelina White Work Phone: [facility] 05-04-2022 09:10-0500 Body height 172.72 cm Marcelina Obduliomichelle Other [employer] [facility] [employer] Other 05-04-2022 09:10-0500 Body mass index (BMI) [Ratio] 22.65 kg/m2 Marcelina White Other [email or web address] Other 05-04-2022 09:10-0500 Body temperature 98.4 [degF] Marcelina White Other [email or web address] Other 05-04-2022 09:10-0500 Body weight 67.59 kg Marcelina White Other [email or web address] Other 05-04-2022 09:10-0500 Diastolic blood pressure 84 mm[Hg] Marcelina White Other [email or web address] Other 05-04-2022 09:10-0500 Respiratory rate 16 /min Marcelina White Other [email or web address] Other 05-04-2022 09:10-0500 SaO2% (BldA) [Mass fraction] 98 % Marcelina White Other [email or web address] Other 05-04-2022 09:10-0500 Systolic blood pressure 126 mm[Hg] Marcelina White Other [email or web address] Other 02-11-2021 09:30-0500 Body height 172.72 cm Nidia Baltazar Other [email or web address] Other 02-11-2021 09:30-0500 Body mass index (BMI) [Ratio] 22.96 kg/m2 Nidia Baltazra Other [email or web address] Other 02-11-2021 09:30-0500 Body weight 68.49 kg Niida Baltazar Other [facility] [employer] Other Encounters Encounter Date Encounter Type Care Provider Facility Start: 12-13-2024 End: 12-13-2024 ambulatory Marcelina White DO Work Phone: [facility] Work Phone: Start: 12-13-2024 End: 12-13-2024 Patient encounter procedure Nidia Ledesma MD -[facility] Work Phone: Start: 12-13-2024 Non-patient / Non-visit Marcelina Turner in DO -[email or web address] Work Phone: Start: 12-10-2024 End: 12-10-2024 Subsequent hospital visit by physician Viji Escudero MD Work Phone: [email or web address] Comment on above: 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; Nocturia; Gross hematuria; Prostate cancer screening Start: 12-10-2024 End: 12-12-2024 ambulatory [facility] Start: 12-03-2024 ambulatory [facility] Start: 10-16-2024 End: 10-16-2024 Telephone encounter Tor[facility] Start: 10-08-2024 End: 10-09-2024 Telephone encounter Torrie [facility] Start: 10-05-2024 End: 10-05-2024 Telephone encounter Torrie Arizmendi CMA [facility] Start: 10-04-2024 End: 12-04-2024 Follow-up encounter Teresa HUERTA Work Phone: [facility] Comment on above: Ultrasound retroperi toneal complete Start: 09-19-2024 End: 09-19-2024 Office outpatient visit 25 minutes Teresa HUERTA [facility] Comment on above: Elevated PSA (Primar y Dx); Urinary tract infection with hematuria, site unspecified Start: 09-11-2024 End: 09-11-2024 ambulatory Marcelina White DO Work Phone: [facility] Work Phone: Start: 09-11-2024 End: 09-11-2024 Patient encounter procedure Nidia Ledesma MD -[facility] Work Phone: Start: 09-10-2024 End: 09-10-2024 Telephone encounter Yamel Duffy LPN [facility] Start: 09-03-2024 End: 09-03-2024 ambulatory Marcelina White Facility:[facility] Start: 09-03-2024 End: 09-03-2024 Departed Referred Marcelina White DO -[facility] [place] [facility] Start: 08-21-2024 End: 08-21-2024 ambulatory Marcelina White Facility:[facility] Start: 08-21-2024 Non-patient / Non-visit Marcelina White DO Work Phone: [facility] Work Phone: Start: 07-18-2024 End: 07-18-2024 Bamboo flowsheet Nicole HUERTA Work Phone: [facility] Start: 07-18-2024 End: 07-18-2024 Bamboo flowsheet Nicole HUERTA Work Phone: [facility] Start: 07-18-2024 End: 07-18-2024 Office outpatient visit 15 minutes Nicole HUERTA Work Phone: [facility] Comment on above: Seborrheic keratosis (Primary Dx); Melanocytic nevus of trunk; Dermatofibroma of right lower extremity; Actinic keratosis; Inflamed seborrheic keratosis Start: 07-18-2024 End: 07-18-2024 ambulatory NICOLE JIMÉNEZ Not Available Start: 07-12-2024 End: 07-12-2024 ambulatory Mohan Carlson MD Work Phone: [facility] [employer] Sales Representative Comment on above: Osteoporosis, unspec ified osteoporosis type, unspecified pathological fracture presence (Primary Dx) Start: 07-03-2024 End: 07-03-2024 Office outpatient visit 25 minutes Mohan Carlson MD Work Phone: [facility] Comment on above: Osteoporosis, unspec ified osteoporosis type, unspecified pathological fracture presence (Primary Dx) Start: 07-03-2024 End: 07-03-2024 ambulatory MARCLEINA WHITE [facility] Start: 06-05-2024 End: 06-05-2024 ambulatory Marcelina White DO Work Phone: [facility] Work Phone: Start: 06-05-2024 End: 06-05-2024 Patient encounter procedure Marcelina White DO Work Phone: [facility] Work Phone: Start: 06-04-2024 End: 06-04-2024 ambulatory Marcelina White DO Work Phone: [facility] Work Phone: Start: 06-04-2024 End: 06-04-2024 Patient encounter procedure Marcelina White DO Work Phone: [facility] [place] Work Phone: Start: 05-31-2024 Non-patient / Non-visit Marcelina White DO Work Phone: [facility] Work Phone: Start: 05-31-2024 End: 05-31-2024 ambulatory Marcelina Obduliomichelle [facility] Work Phone: Start: 05-31-2024 End: 05-31-2024 Departed Referred Marcelina Makmichelle DO Work Phone: [facility] [place] [facility] Start: 03-06-2024 End: 03-06-2024 Patient encounter procedure Marcelina White DO Work Phone: [facility] Work Phone: Start: 01-24-2024 End: 01-24-2024 ambulatory Marcelina White DO Work Phone: [facility] Work Phone: Start: 01-24-2024 End: 01-24-2024 Patient encounter procedure Marcelina White DO Work Phone: [facility] [place] [facility] Work Phone: Start: 01-12-2024 End: 01-12-2024 ambulatory Mohan Carlson MD Work Phone: [facility] [employer] Comment on above: Osteoporosis, unspec ified osteoporosis type, unspecified pathological fracture presence (Primary Dx) Start: 12-15-2023 End: 12-19-2023 ambulatory MARCELINA WHITE [facility] Start: 12-13-2023 End: 12-13-2023 ambulatory DO Marcelina Makmichelle Work Phone: [facility] Work Phone: Start: 12-13-2023 End: 12-13-2023 Patient encounter procedure DO Marcelina White Work Phone: [facility] Work Phone: Start: 12-01-2023 End: 12-01-2023 Patient encounter procedure DO Marcelina White Work Phone: [facility] [address] Work Phone: Start: 12-01-2023 End: 12-01-2023 ambulatory DO Marcelina White Work Phone: [facility] Work Phone: Start: 12-01-2023 End: 12-01-2023 ambulatory DO Marcelina White Work Phone: [facility] Work Phone: Start: 12-01-2023 End: 12-01-2023 Patient encounter procedure DO Marcelina White Work Phone: [facility] [place] Work Phone: Start: 11-28-2023 End: 11-28-2023 ambulatory DO Marcelina White Work Phone: [facility] Work Phone: Start: 11-28-2023 End: 11-28-2023 Patient encounter procedure DO Marcelina White Work Phone: [facility] [address] Work Phone: Start: 11-22-2023 End: 11-22-2023 Bamboo flowssweta Mccurdy DPM Work Phone: [facility] Start: 11-22-2023 End: 11-22-2023 Bamboo flowsheet Tra Mccurdy DPM Work Phone: [facility] Start: 11-22-2023 End: 11-22-2023 ambulatory TRA MCCURDY Not Available Start: 11-22-2023 End: 11-22-2023 Office outpatient visit 15 minutes Tra Mccurdy DPM Work Phone: [facility] Comment on above: Pain in both feet (P rimary Dx); Plantar fasciitis Start: 11-15-2023 End: 11-15-2023 Bamboo flowsheet Nicole HUERTA Work Phone: [facility] Start: 11-15-2023 End: 11-15-2023 Bamboo flowsheet Nicole Carlos Jessy PA Work Phone: [facility] Start: 11-15-2023 End: 11-15-2023 ambulatory NICOLE JIMÉNEZ Not Available Start: 11-15-2023 End: 11-15-2023 Patient encounter procedure Nicole HUERTA Work Phone: [facility] Comment on above: Common wart (Primary Dx); Other specified erythematous conditions Start: 10-28-2023 End: 10-28-2023 ambulatory TRA MCCURDY Not Available Start: 10-24-2023 End: 10-24-2023 ambulatory NICOLE DEL ROSARIOANS Not Available Start: 09-21-2023 End: 09-21-2023 ambulatory TRA MCCURDY Not Available Start: 09-20-2023 End: 09-20-2023 ambulatory NICOLE Terrance JESSY Not Available Start: 08-24-2023 End: 08-24-2023 ambulatory [facility] Work Phone: Start: 08-24-2023 End: 08-24-2023 Patient encounter procedure [facility] [place] [facility] Work Phone: Start: 08-12-2023 End: 08-12-2023 ambulatory NICOLELAWRENCE JIMÉNEZ Not Available Start: 07-27-2023 End: 07-31-2023 ambulatory MARCELINA WHITE [facility] Start: 07-14-2023 End: 07-14-2023 ambulatory Mohan Carlson MD Work Phone: [facility] [employer] Sales [employer] Comment on above: Osteoporosis, unspec ified osteoporosis type, unspecified pathological fracture presence (Primary Dx) Start: 06-29-2023 End: 06-29-2023 Office outpatient visit 25 minutes Mohan Carlson MD Work Phone: [facility] Comment on above: Osteoporosis, unspec ified osteoporosis type, unspecified pathological fracture presence (Primary Dx) Start: 05-16-2023 End: 05-16-2023 Patient encounter procedure DO Marcelina White Work Phone: [facility] [place] Work Phone: Start: 05-09-2023 End: 05-13-2023 ambulatory MOHAN CARLSON [facility] Start: 05-09-2023 Non-patient / Non-visit DO Joshua brooke Cindy Work Phone: [facility] [place] Work Phone: Start: 05-05-2023 Documentation procedure Leslie Carlson MD Work Phone: [facility] Start: 05-02-2023 End: 05-02-2023 ambulatory DO Marcelina Obduliomichelle Work Phone: [facility] Work Phone: Start: 05-02-2023 End: 05-02-2023 Patient encounter procedure DO Marcelina White Work Phone: [facility] Work Phone: Start: 04-26-2023 End: 04-26-2023 ambulatory [facility] Work Phone: Start: 04-26-2023 End: 04-26-2023 Patient encounter procedure [facility] Work Phone: Start: 01-10-2023 End: 01-10-2023 ambulatory Mohan Carlson MD Work Phone: [facility] [employer] Comment on above: Osteoporosis, unspec ified osteoporosis type, unspecified pathological fracture presence (Primary Dx) Start: 01-05-2023 Documentation procedure Leslie Carlson MD Work Phone: [facility] Start: 01-03-2023 End: 01-03-2023 Office outpatient new 60 minutes Mohan Carlson MD Work Phone: [facility] Comment on above: Osteoporosis, unspec ified osteoporosis type, unspecified pathological fracture presence Start: 12-22-2022 Office outpatient vi sit 15 minutes Nidia Jamesey [facility] [place] [facility] Start: 12-22-2022 End: 12-22-2022 ambulatory DO Marcelina White Work Phone: [email or web address] Other Start: 12-22-2022 End: 12-22-2022 Patient encounter procedure DO Marcelina Cindy Work Phone: [facility] [place] [facility] Start: 12-06-2022 Transcribe Orders Marcelina Turner in DO Work Phone: [facility] Comment on above: Osteoporosis, unspec ified osteoporosis type, unspecified pathological fracture presence (Primary Dx) Start: 11-30-2022 End: 11-30-2022 ambulatory Marcelina White Other [email or web address] Other Start: 11-30-2022 Telephone encounter Marcelina White [facility] [place] Start: 11-08-2022 End: 11-08-2022 ambulatory Marcelina White Other [email or web address] Other Start: 11-08-2022 Office outpatient vi sit 25 minutes Marcelina White [facility] Start: 08-25-2022 End: 08-25-2022 ambulatory Nidia Ledesma Other [email or web address] Other Start: 08-25-2022 Office outpatient vi sit 15 minutes Nidiajamal Ledesma [facility] Start: 06-21-2022 End: 06-21-2022 ambulatory DO Marcelina White Work Phone: [facility] Work Phone: Start: 06-21-2022 End: 06-21-2022 Patient encounter procedure DO Marcelina Cindy Work Phone: [facility] [place] Work Phone: Start: 06-16-2022 End: 06-17-2022 ambulatory [facility] Start: 06-14-2022 End: 06-14-2022 ambulatory Marcelina White Other [email or web address] Other Start: 06-14-2022 Telephone encounter Marcelina White [facility] Family [facility] Start: 05-27-2022 End: 05-27-2022 Admission to same day surgery center DO Marcelina White Work Phone: [facility] Work Phone: Start: 05-27-2022 End: 05-27-2022 ambulatory DO Marcelina White Work Phone: [facility] Work Phone: Start: 05-10-2022 End: 05-10-2022 ambulatory Marcelina White Other [email or web address] Other Start: 05-10-2022 Telephone encounter Marcelina White [facility] Family [facility] Start: 05-04-2022 End: 05-04-2022 ambulatory Marcelina White Other [email or web address] Other Start: 05-04-2022 Office outpatient vi sit 25 minutes Marcelina White [facility] Start: 04-28-2022 End: 04-29-[address] MARCELINA WHITE Facility:[facility] Start: 04-27-2022 End: 04-27-2022 ambulatory Nidia Ledesma Other [email or web address] Other Start: 04-27-2022 Office outpatient vi sit 15 minutes Nidia Ledesma [facility] Start: 03-01-2022 End: 03-01-2022 ambulatory Marcelina White Other [email or web address] Other Start: 03-01-2022 Telephone encounter Marcelina White [facility] [place] Start: 02-16-2022 End: 02-16-2022 ambulatory Marcelina White Other [email or web address] Other Start: 02-16-2022 Telephone encounter Marcelina White [facility] [place] Start: 12-21-2021 End: 12-21-2021 ambulatory Marcelina White Other [email or web address] Other Start: 12-21-2021 Telephone encounter Marcelina White [facility] Family [facility] Start: 12-19-2021 End: 12-19-2021 Subsequent hospital visit by physician Marcelina White DO [facility] Start: 10-20-2021 End: 10-21-2021 ambulatory MARCELINA WHITE [facility] Start: 10-16-2021 End: 10-16-2021 ambulatory Nidia Ledesma Other [email or web address] Other Start: 10-16-2021 Office outpatient vi sit 15 minutes Nidia Calvey [facility] Start: 06-12-2021 End: 06-12-2021 ambulatory Nidia Ledesma Other [email or web address] Other Start: 06-12-2021 Office outpatient vi sit 15 minutes Nidia Calvey [facility] [place] [facility] Start: 05-24-2021 End: 05-24-2021 Subsequent hospital visit by physician Marcelina White DO [facility] Start: 05-22-2021 End: 05-22-2021 Subsequent hospital visit by physician Marcelina FARR[facility] Start: 02-11-2021 End: 02-11-2021 ambulatory Nidia Ledesma Other [email or web address] Other Start: 02-11-2021 Office outpatient vi sit 15 minutes Nidia Calvey [facility] [place] [facility] Start: 11-14-2020 End: 11-14-2020 Subsequent hospital visit by physician Rebecca Bhatt PT [facility] Physical Therapy Comment on above: Arrived Start: 11-11-2020 End: 11-11-2020 Subsequent hospital visit by physician Tara MCWILLIAMS Physical Therapy Comment on above: Arrived Start: 11-06-2020 End: 11-06-2020 Subsequent hospital visit by physician Tara Mahoney [facility] Comment on above: Arrived Start: 11-03-2020 End: 11-03-2020 Subsequent hospital visit by physician Tara Mahoney [facility] Comment on above: Arrived Start: 10-28-2020 End: 10-28-2020 Subsequent hospital visit by physician Tara Mahoney [facility] Comment on above: Arrived Start: 10-23-2020 End: 10-23-2020 Subsequent hospital visit by physician Rebecca Bhatt PT [facility] Comment on above: Arrived Start: 10-21-2020 End: 10-21-2020 Subsequent hospital visit by physician Rebecca Bhatt PT [facility] Comment on above: Arrived Start: 10-16-2020 End: 10-16-2020 Subsequent hospital visit by physician Kim Mae [facility] Comment on above: Arrived Start: 10-14-2020 End: 10-14-2020 Subsequent hospital visit by physician Rebecca Bhatt PT [facility] Comment on above: Arrived Start: 10-09-2020 End: 10-09-2020 Subsequent hospital visit by physician Tara Mahoney [facility] Start: 10-08-2020 End: 10-08-2020 Subsequent hospital visit by physician Marcelina White DO [facility] Start: 10-03-2020 End: 10-03-2020 Subsequent hospital visit by physician Rebecca Bhatt PT [facility] Comment on above: Arrived Start: 09-26-2020 End: 09-26-2020 Subsequent hospital visit by physician Tara Mahoney [facility] Comment on above: Arrived Start: 09-24-2020 End: 09-24-2020 Subsequent hospital visit by physician Rebecca Bhatt PT [facility] Comment on above: Arrived Start: 09-19-2020 End: 09-19-2020 Subsequent hospital visit by physician Tara Mahoney [facility] Comment on above: Arrived Start: 09-17-2020 End: 09-17-2020 Subsequent hospital visit by physician Tara Mahoney [facility] Comment on above: Arrived Start: 09-09-2020 End: 09-09-2020 Subsequent hospital visit by physician Rebecca Bhatt PT [facility] Comment on above: Arrived Start: 08-28-2020 End: 08-30-2020 Subsequent hospital visit by physician Eduardo Additional Xray [facility] Comment on above: Right shoulder pain, unspecified chronicity Hip pain Start: 08-28-2020 End: 08-30-2020 Subsequent hospital visit by physician Marcelina White DO [facility] Start: 04-05-2020 End: 04-05-2020 Subsequent hospital visit by physician Marcelina White [facility] Laboratory Start: 09-28-2019 End: 09-28-2019 Subsequent hospital visit by physician Marcelina White [facility] Laboratory Start: 03-21-2019 End: 03-21-2019 Subsequent hospital visit by physician Marcelina White DO [facility] Laboratory Start: 02-17-2016 End: 02-17-2016 Patient encounter procedure UNKNOWN PROVIDER Facility:[facility] Procedures Date Procedure Procedure Detail Performing Clinician Start: 12-10-2024 Assay of urea nitrog en quantitative Viji Escudero MD Work Phone: Start: 09-19-2024 Urnls dip stick/tabl et rgnt auto w/o microscopy Teresa HUERTA Work Phone: Start: 09-03-2024 Urine culture Marcelina martinez DO Work Phone: Start: 07-18-2024 End: 07-18-2024 CRYOTHERAPY SKIN LESION Nicole HUERTA Work Phone: Start: 05-31-2024 Urine culture Marcelina martinez DO Work Phone: Start: 11-15-2023 CRYOTHERAPY SKIN LESION Nicole Jiménez PA Work Phone: Start: 05-02-2023 Dual energy X-ray absorptiometry DO Marcelina White Work Phone: Start: 01-05-2023 DEXA- BONE DENSITY Kassie Carlson MD Work Phone: Start: 01-03-2023 Comprehensive metabo lic panel Mohan Carlson MD Work Phone: Start: 01-03-2023 GLIADIN ANTIBODY, IGA H grayson Carlson MD Work Phone: Start: 01-03-2023 Immunofixj electroph oresis serum Mohan Carlson MD Work Phone: Start: 01-03-2023 Tissue transglutamin ase IgG measurement Mohan Carlson MD Work Phone: Start: 12-22-2022 Plain X-ray of bilat eral hands DO Marcelina White Work Phone: Start: 05-27-2022 Screening colonoscopy D O Marcelina White Work Phone: Start: 12-19-2021 Basic metabolic pane l calcium total Cesar Connors MD Work Phone: Start: 05-24-2021 CALCIUM,TIMED UR Cesar Connors MD Work Phone: Start: 05-24-2021 Creatinine other source Cesar Connors MD Work Phone: Start: 05-22-2021 Cell count misc body fluids w/differential count Cesar Connors MD Work Phone: Start: 05-22-2021 Renal function panel Jesu Connors MD Work Phone: Start: 04-29-2021 DEXA- BONE DENSITY Kassie Carlson MD Work Phone: Start: 10-08-2020 Comprehensive metabo lic panel Marcelina White DO Start: 10-08-2020 Lipid panel Marcelina Garay Gi rvin DO Start: 10-08-2020 PATIENT FASTING? Marcelina White DO Start: 08-28-2020 End: 08-28-2020 Radex shoulder complete minimum 2 views Marcelina Kwong DO Work Phone: Start: 04-05-2020 [object Object] Marcelina contreras Comment on above: The Sharmila ECLIA as say is used. Results obtained with different assay methods cannot be used interchangeably. Start: 04-05-2020 Assay of free thyroxine Marcelina Garay Cindy Start: 04-05-2020 Assay of prostate sp ecific antigen complexed Marcelina Garay Girvin Start: 04-05-2020 Assay of thyroid stimulating hormone tsh Marcelina Garay Girvin Start: 04-05-2020 Blood count complete auto&auto difrntl wbc Marcelina Garay Girvin Start: 04-05-2020 Comprehensive metabo lic panel Marcelina Garay Girvin Start: 04-05-2020 Lipid panel Marcelina Garay Connie rvin Start: 04-05-2020 Urnls dip stick/tabl et rgnt auto w/o microscopy Marcelina Garay Girvin Start: 09-28-2019 Assay of free thyroxine Marcelina Garay Girvin Start: 09-28-2019 Assay of thyroid stimulating hormone tsh Marcelina Garay Cindy Start: 09-28-2019 Assay of triiodothyr onine t3 free Marcelina Garay Obduliovin Start: 09-28-2019 Blood count complete auto&auto difrntl wbc Marcelina Garay Cindy Start: 09-28-2019 Comprehensive metabo lic panel Marcelina Garay Cindy Start: 09-28-2019 Hemoglobin glycosylated a1c Marcelina Tanisha Girvin Start: 09-28-2019 Lipid panel Marcelina Tanisha Rosales rvin Start: 09-28-2019 PATIENT FASTING? Marcelina Tanisha White Start: 04-19-2019 DEXA- BONE DENSITY Kassie Carlson MD Work Phone: Start: 03-21-2019 Comprehensive metabo lic panel Marcelina Garay Cindy DO Start: 03-21-2019 Lipid panel Marcelina Tanisha Rosales rvin DO Start: 03-21-2019 PATIENT FASTING? Marcelina White DO Start: 03-21-2019 Urnls dip stick/tabl et rgnt auto w/o microscopy Marcelina White DO Start: 04-18-2017 DEXA- BONE DENSITY Kassie Carlson MD Work Phone: Start: 02-17-2015 DEXA- BONE DENSITY Kassie Carlson MD Work Phone: History of cataract extraction History of cataract surgery Plan of Treatment Date Care Activity Detail Author Start: 02-27-2031 DTaP,Tdap and Td Vaccines (4 - Td or Tdap) DTaP,Tdap and Td Vaccines (4 - Td or Tdap) [facility] Start: 02-27-2031 DTaP/Tdap/Td vaccine (4 - Td or Tdap) DTaP/Tdap/Td vaccine (4 - Td or Tdap) Benito Ball [facility] Start: 02-27-2031 Tetanus vaccination Tetanus: Every 10yrs [facility] Start: 10-08-2025 Lipid panel Lipid screen [employer] Phone: Start: 09-19-2025 Tobacco Screening Tobacco Screening [facility] Start: 08-07-2025 DTaP/Tdap/Td vaccine (3 - Td or Tdap) DTaP/Tdap/Td vaccine (3 - Td or Tdap) [facility] Start: 07-17-2025 End: 07-17-2025 Patient encounter procedure 07/17/2025 10:20 AM EDT Office Visit [facility] [address] [place] [phone] Nicole Jiménez, PA [address] [place] [address] [facility] Start: 07-05-2025 End: 07-05-2025 Patient encounter procedure 07/05/2025 10:15 AM EDT Office Visit [facility] [address] [place] [address] [place] [phone] Mohan Carlson MD [address] [place] [phone] [facility] Start: 05-13-2025 End: 07-03-2025 DXA Skeletal system.axial Views for bone density and vertebral fracture XR Bone Density DEXA Axial and Appendicular Imaging Routine Osteoporosis, unspecified osteoporosis type, unspecified pathological fracture presence Expected: 05/13/2025, Expires: 07/03/2025 [facility] Comment on above: Expected: 05/13/2025, Expires: Start: 04-05-2025 Lipid panel Lipid screen [employer] Phone: Start: 01-14-2025 End: 01-14-2025 ambulatory 01/14/2025 9:30 AM EST Infusion/Injection [facility] Sales Representative [address] [place] [phone] [facility] Sales Representative Start: 12-24-2024 End: 07-03-2025 Albumin [Mass/volume] in Serum or Plasma Albumin Lab Routine Osteoporosis, unspecified osteoporosis type, unspecified pathological fracture presence Expected: 12/24/2024, Expires: 07/03/2025 [facility] Comment on above: Expected: 12/24/2024, Expires: Start: 12-24-2024 End: 07-03-2025 Calcium [Mass/volume] in Serum or Plasma Calcium Level Lab Routine Osteoporosis, unspecified osteoporosis type, unspecified pathological fracture presence Expected: 12/24/2024, Expires: 07/03/2025 [facility] Work Phone: Comment on above: Expected: 12/24/2024, Expires: Start: 12-24-2024 End: 07-03-2025 Creatinine [Mass/volume] in Serum or Plasma Creatinine, serum Lab Routine Osteoporosis, unspecified osteoporosis type, unspecified pathological fracture presence Expected: 12/24/2024, Expires: 07/03/2025 [facility] Comment on above: Expected: 12/24/2024, Expires: Start: 12-24-2024 End: 07-03-2025 Vitamin D, 25-hydroxy measurement Vitamin D, Total, 25-OH Lab Routine Osteoporosis, unspecified osteoporosis type, unspecified pathological fracture presence Expected: 12/24/2024, Expires: 07/03/2025 [facility] Comment on above: Expected: 12/24/2024, Expires: Start: 12-17-2024 End: 12-17-2024 Patient encounter procedure 12/17/2024 2:15 PM EDT Procedure visit [facility] Part of [address] [place] [phone] Viji Escudero MD [address] [place] [address], [address] [place] [address] cysto, CT and PSA reminder 12/04/24 [facility] Part of [facility] Comment on above: cysto, CT and PSA reminder 12/04/24 [facility] Start: 12-04-2024 End: 12-04-2024 Patient encounter procedure 12/04/2024 12:45 PM EDT Office Visit [facility] [address] [place] [address] [place] [address] [place] [phone] Mamie Pinzon MD [address] [place] [phone] [facility] Start: 11-12-2024 COVID-19 Vaccine ( season) COVID-19 Vaccine ( season) [facility] Start: 11-12-2024 COVID-19 Vaccine ( season) COVID-19 Vaccine ( season) [facility] Start: 11-12-2024 Influenza vaccination Influenza Vaccine [facility] Start: 09-19-2024 End: 09-19-2025 US Retroperitoneum Ultrasound retroperitoneal complete Imaging Routine Urinary tract infection with hematuria, site unspecified Expected: 09/19/2024, Expires: 09/19/2025 [facility] Comment on above: Expected: 09/19/2024, Expires: Start: 09-19-2024 End: 09-19-2024 Patient encounter procedure 09/19/2024 9:30 AM EDT Office Visit [facility] [address] [place] [address] [place] [address] [place] [phone] Teresa Cornell PA [address] [place] [phone] [facility] Start: 08-21-2024 Urine culture [facility] Start: 07-18-2024 End: 07-18-2024 Patient encounter procedure 07/18/2024 12:50 PM EDT Office Visit [facility] [address] [place] [phone] Nicole Jiménez, PA [address] [place] [address] Arrived [facility] Comment on above: Arrived Start: 07-12-2024 End: 07-12-2024 ambulatory [facility] Sales Representative Start: 07-03-2024 End: 07-03-2024 Patient encounter procedure 07/03/2024 10:45 AM EDT Office Visit [facility] [address] [place] [address] [place] [phone] Mohan Carlson MD [address] [place] [phone] [facility] Start: 06-14-2024 COVID-19 Vaccine ( season) COVID-[address] () [facility] Start: 05-31-2024 Bacteria identified in Urine by Culture Urine Culture [facility] Start: 01-12-2024 End: 01-12-2024 ambulatory 01/12/2024 10:00 AM EDT Infusion/Injection [facility] [address] [place] [phone] [facility] Sales Representative Start: 12-13-2023 End: 06-28-2024 Albumin [Mass/volume] in Serum or Plasma Albumin Lab Routine Osteoporosis, unspecified osteoporosis type, unspecified pathological fracture presence Expected: 12/13/2023, Expires: 06/28/2024 [facility] Work Phone: Comment on above: Expected: 12/13/2023, Expires: Start: 12-13-2023 End: 06-28-2024 Calcium [Mass/volume] in Serum or Plasma Calcium Lab Routine Osteoporosis, unspecified osteoporosis type, unspecified pathological fracture presence Expected: 12/13/2023, Expires: 06/28/2024 [facility] Comment on above: Expected: 12/13/2023, Expires: Start: 12-13-2023 End: 06-28-2024 Creatinine [Mass/volume] in Serum or Plasma Creatinine, serum Lab Routine Osteoporosis, unspecified osteoporosis type, unspecified pathological fracture presence Expected: 12/13/2023, Expires: 06/28/2024 [facility] Comment on above: Expected: 12/13/2023, Expires: Start: 12-13-2023 End: 06-28-2024 Vitamin D, 25-hydroxy measurement Vitamin D 25 Hydroxy (Total, 25-OH) Lab Routine Osteoporosis, unspecified osteoporosis type, unspecified pathological fracture presence Expected: 12/13/2023, Expires: 06/28/2024 [facility] Comment on above: Expected: 12/13/2023, Expires: Start: 12-13-2023 End: 12-13-2023 Patient encounter procedure 12/13/2023 9:30 AM EDT Office Visit [facility] [address] [place] [phone] Nicole Jiménez, BRADLEY [address] [place] [phone] [facility] Start: 12-01-2023 Adenosine monophosphate.cyclic [Moles/volume] in Serum or Plasma [facility] Start: 12-01-2023 Rheumatoid factor [Units/volume] in Serum or Plasma [facility] Start: 12-01-[address] [facility] Start: 11-18-2023 End: 11-18-2023 Patient encounter procedure 11/18/2023 10:45 AM EDT Office Visit [facility] [address] [place] [address] Tra Mccurdy DPM [address] [place] [address] [facility] Start: 11-13-2023 COVID-19 Vaccine (6 - 2024-25 season) COVID-19 Vaccine ( season) [facility] Start: 11-13-2023 Influenza vaccination Influenza Vaccine (#1) [facility] Start: 07-14-2023 End: 07-14-2023 ambulatory 07/14/2023 12:00 PM EDT Infusion/Injection [facility] Sales Representative [address] [place] [phone] [facility] Sales Representative Start: 07-04-2023 End: 07-04-2023 Patient encounter procedure 07/04/2023 10:45 AM EDT Office Visit [facility] [address] [facility] [place] [phone] Mohan Carlson MD [address] [place] [address] [phone] [facility] Start: 05-02-2023 End: 01-04-2024 XR Bone Density DEXA Axial and Appendicular XR Bone Density DEXA Axial and Appendicular Imaging Routine Osteoporosis, unspecified osteoporosis type, unspecified pathological fracture presence Expected: 05/02/2023, Expires: 01/04/2024 [facility] Comment on above: Expected: 05/02/2023, Expires: Start: 02-07-2023 Annual Wellness Visit (Medicare) Annual Wellness Visit (Medicare) [facility] Start: 01-03-2023 End: 01-03-2023 Patient encounter procedure 01/03/2023 9:00 AM EDT Office Visit [facility] [address] [facility] [place] [phone] Mohan Carlson MD [address] [place] [phone] [facility] Start: 11-12-2022 Influenza vaccination Sequential Influenza Vaccine (#1) [facility] Start: 10-20-2022 Lipid panel Lipids [facility] [employer] Start: 05-27-[address] [facility] Start: 11-04-2021 Pneumococcal 50+ years Vaccine (2 of 2 - PCV) Pneumococcal 50+ years Vaccine (2 of 2 - PCV) [email or web address] Start: 11-04-2021 Pneumococcal Vaccine: 65+ Years (2 of 2 - PCV) Pneumococcal Vaccine: 65+ Years (2 of 2 - PCV) [facility] Start: 11-04-2021 Pneumococcal Vaccine: Age 50+ (2 of 2 - PCV) Pneumococcal Vaccine: Age 50+ (2 of 2 - PCV) [facility] Start: 11-04-2021 Pneumococcal Vaccine: Age 65+ (2 - PCV) Pneumococcal Vaccine: Age 65+ (2 - PCV) [facility] Start: 11-04-2021 Pneumococcal Vaccine: Age 65+ (2 of 2 - PCV) Pneumococcal Vaccine: Age 65+ (2 of 2 - PCV) [facility] Start: 10-12-2021 Influenza vaccination [facility] Start: 05-24-2021 Annual Wellness Visit (AWV) [facility]AWV) [facility] Start: 11-14-2020 End: 11-14-2020 Patient encounter procedure 11/14/2020 Appointment Physical Therapy Rebecca Bhatt, PT [facility] Start: 11-12-2020 Influenza vaccination [employer] Phone: Start: 11-11-2020 Annual Wellness Visit (AWV) Annual Wellness Visit (AWV) [employer] Phone: Start: 11-11-2020 End: 11-11-2020 Patient encounter procedure 11/11/2020 Appointment Physical Therapy Tara Mahoney [facility] Start: 11-06-2020 End: 11-06-2020 Patient encounter procedure 11/06/2020 Appointment Physical Therapy Tara Mahoney [facility] Start: 11-03-2020 End: 11-03-2020 Patient encounter procedure 11/03/2020 Appointment Physical Therapy Tara Mahoney [facility] Start: 10-30-2020 End: 10-30-2020 Patient encounter procedure 10/30/2020 Appointment Physical Therapy Rebecca Bhatt, PT [facility] Start: 10-28-2020 End: 10-28-2020 Patient encounter procedure 10/28/2020 Appointment Physical Therapy Tara Mahoney [facility] Start: 10-23-2020 End: 10-23-2020 Patient encounter procedure 10/23/2020 Appointment Physical Therapy Rebecca Bhatt, PT [facility] Start: 10-21-2020 End: 10-21-2020 Patient encounter procedure 10/21/2020 Appointment Physical Therapy Rebecca Bhatt PT [facility] Start: 10-16-2020 Subsequent hospital visit by physician 10/16/2020 Hospital Encounter Physical Therapy Kim Mae [facility] Start: 10-14-2020 End: 10-14-2020 Patient encounter procedure 10/14/2020 Appointment Physical Therapy Rebecca Bhatt, PT [facility] Start: 10-09-2020 End: 10-09-2020 Patient encounter procedure 10/09/2020 Appointment Physical Therapy Tara Mahoney [facility] Start: 10-08-2020 Annual Wellness Visit (AWV) Annual Wellness Visit (AWV) [employer] Phone: Start: 10-06-2020 COVID-19 Vaccine (3 - Booster for Moderna series) COVID-19 Vaccine (3 - Booster for Moderna series) [facility] Start: 10-03-2020 Shingles Vaccine (3 of 3) Shingles Vaccine (3 of 3) [employer] Phone: Start: 10-03-2020 End: 10-03-2020 Patient encounter procedure 10/03/2020 Appointment Physical Therapy Rebecca Bhatt PT [facility] Start: 10-01-2020 End: 10-01-2020 Patient encounter procedure 10/01/2020 Appointment Physical Therapy Tara Mahoney [facility] Start: 09-26-2020 End: 09-26-2020 Patient encounter procedure 09/26/2020 Appointment Physical Therapy Tara Mahoney [facility] Start: 09-24-2020 Annual Wellness Visit (AWV) Annual Wellness Visit (AWV) [employer] Phone: Start: 09-24-2020 End: 09-24-2020 Patient encounter procedure 09/24/2020 Appointment Physical Therapy Rebecca Bhatt, PT [facility] Start: 09-19-2020 End: 09-19-2020 Patient encounter procedure [facility] Start: 09-17-2020 Annual Wellness Visit (AWV) Annual Wellness Visit (AWV) [employer] Phone: Start: 09-17-2020 End: 09-17-2020 Patient encounter procedure 09/17/2020 Appointment Physical Therapy Tara Mahoney [facility] Start: 09-12-2020 End: 09-12-2020 Patient encounter procedure 09/12/2020 Appointment Physical Therapy Tara Mahoney [facility] Start: 09-03-2020 End: 09-03-2020 Patient encounter procedure 09/03/2020 Appointment Physical Therapy Rebecca Bhatt, PT [facility] Start: 08-28-2020 Annual Wellness Visit (AWV) Annual Wellness Visit (AWV) [employer] Phone: Start: 2020 Respiratory Syncytial Virus Immunization: Risk, 60-74 Risk, or 75+ (1 - 1-dose 75+ series) Respiratory Syncytial Virus Immunization: Risk, 60-74 Risk, or 75+ (1 - 1-dose 75+ series) [facility] Start: 11-13-2019 Influenza vaccination Flu vaccine (#1) [facility] [place] Start: 11-12-2018 Influenza vaccination Flu vaccine (#1) [employer] Phone: Start: 2010 Fall risk assessment Falls Risk Assessment [facility] Start: 2010 Fall Risk Screening Fall Risk Screening [facility] Start: 2010 Pneumococcal 65+ years Vaccine (1 of 1 - PPSV23) Pneumococcal 65+ years Vaccine (1 of 1 - PPSV23) [employer] Phone: Start: 2010 Pneumococcal Vaccine: Age 65+ (1 - PCV) Pneumococcal Vaccine: Age 65+ (1 - PCV) [facility] Start: 1995 Administration of herpes zoster vaccine Zoster Vaccines (1 of 2) [facility] Start: 1995 Screening for malignant neoplasm of colon Colon cancer screen colonoscopy [employer] Phone: Start: 1990 Screening for malignant neoplasm of colon Colon cancer screen colonoscopy [employer] Phone: Start: 1963 [facility] Start: 1957 Depression Screen Depression Screen [facility] Start: 1957 Depression screening using PHQ-9 (Patient Health Questionnaire 9) score [facility] Start: 1957 Tobacco Screening Tobacco Screening [facility] Start: 1948 History and physical examination, annual for health maintenance Wellness Visit [facility] Start: 1948 Medicare Wellness Visit Medicare Wellness Visit [facility] Start: 1945 COVID-19 Vaccine (#1) COVID-19 Vaccine (#1) [facility] Start: 1945 Hepatitis C screening Hepatitis C screen [facility] Start: 1945 Tetanus vaccination Tetanus: Every 10yrs [facility] Adenosine monophosphate.cyclic [Moles/volume] in Serum or Plasma [facility] End: 01-04-2024 Albumin [Mass/volume] in Serum or Plasma Albumin Lab Routine Osteoporosis, unspecified osteoporosis type, unspecified pathological fracture presence every 6 months before Prolia shots for 2 Occurrences starting 01/03/2023 until 01/04/2024 [facility] Comment on above: every 6 months before Prolia shots for 2 Occurrences starting 01/03/2023 until 01/04/2024 End: 07-03-2025 Albumin [Mass/volume] in Serum or Plasma Albumin Lab Routine Osteoporosis, unspecified osteoporosis type, unspecified pathological fracture presence 1 Occurrences starting 07/03/2024 until 07/03/2025 [facility] Comment on above: 1 Occurrences starting 07/03/2024 until 07/03/2025 End: 03-21-2019 Bacteria identified in Urine by Culture Urine Culture Microbiology Routine Once for 1 Occurrences starting 03/21/2019 until 03/21/2019 [employer] Phone: Comment on above: Once for 1 Occurrences starting 03/21/19 20 until 03/21/2019 Bacteria identified in Urine by Culture [facility] Calcium [Mass/volume ] in 24 hour Urine Calcium, Urine, 24 Hour Lab Routine Osteoporosis, unspecified osteoporosis type, unspecified pathological fracture presence Ordered: 01/03/2023 [facility] Work Phone: Comment on above: Ordered: 01/03/2023 End: 01-04-2024 Calcium [Mass/volume] in Serum or Plasma Calcium Lab Routine Osteoporosis, unspecified osteoporosis type, unspecified pathological fracture presence every 6 months before Prolia shots for 2 Occurrences starting 01/03/2023 until 01/04/2024 [facility] Comment on above: every 6 months before Prolia shots for 2 Occurrences starting 01/03/2023 until 01/04/2024 End: 07-03-2025 Calcium [Mass/volume] in Serum or Plasma Calcium Lab Routine Osteoporosis, unspecified osteoporosis type, unspecified pathological fracture presence 1 Occurrences starting 07/03/2024 until 07/03/2025 [facility] Comment on above: 1 Occurrences starting 07/03/2024 until 07/03/2025 Comprehensive metabo lic 1999 panel - Serum or Plasma [facility] Comprehensive metabo lic 1999 panel - Serum or Plasma [facility] Comprehensive metabo lic 1999 panel - Serum or Plasma [facility] Creatinine [Mass/amanda e] in 24 hour Urine Creatinine, Urine, 24 Hour Lab Routine Osteoporosis, unspecified osteoporosis type, unspecified pathological fracture presence Ordered: 01/03/2023 [facility] Comment on above: Ordered: 01/03/2023 End: 01-04-2024 Creatinine [Mass/volume] in Serum or Plasma Creatinine, serum Lab Routine Osteoporosis, unspecified osteoporosis type, unspecified pathological fracture presence every 6 months before Prolia shots for 2 Occurrences starting 01/03/2023 until 01/04/2024 [facility] Comment on above: every 6 months before Prolia shots for 2 Occurrences starting 01/03/2023 until 01/04/2024 End: 07-03-2025 Creatinine [Mass/volume] in Serum or Plasma Creatinine, serum Lab Routine Osteoporosis, unspecified osteoporosis type, unspecified pathological fracture presence 1 Occurrences starting 07/03/2024 until 07/03/2025 [facility] Comment on above: 1 Occurrences starting 07/03/2024 until 07/03/2025 End: 04-05-2020 Culture, Urine Culture, Urine Microbiology Routine Once for 1 Occurrences starting 04/05/2020 until 04/05/2020 [facility] Comment on above: Once for 1 Occurrences starting 04/05/19 until 04/05/2020 Culture, Urine [facility] Phone: Cystourethroscopy CYSTOSCOPY Uri nary tract infection with hematuria, site unspecified [facility] End: 04-05-2020 HbA1c (Bld) [Mass fraction] Hemoglobin A1C Lab Routine Once for 1 Occurrences starting 04/05/2020 until 04/05/2020 [facility] Comment on above: Once for 1 Occurrences starting 04/05/19 until 04/05/2020 HbA1c (Bld) [Mass fraction] Hemoglobin A1C Lab Routine 04/05/2020 7:29 AM ALFREDO [facility] Homogenous nuclear A b pattern [Titer] in Serum [facility] Insulin [Units/volum e] in Serum or Plasma [facility] Insulin [Units/volum e] in Serum or Plasma [facility] End: 05-24-2021 MISCELLANEOUS TESTING [employer] Phone: Comment on above: Once for 1 Occurrences starting 05/25/19 until 05/24/2021 Nuclear Ab [Titer] i n Serum [facility] End: 09-19-2025 Prostatic specific antigen, diagnostic Prostatic specific antigen, diagnostic Lab Routine Elevated PSA 1 Occurrences starting 09/19/2024 until 09/19/2025 [facility] Work Phone: Comment on above: 1 Occurrences starting 09/19/2024 until 09/19/2025 End: 09-28-2019 PSA, free PSA, free Lab Routine Once for 1 Occurrences starting 09/28/2019 until 09/28/2019 [facility] Comment on above: Once for 1 Occurrences starting 09/28/19 until 09/28/2019 PSA, free [employer] Phone: End: 10-08-2020 PSA, free PSA, free Lab Routine Once for 1 Occurrences starting 10/08/2020 until 10/08/2020 [employer] Phone: Comment on above: Once for 1 Occurrences starting 10/09/19 21 until 10/08/2020 End: 03-21-2019 PSA, free PSA, free Lab Routine Once for 1 Occurrences starting 03/21/2019 until 03/21/[address] [facility] Work Phone: Comment on above: Once for 1 Occurrences starting 03/21/19 until 03/21/2019 Rheumatoid factor [Units/volume] in Serum or Plasma [facility] Sodium [Moles/volume ] in 24 hour Urine Sodium, Urine, 24 Hour Lab Routine Osteoporosis, unspecified osteoporosis type, unspecified pathological fracture presence Ordered: 01/03/2023 [facility] Comment on above: Ordered: 01/03/2023 End: 04-05-2020 T3 T3 Lab Routine Once for 1 Occurrences starting 04/05/2020 until 04/05/2020 [place], [place] Comment on above: Once for 1 Occurrences starting 04/05/19 until 04/05/2020 T3 T3 Lab Routine 04/05/2020 7:29 AM EST [place], [place] Urine culture [facility] Urine culture [facility] Immunizations Immunization Date Immunization Notes Care Provider Mio hansen 12-15-2023 COVID-19 (PFIZER) 12Y and older Marcelina White DO Work Phone: [facility] 12-01-2023 influenza, high dose seasonal, preservative-free DO Marcelina White Work Phone: [facility] 12-01-2023 influenza virus vaccine, unspecified formulation Yamel Duffy [facility] 06-06-2023 COVID-19 (MODERNA) 12Y and older Marcelina White DO Work Phone: [facility] 12-22-2022 COVID-19 (MODERNA) 12Y and older DO Marcelina White Work Phone: [facility] 12-17-2022 RSV, preF3, adj, pf DO Marcelina White Work Phone: [facility] 10-28-2022 influenza, seasonal, injectable Marcelina White Other [facility] 10-28-2022 Influenza vaccine, quadrivalent, adjuvanted DO Marcelina White Work Phone: [facility] 10-28-2022 influenza virus vaccine, unspecified formulation Nicole HUERTA Work Phone: [facility] 07-27-2022 COVID-19 mRNA Bivale nt Booster (Moderna) DO Marcelina White Work Phone: [facility] 12-03-2021 COVID-19 mRNA Bivale nt Booster (Moderna) DO Marcelina White Work Phone: [facility] 11-05-2021 Influenza vaccine, quadrivalent, adjuvanted DO Marcelina White Work Phone: [facility] 11-05-2021 influenza, seasonal, injectable Marcelina White Other [facility] 07-17-2021 COVID-19 mRNA-1273 (Moderna) DO Marcelina White Work Phone: [facility] 02-27-2021 tetanus toxoid, redu francesco diphtheria toxoid, and acellular pertussis vaccine, adsorbed DO Marcelina White Work Phone: [facility] 01-02-2021 COVID-19 Vaccine Moderna - Documentation Purposes Only Nidia Ledesma Other [facility] 11-04-2020 Fluzone QIV High-Dos e 65YR+ DO Marcelina White Work Phone: [facility] 11-04-2020 pneumococcal polysaccharide vaccine, 23 valent Nidia Ledesma Other [facility] 11-04-2020 influenza, seasonal, injectable Nidia Ledesma Other [facility] 10-08-2020 zoster vaccine recombinant Nidia Ledesma Other [facility] 08-08-2020 zoster vaccine recombinant Nidia Calvey Other [facility] 05-09-2020 COVID-19 Vaccine Moderna - Documentation Purposes Only Nidia Calvey Other [facility] 04-11-2020 COVID-19 Vaccine Moderna - Documentation Purposes Only Nidia Calvey Other [facility] 11-07-2019 Shingrix 50 MCG/0.5M L; Translations: [Shingrix 50 MCG/0.5ML] Nidia Calvey Other [email or web address] Other 11-07-2019 influenza, seasonal, injectable Nidia Calvey Other [facility] 12-14-2018 Seasonal trivalent influenza vaccine, adjuvanted, preservative free DO Marcelina White Work Phone: [facility] 12-14-2018 influenza, seasonal, injectable Nidia Calvey Other [facility] 12-12-2017 influenza, seasonal, injectable Nidia Calvey Other [facility] 12-01-2016 influenza, high dose seasonal, preservative-free DO Marcelina White Work Phone: [facility] 12-01-2016 influenza, seasonal, injectable Nidia Calvey Other [facility] 08-08-2015 tetanus toxoid, redu francesco diphtheria toxoid, and acellular pertussis vaccine, adsorbed Nidia Calvey Other [facility] 05-20-2010 tetanus toxoid, redu francesco diphtheria toxoid, and acellular pertussis vaccine, adsorbed DO Marcelina White Work Phone: [facility] 05-20-2010 zoster vaccine, live DO Olvin White Work Phone: [facility] Payers Date Payer Category Payer Self-pay [id number] 2021 Commercial Indemnity [id number] 2021 Managed Care (unspecified) [facility] [id number] 2021 Private Health Insurance [employer] [id number] 2021 Unknown [id number] 1.13.385.2 .[id number] 2019 Unknown [employer] M [employer] [address] [id number] 2019-Present [phone] [address] [place] [id number] .[id number] 2019 Unknown [employer] M [employer] [address] xxxxxxxxxxxx 2019-Present [phone] [address] [place] [id number] xxxxxxxxxxxx [id number] .[id number] 2015 Private Health Insurance [facility] [id number] 2014 Medicare MEDICARE MEDICAR E PART A AND B [id number] 2014-Present [phone] [place] [address] [id number] 2014 Medicare MEDICARE MEDICAR E PART A AND B xxxxxxxxxxx 2014-Present [phone] [place] [address] xxxxxxxxxxx [id number] .[id number] 2004 Medicare [id number] 2002 Medicare [id number]. 1.13.385.2 .[id number] 1959 Medicare [id number] 1.2.840.951140.1.13.239.2 .7.3.329671.315 1959 Unknown [id number] 1.2.840.371359.1.13.239.2 .7.3.475265.315 1945 Unknown [id number] 2.16.840.1.144757.3.579.2 .732 1945 Unknown [id number] 2.16.840.1.075482.3.579.2 .173 1945 Unknown [id number] 2.16.840.1.573423.3.579.2 .593 1945 Unknown [id number] 2.16.840.1.679807.3.579.2 .593 1945 Unknown [id number] 2.16.840.1.265772.3.579.2 .903 1945 Unknown [id number] 2.16.840.1.878173.3.579.2 .1945 Unknown [id number] 2.16.840.1.135430.3.579.2 .1945 Unknown [id number] 2.16.840.1.475707.3.579.2 .1945 Unknown [id number] 2.16.840.1.411489.3.579.2 .1945 Unknown [id number] 2.16.840.1.217440.3.579.2 .1945 Unknown [id number] 2.16.840.1.970168.3.579.2 .1258 1945 Unknown [id number] 2.16.840.1.979668.3.579.2 .1258 1945 Unknown [id number] 2.16.840.1.669411.3.579.2 .1258 1945 Unknown [id number] 2.16.840.1.340262.3.579.2 .1258 1945 Unknown [id number] 2.16.840.1.375250.3.579.2 .9 1945 Unknown [id number] 2.16.840.1.072567.3.579.2 .1258 1945 Unknown [id number] 2.16.840.1.491464.3.579.2 .1259 1945 Unknown [id number] 2.16.840.1.819238.3.579.2 .125 1945 Unknown [id number] 2.16.840.1.467828.3.579.2 .174 1945 Unknown [id number] 2.16.840.1.845668.3.579.2 .174 1945 Unknown [id number] 2.16.840.1.197412.3.579.2 .174 Unknown [id number] 2.16.840.1.895103.3.579.2 .531 Unknown [id number] 2.16.840.1.776282.3.579.2 .531 Unknown [id number] 2.16.840.1.035488.3.579.2 .531 Unknown [id number] 2.16.840.1.470230.3.579.2 .531 Unknown [id number] 2.16.840.1.974761.3.579.2 .531 Social History Date Type Detail Facility Tobacco smoking status NHIS Unknown if ever smoked [employer] Start: 1945 Sex Assigned At Not on file [facility] Tobacco smoking status NHIS Tobacco smoking consumption unknown [employer] Work Phone: Start: 01-10-2023 End: 11-29-2024 Sex Assigned At [facility] [employer] Other Start: 05-27-2022 End: 05-16-2023 Tobacco smoking status AKIS Never smoked tobacco (finding) [facility] Start: 1945 Sex Assigned At Male F [facility] Start: 01-10-2023 End: 11-29-2024 Tobacco use and exposure Smokeless tobacco non-user [facility] Start: 01-10-2023 End: 07-18-2024 Alcohol intake Ex-drinker (finding) [facility] Start: 01-10-2023 End: 11-29-20[address] [facility] Start: 04-25-2012 End: 01-24-2024 Sex Male (finding) [facility] Start: 07-20-2022 End: 09-19-2024 Alcoholic beverage intake Current drinker of alcohol (finding) [facility] Within the past 12 months we worried whether our food would run out before we got money to buy more. Never True [facility] Goals Date Patient Goal Desired Activity /State Clinical Notes 07-16-2008 to 10-16-2024 Telephone Encounter - Torrie Arizmendi CMA - 10/16/2024 10:05 AM EDTTelephone Encounter - Torrie Arizmendi CMA - 10/16/2024 10:05 AM EDTMBRADLEY Rebollar - 09/19/2024 9:30 AM EDT Note Date & Type Note Facility 10-16-2024 Miscellaneous Notes Patient called inquiring on when SCOPE would be performed. I informed patient that it will take approximately 2-3 weeks for emergency care tech to reach out to get procedure scheduled. Patient expressed understanding. documented in this encounter [facility] 10-16-2024 Telephone encounter Note Patient called inquiring on when SCOPE would be performed. I informed patient that it will take approximately 2-3 weeks for emergency care tech to reach out to get procedure scheduled. Patient expressed understanding. [facility] 10-08-2024 Miscellaneous Notes Patient called returning your call. Patient would like a return call regarding his results. See MyChart messages documented in this encounter [facility] 10-08-2024 Telephone encounter Note Patient called returning your call. Patient would like a return call regarding his results. [facility] 10-08-2024 Telephone encounter Note See MyChart messages [facility] 10-05-2024 Miscellaneous Notes Patient returned your call from yesterday by leaving a for a return call. Please advise. documented in this encounter [facility] 10-05-2024 Telephone encounter Note Patient returned your call from yesterday by leaving a for a return call. Please advise. [facility] 09-19-2024 Evaluation + Plan note Associated Problem(s): Urinary tract infection with hematuria I will call him with the results of the ultrasound. He will let me know if he changes his mind and agrees to go forward with a cystoscopy. We will recheck his urine at his follow-up. He will let us know if he develops another infection before he returns to the office [facility] 09-19-2024 Miscellaneous Notes Associated Problem(s): Urinary tract infection with hematuria I will call him with the results of the ultrasound. He will let me know if he changes his mind and agrees to go forward with a cystoscopy. We will recheck his urine at his follow-up. He will let us know if he develops another infection before he returns to the office documented in this encounter [facility] 09-19-2024 History of Presen t illness Narrative Images from the original note were not included. [id number] [place] [phone] Patient: Brayan Clay Date of : 1945 Encounter Date: 09/19/2024 History of Present Illness: The patient is a 79 y.o. male, an established patient, and is here for Frequent Urinary tract infections. Please see his history below. He developed lower abdominal discomfort, burning, gross hematuria and frequency. He saw his PCP and was started on Augmentin but had N/V and was switched to Macrobid for 10 days. C&S 09/03/24: >100,000 E coli. He felt better but symptoms returned two days later including gross hematuria. He called his PCP again and was started on Keflex. I don't have the records but he reports that his urine again showed infection. Symptoms resolved after he completed the cephalexin. He has had intermittent symptoms since then. Sometimes he has frequency/nocturia and other times his stream is weak. PSA 05/09/23: 2.1 Summary of old records: notes from Dr. Pinzon 07/20/2022: The patient is a 77 y.o. male, a new patient, and is here for further evaluation. He was found have a PSA of 2.1 April 28, 2022. This is increased from 1.66 in October 2021. Prior to that it was 1.6 in April 2021 in 1.5 in September 2020. Patient has minimal lower urinary tract symptoms with an AUA symptom score of 6 with quality life score 1. No family history of prostate issues. He did have COVID in February 2022. On exam prostate smooth without nodule.. Urinalysis today: Recent Labs 09/19/24 0959 EXTPOCURBS Negative EXTPOCUKET Negative EXTPOCUPRO Negative EXTPOCUNIT Negative EXTPOCUBLD Negative EXTPOCUPH 7.0 Past Medical, Family, and Social History Update: The following portions of the patient's history were reviewed and updated as appropriate: allergies, current medications, past family history, past medical history, past social history, past surgical history and problem list. Past Medical History: Diagnosis Date High cholesterol Hormone disorder Past Surgical History: Procedure Laterality Date BACK SURGERY COLONOSCOPY EYE SURGERY HERNIA REPAIR x2 TONSILLECTOMY History reviewed. No pertinent family history. Current Outpatient Medications Medication Sig Dispense Refill ascorbic acid, vitamin C, (VITAMIN C) 1000 mg tablet Take 1 tablet (1,000 mg total) by mouth in the morning. CALCIUM CITRATE ORAL Take by mouth. cetirizine (ZyrTEC) 10 mg capsule Take 1 capsule (10 mg total) by mouth in the morning. cholecalciferol, vitamin D3, (VITAMIN D3 ORAL) Take by mouth. coenzyme Q10 50 mg capsule Take by mouth in the morning. denosumab (PROLIA SUBQ) Inject under the skin. famotidine (PEPCID) 10 mg tablet Take 2 tablets (20 mg total) by mouth nightly. fluocinonide (LIDEX) 0.05 % ointment Apply 1 Application topically in the morning and 1 Application before bedtime. glucosamine HCl/chondroitin tong (GLUCOSAMINE-CHONDROITIN ORAL) Take by mouth. levothyroxine (SYNTHROID, LEVOTHROID) 50 MCG tablet liothyronine (CYTOMEL) 5 MCG tablet melatonin 10 mg tablet Take by mouth. rosuvastatin (CRESTOR) 5 mg tablet zinc gluconate 50 mg tablet Take 1 tablet (50 mg total) by mouth in the morning. diphenhydramine HCl (BENADRYL ALLERGY ORAL) Take by mouth. (Patient not taking: Reported on 09/19/2024) magnesium 200 mg tablet Take by mouth. (Patient not taking: Reported on 09/19/2024) multivitamin capsule Take 1 capsule by mouth in the morning. (Patient not taking: Reported on 09/19/2024) No current facility-administered medications for this visit. (All medications reviewed and updated by provider since last office visit or hospitalization) Allergies: Augmentin [amoxicillin-pot clavulanate] Tobacco History: Social History Tobacco Use Smoking Status Never Smokeless Tobacco Never (If patient a smoker, smoking cessation counseling offered) Social History: Social History Substance and Sexual Activity Alcohol Use Yes Review of Systems: General: Negative for chills and fever. Cardiovascular: Negative for chest pain and shortness of breath. Gastrointestinal: Negative for constipation, diarrhea, nausea, and vomitting. Physical Exam: BP 122/78 Pulse 68 Ht 175.3 cm (5' 9 ) Wt 65.3 kg (144 lb) BMI 21.27 kg/m Constitutional: He appears well-developed. No distress. Pulmonary/Chest: Effort normal. No respiratory distress. Neurological: He is alert and oriented for age. Gait normal. Nursing note and vitals reviewed. Assessment and Plan: Brayan was seen today for urinary tract infection. Diagnoses and all orders for this visit: Elevated PSA - Prostatic specific antigen, diagnostic; Future Urinary tract infection with hematuria, site unspecified - POCT Urinalysis Auto, W/O Microscopy - Ultrasound retroperitoneal complete; Future Problem List Genitourinary Urinary tract infection with hematuria Overview 09/19/24: Recent E coli UTI with hematuria. Reports that it was persistent despite course of abx. Still has intermittent frequency and weak stream but no dysuria. UA neg. Declines cystoscopy but agrees to renal/bladder US with PVR Current Assessment & Plan I will call him with the results of the ultrasound. He will let me know if he changes his mind and agrees to go forward with a cystoscopy. We will recheck his urine at his follow-up. He will let us know if he develops another infection before he returns to the office Relevant Orders POCT Urinalysis Auto, W/O Microscopy (Completed) Ultrasound retroperitoneal complete Other Elevated PSA - Primary Overview 07/20/22: Patient's PSA did increase to 2.1 [...] I don't want to check right now Relevant Orders Prostatic specific antigen, diagnostic Follow-up: Renal US. Appointment with Dr. Pinzon in 1-2 months with PSA BRADLEY DEJESUS This note was created with the assistance of a speech recognition program. While intending to generate a timely document that accurately reflects the content of the visit, no guarantee can be provided that every grammatical or spelling mistake has been or will be identified or corrected. Thank you for your understanding. BRADLEY Dejesus 09/19/24 1018 documented in this encounter [employer] 09-10-2024 Miscellaneous Notes Contacted the Pt. To see if he had gotten an antibiotic for the positive urine culture this nurse received in the faxes. The Pt.'s urine culture did have his PCP name on it, so this nurse called just to verify that he did get an antibiotic from his PCP for this. Pt.'s final culture results state that it is positive for >100,000 CFU/mL Escherichia coli. Results will be sent to scanning. documented in this encounter [facility] 09-10-2024 Telephone encounter Note Contacted the Pt. To see if he had gotten an antibiotic for the positive urine culture this nurse received in the faxes. The Pt.'s urine culture did have his PCP name on it, so this nurse called just to verify that he did get an antibiotic from his PCP for this. Pt.'s final culture results state that it is positive for >100,000 CFU/mL Escherichia coli. Results will be sent to scanning. [facility] 07-18-2024 History of Presen t illness Narrative Skin Check Location: Patient requests a full body skin examination Dermatologic history: no history of skin cancer, no history of atypical moles Last visit: Last skin check 1 year ago, last office visit 11/2023 (caitlin) Established patient Lesions: Location: left ear, forehead, left forearm Duration: months Quality: denies pain, denies itch, denies bleeding Modifying factors: aggravated by picking Associated symptoms: rough Treatments: none All pertinent medical history, medications, and allergies were reviewed. General Exam: alert, oriented to person, place, and time, normal affect, well appearing Unaccompanied Scalp, Examined , exam limited by hair Right leg Examined Head, Face Examined Left leg Examined band aid on the 5th toe Neck Examined Right foot Examined Chest Examined Left foot Examined Back Examined Buttocks Examined Abdomen Examined Digits,nails: Examined Right arm Examined Left arm Examined Lymphatics: Not examined Hands Examined Skin Exam 1. SEBORRHEIC KERATOSIS (2) Head - Anterior (Face), Torso - Posterior (Back) Stuck on verrucous, variably pigmented papules and plaques. Patient was counseled regarding these benign growths. Removal is normally not necessary, but they may be removed if they are symptomatic or for cosmetic reasons. 2. MELANOCYTIC NEVUS OF TRUNK Generalized Scattered benign appearing, regular brown to light brown melanocytic papules and macules with similar morphology Counseled regarding these benign growths. Rarely, a nevus can develop into malignant melanoma, so any changing nevi should be promptly re-evaluated. 3. DERMATOFIBROMA OF RIGHT LOWER EXTREMITY Right Lower Leg - Anterior Firm brown papule that dimples with lateral pressure. Discussed that these are benign scars on the skin. If lesion is changing/symptomatic, return to office to have lesion re-evaluated 4. ACTINIC KERATOSIS Left Cymba Erythematous scaly papules Patient was counseled regarding these sun-induced growths that can develop into squamous cell carcinoma if left untreated. Discussed treatment with cryotherapy. It was emphasized that any treated lesions that fail to resolve should be re-evaluated. Cryotherapy performed today; see procedure note Diagnosis: Actinic keratosis Indication: Precancerous Location: see skin exam Consent: Verbal consent was obtained and risks were discussed, including, but not limited to risks of scarring, darker or accounting clerks supervisor pigmentary changes, recurrence, incomplete removal and infection. Method: Liquid nitrogen was used to treat the lesion(s) with two 5-10 second freeze-thaw cycles. Number of lesions treated: 1 Post-procedure instructions: Instructions were given orally and in writing. The office will be contacted if the lesion fails to resolve despite treatment, or if a side effect develops such as abnormal crusting, scabbing, redness or tenderness Cryotherapy, skin lesion - Left Cymba 5. INFLAMED SEBORRHEIC KERATOSIS (2) Left Forearm - Anterior, Mid Forehead Inflamed seborrheic keratoses: pink and brown stuck on verrucous scaly papule with surrounding erythema and bloody crust. The patient was informed that symptomatic seborrheic keratoses are benign growths that become inflamed, itchy, tender, traumatized, caught on clothing, or bleed. Symptomatic lesions can be treated with cryotherapy or curretage. Thicker lesions treated with cryotherapy may require more than one treatment. The patient was instructed to notify the office if abnormal redness or tenderness develops at the treatment site. Cryotherapy today, see procedure note. Diagnosis: Inflamed seborrheic keratosis Indication: Inflamed Consent: Verbal consent was obtained and risks were discussed, including, but not limited to risks of scarring, darker or accounting clerks supervisor pigmentary changes, recurrence, incomplete removal and infection. Method: Liquid nitrogen was used to treat the lesion(s) with two 5-10 second freeze-thaw cycles Number of lesions treated: 2 Post-procedure instructions: Instructions were given orally and in writing. The office will be contacted if the lesion fails to resolve despite treatment, or if a side effect develops such as abnormal crusting, scabbing, redness or tenderness Cryotherapy, skin lesion - Left Forearm - Anterior, Mid Forehead Next Visit: 1 year documented in this encounter [facility] 07-12-2024 History of Presen t illness Narrative Brayan Clay presents today for administration of Prolia along with ordered pre-medications and post-medications. Patient's condition is currently appropriate to continue with administration of the medication as defined in the care plan. Medication(s) was administered and well-tolerated by the patient. Today's Vitals Blood pressure (!) 159/79, pulse 76, temperature 98 F (36.7 C), temperature source Oral, resp. rate 16, SpO2 97%. Most recent labs Lab Results Component Value Date WBC 4.56 05/09/2023 HGB 14.4 05/09/2023 HCT 42.1 05/09/2023 MCV 93.1 05/09/2023 PLT 231 05/09/2023 RBC 4.52 05/09/2023 Lab Results Component Value Date GLUCOSE 99 05/09/2023 CALCIUM 9.5 12/15/2023 NA 132 (L) 05/09/2023 K 4.6 05/09/2023 CL 98 05/09/2023 BUN 11 05/09/2023 CREATININE 0.67 (L) 07/03/2024 Lab Results Component Value Date ALT 10 05/09/2023 AST 20 05/09/2023 ALKPHOS 55 05/09/2023 BILITOT 1.4 (H) 05/09/2023 Most recent external labs No results found for: EXTWBC , EXTRBC , EXTHGB , EXTHCT , EXTMCV , EXTMCH , EXTMCHC , EXTRDW , EXTPLATELETC , EXTMPV , EXTABSOLUTEN , EXTABSOLUTEL , EXTABSOLUTEM , EXTEOABS , EXTNEUTROPHI , EXTLYMPHOCYT , EXTMONOCYTES , EXTBASOPHILS No results found for: EXTHEMOGLOBI No results found for: EXTCHOL , EXTHDL , EXTTRIG , EXTLDLC , EXTCHOLHDL , EXTNONHDLCHO No results found for: EXTAST No results found for: EXTALT Lab Results Component Value Date EXTEGFR 95 07/03/2024 EXTCALCIUM 8.8 07/03/2024 documented in this encounter [facility] 07-12-2024 Instructions Lissy Reid RN - 07/12/2024 10:45 AM EDT After receiving a Prolia Injection: Tell all of your health care providers that you take this medication. This medication may raise the chance of a broken leg. If treatment with this medication is stopped, skipped, or delayed, the chance of a broken bone is raised. This medication can cause low Calcium levels in the blood. Take any oral calcium and Vitamin D as directed by your physician. Call [facility] for any scheduling changes at [phone] documented in this encounter [facility] 07-03-2024 Instructions Mohan Carlson MD - 07/03/2024 11:02 AM EDT Try to achieve your total daily goal of elemental calcium intake of 1200 mg through diet as much as possible (dairy being a big source, look at nutrition facts, serving size and amount of calcium per serving). You may use over the counter supplements if diet is not enough (obtaining calcium from food is more preferred) (supplement types: calcium carbonate needs to be administered with food, calcium citrate not necessarily and is preferred over calcium carbonate if taking stomach acid medications like omeprazole/famotidine and in case of bariatric surgeries specially bypass surgeries). Keep in mind that the regular food that we eat without counting e.g. dairy servings, contain about 250 mg of calcium daily, which should be included in the 1200 mg. Try not to go much beyond the 1200 mg a day goal. If using supplements, try not to take more than 500 mg at one time for better absorption. Calcium carbonate 1000 mg = elemental calcium 400 mg Calcium citrate 1000 mg = elemental calcium ~200 mg In terms of vitamin D3, you can just take 1,000-2,000 units daily. Take vitamin D3 with the biggest meal/fatty meal for better absorption. Make sure to have labs done within ~1-2 weeks before each Prolia shot. Make sure you get the Prolia shot every 6 months regularly to avoid risk of fractures if delayed. Let me know if there are any issues with scheduling. Let me know if there is worsening in thigh pains/more persistence, or if you are having dental procedures, and let the dentist know you take Prolia. Let me know in case of tingling/numbness, muscle cramps/twitches after Prolia shots. documented in this encounter [facility] 07-03-2024 History of Presen t illness Narrative Images from the original note were not included. Reason for visit/chief complaint: OSTEOPOROSIS Date: 07/03/2024 Referring Provider: No ref. [...] the initial consult note from 01/03/2023: Mr. Clay is a 79 y.o. male with hx of hypothyroidism, back fusion (degenerative changes), shoulder surgery, GERD, HLD, osteoporosis. ?Osteopenia/osteoporosis was diagnosed at age 55 (year 2000, [...] hyperparathyroidism. Cardiac risk factors: personal history of OH, CVA; known coronary or cerebrovascular disease; HTN, [...] Insecurity: No Food Insecurity (07/20/2022) Received from [facility] Hunger Screening Within the past 12 months [...] 10 mg Tab Take by mouth . MULTIVIT,[id number] ORAL Take by mouth . (Patient not [...] , Body mass index is 22.72 kg/m ., Wt Readings from Last 3 Encounters: 07/03/24 [...] 05/09/2023 No results found for: MICROALBUR , [id number] No results found for: CPEPTIDE XR lumbar [...] (significant), was 6.6% compared to 2018 L 03/16 radius 0.701 -2.2 -0.4%, was -6.1% compared [...] 90, alb 4.3 Assessment and plan: Mr. Clay is a 79 y.o. male with hx [...] fine at 36 in 12/2023. Keep on 7375-7388 units daily, repeating level in ~12/2024, repeating level with 12/2024 labs. -Next DXA scan will be due in 04/2025, ordered before next visit. Patient prefers phone calls over Videregenhart messages. Return in about 1 year (around 07/03/2025) for osteop f/u. Time spent reviewing chart, during the encounter, putting orders and coordinating care on the encounter day is 30 minutes. Mohan Carlson MD Endocrinology Orders Placed This Encounter Procedures [...] Expiration Date: 07/03/2025 Release to patient: Immediate documented in this encounter [facility] 07-03-2024 Note Reason for visit/chi ef complaint: OSTEOPOROSIS Date: 07/03/2024 Referring Provider: No ref. [...] the initial consult note from 01/03/2023: Mr. Clay is a 79 y.o. male with hx [...] hyperparathyroidism. Cardiac risk factors: personal history of OH, CVA; known coronary or cerebrovascular disease; HTN, [...] Sister Not serious no rx mediations Social Histor (more content not included)... [facility] 06-04-2024 Evaluation note Authored June 04, 2024 12:03pm The above note written by __ _Kayode Mccoy____ acting as human recorder, note dictated by Dr. Christensen .I performed the above HPI, ROS, and Examination. I formulated and dictated the treatment plan and was present for entire encounter. Marcelina White D.O. 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 acute February 9:25am [facility] Work Phone: [phone]) 471-533412-24-2024 Evaluation note* Diagnosis Onset Date Resolution Status Admit Date Arthritis of carpometacarpal (CMC) joint of left thumb acute Decemb er 2023 9:25am Arthritis of carpometacarpal (CMC) joint of right thumb acute Decem 2023 9:25am Arthritis of ynrmeq-fvvknwylf-ceqzhwxrv joint acute March 06, 2024 9:25am Bilateral carpal tunnel syndrome acu te March 06, 2024 9:25am Bilateral hand pain acute Decem 2023 9:25am 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 Authored December 01, 2023 9:56am The above note written by __ _Kayode Mccoy____ acting as human recorder, note dictated by Dr. Christensen .I performed the above HPI, ROS, and Examination. I formulated and dictated the treatment plan and was present for entire encounter. Marcelina White D.O. [facility] Work Phone: 1([phone]) 334-291009-19-2024 Evaluation note* Author Marcelina White [facility] Authored December 01, 2023 8:56am The above note written by __ _Kayode Mccoy____ acting as human recorder, note dictated by Dr. Christensen .I performed the above HPI, ROS, and Examination. I formulated and dictated the treatment plan and was present for entire encounter. Marcelina White D.O. [facility] Work Phone: [phone] 708-230509-10-2024 History of Present illness Narrative* Tra Mccurdy DPM - 11/22/2023 10:45 AM EDT Brayan Clay is a 78 y.o. 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 Feverdenies. Musculoskeletal: muscle weaknessdenies. Bone/joint symptomsdenies. Peripheral Vascular: Edemadenies. Hx of blood clots in legsdenies. Raynaud'sdenies. Rest pain denies. Ulceration of feetdenies. Varicose veinsdenies. Skin: Hyperpigmentationdenies. Nail changesdenies. Rashdenies. Skin lesion(s)denies. Neurologic: Gait abnormalitydenies. Tingling/Numbnessdenies. MEDICATIONS: Current Outpatient Medications Medication Instructions ascorbic acid (VITAMIN C) 1,000 mg, Oral, Daily RT Cetirizine HCl 10 mg, Oral coenzyme Q-10 50 MG capsule Oral, Daily RT famotidine (Pepcid) 10 MG tablet Every 12 hours fluocinonide (Lidex) 0.05 % ointment 1 application , Topical, 2 times daily levothyroxine (Synthroid, Levoxyl) 50 MCG tablet liothyronine (Cytomel) 5 MCG tablet rosuvastatin (Crestor) 5 MG tablet zinc gluconate 50 mg, Oral, Daily RT ALLERGIES: Allergies Allergen Reactions Octacosanol REVIEW OF SYMPTOMS: Review of Systems OBJECTIVE: Visit Vitals BP 144/77 Pulse 74 Resp 16 Ht 5' 8 Wt 145 lb BMI 22.05 kg/m Smoking Status Never BSA 1.78 m Physical Exam Foot Exam General General Appearance: appears stated age and healthy Orientation: alert and oriented to person, place, and time Right Foot/Ankle Inspection and Palpation Ecchymosis: none Tenderness: none Swelling: none Arch: normal Hammertoes: second toe, third toe, fourth toe and fifth toe Hallux valgus: no Hallux limitus: no Skin Exam: skin intact; Neurovascular Dorsalis pedis: 3+ Posterior tibial: 3+ Saphenous nerve sensation: normal Tibial nerve sensation: normal Superficial peroneal nerve sensation: normal Deep peroneal nerve sensation: normal Sural nerve sensation: normal Achilles reflex: 2+ Babinski reflex: 2+ Muscle Strength Ankle dorsiflexion: 5 Ankle plantar flexion: 5 Ankle inversion: 5 Ankle eversion: 5 Great toe extension: 5 Great toe flexion: 5 Range of Motion Normal right ankle ROM- no 2nd toe pain distal and no central arch pain Left Foot/Ankle Inspection and Palpation Ecchymosis: none Tenderness: none Swelling: none Arch: normal Hammertoes: second toe, third toe, fourth toe and fifth toe Claw toes: absent Hallux valgus: no Hallux limitus: no Skin Exam: skin intact; Neurovascular Dorsalis pedis: 3+ Posterior tibial: 3+ Saphenous nerve sensation: normal Tibial nerve sensation: normal Superficial peroneal nerve sensation: normal Deep peroneal nerve sensation: normal Sural nerve sensation: normal Achilles reflex: 2+ Babinski reflex: 2+ Muscle Strength Ankle dorsiflexion: 5 Ankle plantar flexion: 5 Ankle inversion: 5 Ankle eversion: 5 Great toe extension: 5 Great toe flexion: 5 Range of Motion Normal left ankle ROM No Central arch pain, incr with DF. 8 deg ASSESSMENT AND PLAN: Assessment/Plan Pfitis improved Stretching: calf , hamstring and arch stretching and home rehab program reviewed in detail with pt demonstrating good understanding and ability to perform exercises. written and oral instructions given ICE: cold therapy reviewed with multiple options and 10-20 min applications 2-3 times per day to affected area New orth cont and incr Incr Activity as tolerated with caution documented in this encounterBo[facility] [id number] History of Present illness Narrative* BRADLEY Velarde - 11/15/2023 8:40 AM EDT Follow up Diagnosis: Warts Location: right thumb Last visit: 1 month ago Symptoms: about gone Status: improved Procedure performed: LN2/Elizabeth antigen (0.2 ml injected at last appt) Number of treatments to date: 02/19 All pertinent medical history, medications, and allergies were reviewed. General Exam: alert , oriented to person, place, and time , normal affect, well appearing A focused exam completed based on patient reported problems, see below: 1. Common wart Right Thumb Tip Nearly clear, erythematous verrucous macule. Cryotherapy and Elizabeth Antigen injection today. See procedures Cryotherapy Diagnosis: Verruca Indication: Inflamed Consent: Verbal consent was obtained and risks were discussed, including, but not limited to risks of scarring, darker or accounting clerks supervisor pigmentary changes, recurrence, incomplete removal and infection. Method: Liquid nitrogen was used to treat the lesion(s) with two 5-10 second freeze-thaw cycles Number of lesions treated: 1 Post-procedure instructions: Instructions were given orally and in writing. The office will be contacted if the lesion fails to resolve despite treatment, or if a side effect develops such as abnormal crusting, scabbing, redness or tenderness Elizabeth Antigen Procedure Indication: Warts Consent: The risks and benefits where discussed prior to the procedure, including, but not limited to risks of redness, itching, pain, skin necrosis, ulceration, infection, swelling, and blistering at injection site(s) as well as fever, muscle aches, and allergic reaction. Verbal consent obtained. Route: Intralesional. Location: right thumb Amount injected: 0.1 cc Number of lesions injected: 1 Lot number: [id number] Expiration date: 01/2025 Post procedure: A bandage was applied to all treated lesions. Patient/parent informed that no specific care is indicated following injection. Instructed to call for any questions or problems that occur. Elizabeth antigen handout provided. Cryotherapy, skin lesion - Right Thumb Tip 2. Other specified erythematous conditions Next Visit: 1 month documented in this encounterBoone Hospital [id number] Instructions* Patient Instructions* Mohan Carlson MD - 06/29/2023 1:35 PM EDT Try to achieve your total daily goal of calcium intake of 1200 mg through diet as much as possible.You may use supplements if diet is not enough (since you are using famotidine, then calcium citrateis a better source of calcium than calcium carbonate). Keep in mind that the regular food that we eat without counting e.g. dairy servings, contain about 250 mg of calcium daily, which should be included in the 1200 mg. Try to aim for vitamin D3 ~1,000-1,500 units daily; take with food. Make sure to have labs done within ~1-2 weeks before each Prolia shot. Let me know if no one called you within 1-2 weeks to get the Prolia shot scheduled. Labs in December 2023. Let me know if there is worsening in thigh pains/more persistence, or if you are having dental procedures, and let the dentist know you take Prolia. documented in this [id number] History of Present illness Narrative* Mohan Carlson MD - 06/29/2023 1:01 PM EDT Images from the original note were not included. Reason for visit/chief complaint: OSTEOPOROSIS Date: 06/29/2023 Referring Provider: No ref. provider found Primary Care Provider: Mohan Carlson MD HPI: Subjective/interval hx: 06/29/2023: Gait assistive devices: no Interim hospitalizations, ED visits, health issues: no Interim fall or fracture: no Current bone-active pharmacologic therapy: Prolia since 06/2021 Compliance/taking appropriately: yes, last dose 01/10/2023 Side effects/concerns: No dental issues, no new MSK pains, skin infections, injection site issues He gets bilateral R>L thigh pain maybe ~2 times a week, worse with sitting and better with walking/stretching, may last for ~2-3 hours; had same pain even before starting Prolia, not worsening over time. No pains now. -Copay: $zero Ca/vit D: switched supplements to 1 combination pill daily; 1 pill contains ?600 mg Ca (?as carbonate) and ?vit D Physical Therapy/exercise: walking and stretching Cigarette smoking: no Alcohol intake: no Background from the initial consult note from 01/03/2023: Mr. Clay is a 78 y.o. male with hx of hypothyroidism, back fusion (degenerative changes), shoulder surgery, GERD, HLD, osteoporosis. ?Osteopenia/osteoporosis was diagnosed at age 55 (year 2000, [...] cycles each ~2 years with ~1 year holidayin between; doesn't recall how he took it, [...] hyperparathyroidism. Cardiac risk factors: personal history of OH, CVA; known coronary or cerebrovascular disease; HTN, [...] aromatase inhibitor, GnRH agonist, androgen receptor antagonist, lithium,vitamin A. Thiazolidinedione, SSRI use (used to take [...] Use Smoking status: Never Smokeless tobacco: Never Substance and Sexual Activity Alcohol use: Not Currently Drug use: Never Sexual activity: Never Allergies: No Known Allergies Current Medications: Current Outpatient Medications Medication Sig Dispense Refill ascorbic acid, vitamin C, (vitamin C) 1000 MG tablet Take 1 (one) tablet (1,000 mg total) by mouth daily . calcium carbonate (OS-KEY) 600 mg calcium (1,500 mg) tablet Take 1 (one) tablet (600 mg total) by mouth 2 (two) times a day with meals . cholecalciferol, vitamin D3, 1,000 unit tablet Take 1 (one) tablet (1,000 Units total) by mouth daily . famotidine (PEPCID) 10 MG tablet every 12 (twelve) hours . glucosamine-chondroitin 500-400 mg tablet Take 1 (one) tablet by mouth 3 (three) times a day . levothyroxine (SYNTHROID, LEVOTHROID) 50 MCG tablet levothyroxine (SYNTHROID, LEVOTHROID) 50 MCG tablet melatonin 10 mg Tab Take by mouth . MULTIVIT,[id number] ORAL Take by mouth . phytonadione, vit K1, (phytonadione, vitamin K1,) 100 mcg tablet Take 1 (one) tablet (100 mcg total) by mouth daily . rosuvastatin (CRESTOR) 5 MG tablet zinc gluconate 50 mg tablet Take 1 (one) tablet (50 mg total) by mouth daily . melatonin 5 mg Tab Take 2 (two) tablets (10 mg total) by mouth nightly . No current facility-administered medications for this visit. Physical Exam: Vitals: BP 112/68 (BP Location: Left arm, Patient Position: Sitting, BP Cuff Size: Adult) Pulse 69 Temp 97.8 F (36.6 C) (Temporal) Resp 17 Ht 5' 8 Wt 65.7 kg (144 lb 14.4 oz) SpO2 97% BMI 22.03 kg/m , Body mass index is 22.03 kg/m ., Wt Readings from Last 3 Encounters: 06/29/23 65.7 kg (144 lb 14.4 oz) [...] CL 98 05/09/2023 BUN 11 05/09/2023 CREATININE 0.77 (L) 05/09/2023 Lab Results Component Value Date ALT 10 05/09/2023 AST 20 05/09/2023 ALKPHOS 55 05/09/2023 BILITOT 1.4 (H) 05/09/2023 Lab Results Component Value Date TSH 2.12 05/09/2023 Lab Results Component Value Date CALCIUM 8.6 05/09/2023 PHOS 3.0 01/03/2023 Lab Results Component Value Date HGBA1C 5.6 05/09/2023 Lab Results Component Value Date LDLCALC 80 05/09/2023 CHOL 146 05/09/2023 HDL 45 05/09/2023 TRIG 106 05/09/2023 CHOLHDL 3.2 05/09/2023 No results found for: MICROALBUR , [id number] No results found for: CPEPTIDE XR lumbar [...] from L3-S1. Intact hardware. No evidence of hardwareloosening. Thoracolumbar spine dextroscoliosis. No vertebral compression fracture. [...] (significant), was 6.6% compared to 2018 L 03/16 radius 0.701 -2.2 -0.4%, was -6.1% compared [...] -1.4 L 03/16 radius 0.732 -1.6 4.4%* Assessment and plan: Mr. Clay is a 78 y.o. male with hx of hypothyroidism, back fusion (degenerative changes), shoulder surgery, GERD, HLD, osteoporosis. Osteoporosis: -Received DXA report from 2014 showing unreliable lumbar BMD due to hardware (L1 T-score -2.8, others >0) and T-score in -1.5 to -1.7 range at total hip/femur neck with 3.1% diff compared to 2010.DXA from 04/2021 showed decline in BMD at hip compared to 2019. T-score at L1 was in osteoporosis range. ?No clear hx of fragility fractures; suspected based on XR lumbar from 2020, but repeat lumbar X R on 01/03/2023 reported no VCF. -Not sure why patient developed ?osteoporosis/osteopenia at a relatively young age (55 per patient)since he didn't seem to have significant risk [...] worsening; so far doesn't sound like AFF. -In terms of calcium intake, I counseled him on her goal daily Ca intake; 1200 mg preferably from diet (and to use calcium citrate in case of supplements since he uses famotidine). -In terms of vitamin D, level is fine at 50 in 12/2023. Keep on 8228-9638 units daily, repeating level in 12/2023. -Next DXA scan will be due in 04/2025. Patient prefers phone calls over MyChart messages. Return in about 1 year (around 06/28/2024) for osteoporosis f/u. Time spent reviewing chart, during the encounter, putting orders and coordinating care on the encounter day is 35 minutes. Mohan Carlson MD Endocrinology I am managing Brayan Clay for complex chronic condition(s) serving as the focal point for the patient's care for consistency and continuity over time. Orders Placed This Encounter Procedures Albumin Standing Status: Future Standing Expiration Date: 06/28/2024 Order Specific Question: Release to patient Answer: Immediate Calcium Standing Status: Future Standing Expiration Date: 06/28/2024 Order Specific Question: Release to patient Answer: Immediate Creatinine, serum Standing Status: Future Standing Expiration Date: 06/28/2024 Order Specific Question: Release to patient Answer: Immediate Vitamin D 25 Hydroxy (Total, 25-OH) Standing Status: Future Standing Expiration Date: 06/28/2024 Order Specific Question: Release to patient Answer: Immediate documented in this [id number] Evaluation note* Author Marcelina White [facility] Authored May 16, 2023 12:3 9pm The above note written by __ _Kayode Mccoy____ acting as human recorder, note dictated by Dr. Christensen .I performed the above HPI, ROS, and Examination. I formulated and dictated the treatment plan and was present for entire encounter. Marcelina White D.O. Author Lula Rowell [facility] Authored April 26, 2023 12:17pm Note scribed by Lula mendoza CMA, reviewed and amended by myself Nidia Ledesma M.D. [facility] Work Phone: 1(648) 986-617002-22-2024 History of Present illness Narrative* Mohan Carlson MD - 05/05/2023 3:42 PM EST Received DXA report from 05/02/2023 showing significant [...] -1.4 L 03/16 radius 0.732 -1.6 4.4%* Will discuss results with patient next visit. documented in this [id number] Evaluation note* Author Lula Rowell [facility] Authored April 26, 2023 11:17am Note scribed by Lula mendoza CMA, reviewed and amended by myself Nidia Ledesma M.D. [facility] Work Phone: 1([phone]) 501-516710-25-2023 History of Present illness Narrative* Mohan Carlson MD - 01/05/2023 12:47 PM EDT Received DXA report from 2014 showing unreliable lumbar BMD due to hardware (L1 T-score -2.8, others >0) and T-score in -1.5 to -1.7 range at total hip/femur neck with 3.1% diff compared to 2010. Will try to obtain more recent reports. documented in this [id number] History of Present illness Narrative* Mohan Carlson MD - 01/05/2023 12:47 PM EDT Received DXA report from 2014 showing unreliable lumbar BMD due to hardware (L1 T-score -2.8, others >0) and T-score in -1.5 to -1.7 range at total hip/femur neck with 3.1% diff compared to 2010. Will try to obtain more recent reports. Addendum: Received DXA report from 04/29/2021 BMD T-score Change from 2019 L1 0.789 -2.6 3% Mean total hip 0.798 -1.6 -9.6% (significant), was 6.6% compared to 2018 L 03/16 radius 0.701 -2.2 -0.4%, was -6.1% compared to 2018 documented in this [id number] Instructions* Patient Instructions* Mohan Carlson MD - 01/03/2023 10:03 AM EDT Try to achieve your total daily goal of calcium intake of 1200 mg through diet as much as possible.You may use supplements if diet is not enough (since you are using famotidine, then calcium citrateis a better source of calcium than calcium carbonate). Keep in mind that the regular food that we eat without counting e.g. dairy servings, contain about 250 mg of calcium daily, which should be included in the 1200 mg. Have the blood tests done on the way out. Please have the urine collection done 6 weeks after optimizing your calcium intake as above. 24 hour urine collection instructions: -Collect the jug/hat from lab. -When you first wake up in the morning, void the first urine, then start collecting urine (startingfrom 2nd time you will urinate) throughout the day and night till next day in the morning; include the first urine next day in the morning (which would be the last to collect). Document the start andend time. -Keep the collection in a cool place/refrigerate during the collection and till you drop it off at the lab. Make sure to have labs done within 1-2 weeks before each Prolia shot. Let me know if no one called you within 1-2 weeks to get the Prolia shot scheduled. documented in this [id number] History of Present illness Narrative* Mohan Carlson MD - 01/03/2023 9:00 AM EDT Images from the original note were not included. Reason for visit/chief complaint: OSTEOPOROSIS Date: 01/03/2023 Referring Provider: Marcelina White DO Primary Care Provider: Marcelina White DO HPI: Mr. Clay is a 77 y.o. male with hx of hypothyroidism, back fusion (degenerative changes), shoulder surgery, GERD, HLD, osteoporosis. ?Osteopenia/osteoporosis was diagnosed at age 55 (year 2000, [...] cycles each ~2 years with ~1 year holidayin between; doesn't recall how he took it, [...] hyperparathyroidism. Cardiac risk factors: personal history of OH, CVA; known coronary or cerebrovascular disease; HTN, DM, cigarettes, family history (?MGF, WALDEMAR had stroke in her 70s, not in [...] aromatase inhibitor, GnRH agonist, androgen receptor antagonist, lithium,vitamin A. Thiazolidinedione, SSRI use (used to take Zoloft ~ a couple of years ago). No biotin. Review of Systems: as per HPI Medical History: Past Medical History: Diagnosis Date Hypothyroidism Surgical History: Past Surgical History: Procedure Laterality Date Tonsils Family History: No family history on file. Social History: Social History Socioeconomic History Marital status: Allergies: No Known Allergies Current Medications: Current Outpatient Medications Medication Sig Dispense Refill famotidine (PEPCID) 10 MG tablet every 12 (twelve) hours . levothyroxine (SYNTHROID, LEVOTHROID) 50 MCG tablet melatonin 10 mg Tab Take by mouth . rosuvastatin (CRESTOR) 5 MG tablet levothyroxine (SYNTHROID, LEVOTHROID) 50 MCG tablet No current facility-administered medications for this visit. Physical Exam: Vitals: BP (!) 148/81 (BP Location: Left arm, Patient Position: Sitting, BP Cuff Size: Adult) Pulse 67 Resp 17 Ht 5' 8 Wt 65.1 kg (143 lb 8 oz) SpO2 97% BMI 21.82 kg/m , Body mass index is 21.82 kg/m ., Wt Readings from Last 3 Encounters: 01/03/23 65.1 kg (143 lb 8 oz) General/Constitutional: , well-developed and in no distress. Head: atrautmatic, no facial leasions observed Mouth/Throat: oropharynx is clear and moist. No exposed bone. Eyes: no lid retraction (stare), no proptosis Cardiovascular: regular rhythm, no edema. Pulmonary/Chest: effort normal Abdominal: soft, no tenderness Musculoskeletal: nomal range of motion, normal muscle mass, no spine/thigh/hip tenderness Neurological: alert and oriented, no focal deficits Skin: warm and moist, no rash noted Psychiatric: appropriate affect Lab/Imaging Data: No results found for: WBC , HGB , HCT , MCV , PLT Lab Results Component Value Date GLUCOSE 109 (H) 01/03/2023 NA 134 (L) 01/03/2023 K 4.2 01/03/2023 CL 100 01/03/2023 BUN 11 01/03/2023 CREATININE 0.84 01/03/2023 Lab Results Component Value Date ALT 26 01/03/2023 AST 16 01/03/2023 ALKPHOS 66 01/03/2023 BILITOT 1.5 (H) 01/03/2023 No results found for: TSH , S1YSFLK , THYROIDAB Lab Results Component Value Date CALCIUM 8.5 01/03/2023 CALCIUM 8.9 01/03/2023 PHOS 3.0 01/03/2023 No results found for: HGBA1C No results found for: LDLCALC , CHOL , HDL , TRIG , CHOLHDL No results found for: MICROALBUR , [id number] No results found for: CPEPTIDE XR lumbar [...] from L3-S1. Intact hardware. No evidence of hardwareloosening. Thoracolumbar spine dextroscoliosis. No vertebral compression fracture. Mild loss of disc space height at L2-3. Mild degenerative changes of the sacroiliac joints. IMPRESSION: 1. No acute osseous abnormality. 2. Posterior fusion changes of the lumbar spine. No evidence of hardware complication. 3. Mild L2-3 degenerative disc disease. Assessment and plan: Mr. Clay is a 77 y.o. male with hx of hypothyroidism, back fusion (degenerative changes), shoulder surgery, GERD, HLD, osteoporosis. Osteoporosis: -DXA results not present in chart. Will try to obtain results as well as Dr. Connors's last visit note. ?No clear hx of fragility fractures; suspected based on XR lumbar from 2020, but repeat lumbar XR today 01/03/2023 reported no VCF. -Not sure why patient developed ?osteoporosis/osteopenia at a relatively young age (55 per patient)since he didn't seem to have significant risk factors. Previous labs showed normal PTH/Ca, P/Mg, vit D, kidney/liver functions. 24hr urine Ca was normal/high normal in 2021. He did have fluctuating hyponatremia though which can be a risk factor. Will repeat some labs and get some more today as below. -Will try to obtain records as above. In the meantime, I placed orders for Prolia to avoid delay toavoid decline in BMD. -In terms of calcium intake, I counseled him on her goal daily Ca intake; 1200 mg preferably from diet (and to use calcium citrate in case of supplements since he uses famotidine). -In terms of vitamin D, I'm re-checking level with labs. -Next DXA scan will be due in 04/2023; ordered To be done at [facility] in [place], [place] (including L forearm). Patient prefers phone calls over MyChart messages. Return in about 6 months (around 07/05/2023) for osteoporosis f/u. Time spent reviewing chart, during the encounter, putting orders and coordinating care on the encounter day is 80 minutes. Mohan Carlson MD Endocrinology Orders Placed This Encounter Procedures XR Bone Density DEXA Axial and Appendicular To be done at [facility] in [place], [place] Standing Status: Future Standing Expiration Date: 01/04/2024 Scheduling Instructions: All Dexa exams must be scheduled prior to, or more than 72 hours after any scheduled radiology examwith intravenous, oral or rectal contrast. These include but not limited to MRI, Cat Scan, Nuclear Medicine, and X-ray. Order Specific Question: Reason for Exam: Answer: f/u osteopenia/osteoporosis, please evaluate left forearm (patient is righ handed) Order Specific Question: Release to patient Answer: Immediate XR Lumbar Spine 2-3 Views (Standard) Standing Status: Future Number of Occurrences: 1 Standing Expiration Date: 01/04/2024 Scheduling Instructions: Fax script to: [facility]- [phone] [facility]-[phone] [phone] [facility] - [phone] Order Specific Question: Reason for Exam: Answer: screen for vertebral compression fractures Order Specific Question: Release to patient Answer: Immediate Comprehensive Metabolic Panel Order Specific Question: Release to patient Answer: Immediate PTH Intact (Processed at [facility]) Order Specific Question: Release to patient Answer: Immediate Phosphorus Order Specific Question: Release to patient Answer: Immediate Magnesium Level Order Specific Question: Release to patient Answer: Immediate Beta Crosslaps (Beta CTX) Order Specific Question: Release to patient Answer: Immediate Protein Electrophoresis, Blood Order Specific Question: Release to patient Answer: Immediate Immunofixation, Serum Order Specific Question: Release to patient Answer: Immediate Immunoglobulin Free Light Chains,Blood Standing Status: Future Number of Occurrences: 1 Standing Expiration Date: 01/04/2024 Order Specific Question: Release to patient Answer: Immediate Calcium, Urine, 24 Hour Order Specific Question: Release to patient Answer: Immediate Creatinine, Urine, 24 Hour Order Specific Question: Release to patient Answer: Immediate Sodium, Urine, 24 Hour Order Specific Question: Release to patient Answer: Immediate Vitamin D, Total, 25-OH Order Specific Question: Release to patient Answer: Immediate Celiac Serology [place] Panel Order Specific Question: Release to patient Answer: Immediate Calcium Standing Status: Standing Number of Occurrences: 2 Standing Expiration Date: 01/04/2024 Order Specific Question: Release to patient Answer: Immediate Creatinine, serum Standing Status: Standing Number of Occurrences: 2 Standing Expiration Date: 01/04/2024 Order Specific Question: Release to patient Answer: Immediate Albumin Standing Status: Standing Number of Occurrences: 2 Standing Expiration Date: 01/04/2024 Order Specific Question: Release to patient Answer: Immediate Bilirubin, Direct Order Specific Question: Release to patient Answer: Immediate documented in this [id number] Evaluation note* Encounter Date Diagnosis Assessment Notes Treatment Notes Treatment Clinical Notes Dec, Arthritis of carpometacarpal (CMC) joint of right thumb (ICD-10 - M18.11) X-rays were reviewed with patient in detail. We performed a .5/.5cc marcaine / kenalog cortisone injection into the right thumb CMC joint and STT joint under sterile technique. Patient tolerated the injection well without adverse reaction. Dec, Arthritis of right hand (ICD-10 - M19.041) Dec, Right hand pain (ICD-10 - M79.641) Dec, Arthritis of carpometacarpal (CMC) joint of left thumb (ICD-10 - M18.12) X-rays were reviewed with patient in detail. We performed a .5/.5cc marcaine / kenalog cortisone injection into the right thumb CMC joint and STT joint under sterile technique. Patient tolerated the injection well without adverse reaction. [email or web address] Other 08-28-2023 Evaluation note* Encounter Date Diagnosis Assessment Notes Treatment Notes Treatment Clinical Notes Oct, Hypothyroidism (ICD-10 - E03.9) Discussed thyroid results with patient today. TSH is 1.164. Free T4 is 0.98. T3 was drawn and was 141. At this time he is to continue with both doses of above medications. Oct, Hyperglycemia (ICD-10 - R73.9) Discussed blood sugar results with patient today. Glucose is 98. HgA1C is 5.5. Continue to monitor intake of carbs and sugars. Stay active. Oct, GERD (gastroesophageal reflux disease) (ICD-10 - K21.9) He does continue with above medication daily as directed. Oct, Osteoporosis (ICD-10 - M81.0) He does continue to follow with Dr. Connors twice a year. He is going to talk to his daughter about whether or not he should see a different director corporate and if he needs a referral he should call. He is going to be due for a DEXA scan after 04-29-2023, if Dr. Connors has not ordered this by the time we see him next then I will order this for him. Oct, Hyperlipidemia, unspecified (ICD-10 - E78.5) Discussed cholesterol results with patient today. Total is 173. HDL is 43. LDL is 102.0. Triglycerides are 140. VLDL is 28.0. I did explain to him that we would like to see his LDL result below 70. I would also like to see his VLDL lower. We discussed increasing his Rosuvastatin dose to gain better control of his cholesterol. I did explain to him that statins can make him more resistant to his own insulin. He is not diabetic or pre-diabetic. I did recommend that we increase to 10 MG but he would prefer to increase his Rosuvastatin 5 MG from five days a week to seven days a week first and see how he does. We will make this change and see how his results are. He is to continue to monitor his intake of carbs and sugars. Stay active. Oct, Anemia (ICD-10 - D64.9) His HGB is 14.3. He had a colonoscopy 05-27-[address] Ladd, no further colonoscopy done. Oct, Elevated PSA (ICD-10 - R97.20) He did see Dr. Pinzon in July (2022) for evaluation and he felt he needed to have a PSA done annually. Dr. Pinzon felt that him having COVID-19 when his lab was drawn could have falsely raised his PSA level. I will order this for him to have done with his next lab draw. Oct, Nocturia (ICD-10 - R35.1) Oct, Weight loss (ICD-10 - R63.4) He has lost three pounds since last seen. 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 He admits that he has been fighting allergies. He will continue to monitor. Oct, Other We discussed th e new RSV vaccine today. All questions he has were answered. We discussed that his home blood pressure cuff is likely giving him inaccurate blood pressure readings, his readings in the office when he is seen are always within normal readings. His reading in the office today was controlled. He will continue to monitor. Discussed COVID-19 vaccine, all questions he has were answered. [email or web address] Other 06-14-2023 Evaluation note* Encounter Date Diagnosis Assessment Notes Treatment Notes Treatment Clinical Notes Aug, Arthritis of carpometacarpal (CMC) joint of right thumb (ICD-10 - M18.11) Extensive discussion about current condition and treatment options available. Patient was prepped and cortisone was injected into the bilateral thumb CMC joints under sterile conditions. Patient tolerated well with no adverse reactions. Activity as tolerated. Aug, Arthritis of right hand (ICD-10 - M19.041) Aug, Right hand pain (ICD-10 - M79.641) Aug, Arthritis of carpometacarpal (CMC) joint of left thumb (ICD-10 - M18.12) [facility] Other 03-16-[address] [facility]* Encounter Date Diagnosis Assessment Notes Treatment Notes Treatment Clinical Notes Apr, Hypothyroidism (ICD-10 - E03.9) [facility] Other 02-21-2023 Evaluation note* Encounter Date Diagnosis Assessment Notes Treatment Notes Treatment Clinical Notes Apr, Hypothyroidism (ICD-10 - E03.9) We discussed his thyroid results today. His TSH is 0.218. Free T3 is 2.24. Free T4 is 1.04. I did explain to him that I suspect his body was fighting something when the lab was drawn and this was likely the reason his TSH was abnormal. Before making any changes I would like to repeat lab in six weeks to see if his thyroid is over replaced. He is in agreement and an order is provided, he can call for results. Apr, Hyperglycemia (ICD-10 - R73.9) Discussed blood sugar results with patient today. Glucose is 123. HgA1C is 5.5 which is normal. He admits to eating alot of carbs. He is encouraged to limit his intake of carbs and sugars. Stay active. Apr, Elevated PSA (ICD-10 - R97.20) Discussed his PSA level today. Total PSA was 2.1 up from 1.66. Free PSA is 0.31. % Free PSA is 14.8. I explained to him that I would like to see his free PSA level higher than it is but we don't know what his free PSA was before. I offered for him to have this rechecked again in six months to see where his level is at or to refer him to a urologist for evaluation. He would like to see Dr. Pinzon for evaluation. A referral is provided. Apr, Acute sinusitis (ICD-10 - J01.90) He would like to be treated with an antibiotic to resolve ongoing sinus congestion that he has had and to help him feel better from the recent fatigue symptoms that he had. He voices that he had mostly allergy symptoms last week. I will treat him with above medication. Guidance is given on how to take the medication. Eat yogurt daily while on ATB to prevent GI upset. Rest, push fluids. If he develops severe diarrhea then he should stop the medication and let me know. Apr, GERD (gastroesophageal reflux disease) (ICD-10 - K21.9) Continue with above medication as needed. Apr, Osteoporosis (ICD-10 - M81.0) He continues to follow with Dr. Connors for Prolia injections. He voices that there are days he feels dizzy and he has read that the Prolia lowers his blood pressure. His eyes do not become dark when he stands and he does not have any issue when he stands up. At this point we discussed risks/benefits of the medication. Taking the medication outweighs the risks of not taking it. Apr, Anemia (ICD-10 - D64.9) He is slightly anemic. His HGB is 13.8. He has a colonoscopy scheduled for 05-27-[address] Ladd. This will explain if there is a reason for the anemia. Apr, Allergic rhinitis (ICD-10 - J30.9) Continue with above medication as needed. Apr, Anxiety (ICD-10 - F41.9) He is not taking Prozac (generic) any longer. Apr, Hyperlipidemia, unspecified (ICD-10 - E78.5) Discussed cholesterol results with patient today. Total is 152. HDL is 45. LDL is 87.8. Triglycerides are 96. VLDL is 19.2. Continue with above medication daily as directed. Apr, Nocturia (ICD-10 - R35.1) Apr, Other senior care (current) drug therapy (ICD-10 - Z79.899) Apr, Weight loss (ICD-10 - R63.4) He has lost one pound since last seen. Apr, Fatigue (ICD-10 - R53.83) He voices that he was recently very tired. He had COVID-19 the week prior to Hannah (2021). I did advise him that when he had lab drawn on 04-28-22 his eosinophils were 0 which indicates he may have had COVID-19, if it were allergies then these would have been elevated. [email or web address] Other 02-14-2023 Evaluation note* Encounter Date Diagnosis Assessment Notes Treatment Notes Treatment Clinical Notes Apr, Arthritis of carpometacarpal (CMC) joint of right thumb (ICD-10 - M18.11) The patient is suffering from degenerative arthritis involving the bilateral thumb CMC joints. We discussed the conservative treatment options which can be beneficial in relieving pain, including hand occupational therapy, wearing a brace, and non-steroidal anti-inflammatory medication. We discussed the use of occasional cortisone injections that can provide pain relief.We performed a cortisone injection into the right and left thumb CMC joints under sterile technique. The patient tolerated this well without complication. We discussed that the finger may feel numb and tingle for hours after this injection. Apr, Arthritis of right hand (ICD-10 - M19.041) Apr, Right hand pain (ICD-10 - M79.641) Apr, Arthritis of carpometacarpal (CMC) joint of left thumb (ICD-10 - M18.12) [email or web address] Other 08-05-2022 Evaluation note* Encounter Date Diagnosis Assessment Notes Treatment Notes Treatment Clinical Notes Oct, Arthritis of carpometacarpal (CMC) joint of right thumb (ICD-10 - M18.11) The patient is suffering from degenerative arthritis involving the thumb CMC joint. We discussed the conservative treatment options which can be beneficial in relieving pain, including hand occupational therapy, wearing a brace, and non-steroidal anti-inflammatory medication. We discussed the use of occasional cortisone injections that can provide pain relief.We performed a cortisone injection into the right thumb CMC joint under sterile technique. The patient tolerated this well without complication. We discussed that the finger may feel numb and tingle for hours after this injection. Oct, Arthritis of right hand (ICD-10 - M19.041) The patient is suffering from degenerative arthritis involving the right index PIP joint. We discussed the conservative treatment options which can be beneficial in relieving pain, including hand occupational therapy, wearing a brace, and non-steroidal anti-inflammatory medication. We discussed the use of occasional cortisone injections that can provide pain relief. , We performed a cortisone injection into the right index PIP joint under sterile technique. The patient tolerated this well without complication. We discussed that the finger may feel numb and tingle for hours after this injection. Oct, Right hand pain (ICD-10 - M79.641) [email or web address] Other 04-01-2022 Evaluation note* Encounter Date Diagnosis Assessment Notes Treatment Notes Treatment Clinical Notes Jun, Arthritis of carpometacarpal (CMC) joint of right thumb (ICD-10 - M18.11) Right wrist joint and right thumb CMC joint injected with cortisone under sterile technique, patient tolerated well Jun, Arthritis of right hand (ICD-10 - M19.041) Jun, Right hand pain (ICD-10 - M79.641) [email or web address] Other 12-01-2021 Evaluation note* Encounter Date Diagnosis Assessment Notes Treatment Notes Treatment Clinical Notes Feb, Arthritis of carpometacarpal (CMC) joint of right thumb (ICD-10 - M18.11) Right CMC injected with cortisone under sterile technique, patient tolerated well Feb, Arthritis of right hand (ICD-10 - M19.041) Right index PIP injected with cortisone under sterile technique, patient tolerated well Feb, Right hand pain (ICD-10 - M79.641) [email or web address] Other 09-03-2021 History of Present illness Narrative* Rebecca Bhatt, PT - 11/14/2020 9:45 AM EDT Images from the original note were not included. [facility] Out[facility] Physical Therapy Daily Note Date: 11/14/2020 Patient Name: Brayan Clay : 1945 (75 y.o.) Referring Practitioner: Dr. Kwong Referral Date : 10/09/20 Diagnosis: Cervical Radiculopathy R UE Treatment Diagnosis: Neck Pain Onset Date: 08/28/20 PT Insurance Information: [facility] Total # of Visits Approved: 10 Per Physician Order Total # of Visits to Date: 10 Plan of Care/Certification Expiration Date: 11/21/20 Pre-Treatment Pain: 210 Assessment Assessment: Pain 1-2/10 in neck. Patient reports no radicular symptoms in UE for over 1 week. Completed therex per Doc Flow. Patient inquiring about [employer]ista traction unit as Dr. Kwong recommended it to him. Educated patient on home traction unit and set him up on portable traction unit that is used at home. Patient discharged from PT; will contact provider of home traction units. Plan Plan: Discharge Exercises/Modalities/Manual: See DocFlow Sheet Education: Goals (Total # of Visits to Date: 10) Short Term Goals - Time Frame for Short term goals: 6 Short term goal 1: Patient to report 50% decrease in radicular symptoms R UE-Met Short term goal 2: Decrease neck and R arm pain 2/10 x 3 days-met Group Home Goals - Time Frame for middle or intermediate school principal goals : 10 middle or intermediate school principal goal 1: Decrease neck and R arm pain 0/10 x 3 days-not met FDC goal 2: Improve functional activities with UEFS score >60/80-met Post Treatment Pain: 1/10 Time In: 9:45 Time Out : 10:25 Timed Code Treatment Minutes: 20 Minutes Total Treatment Time: 40 Minutes Rebecca Bhatt, PT Date: 11/14/[address] [facility] [facility] Phone: [phone]) 809-333609-03-2021 Hospital course Narrative* Rebecca Bahtt, PT - 11/14/2020 9:45 AM EDT Images from the original note were not included. [facility] Discharge Summary Patient: Brayan Clay : 1945 Referring Practitioner: Dr. Kwong Diagnosis: Cervical Radiculopathy R UE Date Treatment Initiated: 10/14/20 Date of Last Treatment: 11/14/20 PT Visit Information Onset Date: 08/28/20 PT Insurance Information: [facility] Total # of Visits Approved: 10 Total # of Visits to Date: 10 Plan of Care/Certification Expiration Date: 11/21/20 Frequency/Duration Days: 2 times per week Weeks: 5 weeks Treatment Received Patient Education/HEP, Therapeutic Exercise, Manual Therapy: Myofacial Release/Cupping, Manual Therapy: Mobilization/Manipulation, Traction and HP/CP Pain Level: 2 Assessment Assessment: Pain 1-2/10 in neck. Patient reports no radicular symptoms in UE for over 1 week. Completed therex per Doc Flow. Patient inquiring about [employer]ista traction unit as Dr. Kwong recommended it to him. Educated patient on home traction unit and set him up on portable traction unit that is used at home. Neck Disability Index 8/50. Patient discharged from PT; will contact provider of home traction units. Reason for Discharge Completion of Prescribed visits and Optimal Function Achieved Comments: Thank you for this referral Rebecca Bhatt, PT Date: 11/14/[address] [facility] Work Phone: [phone] 140-710508-31-2021 History of Present illness Narrative* Tara Mahoney - 11/11/2020 9:45 AM EDT Images from the original note were not included. [facility] Daily Note Date: 11/11/2020 Patient Name: Brayan Clay : 1945 (75 y.o.) Referring Practitioner: Dr. Kwong Referral Date : 10/09/20 Diagnosis: Cervical Radiculopathy R UE Treatment Diagnosis: Neck Pain Onset Date: 08/28/20 PT Insurance Information: [facility] Total # of Visits Approved: 10 Per Physician Order Total # of Visits to Date: 9 No Show: 0 Canceled Appointment: 0 Plan of Care/Certification Expiration Date: 11/21/20 Pre-Treatment Pain: 1-04/23 Assessment Assessment: Pt rates pain 1-04/23. No numbnness reportd into UE. Pt has good understanding of HEP. Pt has responded well with ex for postural and cervical strengthening as well as traction for decompression. Anticipate DC at end of this week. Plan Plan: Continue with current plan (see updated POC) Exercises/Modalities/Manual: See DocFlow Sheet Goals (Total # of Visits to Date: 9) Short Term Goals - Time Frame for Short term goals: 6 Short term goal 1: Patient to report 50% decrease in radicular symptoms R UE-Met Short term goal 2: Decrease neck and R arm pain 2/10 x 3 days-met Pattern Shop Supervisor Goals - Time Frame for middle or intermediate school principal goals : 10 FDC goal 1: Decrease neck and R arm pain 0/10 x 3 days-not met middle or intermediate school principal goal 2: Improve functional activities with UEFS score >60/80 Post Treatment Pain: 10 Time In: 0947 Time Out : 1030 Timed Code Treatment Minutes: 25 Minutes Total Treatment Time: 43 Minutes Tara Mahoney [employer]CH [employer] SKIVING MACHINE OPERATOR Date: 11/11/2020 * Tara Mahoney - 11/11/2020 9:45 AM EDT Images from the original note were not included. [facility] Progress Report Date: 11/11/2020 Patient: Brayan Clay : 1945 Referring Practitioner: Dr. Kwong Referral Date : 10/09/20 Diagnosis: Cervical Radiculopathy R UE Treatment Diagnosis: Neck Pain Onset Date: 08/28/20 PT Insurance Information: M[facility] Total # of Visits Approved: 10 Per Physician Order Total # of Visits to Date: 9 No Show: 0 Canceled Appointment: 0 Assessment Assessment: Pt rates pain 1-2/10. No numbnness reportd into UE. Pt has good understanding of HEP. Pt has responded well with ex for postural and cervical strengthening as well as traction for decompression. Anticipate DC at end of this week. Prognosis: Good Plan Plan: Continue with current plan (see updated POC) Goals Short term goals Time Frame for Short term goals: 6 Short term goal 1: Patient to report 50% decrease in radicular symptoms R UE-Met Short term goal 2: Decrease neck and R arm pain 2/10 x 3 days-met middle or intermediate school principal goals Time Frame for middle or intermediate school principal goals : 10 middle or intermediate school principal goal 1: Decrease neck and R arm pain 0/10 x 3 days-not met FDC goal 2: Improve functional activities with UEFS score >60/80 Tara Mahoney ARCH CUSH[employer] SKIVING MACHINE OPERATOR Date: 11/11/[address] [facility] [facility] Phone: [phone] History of Present illness Narrative* Tara Mahoney - 11/06/2020 9:00 AM EDT Images from the original note were not included. [facility] Daily Note Date: 11/06/2020 Patient Name: Brayan Clay : 1945 (75 y.o.) Referring Practitioner: Dr. Kwong Referral Date : 10/09/20 Diagnosis: Cervical Radiculopathy R UE Treatment Diagnosis: Neck Pain Onset Date: 08/28/20 PT Insurance Information: MCR Total # of Visits Approved: 10 Per Physician Order Total # of Visits to Date: 8 No Show: 0 Canceled Appointment: 0 Plan of Care/Certification Expiration Date: 11/21/20 Pre-Treatment Pain: 2/10 Assessment Assessment: Pt rates pain 1-2/10. He reports no longer experiencing UE numbness. Performed ex as outlined for cervical/postural strengthening and flexibility. Possible DC end of next week. Plan Plan: Continue with current plan (see updated POC) Exercises/Modalities/Manual: See DocFlow Sheet Goals (Total # of Visits to Date: 8) Short Term Goals - Time Frame for Short term goals: 6 Short term goal 1: Patient to report 50% decrease in radicular symptoms R UE-Met Short term goal 2: Decrease neck and R arm pain 2/10 x 3 days-met Group Home Goals - Time Frame for FDC goals : 10 middle or intermediate school principal goal 1: Decrease neck and R arm pain 0/10 x 3 days FDC goal 2: Improve functional activities with UEFS score >60/80 Post Treatment Pain: 2/10 Time In: 0900 Time Out : 0945 Timed Code Treatment Minutes: 28 Minutes Total Treatment Time: 45 Minutes Tara Mahoney [employer] SKIVING MACHINE OPERATOR Date: 11/06/[address] [facility] Work Phone: [phone] History of Present illness Narrative* Tara Mahoney - 11/03/2020 10:30 AM EDT Images from the original note were not included. [facility] Daily Note Date: 11/03/2020 Patient Name: Brayan Clay : 1945 (75 y.o.) Referring Practitioner: Dr. Kwong Referral Date : 10/09/20 Diagnosis: Cervical Radiculopathy R UE Treatment Diagnosis: Neck Pain Onset Date: 08/28/20 PT Insurance Information: [facility] Total # of Visits Approved: 10 Per Physician Order Total # of Visits to Date: 7 No Show: 0 Canceled Appointment: 0 Plan of Care/Certification Expiration Date: 11/21/20 Pre-Treatment Pain: 2/10 Assessment Assessment: Rates pain 2/10 today, worst pain is at night 3-4/10. Advised to try icing at bedtime. He is very active with ex's and gardening etc. Performed ex as outlined followed by traction for decompression. Will cont. Plan Plan: Continue with current plan (see updated POC) Exercises/Modalities/Manual: See DocFlow Sheet Goals (Total # of Visits to Date: 7) Short Term Goals - Time Frame for Short term goals: 6 Short term goal 1: Patient to report 50% decrease in radicular symptoms R UE-Met Short term goal 2: Decrease neck and R arm pain 2/10 x 3 days-met Group Home Goals - Time Frame for middle or intermediate school principal goals : 10 middle or intermediate school principal goal 1: Decrease neck and R arm pain 0/10 x 3 days FDC goal 2: Improve functional activities with UEFS score >60/80 Post Treatment Pain: 210 Time In: 1030 Time Out : 1115 Timed Code Treatment Minutes: 28 Minutes Total Treatment Time: 45 Minutes Tara Mahoney [employer] SKIVING MACHINE OPERATOR Date: 11/03/[address] [facility] Work Phone: [phone] History of Present illness Narrative* Tara Mahoney - 10/28/2020 8:15 AM EDT Images from the original note were not included. [facility] Daily Note Date: 10/28/2020 Patient Name: Brayan Clay : 1945 (75 y.o.) Referring Practitioner: Dr. Kwong Referral Date : 10/09/20 Diagnosis: Cervical Radiculopathy R UE Treatment Diagnosis: Neck Pain Onset Date: 08/28/20 PT Insurance Information: [facility] Total # of Visits Approved: 10 Per Physician Order Total # of Visits to Date: 5 No Show: 0 Canceled Appointment: 0 Plan of Care/Certification Expiration Date: 11/21/20 Pre-Treatment Pain: 1-04/23 Assessment Assessment: Pt reports primary c/o achiness this morning, pain 1-2/10. He conts to reports benefit from traction. Performed ex as outlined for postural strength and flexibility. Traction for decompression. Plan Plan: Continue with current plan (see updated POC) Exercises/Modalities/Manual: See DocFlow Sheet Goals (Total # of Visits to Date: 5) Short Term Goals - Time Frame for Short term goals: 6 Short term goal 1: Patient to report 50% decrease in radicular symptoms R UE-Met Short term goal 2: Decrease neck and R arm pain 2/10 x 3 days Pattern Shop Supervisor Goals - Time Frame for FDC goals : 10 middle or intermediate school principal goal 1: Decrease neck and R arm pain 0/10 x 3 days middle or intermediate school principal goal 2: Improve functional activities with UEFS score >60/80 Post Treatment Pain: 03/23 Time In: 0815 Time Out : 0855 Timed Code Treatment Minutes: 27 Minutes Total Treatment Time: 43 Minutes Tara Mahoney [employer] SKIVING MACHINE OPERATOR Date: 10/28/[address] [facility] Work Phone: [phone] History of Present illness Narrative* Rebecca Bhatt, PT - 10/23/2020 8:45 AM EDT Images from the original note were not included. [facility] Daily Note Date: 10/23/2020 Patient Name: Brayan Clay : 1945 (75 y.o.) Referring Practitioner: Dr. Kwong Referral Date : 10/09/20 Diagnosis: Cervical Radiculopathy R UE Treatment Diagnosis: Neck Pain Onset Date: 08/28/20 PT Insurance Information: [facility] Total # of Visits Approved: 10 Per Physician Order Total # of Visits to Date: 4 Plan of Care/Certification Expiration Date: 11/21/20 Pre-Treatment Pain: 3/10 Assessment Assessment: Patient reports shucking and cutting a lot of corn yesterday, which increases R shld and arm pain. Pain 3/10 in R arm and neck today. Completed therex per Doc flow. education on proper posture and importance of posture to decrease pain. Completed traction per Doc Flow. Decrease pain following session. Plan Plan: Continue with current plan (see updated POC) Exercises/Modalities/Manual: See DocFlow Sheet Education: Goals (Total # of Visits to Date: 4) Short Term Goals - Time Frame for Short term goals: 6 Short term goal 1: Patient to report 50% decrease in radicular symptoms R UE-Met Short term goal 2: Decrease neck and R arm pain 2/10 x 3 days Pattern Shop Supervisor Goals - Time Frame for FDC goals : 10 FDC goal 1: Decrease neck and R arm pain 0/10 x 3 days FDC goal 2: Improve functional activities with UEFS score >60/80 Post Treatment Pain: 2/10 Time In: 8:45 Time Out : 9:28 Timed Code Treatment Minutes: 27 Minutes Total Treatment Time: 43 Minutes Rebecca Bhatt, PT Date: 10/23/[address] [facility] Work Phone: [phone] History of Present illness Narrative* Rebecca Bhatt, PT - 10/21/2020 9:00 AM EDT Images from the original note were not included. [facility] Daily Note Date: 10/21/2020 Patient Name: Brayan Clay : 1945 (75 y.o.) Referring Practitioner: Dr. Kwong Referral Date : 10/09/20 Diagnosis: Cervical Radiculopathy R UE Treatment Diagnosis: Neck Pain Onset Date: 08/28/20 PT Insurance Information: [facility] Total # of Visits Approved: 10 Per Physician Order Total # of Visits to Date: 3 Plan of Care/Certification Expiration Date: 11/21/20 Pre-Treatment Pain: 2/10 Assessment Assessment: Pain 2/10 in neck, but no numbness in R arm for 3 days. Completed therex per Doc Flow followed by cervical traction. Met STG for decreasing numbness R arm. Continue per plan. Plan Plan: Continue with current plan (see updated POC) Exercises/Modalities/Manual: See DocFlow Sheet Education: Goals (Total # of Visits to Date: 3) Short Term Goals - Time Frame for Short term goals: 6 Short term goal 1: Patient to report 50% decrease in radicular symptoms R UE-Met Short term goal 2: Decrease neck and R arm pain 2/10 x 3 days Group Home Goals - Time Frame for FDC goals : 10 middle or intermediate school principal goal 1: Decrease neck and R arm pain 0/10 x 3 days FDC goal 2: Improve functional activities with UEFS score >60/80 Post Treatment Pain: 10 Time In: 9:00 Time Out : 9:40 Timed Code Treatment Minutes: 25 Minutes Total Treatment Time: 40 Minutes Rebecca Bhatt, PT Date: 10/21/[address] [facility] Work Phone: [phone] History of Present illness Narrative* Kim Mae - 10/16/2020 9:45 AM EDT Images from the original note were not included. [facility] Daily Note Date: 10/16/2020 Patient Name: Brayan Clay : 1945 (75 y.o.) Referring Practitioner: Dr. Kwong Referral Date : 10/09/20 Diagnosis: Cervical Radiculopathy R UE Treatment Diagnosis: Neck Pain Onset Date: 08/28/20 PT Insurance Information: [facility] Total # of Visits Approved: 10 Per Physician Order Total # of Visits to Date: 2 Plan of Care/Certification Expiration Date: 11/21/20 Pre-Treatment Pain: 1-2/10 Assessment Assessment: Patient rates pain today as 1-2/10. Progressed with exercises as outlined above with good tolerance. Reports compliance with current HEP. Patient states traction felt good at previous session. Was sore for short time but then pain went away. Continued with static tractionwith increase pull to 18# x 15 minutes with good tolerance. Plan Plan: Alter current plan (see updated POC) Exercises/Modalities/Manual: See DocFlow Sheet Education: Goals (Total # of Visits to Date: 2) Short Term Goals - Time Frame for Short term goals: 6 Short term goal 1: Patient to report 50% decrease in radicular symptoms R UE Short term goal 2: Decrease neck and R arm pain 2/10 x 3 days Pattern Shop Supervisor Goals - Time Frame for middle or intermediate school principal goals : 10 FDC goal 1: Decrease neck and R arm pain 0/10 x 3 days FDC goal 2: Improve functional activities with UEFS score >60/80 Post Treatment Pain: 03/23 Time In: 0950 Time Out : 1030 Timed Code Treatment Minutes: 25 Minutes Total Treatment Time: 40 Minutes Kim Mae PTA Date: 10/16/[address] [facility] Work Phone: [phone] History of Present illness Narrative* Rebecca Bhatt, PT - 10/14/2020 1:45 PM EDT Images from the original note were not included. [facility] Evaluation Date: 10/14/2020 Patient: Brayan Clay : 1945 Referring Practitioner: Dr. Kwong Referral Date : 10/09/20 Diagnosis: Cervical Radiculopathy R UE Treatment Diagnosis: Neck Pain Onset Date: 08/28/20 PT Insurance Information: [facility] Total # of Visits Approved: 10 Per Physician Order Total # of Visits to Date: 1 Subjective Additional Pertinent Hx: Updated 10/14/20: Pain in neck, stiffness neck both sides, grinding/noise with turning head. C/o pain turning head/ rotating. C/o pain traveling down right arm, intermittent 6/10 for 10-15 minutes then easies off. Denies symptoms in left arm. Pain Screening Patient Currently in Pain: Yes Pain Assessment Pain Level: 2 (R arm pain varies 0-6/10; neck 2-4/10) Pain Location: Neck, Arm Objective Spine Cervical: forward flexion 60, ext 20, sidebend 40 B, rotation 70 B Strength RUE Strength RUE: WFL Strength LUE Strength LUE: WFL AROM RUE (degrees) RUE AROM : WFL AROM LUE (degrees) LUE AROM : WFL Assessment Body structures, Functions, Activity limitations: Decreased ADL status, Increased pain, Decreased posture Assessment: Re-eval as Dr send patient back with new script to treat cervical radiculopathy with mechanical traction. Patient's ROM and strength WFL, but c/o R arm pain interfers with functional activities. Patient completed mechanical traction per Doc Flow. Plan for therex, HEP, cervical traction;manual therapy PRN. 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 Time Frame for middle or intermediate school principal goals : 10 middle or intermediate school principal goal 1: Decrease neck and R arm pain 0/10 x 3 days middle or intermediate school principal goal 2: Improve functional activities with UEFS score >60/80 Patient's Goal: Be rid of radicular pain in R arm to complete normal activities Timed Code Treatment Minutes: (traction x15 min) Total Treatment Time: 40 Time In: 13:47 Time Out: 14:27 Rebecca Bhatt, PT Date: 10/14/2020 [facility] Work Phone: [phone] History of Present illness Narrative* Tara Mahoney - 10/09/2020 9:45 AM EDT [facility] Date: 10/09/2020 Patient Name: Brayan Clay : 1945 Pt No Showed Appt Phoned pt and asked for return call to confirm DC at this time. Tara Gilmore Date: 10/09/[address] [facility] Work Phone: [phone] History of Present illness Narrative* Rebecca Bhatt, PT - 10/03/2020 9:45 AM EDT Images from the original note were not included. [facility] Daily Note Date: 10/03/2020 Patient Name: Brayan Clay : 1945 (75 y.o.) Referring Practitioner: Dr. Kwong Referral Date : 08/28/20 Diagnosis: R shoulder IS, AC, OA; R hip OA, lumbar DDD Treatment Diagnosis: R shld pain, cervical radiculopathy, low back pain, R hip pain Onset Date: 08/28/20 (Referral) PT Insurance Information: Medicare Total # of Visits Approved: 10 Per Physician Order Total # of Visits to Date: 9 Canceled Appointment: 1 Plan of Care/Certification Expiration Date: 10/10/20 Pre-Treatment Pain: 4/10 Assessment Assessment: Main c/o R neck pain /10. Completed therex and manual therapy per log. Patient requesting additional ex for neck, progress therex and issued handout for HEP. Plan for one remaining visti, recheck UEFS and Oswestry. Chart Reviewed: Yes Plan Plan: Continue with current plan Exercises/Modalities/Manual: See DocFlow Sheet Education: Goals (Total # of Visits to Date: 9) Short Term Goals - Time Frame for Short term goals: 8 Short term goal 1: Patient to be independent with HEP-met Short term goal 2: Decrease radicular symptoms in R arm by 50%-Not Met Short term goal 3: Decrease pain R shld 2/10 at worse x 3 days-met Short term goal 4: Decrease pain R hip and leg 2/10 at worst x3 days-met [employer] Supervisor Goals - Time Frame for FDC goals : 10 FDC goal 1: Improve functional activities with UEFS score >60/80 middle or intermediate school principal goal 2: Improve functional mobility with Oswestry score < 18/50 Post Treatment Pain: 3/10 Time In: 9:45 Time Out : 10;30 Timed Code Treatment Minutes: 45 Minutes Total Treatment Time: 45 Minutes Rebecca Bhatt, PT Date: 10/03/2020 documented [facility] this [facility] Work Phone: [phone] History of Present illness Narrative* BeulahTara bray Jen - 09/26/2020 8:15 AM EDT Images from the original note were not included. [facility] Daily Note Date: 09/26/2020 Patient Name: Brayan Clay : 1945 (75 y.o.) Referring Practitioner: Dr. Kwong Referral Date : 08/28/20 Diagnosis: R shoulder IS, AC, OA; R hip OA, lumbar DDD Treatment Diagnosis: R shld pain, cervical radiculopathy, low back pain, R hip pain Onset Date: 08/28/20 (Referral) PT Insurance Information: Medicare Total # of Visits Approved: 10 Per Physician Order Total # of Visits to Date: 8 No Show: 0 Canceled Appointment: 0 Plan of Care/Certification Expiration Date: 10/10/20 Pre-Treatment Pain: 3/10 Assessment Assessment: Pt 10 min late for appt. Limited ex today d/t time constraints. Manual therapy with focus on cervical tightness. Full PROM . Long leg distraction. Will cont. Chart Reviewed: Yes Plan Plan: Continue with current plan Exercises/Modalities/Manual: See DocFlow Sheet Goals (Total # of Visits to Date: 8) Short Term Goals - Time Frame for Short term goals: 8 Short term goal 1: Patient to be independent with HEP-met Short term goal 2: Decrease radicular symptoms in R arm by 50%-Not Met Short term goal 3: Decrease pain R shld 2/10 at worse x 3 days-met Short term goal 4: Decrease pain R hip and leg 2/10 at worst x3 days-met Group Home Goals - Time Frame for middle or intermediate school principal goals : 10 FDC goal 1: Improve functional activities with UEFS score >60/80 middle or intermediate school principal goal 2: Improve functional mobility with Oswestry score < 18/50 Post Treatment Pain: 2/10 Time In: 0825 Time Out : 0900 Timed and total 35 min Tara Mahoney [employer] SKIVING MACHINE OPERATOR Date: 09/26/[address] [facility] Work Phone: [phone] History of Present illness Narrative* Rebecca Bhatt, PT - 09/24/2020 8:15 AM EDT Images from the original note were not included. [facility] Daily Note Date: 09/24/2020 Patient Name: Brayan Clay : 1945 (75 y.o.) Referring Practitioner: Dr. Kwong Referral Date : 08/28/20 Diagnosis: R shoulder IS, AC, OA; R hip OA, lumbar DDD Treatment Diagnosis: R shld pain, cervical radiculopathy, low back pain, R hip pain Onset Date: 08/28/20 (Referral) PT Insurance Information: Medicare Total # of Visits Approved: 10 Per Physician Order Total # of Visits to Date: 7 Plan of Care/Certification Expiration Date: 10/10/20 Pre-Treatment Pain: 3/10 Assessment Assessment: Patient reports symptoms down right arm are intermittent, a little less but not 50% better per patient. Pain 3/10 in neck and riight arm today. Completed therex and manual therapy per DocFlow. Full cervical PROM after manual therapy. Main c/o pain down right arm when he rotates/ turns head when driving. Continue per plan. Chart Reviewed: Yes Plan Plan: Continue with current plan Exercises/Modalities/Manual: See DocFlow Sheet Education: Goals (Total # of Visits to Date: 7) Short Term Goals - Time Frame for Short term goals: 8 Short term goal 1: Patient to be independent with HEP-met Short term goal 2: Decrease radicular symptoms in R arm by 50%-Not Met Short term goal 3: Decrease pain R shld 2/10 at worse x 3 days-met Short term goal 4: Decrease pain R hip and leg 2/10 at worst x3 days-met [employer] Super[employer] Goals - Time Frame for FDC goals : 10 FDC goal 1: Improve functional activities with UEFS score >60/80 FDC goal 2: Improve functional mobility with Oswestry score < 18/50 Post Treatment Pain: 2/10 Time In: 8:15 Time Out : 9:01 Timed Code Treatment Minutes: 46 Minutes Total Treatment Time: 46 Minutes Rebecca Bhatt, PT Date: 09/24/2020 [facility] this [facility] Phone: [phone] History of Present illness Narrative* Tara Mahoney - 09/19/2020 9:45 AM EDT Images from the original note were not included. [facility] Daily Note Date: 09/19/2020 Patient Name: Brayan Clay : 1945 (75 y.o.) Referring Practitioner: Dr. Kwong Referral Date : 08/28/20 Diagnosis: R shoulder IS, AC, OA; R hip OA, lumbar DDD Treatment Diagnosis: R shld pain, cervical radiculopathy, low back pain, R hip pain Onset Date: 08/28/20 (Referral) PT Insurance Information: Medicare Total # of Visits Approved: 10 Per Physician Order Total # of Visits to Date: 6 No Show: 0 Canceled Appointment: 0 Plan of Care/Certification Expiration Date: 10/10/20 Pre-Treatment Pain: 2/10 Assessment Assessment: Pt rates pain 2/10. He c/o sig left cervical tightnes. Initiated cupping to bilateral upper trap areas. Performed ex as outlined for strengthening and ROM . Manual for hip joint mobility . Pt notes generally temporary relief after session. Chart Reviewed: Yes Plan Plan: Continue with current plan Exercises/Modalities/Manual: See DocFlow Sheet Goals (Total # of Visits to Date: 6) Short Term Goals - Time Frame for Short term goals: 8 Short term goal 1: Patient to be independent with HEP-met Short term goal 2: Decrease radicular symptoms in R arm by 50% Short term goal 3: Decrease pain R shld 2/10 at worse x 3 days-met Short term goal 4: Decrease pain R hip and leg 2/10 at worst x3 days-met [employer] Supervisor Goals - Time Frame for middle or intermediate school principal goals : 10 FDC goal 1: Improve functional activities with UEFS score >60/80 FDC goal 2: Improve functional mobility with Oswestry score < 18/50 Post Treatment Pain: 2/10 Time In: 0945 Time Out : 1028 Timed Code Treatment Minutes: 43 Minutes Total Treatment Time: 43 Minutes Tara Mahoney [employer] SKIVING MACHINE OPERATOR Date: 09/19/[address] [facility] [facility] Work Phone: [phone] History of Present illness Narrative* Tara Mahoney - 09/17/2020 9:45 AM EDT Images from the original note were not included. [facility] Daily Note Date: 09/17/2020 Patient Name: Brayan Clay : 1945 (75 y.o.) Referring Practitioner: Dr. Kwong Referral Date : 08/28/20 Diagnosis: R shoulder IS, AC, OA; R hip OA, lumbar DDD Treatment Diagnosis: R shld pain, cervical radiculopathy, low back pain, R hip pain Onset Date: 08/28/20 (Referral) PT Insurance Information: Medicare Total # of Visits Approved: 10 Per Physician Order Total # of Visits to Date: 5 No Show: 0 Canceled Appointment: 0 Plan of Care/Certification Expiration Date: 10/10/20 Pre-Treatment Pain: 2/10 Assessment Assessment: Pt rates pain 2/10. He feels we are making progress. He notemost improvement with his hip. Primary c/o stifness in the neck. Ran rototiller yesterday with no increased achiness. Pt thinksright arm radicular pain may be from his wrist issues. Performed ex as outlined for strength and flexibility followed by manual therapy for cervical distraction, shoulder joint mobility and hip distraction.Good jacqueline to session. Chart Reviewed: Yes Plan Plan: Continue with current plan Exercises/Modalities/Manual: See DocFlow Sheet Goals (Total # of Visits to Date: 5) Short Term Goals - Time Frame for Short term goals: 8 Short term goal 1: Patient to be independent with HEP-met Short term goal 2: Decrease radicular symptoms in R arm by 50% Short term goal 3: Decrease pain R shld 2/10 at worse x 3 days-met Short term goal 4: Decrease pain R hip and leg 2/10 at worst x3 days-met [employer] Super[employer] Goals - Time Frame for FDC goals : 10 FDC goal 1: Improve functional activities with UEFS score >60/80 FDC goal 2: Improve functional mobility with Oswestry score < 18/50 Post Treatment Pain: 2/10 Time In: 0945 Time Out : 1025 Timed and total 40 min Tara Mahoney [employer] SKIVING MACHINE OPERATOR Date: 09/17/[address] [facility] [facility] Work Phone: [phone] History of Present illness Narrative* Rebecca Bhatt, PT - 09/09/2020 9:00 AM EDT Images from the original note were not included. [facility] Daily Note Date: 09/09/2020 Patient Name: Brayan Clay : 1945 (75 y.o.) Referring Practitioner: Dr. Kwong Referral Date : 08/28/20 Diagnosis: R shoulder IS, AC, OA; R hip OA, lumbar DDD Treatment Diagnosis: R shld pain, cervical radiculopathy, low back pain, R hip pain Onset Date: 08/28/20 (Referral) PT Insurance Information: Medicare Total # of Visits Approved: 10 Per Physician Order Total # of Visits to Date: 3 Plan of Care/Certification Expiration Date: 10/10/20 Pre-Treatment Pain: 2/10 Assessment Assessment: Pain 2/10 curently in R arm, neck, low back and R hip. Completed therex and manual therapy per Doc Flow. Added mobs for R hip pain. Post session less pain, 1/10. Chart Reviewed: Yes Plan Plan: Continue with current plan Exercises/Modalities/Manual: See DocFlow Sheet Education: Goals (Total # of Visits to Date: 3) Short Term Goals - Time Frame for Short term goals: 8 Short term goal 1: Patient to be independent with HEP Short term goal 2: Decrease radicular symptoms in R arm by 50% Short term goal 3: Decrease pain R shld 2/10 at worse x 3 days Short term goal 4: Decrease pain R hip and leg 2/10 at worst x3 days Pattern Shop Supervisor Goals - Time Frame for middle or intermediate school principal goals : 10 FDC goal 1: Improve functional activities with UEFS score >60/80 middle or intermediate school principal goal 2: Improve functional mobility with Oswestry score < 18/50 Post Treatment Pain: 1/10 Time In: 9;00 Time Out : 9:45 Timed Code Treatment Minutes: 45 Minutes Total Treatment Time: 45 Minutes Rebecca Bhatt, PT Date: 09/09/2020 documented in this [facility] [place] Work Phone: [phone]) 478-358005-05-2009 History general Narrative - Reported* Type Description Date Medical History cardiolite stress test negative [facility] 07-16-08 Medical History Colonoscopy 2006needs repeat i n 5 years Medical History 06-22-08 PSA 0.181 Medical History 12-07-09 Flu shot [facility] 10-11-08; [facility] Medical History 05-20-10 Tdap; [facility] Dept[facility] Medical History 05-20-10 Zostavax; [facility] Dept. Medical History Flu Vaccine 2011 Medical History Pneumonnia Vaccine 2010; [facility] Medical History MRI of the Left Knee without Con trast 08-09-12; [facility] [place] Stress Test 08-11-12; [facility] (aicha l stress test) Medical History 03-10-2012 Colonosco py, Dr. Ladd, needs repeat in 2016 Medical History Reclast Infusion 04-12-14 Medical History Reclast Infusion 04-13-16 Medical History Reclast Infusion 02-28-13 Medical History Reclast infusion 04-06-2019 Medical History DEXA 04/2019 needs repeat in 2021 Surgical History tonsils Surgical History hernia Surgical History back fusion Surgical History right retina detachment repair; [facility] Surgical History Bilatateral Cataract Repair Surgical History Colonoscopy, Dr. Zayra gracia, diverticulosis / rectal hemorrhoid- repeat in 201603-10-12 Surgical History shoulder surgery Dr Sheridan 02/13 Surgical History fluzone RA -[place] 11/14/14 Surgical History prevnar RA - [place] 11/13/14 Surgical History Right eyelid repair Vikki TRINIDAD MD 06/[address] Palmer Hospitalization History see above surgical histo ry [email or web address] Other 05-05-2009 History general Narrative - Reported* Type Description Date Medical History cardiolite stress test negative [facility] 07-16-08 Medical History Colonoscopy 2006needs repeat i n 5 years Medical History 06-22-08 PSA 0.181 Medical History 12-07-09 Flu shot Medical History 01-07-11 [facility] [place] [facility] Medical History DTAP 10-11-08; [facility] Medical History 05-20-10 Tdap; [facility] Dept[facility] Medical History 05-20-10 Zostavax; [facility] Dept. Medical History Flu Vaccine 2011 Medical History Pneumonnia Vaccine 2010; [facility] Medical History MRI of the Left Knee without Con trast 08-09-12; [facility] Medical History Stress Test 08-11-12; [facility] (aicha [facility] stress test) Medical History 03-10-2012 Colonos[place] py, Dr. aLdd, needs repeat in 2016 Medical History Reclast Infusion 04-12-14 Medical History Reclast Infusion 04-13-16 Medical History Reclast Infusion 02-28-13 Medical History Reclast infusion 04-06-2019 Medical History DEXA 04/2019 needs repeat in 2021 Surgical History tonsils Surgical History hernia Surgical History back fusion Surgical History right retina detachment repair; [facility] Surgical History Bilatateral Cataract Repair Surgical History Colonoscopy, Dr. Zayra gracia, diverticulosis / rectal hemorrhoid- repeat in 201603-10-12 Surgical History shoulder surgery Dr Sheridan 02/13 Surgical History fluzone RA -[place] 11/14/14 Surgical History prevnar RA - [place] 11/13/14 Surgical History Right eyelid repair Vikki TRINIDAD MD 06/[address] Palmer / rep eat in 5 years 03/2017 Hospitalization History see above surgical histo ry [facility] Other 05-05-2009 History general Narrative - Reported* Type Description Date Medical History cardiolite stress test negative [facility] 07-16-08 Medical History Colonoscopy 2006needs repeat i n 5 years Medical History 06-22-08 PSA 0.181 Medical History 12-07-09 Flu shot Medical History 01-07-11 [facility] Medical History DTAP 10-11-08; [facility] Medical History 05-20-10 Tdap; [facility] Medical History 05-20-10 Zostavax; [facility] Dept[facility] Medical History Flu Vaccine 2011 Medical History Pneumonnia Vaccine 2010; [facility] Medical History MRI of the Left Knee without Con trast 08-09-12; [facility] Medical History Stress Test 08-11-12; [facility] (a[facility]a [facility] stress test) Medical History 03-10-2012 Colon[place] py, Dr. Ladd, needs repeat in 2016 Medical History Reclast Infusion 04-12-14 Medical History Reclast Infusion 04-13-16 Medical History Reclast Infusion 02-28-13 Medical History Reclast infusion 04-06-2019 Medical History DEXA 04/2019 needs repeat in 2021 Surgical History tonsils Surgical History hernia Surgical History back fusion Surgical History right retina detachment repair; [facility] Surgical History Bilatateral Cataract Repair Surgical History Colonoscopy, Dr. Zayra gracia, diverticulosis / rectal hemorrhoid- repeat in 201603-10-[address] History shoulder surgery Dr Sheridan 02/13 Surgical History fluzone RA -[place] 11/14/14 Surgical History prevnar RA - [place] 11/13/14 Surgical History Right eyelid repair Vikki TRINIDAD MD 06/[address] Palmer / eat in 5 years 03/22/2017 Hospitalization History see above surgical histo ry [email or web address] Other 05-05-2009 History general Narrative - Reported* Type Description Date Medical History cardiolite stress test negative [facility] 07-16-08 Medical History Colonoscopy 2006needs repeat i n 5 years Medical History 06-22-08 PSA 0.181 Medical History 12-07-09 Flu shot Medical History 01-07-11 [facility] Medical History DTAP 10-11-08; [facility] Medical History 05-20-10 Tdap; [facility] Medical History 05-20-10 Zostavax; [facility] Medical History Flu Vaccine 2011 Medical History Pneumonnia Vaccine 2010; [facility] Medical History MRI of the Left Knee without Con trast 08-09-12; [facility] Medical History Stress Test 08-11-12; [facility] (a[facility]a [facility] stress test) Medical History 03-10-2012 [place] py, Dr. Ladd, needs repeat in 2016 Medical History Reclast Infusion 04-12-14 Medical History Reclast Infusion 04-13-16 Medical History Reclast Infusion 02-28-13 Medical History Reclast infusion 04-06-2019 Medical History DEXA 04/2019 needs repeat in 2021 Surgical History tonsils Surgical History hernia Surgical History back fusion Surgical History right retina detachment repair; [facility] Surgical History Bilatateral Cataract Repair Surgical History Colonoscopy, Dr. Zayra gracia, diverticulosis / rectal hemorrhoid- repeat in 201603-10-[address] Surgical History shoulder surgery Dr Sheridan 02/13 Surgical History fluzone RA -[place] 11/14/14 Surgical History prevnar RA - [place] 11/13/14 Surgical History Right eyelid repair Vikki TRINIDAD MD 06/[address] Palmer / rep eat in 5 years 03/22/2017 Surgical History Colonoscopy, Dr. Zayra gracia / no further colonoscopy needed 05-27-22 Hospitalization History see above surgical histo ry [facility] [employer] Other evaluation note* Diagnosis Right shoulder pain, unspecified chronicity documented in this encounter [id number] Phone: evaluation note* Diagnosis Hip pain Pain in joint, pelvic region and thigh documented in this encounter [employer] Work Phone: evalglpfat noteNo InformationNortNorristown State Hospital [employer] Other Evaluation note* Diagnosis Onset Date Resolution Status History of colon polyps acut e [facility] Work Phone: evaluation note* Diagnosis Osteoporosis, unspecified osteoporosis type, unspecified pathological fracture presence- Primary [facility] Work Phone: evaluation note* Diagnosis Osteoporosis, unspecified osteoporosis type, unspecified pathological fracture presence- Primary [facility] Diagnosis Osteoporosis, unspecified osteoporosis type, unspecified pathological fracture presence Osteoporosis, unspecified osteoporosis type, unspecified pathological fracture presence [facility]* Author Lula Rowell [facility] Authored April 26, 2023 11:17am Note scribed by Lula mendoza CMA, reviewed and amended by myself Nidia Ledesma M.D. [facility] Work Phone: evaluation note* Diagnosis Osteoporosis, unspecified osteoporosis type, unspecified pathological fracture presence- Primary [facility] Diagnosis Osteoporosis, unspecified osteoporosis type, unspecified pathological fracture presence- Primary [facility]* Diagnosis Onset Date Resolution Status Arthritis of carpometacarpal (CMC) joint of left thumb acute Arthritis of carpometacarpal (CMC) joint of right thum b acute Arthritis of uviqjk-fnfehdzoz-sttyurajr joint acute Bilateral hand pain acute 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 Diagnosis Osteoporosis, unspecified osteoporosis type, unspecified pathological fracture presence- Primary [facility] Diagnosis Pain in both feet- Primary Plantar fasciitis Plantar fascial fibromatosis documented in this encounter [facility] Healthcare[facility]* Diagnosis Common wart- Primary Other specified viral warts Other specified erythematous conditions documented in this encounter [facility] HealthcareEvaluation note* Diagnosis Osteoporosis, unspecified osteoporosis type, unspecified pathological fracture presence- Primary [facility] Diagnosis Osteoporosis, unspecified osteoporosis type, unspecified pathological fracture presence- Primary [facility] Diagnosis Seborrheic keratosis- Primary Melanocytic nevus of trunk Benign neoplasm of skin of trunk, except scrotum Dermatofibroma of right lower extremity Actinic keratosis Inflamed seborrheic keratosis documented in this encounter [facility] HealthcareEvaluation note* Diagnosis Onset Date Resolution Status Admit Date Arthritis of carpometacarpal (CMC) joint of left thumb acute September 11 8:41am Arthritis of carpometacarpal (CMC) joint of right thumb acute September 11 8:41am Arthritis of tridtv-swycwzhwe-lpaxbkkiw joint acute September 11, 2024 8:41am Bilateral carpal tunnel syndrome acu te September 11, 2024 8:41am Bilateral hand pain acute September 11, 2024 8:41am Degenerative arthritis of ri ng finger of left hand acute September 11 8:41am [facility] Work Phone: Evaluation note* Diagnosis Elevated PSA- Primary Elevated prostate specific antigen (PSA) Urinary tract infection with hematuria, site unspecified [facility]* Diagnosis 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 Diagnosis Onset Date Resolution Status Admit Date Arthritis of carpometacarpal (CMC) joint of left thumb acute Octobe r 2024 1:39pm Arthritis of carpometacarpal (CMC) joint of right thumb acute Octob er 2024 1:39pm Arthritis of mdkkve-wyidmwamz-btjsocdcu joint acute December 13, 2024 1:39pm Bilateral carpal tunnel syndrome acu te December 13, 2024 1:39pm Bilateral hand pain acute Octob er 2024 1:39pm Degenerative arthritis of ri ng finger of left hand acute December 13, 2024 1:39pm [facility] Work Phone: Hospital Discharge instructions Additional Instructions DISCHARGE INSTRUCTIONS FOR ENDOSCOPY FOR COLONOSCOPY: -Expect a gassy or full feeling after a colonoscopy. Report any NEW abdominal pain or vomiting. -Watch for rectal bleeding, You may have oozing, but notify the doctor if you pass clots. -It is important to keep your appointments for follow up examinations. FOR SEDATION FOR 24 HOURS: -NO driving -Do NOT operate machinery such as power tools, lawn mowers, snow blowers, sewing machines, etc. -Avoid alcoholic beverages and drugs for allergies, nerves, or sleep. -Do NOT stay alone. Do NOT leave your child unattended. -Do NOT make important personal or business decisions or sign any legal documents. -Eat solid foods and drink liquids in smaller amounts than usual until normal appetite returns. If you should experience an upset stomach, liquids high in sugar content (soda, Alexys-aid, non-acid juices) are recommended. -You can resume normal activities tomorrow. FOLLOW UP Please call the office and make a follow up appointment to see me as needed. No need for further screening colonoscopies -Notify the doctor if you have any problems. -Office number [phone] Work Phone: InstructionsNot on filedocumented in this encounter [facility] SystemInstructionsNot on filedocumented in this encounter [facility] SystemInstructionsNot on filedocumented in this encounter [facility] SystemInstructionsNot on filedocumented in this encounter [facility] SystemReason for referral (narrative)No reason for referral information availableUc Health Work Phone: Reason for visit Narrativereview labs, discuss multiple issues, see treatment plan for further informationDavis [facility] Other Advance Directives No Advanced Directives Records FoundDocuments on File Type Date Recorded Patient Launch Check Out Expl anation Advance Directives and Living Will Power of Front Desk Coordinator Documents on File Type Date Recorded Patient Launch Check Out Expl anation ACP-Advance Directive ACP-Power of Front Desk Coordinator Documents on File Type Date Recorded Patient Launch Check Out Expl anation ACP-Advance Directive ACP-Power of Front Desk Coordinator Advance Directive Response Recorded Date/ Time Advance Directives No February 2:18pm Advance Directive Response Recorded Date/ Time Advance Directives No February 1:18pm Summary Purpose Family History No Family History Records Found Relationship Condition Age at Onset Recorded Date/T saray Not Specified Malignant neoplasm of urinary bladder Un known father Hypertension Unknown Relationship Condition Age at Onset Recorded Date/T saray Not Specified Malignant neoplasm of urinary bladder Un known father Hypertension Unknown daughter Family history of thyroid disease Unknown father Unknown grandparent Unknown History of stroke Unknown Acute cerebrovascular accident (CVA) Unkn own grandparent Congestive heart failure Unknown Heart disease Unknown grandparent Acute cerebrovascular accident (CVA) Unkn own Not Specified Malignant neoplasm Unknown Unknown sister Hypertension Unknown Osteopenia Unknown Relationship Condition Age at Onset Recorded Date/T saray mother Malignant neoplasm of urinary bladder Unk nown father Hypertension Unknown daughter Family history of thyroid disease Unknown father Unknown grandparent Unknown History of stroke Unknown Acute cerebrovascular accident (CVA) Unkn own grandparent Congestive heart failure Unknown Heart disease Unknown grandparent Acute cerebrovascular accident (CVA) Unkn own mother Malignant neoplasm Unknown Unknown sister Hypertension Unknown Osteopenia Unknown Reason for Referral Specialty Diagnoses / Procedures Referred By Yadira willard Referred To Contact Radiology Diagnoses Osteoporosis, unspecified osteoporosis type, unspecified pathological fracture presence Procedures XR Bone Density DEXA Axial and Appendicular Mohan Carlson MD [address] [place] [id number] Referral ID Status Reason Start Date Expiration Date V isits Requested Visits Authorized [id number] Authorized 05/02/2023 2024 1 1 Specialty Diagnoses / Procedures Referred By Contac t Referred To Contact Endocrinology Diagnoses Osteoporosis, unspecified osteoporosis type, unspecified pathological fracture presence Marcelina White, DO [address] [place] [address] Mohan Carlson MD [address] [place] [address] Referral ID Status Reason Start Date Expiration Date Visits Requested Visits Authorized [id number] Authorized Specialty Services Required/Pat ient's Best Interest 12/06/2022 12/06/2023 1 1 Reason appt 07/20/22 at 2:15p m pt needs consult to discuss elevated PSA Diagnosis 1 Elevated PSA (R97.20 ) Referral Organization [facility] Family Isidra Rizvi Referring Provider First Name Marcelina Referring Provider Last Name Cindy Referring Provider Specialty Family Prac ludy Referred Organization [facility] Referred Provider MAMIE PINZON Referred Address [address],[place], [place],[address] Referred Provider Specialty Urology Referral Priority Routine Referral Appointment Date 2022-07-20 General Notes Alize Abdalla 05/04/2022 10:29:17 AM > referral faxed with visit note and last several PSA results along with insurance cards. pt understands that he will be contacted to schedule this appt. Alize Abdalla 05/19/2022 09:27:57 AM > appt scheduled in the [place] office on 07/20/22 at 2:15pm Chief Complaint and Reason for Visit Chief Complaint Screening Reason for Visit History of colon nacho yps Chief Complaint Screening Z79.899 E03.9 Reason for Visit History of colon nacho yps Chief Complaint 4 MONTH FU Reason for Visit Arthritis of carpome tacarpal (CMC) joint of left thumb Arthritis of carpometacarpal (CMC) joint of right thumb Bilateral hand pain Chief Complaint 4 MONTH FU osteoporosis Reason for Visit Arthritis of carpome tacarpal (CMC) joint of left thumb Arthritis of carpometacarpal (CMC) joint of right thumb Bilateral hand pain Chief Complaint 4 MONTH FU osteoporosis review labs Reason for Visit Arthritis of carpome tacarpal (CMC) joint of left thumb Arthritis of carpometacarpal (CMC) joint of right thumb Bilateral hand pain Allergic rhinitis Elevated PSA Hyperglycemia Hyperlipidemia, unspecified Hyponatremia Hypothyroidism Osteoporosis 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 Weight loss Chief Complaint 4 MONTHS Reason for Visit Arthritis of carpome tacarpal (CMC) joint of left thumb Arthritis of carpometacarpal (CMC) joint of right thumb Arthritis of woxfsy-pxdcntiea-inxgepwuz joint Bilateral hand pain 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 Chief Complaint e03.9 Chief Complaint e03.9 review labs Reason for Visit Allergic rhinitis Elevated PSA Flu vaccine need Hand pain Hyperglycemia Hyperlipidemia Hypothyroidism Sleeping difficulty Chief Complaint e03.9 review labs M79.643 Reason for Visit Allergic rhinitis Elevated PSA Flu vaccine need Hand pain Hyperglycemia Hyperlipidemia Hypothyroidism Sleeping difficulty Chief Complaint e03.9 review labs M79.643 3-4 MONTHS Reason for Visit Allergic rhinitis Elevated PSA Flu vaccine need Hand pain Hyperglycemia Hyperlipidemia Hypothyroidism Sleeping difficulty Arthritis of carpometacarpal (CMC) joint of left thumb Arthritis of carpometacarpal (CMC) joint of right thumb Arthritis of fpygnh-rctzfczzt-tzfmojszs joint Bilateral carpal tunnel syndrome Bilateral hand pain 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 Chief Complaint Admit Date e03.9 November 28, 2023 8:31am review labs December 01, 2023 8:58am M79.643 December 01, 2023 10:40am 3-4 MONTHS December 13, 2023 9: 49am 4-6 WEEKS January 24, 2024 9:34am Reason for Visit Admit Date Allergic rhinitis December 01, 2023 8:58am Elevated PSA December 01, 2023 8:58am Flu vaccine need December 01, 2023 8:58am Hand pain December 01, 2023 8:58am Hyperglycemia December 01, 2023 8:58am Hyperlipidemia December 01, 2023 8:58am Hypothyroidism December 01, 2023 8:58am Sleeping difficulty December 01, 2023 8:58am Arthritis of carpometacarpal (CMC) joint of left thumb December 13, 2023 9:49am Arthritis of carpometacarpal (CMC) joint of right thumb December 13, 2023 9:49am Arthritis of bxcqiv-trnehfeth-hptrbztmo joint December 13, 2023 9:49am Bilateral carpal tunnel syndrome December 13, 2023 9:49am Bilateral hand pain December 13, 2023 9: 49am 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 December 13, 2023 9:49am Arthritis of carpometacarpal (CMC) joint of left thumb January 24, 2024 9:34am Arthritis of carpometacarpal (CMC) joint of right thumb January 24, 2024 9:34am Arthritis of dpkwli-soylcrvxn-zdahyxzit joint January 24, 2024 9:34am Bilateral carpal tunnel syndrome Novembe r 2023 9:34am Bilateral hand pain January 24, 2024 9:34am 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 January 24, 2024 9:34am Chief Complaint Admit Date 6 WEEKS March 06, 2024 9:25am Unknown May 31, 2024 7:2 5am Reason for Visit Admit Date Arthritis of carpometacarpal (CMC) joint of left thumb March 06, 2024 9:25am Arthritis of carpometacarpal (CMC) joint of right thumb March 06, 2024 9:25am Arthritis of lyavsd-saawlejqz-vjieumqre joint March 06, 2024 9:25am Bilateral carpal tunnel syndrome Decembe r 2023 9:25am Bilateral hand pain March 06, 2024 9:25am 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 March 06, 2024 9:25am Chief Complaint Admit Date 6 WEEKS March 06, 2024 9:25am Unknown May 31, 2024 7:2 5am review labs June 04, 2024 10: 59am Reason for Visit Admit Date Arthritis of carpometacarpal (CMC) joint of left thumb March 06, 2024 9:25am Arthritis of carpometacarpal (CMC) joint of right thumb March 06, 2024 9:25am Arthritis of zjzxzh-ycqqqgjcf-flbwxsxgh joint March 06, 2024 9:25am Bilateral carpal tunnel syndrome Decembe r 2023 9:25am Bilateral hand pain March 06, 2024 9:25am 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 March 06, 2024 9:25am Allergic rhinitis June 04, 2024 10: 59am Anemia June 04, 2024 10: 59am Arthritis of carpometacarpal (CMC) joint of left thumb June 04, 2024 10:59am Arthritis of carpometacarpal (CMC) joint of right thumb June 04, 2024 10:59am Elevated PSA June 04, 2024 10: 59am Hyperglycemia June 04, 2024 10: 59am Hyperlipidemia June 04, 2024 10: 59am Hypothyroidism June 04, 2024 10: 59am Chief Complaint Admit Date Unknown May 31, 2024 7:2 5am review labs June 04, 2024 10: 59am 3 MONTHS June 05, 2024 9:4 8am Reason for Visit Admit Date Actinic keratosis June 04, 2024 10: 59am Allergic rhinitis June 04, 2024 10: 59am Anemia June 04, 2024 10: 59am Arthritis of carpometacarpal (CMC) joint of left thumb June 04, 2024 10:59am Arthritis of carpometacarpal (CMC) joint of right thumb June 04, 2024 10:59am Elevated PSA June 04, 2024 10: 59am Hyperglycemia June 04, 2024 10: 59am Hyperlipidemia June 04, 2024 10: 59am Hypothyroidism June 04, 2024 10: 59am Arthritis of carpometacarpal (CMC) joint of left thumb June 05, 2024 9:48am Arthritis of carpometacarpal (CMC) joint of right thumb June 05, 2024 9:48am Arthritis of lukfnv-aedxvpmmt-udttwzkpi joint June 05, 2024 9:48am Bilateral carpal tunnel syndrome May 132024 9:48am Bilateral hand pain June 05, 2024 9:4 8am 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 June 05, 2024 9:48am Chief Complaint Admit Date Unknown September 03, 2024 6:00 am 3 months September 11, 2024 8:41a m Reason for Visit Admit Date Arthritis of carpometacarpal (CMC) joint of left thumb September 11, 2024 8:41am Arthritis of carpometacarpal (CMC) joint of right thumb September 11, 2024 8:41am Arthritis of ykvffy-nqbspgdea-thuecmmlq joint September 11, 2024 8:41am Bilateral carpal tunnel syndrome September 8:41am Bilateral hand pain September 11, 2024 8:41a m 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 September 11, 2024 8:41am Chief Complaint Admit Date 3 MONTHS December 13, 2024 1: 39pm Reason for Visit Admit Date Arthritis of carpometacarpal (CMC) joint of left thumb December 13, 2024 1:39pm Arthritis of carpometacarpal (CMC) joint of right thumb December 13, 2024 1:39pm Arthritis of vzcins-ruhvhvazx-flaykhzlw joint December 13, 2024 1:39pm Bilateral carpal tunnel syndrome December 13, 2024 1:39pm Bilateral hand pain December 13, 2024 1: 39pm 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 December 13, 2024 1:39pm Additional Source Comments (unrecognized sect ion and content) No Status Records FoundNo Status Records FoundNo Status Records FoundNo Status Records FoundNo Status Records FoundNo Status Records FoundNo Status Records FoundNo Status Records FoundNo Status Records FoundNo Status Records FoundNo Status Records Found INFORMATION SOURCE (unrecogn ized section and content) DATE CREATED AUTHOR 04/05/2020 [facility] DATE CREATED AUTHOR AUTHOR'S ORGANIZ ATION 10/21/2021 [facility] DATE CREATED AUTHOR AUTHOR'S ORGANIZ ATION 06/22/2022 [facility] DATE CREATED AUTHOR AUTHOR'S ORGANIZ ATION 07/07/2022 [facility] DATE CREATED AUTHOR AUTHOR'S ORGANIZ ATION 12/19/2023 [facility] DATE CREATED AUTHOR AUTHOR'S ORGANIZ ATION 07/04/2024 [facility] DATE CREATED AUTHOR AUTHOR'S ORGANIZ ATION 07/04/2024 [facility] DATE CREATED AUTHOR AUTHOR[facility]S [facility]IZ ATION [facility] DATE CREATED AUTHOR AUTHOR'S ORGANIZ ATION 07/21/2024 [facility] DATE CREATED AUTHOR AUTHOR'S ORGANIZ ATION 09/06/2024 [facility] DATE CREATED AUTHOR AUTHOR'S ORGANIZ ATION 12/15/2024 [facility] Reason for Visit (unrecogniz ed section and content) Reason Comments Prolia Specialty Diagnoses / Procedures Referred By Contac t Referred To Contact Infusion Therapy Diagnoses Osteoporosis, unspecified osteoporosis type, unspecified pathological fracture presence Procedures CO INJECTION, DENOSUMAB, 1 MG Mohan Carlson MD [address] [place] [address] Phone: tel: fax: [facility] [employer] Sales Representative [address] [place] [phone] Phone: tel: fax: Referral ID Status Reason Start Date Expiration Date V isits Requested Visits Authorized [id number] Authorized 01/09/2024 09/25/2024 4 4 Status Reason Specialty Diagnoses / Procedures Referred By Contact Referred To Contact Open Physical Therapy Diagnoses Right shoulder pain Unilateral primary osteoarthritis, right hip Procedures physical therapy Marcelina Kwong, DO [address] [place] [address] Rebecca Bhatt, PT Specialty Diagnoses / Procedures Referred By Contac t Referred To Contact Infusion Therapy Diagnoses Osteoporosis, unspecified osteoporosis type, unspecified pathological fracture presence Procedures CO INJECTION, DENOSUMAB, 1 MG Mohan Carlson MD [address] [place] [address] [facility] [address] [place] [phone] Referral ID Status Reason Start Date Expiration Date V isits Requested Visits Authorized [id number] Authorized 01/03/2023 04/05/2023 2 2 Reason Comments Osteoporosis New Patient Specialty Diagnoses / Procedures Referred By Contac t Referred To Contact Endocrinology Diagnoses Osteoporosis, unspecified osteoporosis type, unspecified pathological fracture presence Marcelina White, DO [address] [place] [address] Mohan Carlson MD [address] [place] [id number] Referral ID Status Reason Start Date Expiration Date V isits Requested Visits Authorized [id number] Closed Specialty Services Required/Giselle ent's Best Interest 12/06/2022 12/06/2023 1 1 Reason Comments Osteoporosis Referral ID Status Reason Start Date Expiration Date V isits Requested Visits Authorized [id number] Authorized 01/03/2023 08/30/2023 3 3 Reason Comments Injections Prolia Referral ID Status Reason Start Date Expiration Date Visits Re quested Visits Authorized [id number] Closed 01/03/2023 02/09/2024 4 4 Reason Comments Follow-up Orthotic follow up Reason Comments Follow-up Reason Comments Osteoporosis Reason Comments Skin Check Reason Comments Urinary Tract Infection Care Teams (unrecognized sec tion and content) Team Status: Active Member Role Status Dates Marcelina White DO Primary Care Provider Active Team Status: Active Member Role Status Dates Marcelina White DO Primary Care Provider Active S tart: August 21, 2024 Marcelina White DO Attending Provider Active Star t: August 21, 2024 Team Status: Inactive Member Role Status Dates Marcelina White DO Attending Provider Active Star t: September 03, 2024 End: September 03, 2024 Team Status: Inactive Member Role Status Dates Nidia Ledesma MD Attending Provider Active Start: September 11, 2024 End: September 11, 2024 Marcelina White DO Primary Care Provider Active S tart: September 11, 2024 End: September 11, 2024 Radiation Oncology Nurse Relationship Specialty Start Date End Date Marcelina White DO [address] [place] [address] PCP - General 01/25/12 Radiation Oncology Nurse Relationship Specialty Start Date End Date Marcelina White DO [address] [place] [address] PCP - General 01/25/12 Radiation Oncology Nurse Relationship Specialty Start Date End Date Marcelina White DO [address] [place] [address] PCP - General 01/25/12 Team Status: Inactive Member Role Status Dates Marcelina White DO Primary Care Provider Active Riky Ladd MD Attending Provider Active Team Status: Inactive Member Role Status Dates Marcelina White DO Primary Care Provider, Attending Pro vider Active Radiation Oncology Nurse Relationship Specialty Start Date End Date Marcelina White DO [address] [place] [address] PCP - General Family Medicine 12/06/22 Team Status: Inactive Member Role Status Dates Marcelina White DO Primary Care Provider Active Nidia Ledesma MD Attending Provider Active Radiation Oncology Nurse Relationship Specialty Start Date End Date Marcelina White DO [address] [place] [id number] PCP - General Family Medicine 12/06/22 Radiation Oncology Nurse Relationship Specialty Start Date End Date Mohan Carlson MD [address] [place] [address] PCP - General Endocrinology/Metabolism 01/10/23 Radiation Oncology Nurse Relationship Specialty Start Date End Date Marcelina White DO [address] [place] [id number] PCP - General Family Medicine 12/06/22 01/09/23 Team Status: Inactive Member Role Status Dates Marcelina White DO Primary Care Provider Active S tart: April 26, 2023 End: April 26, 2023 Nidia Ledesma MD Attending Provider Active Start: April 26, 2023 End: April 26, 2023 Team Status: Inactive Member Role Status Dates Marcelina White DO Primary Care Provider Active S tart: May 02, 2023 End: May 02, 2023 Mohan Carlson MD Attending Provider Active Star t: May 02, 2023 End: May 02, 2023 Radiation Oncology Nurse Relationship Specialty Start Date End Date Mohan Carlson MD [address] [facility] [place] [place] [address] PCP - General Endocrinology/Metabolism 01/10/23 Radiation Oncology Nurse Relationship Specialty Start Date End Date Mohan Carlson MD [address] [facility] [place] [place] [address] PCP - General Endocrinology/Metabolism 01/10/23 Radiation Oncology Nurse Relationship Specialty Start Date End Date Marcelina White DO [address] [place] [id number] PCP - General Family Medicine 06/30/23 Team Status: Active Member Role Status Tex White DO Primary Care Provide r, Attending Provider Active Start: May 09, 2023 Team Status: Inactive Member Role Status Dates Marcelina Whtie DO Primary Care Provide r, Attending Provider Active Start: May 16, 2023 End: May 16, 2023 Team Status: Inactive Member Role Status Tex White DO Primary Care Provider Active S tart: August 24, 2023 End: August 24, 2023 Nidia Ledesma MD Attending Provider Active Start: August 24, 2023 End: August 24, 2023 Team Status: Inactive Member Role Status Tex White DO Primary Care Provide r, Attending Provider Active Start: November 28, 2023 End: November 28, 2023 Team Status: Inactive Member Role Status Tex White DO Primary Care Provide r, Attending Provider Active Start: December 01, 2023 End: December 01, 2023 Team Status: Inactive Member Role Status Tex White DO Primary Care Provider Active S tart: December 13, 2023 End: December 13, 2023 Nidia Ledesma MD Attending Provider Active Start: December 13, 2023 End: December 13, 2023 Radiation Oncology Nurse Relationship Specialty Start Date End Date Marcelina White DO [address] [place] [id number] PCP - General Family Medicine 06/30/23 Radiation Oncology Nurse Relationship Specialty Start Date End Date Marcelina White DO [address] [place] [id number] PCP - General Family Medicine 06/30/23 Team Status: Inactive Member Role Status Tex White DO Primary Care Provider Active S tart: January 24, 2024 End: January 24, 2024 Nidia Ledesma MD Attending Provider Active Start: January 24, 2024 End: January 24, 2024 Radiation Oncology Nurse Relationship Specialty Start Date End Date Marcelina White MD [address] [place] [id number] PCP - General Family Medicine 09/21/23 Radiation Oncology Nurse Relationship Specialty Start Date End Date Marcelina White MD [address] [place] [address] PCP - General Family Medicine 09/21/23 Radiation Oncology Nurse Relationship Specialty Start Date End Date Marcelina White MD [address] [facility] [place] [address] PCP - General Family Medicine 09/21/23 Team Status: Inactive Member Role Status Tex White DO Primary Care Provider Active S tart: March 06, 2024 End: March 06, 2024 Nidia Ledesma MD Attending Provider Active Start: March 06, 2024 End: March 06, 2024 Team Status: Inactive Member Role Status Tex White DO Attending Provider Active Star t: May 31, 2024 End: May 31, 2024 Team Status: Active Member Role Status Tex White DO Primary Care Provide r, Attending Provider Active Start: May 31, 2024 Team Status: Inactive Member Role Status Tex White DO Primary Care Provide r, Attending Provider Active Start: June 04, 2024 End: June 04, 2024 Team Status: Inactive Member Role Status Tex White DO Primary Care Provider Active S tart: June 05, 2024 End: June 05, 2024 Nidia Ledesma MD Attending Provider Active Start: June 05, 2024 End: June 05, 2024 Radiation Oncology Nurse Relationship Specialty Start Date End Date Marcelina White DO [address] [place] [address] PCP - General Family Medicine 06/30/23 Radiation Oncology Nurse Relationship Specialty Start Date End Date Marcelina White DO [address] [place] [address] PCP - General Family Medicine 06/30/23 Radiation Oncology Nurse Relationship Specialty Start Date End Date Marcelina White MD [address] [place] [address] PCP - General Family Medicine 09/21/23 Radiation Oncology Nurse Relationship Specialty Start Date End Date Marcelina White MD [address] [place] [address] PCP - General Family Medicine 09/21/23 Team Status: Active Member Role Status Dates Marcelina White DO Primary Care Provide r, Attending Provider Active Start: August 21, 2024 Radiation Oncology Nurse Relationship Specialty Start Date End Date Marcelina White DO [address] [place] [address] PCP - General Family Medicine 09/10/24 Radiation Oncology Nurse Relationship Specialty Start Date End Date Marcelina White DO [address] [place] [address] [place] [address] PCP - General Family Medicine 09/10/24 Radiation Oncology Nurse Relationship Specialty Start Date End Date Macrelina White DO [address] [place] [address] PCP - General Family Medicine 09/10/24 Radiation Oncology Nurse Relationship Specialty Start Date End Date Marcelina White DO [address] [place] [address] [place] [address] PCP - General Family Medicine 09/10/24 Radiation Oncology Nurse Relationship Specialty Start Date End Date Marcelina White DO [address] [place] [address] [place] [address] PCP - General Family Medicine 09/10/24 Radiation Oncology Nurse Relationship Specialty Start Date End Date Marcelina White DO [address] [place] [address] [place] [address] PCP - General 01/25/12 Team Status: Active Member Role Status Dates Marcelina White DO Primary Care Provider Active S tart: December 13, 2024 Marcelina White DO Attending Provider Active Star t: December 13, 2024 Team Status: Inactive Member Role Status Dates Marcelina White DO Primary Care Provider Active S tart: December 13, 2024 End: December 13, 2024 Nidia Ledesma MD Attending Provider Active Start: December 13, 2024 End: December 13, 2024 Goals (unrecognized section and content) Goals may be documented in a n alternate section FOR RECORDS PERTAINING TO PATIENTS WHO ARE OR HAVE BEEN ENROLLED IN A CHEMICAL DEPENDENCY/SUBSTANCEABUSE PROGRAM, SOME INFORMATION MAY BE OMITTED. This clinical summary was aggregated from multiple sources. Caution should be exercised in using it in the provision of clinical care. This summary normalizes information from multiple sources, and as a consequence, information in this document may materially change the coding, format and clinical context of patient data. In addition, data may be omitted in some cases. CLINICAL DECISIONS SHOULD BE BASED ON THE PRIMARY CLINICAL RECORDS. [facility] [employer] provides no warranty or guarantee of the accuracy or completeness of information in this document.
[2024-12-18 11:21] LABS: Albumin Level 4.1 g/dL (3.4-5.0); Calcium 8.8 mg/dL (8.5-10.1); Estimated GFR (African America >60 (>=60 mL/min/1.73m^2); Estimated GFR (Non-African Ame >60 (>=60 mL/min/1.73m^2)
== END 2024-12-18 09:37 | disposition home or self-care (01) ==
LOC: LAB 09:41
PROVIDERS: PCP Family Medicine
DX: M81.0 Age-related osteoporosis without current pathological fracture (principal)
CPT/HCPCS: 36415; 82042; 82306; 82310; 82565